=== PATIENT | female | born 1945 | race Caucasian/White ===

== ENCOUNTER 2016-07-17 15:50 | Inpatient (IN) ==
--- NOTE | 2016-07-17 16:22 | Emergency Department Note ---
Disposition Clinical Impression: Acute exacerbation of congestive heart failure Qualifiers: Congestive heart failure type: unspecified congestive heart failure type Qualified Code(s): I50.9 - Heart failure, unspecified Disposition: Admitted As Inpatient Condition: Good SOB HPI - General Chief Complaint: ED Shortness of Breath/Dyspnea Stated Complaint: chf Time Seen by Provider: 07/17/16 15:52 Source: patient, EMS Mode of arrival: EMS Limitations: physical limitation Nursing Notes Reviewed: Yes Vital Signs Reviewed: Yes - History of Present Illness 70-year-old female presents to the ER with a chief complaint of cough and shortness of breath since Saturday. Pt Subjective Complaint: shortness of breath Onset (ago): day(s) Context: recent illness, medication noncompliance Severity: severe Consistency/Duration: gradually worsening Improves with: rest Worsens with: lying flat, exertion Known history of: congestive heart failure, diabetes Associated symptoms: Reports: cough, sputum production, orthopnea. Denies: chest pain, fever, palpitations, diaphoresis, nausea/vomiting Treatment prior to arrival: oxygen Cough present: Yes Cough Description: Involuntary Cough Frequency: Intermittent Sputum production: No Sputum Amount: None - Related Data Home oxygen amount: none Home Medications Medication Instructions Recorded Confirmed Diclofenac Sodium [Voltaren] 75 mg PO BID 07/17/16 07/17/16 Furosemide [Lasix] 40 mg PO QAM 07/17/16 07/17/16 Insulin LISPRO [HumaLOG] 0 unit SQ ACHS PRN 07/17/16 07/17/16 Insulin Lispro Protamin/Lispro 40 unit SQ BID 07/17/16 07/17/16 [Humalog Mix 75-25 Vial] LORazepam [Ativan] 1 mg PO TID PRN 07/17/16 07/17/16 Ramipril [Ramipril] 10 mg PO BID 07/17/16 07/17/16 Allergies Allergy/AdvReac Type Severity Reaction Status Date / Time No Known Allergies Allergy Verified 07/17/16 14:49 All systems ED: reviewed and negative except as stated. Constitutional: Denies: fever Cardiovascular: Reports: dyspnea on exertion, orthopnea. Denies: chest pain Respiratory: Reports: cough, dyspnea Gastrointestinal: Denies: abdominal pain, nausea, vomiting Past Medical History - Past Medical History Attestation: Yes The following information was validated with the patient. 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 - Social History Smoking Status: Never smoker Smokeless Tobacco Status: No Alcohol use: Reports: none Drug use: Reports: none Physical Exam - General Limitations: no limitations General appearance: alert, anxious - Head Head exam: atraumatic, normocephalic, normal inspection - Eye Eye exam: Present: normal appearance - ENT ENT exam: normal exam - Neck Neck exam: Present: normal inspection - Chest Chest inspection: Present: normal inspection, symmetric chest wall rise - Respiratory Respiratory exam: Present: other (Diminished breath sounds bilaterally with bibasilar crackles.) - Cardiovascular Cardiovascular exam: Present: regular rate, normal rhythm, normal heart sounds - Abdominal Exam Abdominal exam: Present: soft, Non-Tender. Absent: rigidity - Extremities Exam Extremities exam: Present: normal inspection - Expanded Lower Extremity Exam Hip/Pelvis exam: Present: normal inspection Upper leg exam: Present: normal inspection Knee exam: Present: normal inspection Lower leg exam: Present: normal inspection, swelling (2+ pitting edema bilaterally in the lower extremities.) Ankle exam: Present: normal inspection, swelling (2+ pitting edema bilaterally in the lower extremities.) Foot/toe exam: Present: normal inspection, swelling (2+ pitting edema bilaterally in the lower extremities.) - Neurological Exam Neurological exam: Present: alert - Psychiatric Psychiatric exam: Present: normal affect, normal mood - Skin Skin exam: Present: warm, dry, intact Course Course Narrative: 70-year-old female history of CHF, diabetes, hypertension who presents to the ER via EMS with a chief complaint of shortness of breath. Patient reports that on Saturday she started developing a cough. Reports on Saturday she started getting short of breath. She reports she takes Lasix at home but does not know the dose. She has also missed the last 2 days of her Lasix because she states she was unable to walk across her house to retrieve the medication. She denies chest pain but does have shortness of breath worse with exertion or laying flat. She denies fevers, chills, nausea, vomiting, abdominal pain. Denies any other complaints. Plan for this patient is EKG, chest x-ray as well as basic labs including troponin and BNP. Likely congestive heart failure exacerbation. We will treat with Lasix 40 mg IV. Vital Signs Temperature 98.7 F 07/17/16 15:52 Pulse Rate 98 07/17/16 15:52 Respiratory Rate 20 07/17/16 15:52 Blood Pressure 141/94 07/17/16 15:52 O2 Sat by Pulse Oximetry 97 07/17/16 15:52 Temperature 98.7 F 07/17/16 15:52 Pulse Rate 93 07/17/16 17:20 Respiratory Rate 20 07/17/16 20:24 Blood Pressure 130/89 07/17/16 20:24 O2 Sat by Pulse Oximetry 98 07/17/16 17:20 Oxygen Delivery Oxygen Delivery Nasal Cannula Shortness of Breath/Dyspnea - MDM Narrative Medical decision making narrative: 70-year-old female with a history of CHF and presented to the hospital via EMS due to shortness of breath. Reports a roughly 15 pound weight gain in the last month. Also reports noncompliance with her Lasix at home for the last 2 days. She is currently on supplemental oxygen by nasal cannula satting well. BNP is slightly elevated however her chest x-ray shows cardiomegaly and pulmonary vascular congestion and she has crackles on exam. She was given 40 mg of Lasix in the emergency department and admitted to the hospital for acute exacerbation of CHF. - Lab Data Lab results reviewed: Yes I reviewed the patient's lab results. Result diagrams: 07/17/16 16:23 07/17/16 16:23 Lab Results 07/17/16 07/17/16 07/17/16 Range/Units 16:23 16:23 16:23 WBC 7.4 (4.3-11.1) K/mcL RBC 4.69 (3.82-4.97) M/mcL Hgb 12.6 (11.5-15.4) g/dL Hct 41.1 (35.3-44.9) % MCV 87.6 (83.0-100.0) fL MCH 26.9 L (28.0-33.3) pg MCHC 30.7 L (31.6-35.5) g/dL RDW 16.9 H (11.5-14.5) % Plt Count 247 (140-400) K/mcL MPV 9.6 (9.4-12.4) fL Immature Gran % 0.3 (0-4) % Seg Neutrophils % 33.6 % Lymphocytes % 51.6 % Monocytes % 11.4 % Eosinophils % 2.2 % Basophils % 0.9 % Neutrophils # 2.5 (1.6-8.9) K/mcL Lymphocytes # 3.8 (0.6-4.6) K/mcL Monocytes # 0.9 (0.0-1.3) K/mcL Eosinophils # 0.2 (0.0-0.6) K/mcL Basophils # 0.1 (0.0-0.2) K/mcL Sodium 142 (136-145) mEq/L Potassium 3.7 (3.5-4.5) mEq/L Chloride 108 (98-109) mEq/L Carbon Dioxide 25 (19-29) mEq/L BUN 24 H (7-20) mg/dL Creatinine 0.63 (0.57-1.11) mg/dL Est GFR ( Amer) > 60 (> 60) Est GFR (Non-Af Amer) > 60 (> 60) BUN/Creatinine Ratio 38 H (6-26) Glucose 84 (70-99) mg/dL Calculated Osmolality 297 (280-300) Calcium 8.9 (8.6-10.8) mg/dL Troponin I 0.01 (0-0.03) ng/mL B-Natriuretic Peptide (0-100) pg/mL 07/17/16 Range/Units 16:23 WBC (4.3-11.1) K/mcL RBC (3.82-4.97) M/mcL Hgb (11.5-15.4) g/dL Hct (35.3-44.9) % MCV (83.0-100.0) fL MCH (28.0-33.3) pg MCHC (31.6-35.5) g/dL RDW (11.5-14.5) % Plt Count (140-400) K/mcL MPV (9.4-12.4) fL Immature Gran % (0-4) % Seg Neutrophils % % Lymphocytes % % Monocytes % % Eosinophils % % Basophils % % Neutrophils # (1.6-8.9) K/mcL Lymphocytes # (0.6-4.6) K/mcL Monocytes # (0.0-1.3) K/mcL Eosinophils # (0.0-0.6) K/mcL Basophils # (0.0-0.2) K/mcL Sodium (136-145) mEq/L Potassium (3.5-4.5) mEq/L Chloride (98-109) mEq/L Carbon Dioxide (19-29) mEq/L BUN (7-20) mg/dL Creatinine (0.57-1.11) mg/dL Est GFR ( Amer) (> 60) Est GFR (Non-Af Amer) (> 60) BUN/Creatinine Ratio (6-26) Glucose (70-99) mg/dL Calculated Osmolality (280-300) Calcium (8.6-10.8) mg/dL Troponin I (0-0.03) ng/mL B-Natriuretic Peptide 115 H (0-100) pg/mL - Radiology Data Radiology results reviewed: Yes I reviewed the patient's radiology results. Chest X-Ray 07/17/16 16:00 IMPRESSION: 1. Cardiomegaly with vascular congestion. D/ / Bryce Reyna MD / Bryce Reyna MD Interpreting Provider: Bryce Reyna MD - EKG Data EKG attestation: Yes I reviewed and interpreted this EKG. EKG results narrative: EKG shows normal sinus rhythm with rate of 93 bpm. Normal axis. KS interval 192 QRS duration 94 QTc 431. There is T-wave flattening in leads V1 and V6. No ST elevations or depressions. No acute ischemic findings. EKG shows normal: Reports: sinus rhythm, axis, intervals, QRS complexes Rate: Reports: normal Rhythm: Reports: NSR Dwight/QRS: Reports: normal Interpretation: Reports: normal EKG, nonspecific ST-T wave changes S.B.A.R. - S.B.A.R. Situation: Demographics, MOA Background: Presenting Complaint, Relevant PMH, Meds, & Allergies Assessment: Vital Signs, Course and respsone to treatment, Exam Concerns, Patient/Family Expectation, Pertinant Lab Results, Outstanding Labs Recommendation: Barrier(s) to disposition, Recommendation based on pending studies, treatments, or consults S.B.A.R. Report Given to: Dr. Clayton
[2016-07-17] MEDS ORDERED: Furosemide 40 MG/4 ML VIAL IVP ONE (16:24)
[2016-07-17 16:34] LABS: Basophils # 0.1 K/mcL (0.0-0.2); Basophils % 0.9 %; Eosinophils # 0.2 K/mcL (0.0-0.6); Eosinophils % 2.2 %; Hematocrit 41.1 % (35.3-44.9); Hemoglobin 12.6 g/dL (11.5-15.4); Immature Granulocytes % 0.3 % (0-4); Lymphocytes # 3.8 K/mcL (0.6-4.6); Lymphocytes % 51.6 %; Mean Corpuscular HGB Conc 30.7 g/dL (31.6-35.5); Mean Corpuscular Hemoglobin 26.9 pg (28.0-33.3); Mean Corpuscular Volume 87.6 fL (83.0-100.0); Mean Platelet Volume 9.6 fL (9.4-12.4); Monocytes # 0.9 K/mcL (0.0-1.3); Monocytes % 11.4 %; Neutrophils # 2.5 K/mcL (1.6-8.9); Platelet Count 247 K/mcL (140-400); Red Blood Count 4.69 M/mcL (3.82-4.97); Red Cell Distribution Width 16.9 % (11.5-14.5); Segmented Neutrophils % 33.6 %
[2016-07-17 16:45] LABS: BUN/Creatinine Ratio 38 (6-26); Blood Urea Nitrogen 24 mg/dL (7-20); Calcium 8.9 mg/dL (8.6-10.8); Carbon Dioxide 25 mEq/L (19-29); Chloride 108 mEq/L (98-109); Glucose 84 mg/dL (70-99); Osmolality,Calculated 297 (280-300); Potassium 3.7 mEq/L (3.5-4.5); Sodium 142 mEq/L (136-145); eGFR For African Americans > 60 (> 60); eGFR For Non-African Americans > 60 (> 60)
--- NOTE | 2016-07-17 17:55 | Emergency Department Note ---
Disposition Clinical Impression: Acute exacerbation of congestive heart failure Qualifiers: Congestive heart failure type: unspecified congestive heart failure type Qualified Code(s): I50.9 - Heart failure, unspecified Disposition: Admitted As Inpatient Condition: Good Referrals: Will Reece MD [Primary Care Provider] - Forms: ED Satisfaction Letter General Adult HPI - General Chief complaint: ED Shortness of Breath/Dyspnea Stated complaint: chf Time Seen by Provider: 07/17/16 15:52 Source: patient, EMS Mode of arrival: EMS Limitations: no limitations - History of Present Illness Pain Scale: 2 - Related Data Home Medications Medication Instructions Recorded Confirmed Diclofenac Sodium [Voltaren] 75 mg PO BID 07/17/16 07/17/16 Furosemide [Lasix] 40 mg PO QAM 07/17/16 07/17/16 Insulin LISPRO [HumaLOG] 0 unit SQ ACHS PRN 07/17/16 07/17/16 Insulin Lispro Protamin/Lispro 40 unit SQ BID 07/17/16 07/17/16 [Humalog Mix 75-25 Vial] LORazepam [Ativan] 1 mg PO TID PRN 07/17/16 07/17/16 Ramipril [Ramipril] 10 mg PO BID 07/17/16 07/17/16 Allergies Allergy/AdvReac Type Severity Reaction Status Date / Time No Known Allergies Allergy Verified 07/17/16 14:49 Constitutional: Denies: fever Cardiovascular: Reports: dyspnea on exertion, orthopnea. 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 Mc. Patient presents with shortness of breath, orthopnea, weight gain, pedal edema. On physical exam she has rales in the lungs and definitely has the pedal edema. Chest x-ray shows pulmonary vascular congestion. I think this is all congestive heart failure. It is significant enough that is limiting her activities of daily living. She does not need to be admitted to the hospital. We gave her Lasix here she started to diurese very well. We will talk to hospice on getting her admitted to the hospital. Time: 17:55 Vital Signs Temperature 98.7 F 07/17/16 15:52 Pulse Rate 98 07/17/16 15:52 Respiratory Rate 20 07/17/16 15:52 Blood Pressure 141/94 07/17/16 15:52 O2 Sat by Pulse Oximetry 97 07/17/16 15:52 Temperature 98.7 F 07/17/16 15:52 Pulse Rate 93 07/17/16 17:20 Respiratory Rate 20 07/17/16 17:20 Blood Pressure 135/90 07/17/16 17:20 O2 Sat by Pulse Oximetry 98 07/17/16 17:20 Oxygen Delivery Oxygen Delivery Nasal Cannula Medical Decision Making - Lab Data Result diagrams: 07/17/16 16:23 07/17/16 16:23 Lab Results 07/17/16 07/17/16 07/17/16 Range/Units 16:23 16:23 16:23 WBC 7.4 (4.3-11.1) K/mcL RBC 4.69 (3.82-4.97) M/mcL Hgb 12.6 (11.5-15.4) g/dL Hct 41.1 (35.3-44.9) % MCV 87.6 (83.0-100.0) fL MCH 26.9 L (28.0-33.3) pg MCHC 30.7 L (31.6-35.5) g/dL RDW 16.9 H (11.5-14.5) % Plt Count 247 (140-400) K/mcL MPV 9.6 (9.4-12.4) fL Immature Gran % 0.3 (0-4) % Seg Neutrophils % 33.6 % Lymphocytes % 51.6 % Monocytes % 11.4 % Eosinophils % 2.2 % Basophils % 0.9 % Neutrophils # 2.5 (1.6-8.9) K/mcL Lymphocytes # 3.8 (0.6-4.6) K/mcL Monocytes # 0.9 (0.0-1.3) K/mcL Eosinophils # 0.2 (0.0-0.6) K/mcL Basophils # 0.1 (0.0-0.2) K/mcL Sodium 142 (136-145) mEq/L Potassium 3.7 (3.5-4.5) mEq/L Chloride 108 (98-109) mEq/L Carbon Dioxide 25 (19-29) mEq/L BUN 24 H (7-20) mg/dL Creatinine 0.63 (0.57-1.11) mg/dL Est GFR ( Amer) > 60 (> 60) Est GFR (Non-Af Amer) > 60 (> 60) BUN/Creatinine Ratio 38 H (6-26) Glucose 84 (70-99) mg/dL Calculated Osmolality 297 (280-300) Calcium 8.9 (8.6-10.8) mg/dL Troponin I 0.01 (0-0.03) ng/mL B-Natriuretic Peptide (0-100) pg/mL 07/17/16 Range/Units 16:23 WBC (4.3-11.1) K/mcL RBC (3.82-4.97) M/mcL Hgb (11.5-15.4) g/dL Hct (35.3-44.9) % MCV (83.0-100.0) fL MCH (28.0-33.3) pg MCHC (31.6-35.5) g/dL RDW (11.5-14.5) % Plt Count (140-400) K/mcL MPV (9.4-12.4) fL Immature Gran % (0-4) % Seg Neutrophils % % Lymphocytes % % Monocytes % % Eosinophils % % Basophils % % Neutrophils # (1.6-8.9) K/mcL Lymphocytes # (0.6-4.6) K/mcL Monocytes # (0.0-1.3) K/mcL Eosinophils # (0.0-0.6) K/mcL Basophils # (0.0-0.2) K/mcL Sodium (136-145) mEq/L Potassium (3.5-4.5) mEq/L Chloride (98-109) mEq/L Carbon Dioxide (19-29) mEq/L BUN (7-20) mg/dL Creatinine (0.57-1.11) mg/dL Est GFR ( Amer) (> 60) Est GFR (Non-Af Amer) (> 60) BUN/Creatinine Ratio (6-26) Glucose (70-99) mg/dL Calculated Osmolality (280-300) Calcium (8.6-10.8) mg/dL Troponin I (0-0.03) ng/mL B-Natriuretic Peptide 115 H (0-100) pg/mL Attestation Statement - Attestation Attestation: I , not Uli, examined this patient [id number] and my medical decision- making was reviewed with Dr. Mc, Resident Physician. I agree with the documented findings, disposition and treatment plan as described except to the extent set forth below. Please see my progress notes for details.
--- NOTE | 2016-07-17 20:26 | Internal Med History&Physical ---
<ShawnGunnar - Last Filed: 07/17/16 20:50> Date of Encounter: 07/17/16 Time of Encounter: 20:19 Assessment and Plan (1) Acute exacerbation of congestive heart failure Current visit: Yes Status: Acute Unknown if systolic or diastolic at this point, will confirm with echocardiogram She has missed 2 doses of her oral Lasix, will start on 40 mg IV daily Measure intake and output, daily weights, and fluid restrict with 1.5 L Will consult PT/OT/SS as she may benefit from home health/rehab upon discharge Qualifiers: Congestive heart failure type: unspecified congestive heart failure type Qualified Code(s): I50.9 - Heart failure, unspecified (2) Insulin dependent diabetes mellitus Current visit: Yes Status: Chronic Glucose 84 initially, will start on low dose SSI ACHS accuchecks Obtain A1c for AM (3) Hypertension Current visit: Yes Status: Chronic Blood pressures have been stable since admission Will continue home dose of Ramipril Qualifiers: Qualified Code(s): I10 - Essential (primary) hypertension (4) DVT prophylaxis Current visit: Yes Status: Acute Heparin 5000 units BID Internal Medicine - H&P: HPI Chief complaint: Shortness of breath Admitted From: Home Plans for Post Hospital Care: Home History of present illness: Ms. Smith is a 70 year old female who presents to the emergency department with progressive shortness of breath since Saturday. She states that she first noticed a cough on Saturday and experienced shortness of breath the following day. She states the cough is productive but unable to describe the sputum description or amount, and states that she gets pain with coughing. She has been so out of breath that she has been unable to walk from her bedroom to the bathroom to get her medications, and admits to missing her last 2 doses of Lasix. She also reports a 15 pound weight gain in roughly 2 weeks and measured her temperature which was 99 degrees Fahrenheit. Patient denies any lightheadedness, nausea, vomiting, problems urinating. She is unsure of her last echocardiogram, and is not on any home oxygen. She lives with her and has the assistance of an aid at home, but admits to having difficulty getting around at baseline. Past Med Surg Social Fam HX - Past Medical History Medical history: cancer, CHF, diabetes, hypertension, other - Past Surgical History Surgical History: non-contributory - Social History Smoking Status: Never smoker Smokeless Tobacco Status: No Alcohol use: none Drug use: none Internal Medicine - H&P: Meds Diclofenac Sodium [Voltaren] 75 mg PO BID 07/17/16 [History] Furosemide [Lasix] 40 mg PO QAM 07/17/16 [History] Insulin LISPRO [HumaLOG] 0 unit SQ ACHS PRN 07/17/16 [History] Insulin Lispro Protamin/Lispro [Humalog Mix 75-25 Vial] 40 unit SQ BID 07/17/16 [History] LORazepam [Ativan] 1 mg PO TID PRN 07/17/16 [History] Ramipril [Ramipril] 10 mg PO BID 07/17/16 [History] Allergies No Known Allergies Allergy (Verified 07/17/16 14:49) All Systems PM: A 10-system review of systems was performed and is negative for pertinent findings except as documented above in the HPI. - Constitutional Constitutional: fever(s) (low grade), weakness, weight gain, no chills, no night sweats - EENT Eyes: no change in vision, no discharge, no pain, no photophobia Ears: no ear discharge, no ear pain, no tinnitus Nose, mouth and throat: no dysphagia, no nasal discharge, no neck pain, no sore throat - Cardiovascular Cardiovascular ROS IM: no chest pain, no diaphoresis, no dyspnea, no lightheadedness, no palpitations, no syncope - Respiratory Respiratory: cough, dyspnea, dyspnea on exertion, excessive phlegm production, pain with cough, no wheezing - Gastrointestinal Gastrointestinal: constipation, no abdominal pain, no diarrhea, no hematemesis, no hematochezia, no melena, no nausea, no vomiting - Genitourinary Genitourinary: no change in urinary stream, no dysuria, no flank pain, no hematuria - Musculoskeletal Musculoskeletal ROS IM: no numbness, no tingling - Integumentary Integumentary IM: no rash, no unusual bruising - Neurological Neurological ROS: no confusion, no convulsions, no focal weakness, no numbness, no tingling, no tremor(s) - Hematologic/Lymphatic Hematologic/Lymphatic: no easy bruising - Constitutional Vitals: Temp Pulse Resp BP Pulse Ox 98.7 F 93 20 135/90 98 07/17/16 15:52 07/17/16 17:20 07/17/16 17:20 07/17/16 17:20 07/17/16 17:20 General appearance: Present: cooperative, pleasant, no acute distress, answers questions appropriately - Head Head exam: Present: atraumatic, normocephalic - Eye Eye exam: Present: PERRL, conjuntiva pink, sclera anicteric - Neck Neck exam general surgery: Present: supple, trachea midline. Absent: lymphadenopathy - Respiratory Respiratory exam: Present: rales. Absent: accessory muscle use, rhonchi, wheezes - Cardiovascular Cardiovascular exam: Present: RRR, +S1, +S2. Absent: diastolic murmur, gallop, rubs, systolic murmur - GI/Abdominal GI/Abdominal exam: Present: normal bowel sounds, soft, no peritoneal signs. Absent: distended, tenderness - Extremities Exam Extremities exam: Present: pedal edema (2+ pitting, legs and left arm have compression wraps), warm, radial pulses palpable and symetrical. Absent: calf tenderness, cyanotic - Neurological Exam Neurological exam: Present: alert, no focal deficits. Absent: facial droop, speech deficit - Skin Skin exam: Present: dry, intact Internal Med - H&P Results - Labs CBC & Chem 7: 07/17/16 16:23 07/17/16 16:23 <Jeramy Clayton - Last Filed: 07/18/16 04:01> Date of Encounter: 07/17/16 Assessment and Plan (1) COPD exacerbation Current visit: Yes Status: Acute Possible acute exhibition of COPD: Treat with Duonebs, Solu-Medrol, mucinex (2) Acute respiratory failure Current visit: Yes Status: Acute Likely secondary to COPD versus CHF exacerbation. Supplemental oxygen. Qualifiers: Respiratory failure complication: hypoxia Qualified Code(s): J96.01 - Acute respiratory failure with hypoxia Internal Medicine - H&P: HPI History of present illness: Ms. Smith is a 70 year old female All Systems PM: A 10-system review of systems was performed and is negative for pertinent findings except as documented above in the HPI. - Constitutional Vitals: Temp Pulse Resp BP Pulse Ox 99.6 F 115 24 195/100 96 07/17/16 23:00 07/17/16 23:00 07/17/16 23:00 07/17/16 23:00 07/17/16 23:00 Internal Med - H&P Results - Labs CBC & Chem 7: 07/17/16 16:23 07/17/16 16:23 - Attending Attestation I examined this patient and my medical decision-making was reviewed with the GROUP INSURANCE SPECIAL AGENT/PA/Advanced Practice Nurse/Resident Physician. I agree with the documented findings, disposition and treatment plan as described except to the extent set forth below. 70-year-old female, ex-smoker and also exposure to passive smoking, presents with progressively worsening shortness of breath. Long h/o sleeping in the couch. Cough +. O/E: Tachypneic. Bilateral extensive wheezing present. Chronic leg swelling with dressings in place. CXR: Reported cardiomegaly with vascular congestion. BNP is 115 A/P: - Possible acute exhibition of COPD: Treat with Duonebs, Solu-Medrol, mucinex. - Possible pulmonary edema / CHF exacerbation: Echocardiogram, IV Lasix, low sodium diet; intake / output; daily weights. - - Acute respiratory failure: Likely secondary to COPD versus CHF exacerbation. Supplemental oxygen.
[2016-07-17] MEDS ORDERED: Ondansetron ODT 4 MG TAB.RAPDIS SL PRN (20:43)
[2016-07-17] MEDS ORDERED: *HR* Dextrose 50 % in Water (Syg) 50 ML SYRINGE IVP PRN (20:43)
[2016-07-17] MEDS ORDERED: D5% in Water 1,000 ML IV PRN (20:43)
[2016-07-17] MEDS ORDERED: Naloxone 0.4 MG/ML INJ IVP PRN (20:43)
[2016-07-17] MEDS ORDERED: Acetaminophen 325 MG TABLET PO PRN (20:43)
[2016-07-17] MEDS ORDERED: Dextrose Gel 15 GM PO PRN ×2 (20:43)
[2016-07-17] MEDS ORDERED: *HR* LORazepam 1 MG TABLET PO PRN (20:49)
[2016-07-17] MEDS ORDERED: Ipratropium/Albuterol Neb 3 ML IH STA (22:05)
[2016-07-17] MEDS ORDERED: Ipratropium/Albuterol Neb 3 ML IH PRN (22:13)
[2016-07-17] MEDS: Nitroglycerin 25 MG/250 ML INFUS..BTL IVC SCH (23:02)
[2016-07-17] MEDS: Diclofenac Sodium 75 MG TABLET PO SCH (23:03)
[2016-07-17] MEDS: Insulin LISPRO 300 UNITS/3 ML VIAL SQ SCH (23:08)
[2016-07-18] MEDS ORDERED: methylPREDNISolone 125 MG/2 ML VIAL IVP ONE (03:49)
[2016-07-18] MEDS: *HR* Heparin 5,000 UNIT/ML VIAL SQ SCH ×2 (06:23→17:31)
[2016-07-18 06:26] LABS: Eosinophils # 0.1 K/mcL (0.0-0.6); Hematocrit 41.9 % (35.3-44.9); Hemoglobin 13.1 g/dL (11.5-15.4); Immature Platelets 3.4 % (1.1-6.1); Mean Corpuscular HGB Conc 31.3 g/dL (31.6-35.5); Mean Corpuscular Hemoglobin 27.2 pg (28.0-33.3); Mean Corpuscular Volume 86.9 fL (83.0-100.0); Mean Platelet Volume 10.6 fL (9.4-12.4); Monocytes # 0.7 K/mcL (0.0-1.3); Platelet Count 254 K/mcL (140-400); Red Blood Count 4.82 M/mcL (3.82-4.97); Red Cell Distribution Width 16.6 % (11.5-14.5)
[2016-07-18 06:38] LABS: Hemoglobin A1C 5.7 %
[2016-07-18 06:46] LABS: Alanine Aminotransferase 13 Units/L (0-55); Albumin/Globulin Ratio 0.7 (1.1-2.2); Alkaline Phosphatase 90 Units/L (38-126); Aspartate Amino Transferase 21 Units/L (5-34); BUN/Creatinine Ratio 34 (6-26); Bilirubin,Total 0.7 mg/dL (0.2-1.2); Blood Urea Nitrogen 21 mg/dL (7-20); Calcium 8.6 mg/dL (8.6-10.8); Carbon Dioxide 27 mEq/L (19-29); Chloride 104 mEq/L (98-109); Globulin 4.4 g/dL (2.4-3.5); Glucose 114 mg/dL (70-99); Osmolality,Calculated 294 (280-300); Potassium 3.7 mEq/L (3.5-4.5); Sodium 140 mEq/L (136-145); Total Protein 7.4 g/dL (6.0-8.3); eGFR For African Americans > 60 (> 60); eGFR For Non-African Americans > 60 (> 60)
[2016-07-18 07:26] LABS: Lymphocytes # 2.8 K/mcL (0.6-4.6)
[2016-07-18 07:28] LABS: Platelet Estimate Normal (Normal); Reactive Lymphocytes Present (Not Present); Smudge Cells Present (Not Present)
[2016-07-18] MEDS: Furosemide 40 MG/4 ML VIAL IVP SCH (09:53)
[2016-07-18] MEDS: Lisinopril 20 MG TABLET PO SCH (09:53)
[2016-07-18] MEDS: Diclofenac Sodium 75 MG TABLET PO SCH ×2 (09:53→20:55)
[2016-07-18] MEDS: MethylPREDNISolone 40 MG/ML VIAL IVP SCH ×2 (09:56→17:31)
[2016-07-18] MEDS: Insulin LISPRO 300 UNITS/3 ML VIAL SQ SCH ×4 (10:21→21:18)
--- NOTE | 2016-07-18 11:36 | Internal Med Progress Note ---
<Shaheed Gonzalez - Last Filed: 07/18/16 11:34> Date of Encounter: 07/18/16 Time of Encounter: 10:00 - Assessment and plan (1) Acute exacerbation of congestive heart failure Current Visit: Yes Status: Acute Assessment and plan: CXR showed cardiomegaly with vascular congestion. EV echo pending. patient has missed doses of her oral home lasix because she did not want to keep getting up to use the bathroom. patient was educated on importance of compliance with lasix. strict I/O daily weights 1.5 L fluid restriction. PT/OT Lasix 40mg BID methylprednisolone 40mg BID Qualifiers: Congestive heart failure type: unspecified congestive heart failure type Qualified Code(s): I50.9 - Heart failure, unspecified (2) Hypertension Current Visit: Yes Status: Chronic Assessment and plan: continue home lisinopril. Qualifiers: Qualified Code(s): I10 - Essential (primary) hypertension (3) Insulin dependent diabetes mellitus Current Visit: Yes Status: Chronic Assessment and plan: low dose sliding scale insulin with ACHS accuchecks. ADA diet with fluid restriction. A1C is 5.7 (4) DVT prophylaxis Current Visit: Yes Status: Acute Assessment and plan: Heparin SQ - Subjective Interval history: 70 year old female evaluated at bedside. patient denies nausea, vomiting, diarrhea, dizziness. she does report having a cough and shortness of breath. - Constitutional Vitals: Temp Pulse Resp BP Pulse Ox 98.4 F 86 20 183/98 94 L 07/18/16 08:23 07/18/16 08:23 07/18/16 08:23 07/18/16 08:23 07/18/16 08:23 General appearance: Present: cooperative, pleasant, no acute distress, answers questions appropriately - Head Head exam: Present: atraumatic, normocephalic - Eye Additional comments: strabismus - Respiratory Respiratory exam: Present: decreased breath sounds, rales - Cardiovascular Cardiovascular exam: Present: RRR, +S1, +S2 - GI/Abdominal GI/Abdominal exam: Present: normal bowel sounds. Absent: guarding, tenderness Additional comments: scar present on abdomen from previous pancreatic surgery. - Extremities Exam Extremities exam: Present: pedal edema. Absent: cyanotic Additional comments: she has compression devices on left upper exremities and bilateral lower extremities. Extremeties are very swollen. +2 bilateral lower extremity edema. - Neurological Exam Neurological exam: Present: alert, oriented X3 - Psychiatric Psychiatric exam: Present: depressed Internal Medicine: Result - Labs CBC & Chem 7: 07/18/16 05:24 07/18/16 05:24 Labs: Short CBC 07/18/16 Range/Units 05:24 WBC 5.5 (4.3-11.1) K/mcL Hgb 13.1 (11.5-15.4) g/dL Hct 41.9 (35.3-44.9) % Plt Count 254 (140-400) K/mcL Neutrophils # 2.0 (1.6-8.9) K/mcL BMP 07/18/16 05:24 Sodium 140 Potassium 3.7 Chloride 104 Carbon Dioxide 27 BUN 21 H Creatinine 0.62 Glucose 114 H Calcium 8.6 Liver Function 07/18/16 Range/Units 05:24 Total Bilirubin 0.7 (0.2-1.2) mg/dL AST 21 (5-34) Units/L ALT 13 (0-55) Units/L Alkaline Phosphatase 90 (38-126) Units/L Albumin 3.0 L (3.5-5.0) g/dL - VTE Documentation of Mechanical Device: Graduated compression elastic hosiery Consult Discharge Plan - Plan Referrals: Will Reece MD [Primary Care Provider] - <Otf Samaniego - Last Filed: 07/18/16 18:17> Date of Encounter: 07/18/16 - Assessment and plan (1) Acute respiratory failure Current Visit: Yes Status: Acute Qualifiers: Respiratory failure complication: hypoxia Qualified Code(s): J96.01 - Acute respiratory failure with hypoxia (2) Acute exacerbation of congestive heart failure Current Visit: Yes Status: Suspected Qualifiers: Congestive heart failure type: diastolic Qualified Code(s): I50.33 - Acute on chronic diastolic (congestive) heart failure (3) Hypertension Current Visit: Yes Status: Chronic Qualifiers: Hypertension type: essential hypertension Qualified Code(s): I10 - Essential (primary) hypertension (4) Insulin dependent diabetes mellitus Current Visit: Yes Status: Chronic (5) Morbid obesity with BMI of 60.0-69.9, adult Current Visit: Yes Status: Chronic - Constitutional Vitals: Temp Pulse Resp BP Pulse Ox 98.2 F 82 20 174/74 94 L 07/18/16 15:28 07/18/16 15:28 07/18/16 15:28 07/18/16 15:28 07/18/16 15:28 Internal Medicine: Result - Labs CBC & Chem 7: 07/18/16 05:24 07/18/16 05:24 Labs: Short CBC 07/18/16 Range/Units 05:24 WBC 5.5 (4.3-11.1) K/mcL Hgb 13.1 (11.5-15.4) g/dL Hct 41.9 (35.3-44.9) % Plt Count 254 (140-400) K/mcL Neutrophils # 2.0 (1.6-8.9) K/mcL BMP 07/18/16 05:24 Sodium 140 Potassium 3.7 Chloride 104 Carbon Dioxide 27 BUN 21 H Creatinine 0.62 Glucose 114 H Calcium 8.6 Liver Function 07/18/16 Range/Units 05:24 Total Bilirubin 0.7 (0.2-1.2) mg/dL AST 21 (5-34) Units/L ALT 13 (0-55) Units/L Alkaline Phosphatase 90 (38-126) Units/L Albumin 3.0 L (3.5-5.0) g/dL - Attending Attestation I examined this patient and my medical decision-making was reviewed with the Resident Physician on 07/18/16. I agree with the documented findings, disposition and treatment plan as described except to the extent set forth below. Ms. Smith is currently admitted for acute exac diastolic heart failure. She remains moderate to high risk due to potential for worsening respiratory and cardiac status. Ms. Smtih is beginning to feel better with diuresis. She is having less difficulty breathing. No CP. Still dyspneic with movement. No GI symptoms. Exam Alert. Comfortable at rest. Heart reg Lungs with crackles bilaterally Edema present I/P 1. Acute exac CHF 2. HTN 3. Obesity Further diagnoses and plan as above.
--- NOTE | 2016-07-18 11:56 | Electrocardiograph Report ---
[address] [place], [place] [address] Test Date: 2016-07-17 Pat Name: Ghazala Smith Department: 103 Room: [facility] Gender: F [employer] Supervisor: : 1945 Requested By: Tyler Mc Order Number: [id number] Reading MD: Keith Stinson MD Measurements Intervals [place] Rate: 93 P: 53 [place]: 192 QRS: 3 QRSD: 94 T: 80 QT: 380 QTc: 431 Interpretive Statements SINUS RHYTHM BASELINE ARTIFACT Electronically Signed On 07-18-2016 11:54:31 EST by Keith Stinson MD
[2016-07-18] MEDS: Nitroglycerin 25 MG/250 ML INFUS..BTL IVC SCH (23:15)
[2016-07-19 05:31] LABS: Basophils % 0.4 %; Hemoglobin 13.3 g/dL (11.5-15.4); Immature Granulocytes % 0.4 % (0-4); Immature Platelets 2.7 % (1.1-6.1); Lymphocytes # 2.3 K/mcL (0.6-4.6); Lymphocytes % 49.6 %; Mean Corpuscular HGB Conc 31.7 g/dL (31.6-35.5); Mean Corpuscular Hemoglobin 27.3 pg (28.0-33.3); Mean Corpuscular Volume 86.1 fL (83.0-100.0); Mean Platelet Volume 10.4 fL (9.4-12.4); Monocytes # 0.5 K/mcL (0.0-1.3); Monocytes % 11.2 %; Neutrophils # 1.8 K/mcL (1.6-8.9); Platelet Count 269 K/mcL (140-400); Red Blood Count 4.88 M/mcL (3.82-4.97); Red Cell Distribution Width 16.5 % (11.5-14.5); Segmented Neutrophils % 38.4 %
[2016-07-19 06:17] LABS: BUN/Creatinine Ratio 49 (6-26); Calcium 9.1 mg/dL (8.6-10.8); Carbon Dioxide 24 mEq/L (19-29); Chloride 104 mEq/L (98-109); Glucose 219 mg/dL (70-99); Osmolality,Calculated 304 (280-300); Potassium 4.2 mEq/L (3.5-4.5); Sodium 140 mEq/L (136-145); eGFR For African Americans > 60 (> 60); eGFR For Non-African Americans > 60 (> 60)
[2016-07-19] MEDS: *HR* Heparin 5,000 UNIT/ML VIAL SQ SCH ×2 (06:25→18:14)
[2016-07-19] MEDS: MethylPREDNISolone 40 MG/ML VIAL IVP SCH (06:25)
[2016-07-19 06:38] LABS: Blood Urea Nitrogen 34 mg/dL (7-20)
[2016-07-19 06:53] LABS: Ionized Calcium 1.17 mmol/L (1.15-1.35)
[2016-07-19 06:56] LABS: Phosphorous 3.7 mg/dL (2.3-4.7)
[2016-07-19 07:21] LABS: Platelet Estimate Normal (Normal); Reactive Lymphocytes Present (Not Present)
--- NOTE | 2016-07-19 08:32 | ECHO - Doppler Report ---
Echocardiogram Name: Ghazala Smith Date of Study: 07/18/2016 Date: 1945 Ht: 58.0 in Medical Record#: [id number] Age: 70 Wt: 309.0 lb Gender: Female BSA: 2.19 Order #: [id number] Location: [facility] Room #: [id number] Reading Physician: Wicho Ellsworth MD, [facility] Culture Manager: Caitlin Estevez RDCS Ordering Physician: Gunnar Escobar DO Primary Physician: Will Reece MD Indications: Congestive heart failure Impressions: Mildly dilated left ventricle. Normal left ventricular systolic function, LVEF 55-60%. Mild concentric left ventricular hypertrophy. Moderate left ventricular diastolic dysfunction. Normal right ventricular size and function. Moderately dilated left atrium. Moderate-severe mitral annular calcification Mild mitral stenosis. Mild-moderate pulmonary hypertension. Estimated RVSP = 45-50 mmHg. Left Ventricular Wall Motion: Rest Echo Findings All wall segments showed normal motion. Findings: Study Quality * Technically suboptimal due to clinical status (patient sitting up for exam, unable to lay in bed). ECG Findings * Normal sinus rhythm. Left Ventricle * Mildly dilated left ventricle. * Normal left ventricular systolic function, LVEF 55-60%. * Mild concentric left ventricular hypertrophy. * Moderate left ventricular diastolic dysfunction. Right Ventricle * Normal right ventricular size and function. Left Atrium * Moderately dilated left atrium. Right Atrium * Normal right atrial size. Aorta * Normally sized aortic root. Pericardium * There is no pericardial effusion present. IVC * The IVC is dilated. Aortic Valve * Trileaflet aortic valve. * Mildly sclerotic aortic valve leaflets. * No aortic stenosis. * Trace aortic regurgitation. Mitral Valve * Moderate-severe mitral annular calcification * Mild mitral stenosis. * Trace mitral regurgitation. Tricuspid Valve * Tricuspid valve not well visualized. * No tricuspid stenosis. * Trace tricuspid regurgitation. * Mild-moderate pulmonary hypertension. Estimated RVSP = 45-50 mmHg. Pulmonic Valve * Pulmonic valve not well visualized. * No pulmonic stenosis. * No pulmonic regurgitation. History Hypertension Diabetes Congestive Heart Failure Measurements: BP: 174/ 74 2D Normal Values RVIDd: 2.62 cm IVSd: 1.18 cm 0.6 - 1.0 cm LVIDd: 5.73 cm 3.7 - 5.6 cm LVPWd: 1.23 cm 0.6 - 1.1 cm LVIDs: 3.60 cm 1.5 - 3.6 cm AO: 3.30 cm < 4.0 cm LA volume: 90 Mitral Valve Peak Velocity 1.90 m/sec Peak Grad:14.00 mmHg Mean Grad:5.00 mmHg Peak E:1.23 m/sec Peak A:1.26 m/sec E/A Ratio:1 Peak E' Lat Stephen:4.23 cm/s Peak E' Med Stephen:4.35 cm/s E/E' Lat Ratio:29.1 E/E' Med Ratio:28.3 Tricuspid Valve TV Regurg Peak Grad: 35.00mmHg TV Regurg Peak Stephen: 2.94m/sec Updated by Wicho Ellsworth MD, [facility] on 07/19/2016 8:26:19 AM electronically signed on 07/19/2016 8:26:50 AM with status of Final Wall Motion Rodriguez: 1=Normal, 2=Hypokinesis, 3=Akinesis, 4=Dyskinesis, 5=Aneurysmal, 6=Hyperkinetic, X=Not Visualized (Blank)=Missing
[2016-07-19] MEDS: Diclofenac Sodium 75 MG TABLET PO SCH ×2 (09:06→22:30)
[2016-07-19] MEDS: Furosemide 40 MG/4 ML VIAL IVP SCH (09:06)
[2016-07-19] MEDS: Lisinopril 20 MG TABLET PO SCH (09:06)
[2016-07-19] MEDS: Insulin LISPRO 300 UNITS/3 ML VIAL SQ SCH ×3 (09:06→16:18)
[2016-07-19] MEDS: ceFAZolin 1,000 MG in D5% in Water (Mini-Bag+) 100 ML IVPB SCH ×2 (14:31→22:32)
[2016-07-19] MEDS ORDERED: Insulin LISPRO 300 UNITS/3 ML VIAL SQ SCH (15:33)
--- NOTE | 2016-07-19 15:33 | Internal Med Progress Note ---
<Shaheed Gonzalez - Last Filed: 07/19/16 15:30> Date of Encounter: 07/19/16 Time of Encounter: 09:00 - Assessment and plan (1) Acute exacerbation of congestive heart failure Current Visit: Yes Status: Suspected Assessment and plan: CXR showed cardiomegaly with vascular congestion. EV echo pending. patient has missed doses of her oral home lasix because she did not want to keep getting up to use the bathroom. patient was educated on importance of compliance with lasix. strict I/O daily weights 1.5 L fluid restriction. PT/OT Lasix 40mg BID methylprednisolone 40mg BID 07/19/16 discontinued methylprednisolone. continue with lasix and monitoring output. Qualifiers: Congestive heart failure type: diastolic Qualified Code(s): I50.33 - Acute on chronic diastolic (congestive) heart failure (2) Cellulitis of left lower extremity Current Visit: Yes Status: Acute Assessment and plan: patient has normal white count, but signs of infection-possibly infection of left lower extremity. started Cefazolin continue to monitor. (3) Hypertension Current Visit: Yes Status: Chronic Assessment and plan: continue home lisinopril. Qualifiers: Hypertension type: essential hypertension Qualified Code(s): I10 - Essential (primary) hypertension (4) Insulin dependent diabetes mellitus Current Visit: Yes Status: Chronic Assessment and plan: patient switched from low to medium dose sliding scale insulin due to high sugars- 07/19 ADA diet with fluid restriction. A1C is 5.7 (5) DVT prophylaxis Current Visit: Yes Status: Acute Assessment and plan: Heparin SQ - Subjective Interval history: 70 year old female evaluated at bedside. She denies nausea, vomiting, diarrhea, fever, chills. SHe is requesting something to help her move her bowels and is asking for a sleep aid. - Constitutional Vitals: Temp Pulse Resp BP Pulse Ox 98.1 F 80 16 112/80 95 07/19/16 11:00 07/19/16 11:00 07/19/16 11:00 07/19/16 11:00 07/19/16 11:00 General appearance: Present: cooperative, pleasant, no acute distress, answers questions appropriately - Head Head exam: Present: atraumatic, normocephalic - Respiratory Respiratory exam: Present: rhonchi, wheezes Additional comments: decreased breath sounds in right upper lobe. crackles and rhonchi diffusely - Cardiovascular Cardiovascular exam: Present: RRR, +S1, +S2 - GI/Abdominal GI/Abdominal exam: Present: normal bowel sounds, soft. Absent: tenderness Additional comments: surgical scar present from previous surgery. - Extremities Exam Additional comments: significant lymphedema in all extremities. left lower extremity sign of cellulitis and infection. - Neurological Exam Neurological exam: Present: alert, oriented X3 Internal Medicine: Result - Labs CBC & Chem 7: 07/19/16 03:58 07/19/16 03:58 Labs: Short CBC 07/19/16 Range/Units 03:58 WBC 4.6 (4.3-11.1) K/mcL Hgb 13.3 (11.5-15.4) g/dL Hct 42.0 (35.3-44.9) % Plt Count 269 (140-400) K/mcL Neutrophils # 1.8 (1.6-8.9) K/mcL BMP 07/19/16 03:58 Sodium 140 Potassium 4.2 Chloride 104 Carbon Dioxide 24 BUN 34 H D Creatinine 0.70 Glucose 219 H Calcium 9.1 - VTE Documentation of Mechanical Device: Graduated compression elastic hosiery Consult Discharge Plan - Plan Referrals: Will Reece MD [Primary Care Provider] - <Otf Samaniego - Last Filed: 07/19/16 19:02> Date of Encounter: 07/19/16 - Assessment and plan (1) Acute respiratory failure Current Visit: Yes Status: Acute Qualifiers: Respiratory failure complication: hypoxia Qualified Code(s): J96.01 - Acute respiratory failure with hypoxia (2) Acute exacerbation of congestive heart failure Current Visit: Yes Status: Suspected Qualifiers: Congestive heart failure type: diastolic Qualified Code(s): I50.33 - Acute on chronic diastolic (congestive) heart failure (3) Cellulitis of left lower extremity Current Visit: Yes Status: Acute (4) Hypertension Current Visit: Yes Status: Chronic Qualifiers: Hypertension type: essential hypertension Qualified Code(s): I10 - Essential (primary) hypertension (5) Insulin dependent diabetes mellitus Current Visit: Yes Status: Chronic (6) Lymphedema Current Visit: Yes Status: Acute (7) Morbid obesity with BMI of 60.0-69.9, adult Current Visit: Yes Status: Chronic - Constitutional Vitals: Temp Pulse Resp BP Pulse Ox 98.1 F 79 20 151/92 94 L 07/19/16 11:00 07/19/16 15:40 07/19/16 15:40 07/19/16 15:40 07/19/16 15:40 Internal Medicine: Result - Labs CBC & Chem 7: 07/19/16 03:58 07/19/16 03:58 Labs: Short CBC 07/19/16 Range/Units 03:58 WBC 4.6 (4.3-11.1) K/mcL Hgb 13.3 (11.5-15.4) g/dL Hct 42.0 (35.3-44.9) % Plt Count 269 (140-400) K/mcL Neutrophils # 1.8 (1.6-8.9) K/mcL BMP 07/19/16 03:58 Sodium 140 Potassium 4.2 Chloride 104 Carbon Dioxide 24 BUN 34 H D Creatinine 0.70 Glucose 219 H Calcium 9.1 - Attending Attestation I examined this patient and my medical decision-making was reviewed with the Resident Physician on 07/19/16. I agree with the documented findings, disposition and treatment plan as described except to the extent set forth below. Ms. Smith is currently admitted for acute hypoxic resp failure and CHF exacerbation. She remains moderate to high risk due to potential for worsening respiratory and cardiac issues. Ms. Smith is starting to feel a little better. Her leg is becoming red though. No CP or GI symptoms. No fever or chills. Exam Alert. Comfortable at rest Heart reg Diminished breath sounds Erythema noted to L leg I/P 1. Hypoxia 2. Cellulitis 3. CHF Further diagnoses and plan as above.
[2016-07-19] MEDS: Sennosides/Docusate Sodium TABLET PO SCH (16:11)
[2016-07-20 06:06] LABS: BUN/Creatinine Ratio 65 (6-26); Calcium 8.8 mg/dL (8.6-10.8); Carbon Dioxide 30 mEq/L (19-29); Chloride 105 mEq/L (98-109); Glucose 154 mg/dL (70-99); Osmolality,Calculated 307 (280-300); Potassium 4.1 mEq/L (3.5-4.5); Sodium 141 mEq/L (136-145); eGFR For African Americans > 60 (> 60); eGFR For Non-African Americans > 60 (> 60)
[2016-07-20 06:07] LABS: Blood Urea Nitrogen 46 mg/dL (7-20)
[2016-07-20] MEDS: *HR* Heparin 5,000 UNIT/ML VIAL SQ SCH (06:16)
[2016-07-20] MEDS: ceFAZolin 1,000 MG in D5% in Water (Mini-Bag+) 100 ML IVPB SCH ×2 (06:17→15:15)
[2016-07-20] MEDS: Insulin LISPRO 300 UNITS/3 ML VIAL SQ SCH ×2 (09:19→15:17)
[2016-07-20] MEDS: Furosemide 40 MG/4 ML VIAL IVP SCH (09:19)
[2016-07-20] MEDS: Lisinopril 20 MG TABLET PO SCH (09:20)
[2016-07-20] MEDS: Sennosides/Docusate Sodium TABLET PO SCH (09:20)
[2016-07-20] MEDS: Diclofenac Sodium 75 MG TABLET PO SCH (09:20)
--- NOTE | 2016-07-20 10:31 | Discharge Summary ---
<Shaheed Gonzalez - Last Filed: 07/20/16 14:04> Date of Encounter: 07/20/16 Time of Encounter: 06:30 - Discharge Diagnosis (1) Acute exacerbation of congestive heart failure Priority: Primary Status: Suspected Qualifiers: Congestive heart failure type: diastolic Qualified Code(s): I50.33 - Acute on chronic diastolic (congestive) heart failure (2) Cellulitis of left lower extremity Priority: Secondary Status: Acute (3) Hypertension Priority: Secondary Status: Chronic Qualifiers: Hypertension type: essential hypertension Qualified Code(s): I10 - Essential (primary) hypertension (4) Insulin dependent diabetes mellitus Priority: Secondary Status: Chronic (5) DVT prophylaxis Priority: Secondary Status: Acute - Discharge Medications Prescriptions: Cephalexin [Keflex] 500 mg PO BID #14 capsule GuaiFENesin ER [Mucinex] 600 mg PO BID #3 tbbp.12hr Sennosides/Docusate Sodium [Senna Plus] 1 each PO DAILY #6 tablet Zolpidem [Ambien] 5 mg PO HS PRN #5 tablet PRN Reason: Insomnia Home Medications: Diclofenac Sodium [Voltaren] 75 mg PO BID 07/17/16 [History] Furosemide [Lasix] 40 mg PO QAM 07/17/16 [History] Insulin LISPRO [HumaLOG] 0 unit SQ ACHS PRN 07/17/16 [History] Insulin Lispro Protamin/Lispro [Humalog Mix 75-25 Vial] 40 unit SQ BID 07/17/16 [History] LORazepam [Ativan] 1 mg PO TID PRN 07/17/16 [History] Ramipril 10 mg PO BID 07/17/16 [History] Acetaminophen [Tylenol] 650 mg PO Q6HR PRN #0 tablet 07/20/16 [Rx] Cephalexin [Keflex] 500 mg PO BID #14 capsule 07/20/16 [Rx] GuaiFENesin ER [Mucinex] 600 mg PO BID #3 tbbp.12hr 07/20/16 [Rx] Sennosides/Docusate Sodium [Senna Plus] 1 each PO DAILY #6 tablet 07/20/16 [Rx] Zolpidem [Ambien] 5 mg PO HS PRN #5 tablet 07/20/16 [Rx] Allergies/Adverse Reactions: Allergies No Known Allergies Allergy (Verified 07/17/16 14:49) Date of admission: 07/17/16 21:37 Primary care physician: Will Reece, - Patient Status Disposition: Transfer SNF Condition: Fair Functional capacity at discharge: uses cane/walker Overall status at discharge: patient is not back to baseline - Discharge Instructions Instructions: Cephalexin (By mouth), Guaifenesin (By mouth), Zolpidem (By mouth ), Laxative, Stimulant Combination (By mouth), Heart Failure (DC), Acute Respiratory Distress Syndrome (DC), Cellulitis (DC), Diabetes Mellitus Type 2 in Adults (DC), Chronic Obstructive Pulmonary Disease (DC), Chronic Hypertension (DC) Follow Up With: Will Reece MD [Primary Care Provider] - 07/30/16 10:15 am - Diet and Activity Activity: as per physical therapy Diet: diabetic diet, low fat, low cholesterol Hospital course: Ms. Smith is a 70 year old female with PMHx of cancer, CHF, diabetes, HTN. Patient initially presented to the hospital with acute CHF. Upon interview, patient stated that she has missed several doses of her home medication because she was using the bathroom a lot and didn't want to continue to walk to the bathroom. Patient was counseled on the importance of taking all of her home medications as scheduled. Her chest xray showed cardiomegaly with vascular congestion. EV echo showed mildly dilated LV, normal LV systolic function, LVEF 55-60%, mild concnetric LVH, normal RV size and function. She received a poe catheter with IV lasix and 1.5L fluid restriction. Patient was monitored throughout the course of her hospital stay. It was noticed she had a cellulitis of her left lower extremity, so she was started on Cefazolin. Patient continued to diurese significantly during her hospital stay and her breathing improved. It was recommended that she go to an inpatient rehab facility after discharge. important note: patient's CBC showed presence of smudge cells. Smear path review was ordered, but results were not back by time of discharge. Please have PCP follow up on this after discharge. Plan: Transfer to inpatient rehab. Take all meds as directed finish antibiotic course. if you notice symptoms of shortness of breath or chest pain, please return to ED immediately. - Time Spent with Patient Total time spent providing and/or coordinating discharge services: - Constitutional Vitals: Temp Pulse Resp BP Pulse Ox 97.6 F 68 16 136/73 96 07/20/16 07:55 07/20/16 07:55 07/20/16 07:55 07/20/16 07:55 07/20/16 07:55 General appearance: Present: cooperative, pleasant, no acute distress, answers questions appropriately - Head Head exam: Present: atraumatic, normocephalic - Neck Neck exam general surgery: Present: supple, trachea midline - Respiratory Respiratory exam: Present: rhonchi, wheezes - Cardiovascular Cardiovascular exam: Present: RRR - GI/Abdominal GI/Abdominal exam: Present: distended, normal bowel sounds, soft Additional comments: abdominal scars present from previous abdominal surgery. - Extremities Exam Additional comments: extensive decrease of lymphatic flow. All extremities show significant swelling. Left lower extremity cellulitis present. - VTE Documentation of Mechanical Device: Graduated compression elastic hosiery <Otf Samaniego - Last Filed: 07/20/16 15:51> Date of Encounter: 07/20/16 - Discharge Diagnosis (1) Acute respiratory failure Priority: Primary Status: Acute Qualifiers: Respiratory failure complication: hypoxia Qualified Code(s): J96.01 - Acute respiratory failure with hypoxia (2) Acute exacerbation of congestive heart failure Status: Suspected Qualifiers: Congestive heart failure type: diastolic Qualified Code(s): I50.33 - Acute on chronic diastolic (congestive) heart failure (3) Cellulitis of left lower extremity Status: Acute (4) Hypertension Status: Chronic Qualifiers: Hypertension type: essential hypertension Qualified Code(s): I10 - Essential (primary) hypertension (5) Insulin dependent diabetes mellitus Status: Chronic (6) Lymphedema Priority: Secondary Status: Acute (7) Morbid obesity with BMI of 60.0-69.9, adult Priority: Secondary Status: Chronic Date of admission: 07/17/16 21:37 Primary care physician: Will Reece, Hospital course: Ms. Smith is a 70 year old female - Time Spent with Patient Total time spent providing and/or coordinating discharge services: 38min - Constitutional Vitals: Temp Pulse Resp BP Pulse Ox 97.5 F L 70 16 146/83 100 07/20/16 11:54 07/20/16 11:54 07/20/16 11:54 07/20/16 11:54 07/20/16 11:54 - Attending Attestation I examined this patient and my medical decision-making was reviewed with the Resident Physician on 07/20/16. I agree with the documented findings, disposition and treatment plan as described except to the extent set forth below. Ms. Smith feels OK today. She has diuresed well but is still on some oxygen. No other issues overnight. She feels ready to go to rehab. Exam Alert. Comfortable Up in chair Some erythema persist on LLE Heart reg No wheeze Plan Pt afebrile and hemodynamically ready for d/c to SNF today. Can wean off oxygen at SNF
--- NOTE | 2016-07-20 10:36 | Physician Discharge Referral ---
[facility] Referral Info Provider in Charge after Transfer: PCP Institutional Level of Care: Skilled - Diagnosis (1) Acute exacerbation of congestive heart failure Priority: Primary Status: Suspected (2) Cellulitis of left lower extremity Priority: Primary Status: Acute (3) Hypertension Priority: Secondary Status: Chronic (4) Insulin dependent diabetes mellitus Priority: Secondary Status: Chronic (5) DVT prophylaxis Priority: Secondary Status: Acute - Transfer Medications Prescriptions: Cephalexin [Keflex] 500 mg PO BID #14 capsule GuaiFENesin ER [Mucinex] 600 mg PO BID #3 tbbp.12hr Sennosides/Docusate Sodium [Senna Plus] 1 each PO DAILY #6 tablet Zolpidem [Ambien] 5 mg PO HS PRN #5 tablet PRN Reason: Insomnia Home Medications: Diclofenac Sodium [Voltaren] 75 mg PO BID 07/17/16 [History] Furosemide [Lasix] 40 mg PO QAM 07/17/16 [History] Insulin LISPRO [HumaLOG] 0 unit SQ ACHS PRN 07/17/16 [History] Insulin Lispro Protamin/Lispro [Humalog Mix 75-25 Vial] 40 unit SQ BID 07/17/16 [History] LORazepam [Ativan] 1 mg PO TID PRN 07/17/16 [History] Ramipril 10 mg PO BID 07/17/16 [History] Acetaminophen [Tylenol] 650 mg PO Q6HR PRN #0 tablet 07/20/16 [Rx] Cephalexin [Keflex] 500 mg PO BID #14 capsule 07/20/16 [Rx] GuaiFENesin ER [Mucinex] 600 mg PO BID #3 tbbp.12hr 07/20/16 [Rx] Sennosides/Docusate Sodium [Senna Plus] 1 each PO DAILY #6 tablet 07/20/16 [Rx] Zolpidem [Ambien] 5 mg PO HS PRN #5 tablet 07/20/16 [Rx] Allergies/Adverse Reactions: Allergies No Known Allergies Allergy (Verified 07/17/16 14:49) - Respiratory Orders Oxygen / L per min (patient doesn't use oxygen at baseline but requires 3L) Smoking Cessation: Smoking cessation has been advised. For more information, call the [facility] [employer] Quit Line at 5-739-PWNE-NOW. - Ancillary Orders May use pressure relief devices daily prn - Mobility Orders Ambulate - Diet Orders Cardiac (cardiac diabetic diet) CERTIFICATION: I certify that the transfer of the above named patient to an Extended Care Facility is necessary for the continuing treatment of the diagnosis listed. The above information is true and accurate reflection of patient's current condition. Confidential - Redisclosure prohibited without a patient's written consent.
[2016-07-20 12:00] VITALS: BP 146/83
[2016-07-20] MEDS ORDERED: FLU VACC QS2016-17 36MOS UP/PF 0.5 ML SYRINGE IM ONE (15:45)
== END 2016-07-20 16:17 | DRG 291 ==
LOC: EMEROO 15:50 → 2NENU 15:50
PROVIDERS: ADMIT Internal Medicine; ATTEND Internal Medicine

== ENCOUNTER 2017-09-06 12:35 | Inpatient (IN) ==
[2017-09-06] MEDS ORDERED: *HR* HYDROcodone/Acet 5/325 mg TABLET PO ONE (12:48)
[2017-09-06] MEDS ORDERED: ceFAZolin 2,000 MG in Water for inj. (sterile) 20 ML IVP ONE (12:52)
[2017-09-06] MEDS ORDERED: 0.9 % Sodium Chloride 1,000 ML IVC ONE (12:52)
--- NOTE | 2017-09-06 13:04 | Emergency Department Note ---
Disposition Clinical Impression: Pain and swelling of right forearm Fracture of forearm, shaft, right, open Qualifiers: Encounter type: initial encounter Open fracture type: open type I or II Qualified Code(s): S52.91XB - Unspecified fracture of right forearm, initial encounter for open fracture type I or II Disposition: Admitted As Inpatient Condition: Fair Time of Disposition: 17:34 General Adult HPI - General Chief complaint: ED Extremity Injury, Upper Stated complaint: R wrist injury Time Seen by Provider: 09/06/17 12:40 Nursing Notes Reviewed: Yes Vital Signs Reviewed: Yes - History of Present Illness HPI Narrative: Patient is a 71-year-old female complains of a ground-level fall, that was mechanical in nature, without loss of consciousness 1 hour ago. Patient was ambulating with her walker when she lost balance and fell onto her right side. Patient's was brought in by EMS. They placed the patient in a soft splint and transported. - Related Data Home Medications Medication Instructions Recorded Confirmed Diclofenac Sodium [Voltaren] 75 mg PO BID 07/17/16 09/06/17 Furosemide [Lasix] 80 mg PO QAM 07/17/16 09/06/17 Insulin LISPRO [HumaLOG] 0 unit SQ ACHS PRN 07/17/16 09/06/17 Insulin Lispro Protamin/Lispro 33 - 37 unit SQ BID 07/17/16 09/06/17 [Humalog Mix 75-25 Vial] LORazepam [Ativan] 1 mg PO TID PRN 07/17/16 09/06/17 Ramipril 10 mg PO BID 07/17/16 09/06/17 Allopurinol [Zyloprim 100 MG] 100 mg PO DAILY 09/06/17 09/06/17 Gabapentin [Neurontin] 600 mg PO TID 09/06/17 09/06/17 Indomethacin [Indomethacin] 50 mg PO TID PRN 09/06/17 09/06/17 Spironolactone [Aldactone] 25 mg PO DAILY 09/06/17 09/06/17 Previous Rx's Medication Instructions Recorded Acetaminophen [Tylenol] 650 mg PO Q6HR PRN #0 tablet 07/20/16 Zolpidem [Ambien] 5 mg PO HS PRN #5 tablet 07/20/16 Allergies Allergy/AdvReac Type Severity Reaction Status Date / Time No Known Allergies Allergy Verified 07/17/16 14:49 All systems ED: reviewed and negative except as stated. Review of Systems: As Per HPI Constitutional: Denies: fever, weakness Cardiovascular: Denies: chest pain Gastrointestinal: Denies: abdominal pain, nausea, vomiting, diarrhea Neurological: Denies: headache Past Medical History - Past Medical History Attestation: Yes The following information was validated with the patient. 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 - Social History Smoking Status: Never smoker Smokeless Tobacco Status: No Alcohol use: Reports: none Drug use: Reports: none Physical Exam Vital Signs Temperature 97.6 F 09/06/17 12:39 Pulse Rate 55 09/06/17 12:39 Respiratory Rate 17 09/06/17 12:39 Blood Pressure 157/91 09/06/17 12:39 O2 Sat by Pulse Oximetry 96 09/06/17 12:39 Temperature 97.6 F 09/06/17 12:39 Pulse Rate 55 09/06/17 12:39 Respiratory Rate 17 09/06/17 12:39 Blood Pressure 157/91 09/06/17 12:39 O2 Sat by Pulse Oximetry 96 09/06/17 12:39 Oxygen Delivery Oxygen Delivery Room Air CONSTITUTIONAL: Well-appearing; well-nourished; A&O X 3, in no apparent distress HEAD: Normocephalic; atraumatic EYES: PERRL, no scleral icterus NOSE: The nose is normal in appearance without rhinorrhea NECK: No JVD or distended neck veins RESP: Normal chest excursion with respiration; breath sounds clear and equal bilaterally; no wheezes, rhonchi, or rales CARD: Regular rhythm, without murmurs, rub or gallop ABD: Non-distended; non-tender, soft, without rigidity, rebound or guarding,no pulsatile mass CHEST: No pain with palpation SKIN: Normal for age and race; warm and dry without diaphoresis ; no apparent lesions EXTREMITIES: Pulses are 2 plus and equal in bilateral upper extremities. Sensation in both hands and all digits intact and equal bilaterally. Patient has restriction of our runs of motion of her right hand with flexion, extension , flexion of digits secondary to pain. Right forearm distal ulnar aspect has 2 small puncture wounds and a large hematoma. Right wrist appears deformed. - General Limitations: no limitations General appearance: alert Course - Reevaluation(s) Reevaluation #1: Patient is back from imaging. An IV has been placed in the right forearm. Patient given 100 g of fentanyl for pain. Time: 14:22 Reevaluation #2: Patient's pain level currently 3/10. Ordered a reduced dose of fentanyl 50 g. By the time gets her medication she will be due for another dose Time: 14:50 - Consultations Consultation #1: Dr. Ni of orthopedics surgery states that patient will be taken to the OR from the emergency department. Time: 14:21 Consultation #2: Dr. Shultz of spinal surgery has agreed to place a central line the patient. You are unable to place a line in the ED because we do not have them available appropriately protect the patient. Also, patient only has the right upper extremity available for IV access because she is status post left mastectomy with severe edema on the left side Time: 15:10 Consultation #3: Dr. Sanders the hospitalist has accepted the Pt for admission Time: 17:34 Vital Signs Temperature 97.6 F 09/06/17 12:39 Pulse Rate 55 09/06/17 12:39 Respiratory Rate 17 09/06/17 12:39 Blood Pressure 157/91 09/06/17 12:39 O2 Sat by Pulse Oximetry 96 09/06/17 12:39 Temperature 97.6 F 09/06/17 12:39 Pulse Rate 60 09/06/17 15:40 Respiratory Rate 16 09/06/17 15:40 Blood Pressure 112/82 09/06/17 15:40 O2 Sat by Pulse Oximetry 95 09/06/17 15:40 Oxygen Delivery Oxygen Delivery Room Air Medical Decision Making - [facility] Narrative Medical decision making narrative: Ground-level mechanical fall without loss of consciousness on the right upper extremity. Large hematoma distal forearm wrist of the right upper extremity suspect open comminuted fracture from fall on outstretched hand. X-rays of the upper right extremity from hand to elbow ordered. Patient has no tenderness to the right shoulder. 1 L IV normal saline ordered and 2 g of Ancef. Patient will be given. Preop labs ordered, type and screen ordered. After looking at the patient's forearm x-ray: My impression is that patient has a open comminuted fracture of the distal radius and ulna that is displaced and shortened. Read per radiology: Forearm X-Ray 09/06/17 12:45 IMPRESSION: Acute comminuted displaced fractures of the distal radius and ulna. No acute abnormality of the right elbow. No acute abnormality of the right hand. Remote fracture of the 3rd metacarpal with partial healing at this time. Patient's IV is in place and we will be starting antibiotic therapy: 2 g Ancef. We will continue to monitor patient's pain. Patient's right arm will be placed in a splint. Patient understands and agrees to treatment plan for transfer. Patient states she has a relationship at [facility] and will be transferred there. Patient has been admitted to the surgery. Patient will be taken by orthopedics to the OR from the emergency Department. Patient's right forearm is splinted. PICC line will be coming to place a power glide. Preop labs ordered to include CBC, BMP, type and screen, coags, as well as EKG. Dr. Ni of orthopedics surgery wants the patient to go to the OR from the emergency department. [address] Sanders the hospitalist has accepted the Pt for admission. Patient is currently in surgery. - Lab Data Result diagrams: 09/06/17 14:14 09/06/17 14:14 Lab Results 09/06/17 09/06/17 09/06/17 Range/Units 14:14 14:14 14:14 WBC 10.8 (4.3-11.1) K/mcL RBC 4.41 (3.82-4.97) M/mcL Hgb 13.1 (11.5-15.4) g/dL Hct 40.0 (35.3-44.9) % MCV 90.7 (83.0-100.0) fL MCH 29.7 (28.0-33.3) pg MCHC 32.8 (31.6-35.5) g/dL RDW 16.8 H (11.5-14.5) % Plt Count 291 (140-400) K/mcL MPV 10.2 (9.4-12.4) fL Immature Gran % 0.3 (0-4) % Seg Neutrophils % 59.4 % Lymphocytes % 30.2 % Monocytes % 7.5 % Eosinophils % 1.9 % Basophils % 0.7 % Neutrophils # 6.4 (1.6-8.9) K/mcL Lymphocytes # 3.3 (0.6-4.6) K/mcL Monocytes # 0.8 (0.0-1.3) K/mcL Eosinophils # 0.2 (0.0-0.6) K/mcL Basophils # 0.1 (0.0-0.2) K/mcL PT 10.6 (9.4-12.1) Seconds INR 1.0 APTT 26.6 (26.0-36.0) Seconds Sodium 142 (136-145) mEq/L Potassium 4.3 (3.5-5.1) mEq/L Chloride 107 (98-107) mEq/L Carbon Dioxide 28 (23-29) mEq/L BUN 32 H (8-23) mg/dL Creatinine 0.88 (0.60-1.20) mg/dL Est GFR ( Amer) > 60 (> 60) Est GFR (Non-Af Amer) > 60 (> 60) BUN/Creatinine Ratio 36 H (6-26) Glucose 135 H (70-105) mg/dL Calculated Osmolality 303 H (280-300) Calcium 9.3 (8.6-10.3) mg/dL Blood Type Antibody Screen 09/06/17 Range/Units 14:14 WBC (4.3-11.1) K/mcL RBC (3.82-4.97) M/mcL Hgb (11.5-15.4) g/dL Hct (35.3-44.9) % MCV (83.0-100.0) fL MCH (28.0-33.3) pg MCHC (31.6-35.5) g/dL RDW (11.5-14.5) % Plt Count (140-400) K/mcL MPV (9.4-12.4) fL Immature Gran % (0-4) % Seg Neutrophils % % Lymphocytes % % Monocytes % % Eosinophils % % Basophils % % Neutrophils # (1.6-8.9) K/mcL Lymphocytes # (0.6-4.6) K/mcL Monocytes # (0.0-1.3) K/mcL Eosinophils # (0.0-0.6) K/mcL Basophils # (0.0-0.2) K/mcL PT (9.4-12.1) Seconds INR APTT (26.0-36.0) Seconds Sodium (136-145) mEq/L Potassium (3.5-5.1) mEq/L Chloride (98-107) mEq/L Carbon Dioxide (23-29) mEq/L BUN (8-23) mg/dL Creatinine (0.60-1.20) mg/dL Est GFR ( Amer) (> 60) Est GFR (Non-Af Amer) (> 60) BUN/Creatinine Ratio (6-26) Glucose (70-105) mg/dL Calculated Osmolality (280-300) Calcium (8.6-10.3) mg/dL Blood Type O POSITIVE Antibody Screen NEGATIVE - Radiology Data Radiology results reviewed: Yes I reviewed the patient's radiology results. Elbow X-Ray 09/06/17 12:45 IMPRESSION: Acute comminuted displaced fractures of the distal radius and ulna. No acute abnormality of the right elbow. No acute abnormality of the right hand. Remote fracture of the 3rd metacarpal with partial healing at this time. D/ / Fer Zhang MD / Fer Zhang MD Interpreting Provider: Fer Zhang MD Forearm X-Ray 09/06/17 12:45 IMPRESSION: Acute comminuted displaced fractures of the distal radius and ulna. No acute abnormality of the right elbow. No acute abnormality of the right hand. Remote fracture of the 3rd metacarpal with partial healing at this time. D/ / Fer Zhang MD / Fer Zhang MD Interpreting Provider: Fer Zhang MD Hand X-Ray 09/06/17 12:45 IMPRESSION: Acute comminuted displaced fractures of the distal radius and ulna. No acute abnormality of the right elbow. No acute abnormality of the right hand. Remote fracture of the 3rd metacarpal with partial healing at this time. D/ / Fer Zhang MD / Fer Zhang MD Interpreting Provider: Fer Zhang MD Hip/Pelvis X-Ray 09/06/17 12:45 IMPRESSION: No acute abnormalities. If there is persistent clinical concern or difficulty weight-bearing consider MRI evaluation. Left hip prosthesis without evidence for hardware complication. Degenerative changes to the right hip, both SI joints and to the visualized lower lumbar spine. Bowel projects over the lower pelvis and hips, right more than left. This could reflect diastasis of abdominal wall with projection of bowel into the diastasis/pannus, but hernia cannot entirely be excluded. D/ / 09/06/2017 14:14:21 Delta Quintana MD / [facility] Interpreting Provider: Delta Quintana MD Chest X-Ray 09/06/17 13:14 IMPRESSION: 1. Cardiomegaly. 2. No obvious fracture; however, evaluation is limited by motion and portable technique. 3. Deformity of the left shoulder identified. D/ / Ja Birmingham / Ja Birmingham Interpreting Provider: Ja Birmingham
[2017-09-06] MEDS ORDERED: *HR* FentaNYL (PF) 100 MCG/2 ML VIAL IM ONE (13:43)
[2017-09-06 14:22] LABS: Basophils # 0.1 K/mcL (0.0-0.2); Basophils % 0.7 %; Eosinophils # 0.2 K/mcL (0.0-0.6); Eosinophils % 1.9 %; Hemoglobin 13.1 g/dL (11.5-15.4); Immature Granulocytes % 0.3 % (0-4); Lymphocytes # 3.3 K/mcL (0.6-4.6); Lymphocytes % 30.2 %; Mean Corpuscular HGB Conc 32.8 g/dL (31.6-35.5); Mean Corpuscular Hemoglobin 29.7 pg (28.0-33.3); Mean Corpuscular Volume 90.7 fL (83.0-100.0); Mean Platelet Volume 10.2 fL (9.4-12.4); Monocytes # 0.8 K/mcL (0.0-1.3); Monocytes % 7.5 %; Neutrophils # 6.4 K/mcL (1.6-8.9); Platelet Count 291 K/mcL (140-400); Red Blood Count 4.41 M/mcL (3.82-4.97); Red Cell Distribution Width 16.8 % (11.5-14.5); Segmented Neutrophils % 59.4 %
[2017-09-06 14:27] LABS: Prothrombin Time 10.6 Seconds (9.4-12.1)
[2017-09-06 14:30] LABS: Activated Partial Thrombo Time 26.6 Seconds (26.0-36.0)
[2017-09-06] MEDS ORDERED: Tdap (Boostrix) Vaccine 0.5 ML SYRINGE IM ONE (14:30)
[2017-09-06 14:40] LABS: BUN/Creatinine Ratio 36 (6-26); Blood Urea Nitrogen 32 mg/dL (8-23); Calcium 9.3 mg/dL (8.6-10.3); Carbon Dioxide 28 mEq/L (23-29); Chloride 107 mEq/L (98-107); Glucose 135 mg/dL (70-105); Osmolality,Calculated 303 (280-300); Potassium 4.3 mEq/L (3.5-5.1); Sodium 142 mEq/L (136-145); eGFR For African Americans > 60 (> 60); eGFR For Non-African Americans > 60 (> 60)
--- NOTE | 2017-09-06 14:44 | Emergency Department Note ---
Disposition Clinical Impression: Pain and swelling of right forearm Fracture of forearm, shaft, right, open Qualifiers: Encounter type: initial encounter Open fracture type: open type I or II Qualified Code(s): S52.91XB - Unspecified fracture of right forearm, initial encounter for open fracture type I or II Disposition: Admitted As Inpatient Condition: Fair Referrals: Will Reece MD [Primary Care Provider] - Forms: ED Satisfaction Letter General Adult HPI - General Chief complaint: ED Extremity Injury, Upper Stated complaint: R wrist injury Time Seen by Provider: 09/06/17 12:40 Source: patient, EMS Limitations: no limitations - History of Present Illness Pain Scale: 7 - Related Data Home Medications Medication Instructions Recorded Confirmed Diclofenac Sodium [Voltaren] 75 mg PO BID 07/17/16 07/17/16 Furosemide [Lasix] 40 mg PO QAM 07/17/16 07/17/16 Insulin LISPRO [HumaLOG] 0 unit SQ ACHS PRN 07/17/16 07/17/16 Insulin Lispro Protamin/Lispro 40 unit SQ BID 07/17/16 07/17/16 [Humalog Mix 75-25 Vial] LORazepam [Ativan] 1 mg PO TID PRN 07/17/16 07/17/16 Ramipril 10 mg PO BID 07/17/16 07/17/16 Previous Rx's Medication Instructions Recorded Acetaminophen [Tylenol] 650 mg PO Q6HR PRN #0 tablet 07/20/16 GuaiFENesin ER [Mucinex] 600 mg PO BID #3 tbbp.12hr 07/20/16 Sennosides/Docusate Sodium [Senna 1 each PO DAILY #6 tablet 07/20/16 Plus] Zolpidem [Ambien] 5 mg PO HS PRN #5 tablet 07/20/16 cephALEXin [Keflex] 500 mg PO BID #14 capsule 07/20/16 Albuterol Sulfate [Albuterol 2 puff IH Q6HR #1 inh 01/09/17 Inhaler] predniSONE [PredniSONE] 60 mg PO DAILY #15 tablet 01/09/17 Allergies Allergy/AdvReac Type Severity Reaction Status Date / Time No Known Allergies Allergy Verified 07/17/16 14:49 Constitutional: Denies: fever, weakness Cardiovascular: Denies: chest pain Gastrointestinal: Denies: abdominal pain, nausea, vomiting, diarrhea Neurological: Denies: headache Past Medical History - Past Medical History Medical history: Reports: other Surgical history: Reports: non-contributory, breast surgery Psychiatric history: Reports: anxiety 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 - Social History Smoking Status: Never smoker Smokeless Tobacco Status: No Alcohol use: Reports: none Drug use: Reports: none Physical Exam - General Limitations: no limitations General appearance: alert Course Vital Signs Temperature 97.6 F 09/06/17 12:39 Pulse Rate 55 09/06/17 12:39 Respiratory Rate 17 09/06/17 12:39 Blood Pressure 157/91 09/06/17 12:39 O2 Sat by Pulse Oximetry 96 09/06/17 12:39 Temperature 97.6 F 09/06/17 12:39 Pulse Rate 55 09/06/17 12:39 Respiratory Rate 17 09/06/17 12:39 Blood Pressure 157/91 09/06/17 12:39 O2 Sat by Pulse Oximetry 96 09/06/17 12:39 Oxygen Delivery Oxygen Delivery Room Air Medical Decision Making - Lab Data Result diagrams: 09/06/17 14:14 09/06/17 14:14 Lab Results 09/06/17 09/06/17 09/06/17 Range/Units 14:14 14:14 14:14 WBC 10.8 (4.3-11.1) K/mcL RBC 4.41 (3.82-4.97) M/mcL Hgb 13.1 (11.5-15.4) g/dL Hct 40.0 (35.3-44.9) % MCV 90.7 (83.0-100.0) fL MCH 29.7 (28.0-33.3) pg MCHC 32.8 (31.6-35.5) g/dL RDW 16.8 H (11.5-14.5) % Plt Count 291 (140-400) K/mcL MPV 10.2 (9.4-12.4) fL Immature Gran % 0.3 (0-4) % Seg Neutrophils % 59.4 % Lymphocytes % 30.2 % Monocytes % 7.5 % Eosinophils % 1.9 % Basophils % 0.7 % Neutrophils # 6.4 (1.6-8.9) K/mcL Lymphocytes # 3.3 (0.6-4.6) K/mcL Monocytes # 0.8 (0.0-1.3) K/mcL Eosinophils # 0.2 (0.0-0.6) K/mcL Basophils # 0.1 (0.0-0.2) K/mcL PT 10.6 (9.4-12.1) Seconds INR 1.0 APTT 26.6 (26.0-36.0) Seconds Sodium 142 (136-145) mEq/L Potassium 4.3 (3.5-5.1) mEq/L Chloride 107 (98-107) mEq/L Carbon Dioxide 28 (23-29) mEq/L BUN 32 H (8-23) mg/dL Creatinine 0.88 (0.60-1.20) mg/dL Est GFR ( Amer) > 60 (> 60) Est GFR (Non-Af Amer) > 60 (> 60) BUN/Creatinine Ratio 36 H (6-26) Glucose 135 H (70-105) mg/dL Calculated Osmolality 303 H (280-300) Calcium 9.3 (8.6-10.3) mg/dL Blood Type Antibody Screen 09/06/17 Range/Units 14:14 WBC (4.3-11.1) K/mcL RBC (3.82-4.97) M/mcL Hgb (11.5-15.4) g/dL Hct (35.3-44.9) % MCV (83.0-100.0) fL MCH (28.0-33.3) pg MCHC (31.6-35.5) g/dL RDW (11.5-14.5) % Plt Count (140-400) K/mcL MPV (9.4-12.4) fL Immature Gran % (0-4) % Seg Neutrophils % % Lymphocytes % % Monocytes % % Eosinophils % % Basophils % % Neutrophils # (1.6-8.9) K/mcL Lymphocytes # (0.6-4.6) K/mcL Monocytes # (0.0-1.3) K/mcL Eosinophils # (0.0-0.6) K/mcL Basophils # (0.0-0.2) K/mcL PT (9.4-12.1) Seconds INR APTT (26.0-36.0) Seconds Sodium (136-145) mEq/L Potassium (3.5-5.1) mEq/L Chloride (98-107) mEq/L Carbon Dioxide (23-29) mEq/L BUN (8-23) mg/dL Creatinine (0.60-1.20) mg/dL Est GFR ( Amer) (> 60) Est GFR (Non-Af Amer) (> 60) BUN/Creatinine Ratio (6-26) Glucose (70-105) mg/dL Calculated Osmolality (280-300) Calcium (8.6-10.3) mg/dL Blood Type O POSITIVE Antibody Screen NEGATIVE Critical Care Time Critical Care Time: No Attestation Statement - Attestation Attestation: I examined this patient and my medical decision-making was reviewed with the Resident Physician. I agree with the documented findings, disposition and treatment plan as described except to the extent set forth below. Patient presents to the emergency department after a fall. Patient states she is very unsteady and amylase with a walker. States she lost her balance and fell trying to stop herself with her left hand. EMS states that it is deformed and bleeding. Patient also some mild pain in her left hip is states is "not that bad." On examination she is awake and alert. She does have 2 open areas on the volar aspect of the wrist. Swelling. Extreme tenderness. Neurovascularly intact with good cap refill. No pain elicited over the hip and she does allow logrolling. Right arm is in a sleeve for her lymphedema. Plan. Patient has a intra-articular displaced shortened fracture of the distal radius and ulna. Discussed with orthopedics who plans to take her to the OR. Custom Ortho-Glass volar splint placed by myself. Neurovascularly intact following splint placement. Patient currently with access in her right before meals. Discussed with Dr Lowry in anesthesia who will place central line in the OR.
[2017-09-06] MEDS ORDERED: *HR* FentaNYL (PF) 100 MCG/2 ML VIAL IVP ONE (14:49)
[2017-09-06] MEDS ORDERED: ceFAZolin 2,000 MG in 0.9 % Sodium Chloride 100 ML IVP ONE (15:00)
--- NOTE | 2017-09-06 16:37 | Anesthesia Evaluation PreOp ---
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) Other Medical History: Diabetes Type I, Other (CA breast, left UE lymphedema, left submandibular salivary gland mass, post XRT) Anesthesia History: No Prior Anesthetic Complications, Past Anesthesia (Several : Left radical mastectomy, distal pancreatectomy with splenectomy, right total shoulder arthroplasty,) Alcohol Use: none Drug use: none Medications and Allergies Diclofenac Sodium [Voltaren] 75 mg PO BID 07/17/16 [History] Furosemide [Lasix] 80 mg PO QAM 07/17/16 [History] Insulin LISPRO [HumaLOG] 0 unit SQ ACHS PRN 07/17/16 [History] Insulin Lispro Protamin/Lispro [Humalog Mix 75-25 Vial] 33 - 37 unit SQ BID [History] LORazepam [Ativan] 1 mg PO TID PRN 07/17/16 [History] Ramipril 10 mg PO BID 07/17/16 [History] Acetaminophen [Tylenol] 650 mg PO Q6HR PRN #0 tablet 07/20/16 [Rx] Zolpidem [Ambien] 5 mg PO HS PRN #5 tablet 07/20/16 [Rx] Allopurinol [Zyloprim 100 MG] 100 mg PO DAILY 09/06/17 [History] Gabapentin [Neurontin] 600 mg PO TID 09/06/17 [History] Indomethacin [Indomethacin] 50 mg PO TID PRN 09/06/17 [History] Spironolactone [Aldactone] 25 mg PO DAILY 09/06/17 [History] 3 Allergy/AdvReac Type Severity Reaction Status Date / Time No Known Allergies Allergy Verified 07/17/16 14:49 - Meds/Allergy Pre-op Review Medications Reviewed: Yes Allergies Reviewed: Yes Beta Blockers on Current Med List: No Anesthesia Results - Labs 09/06/17 14:14 09/06/17 14:14 Anesthesia Exam O2 Sat Height 1.57 m Weight 145.15 kg O2 Sat by Pulse Oximetry 95 O2 Sat by Pulse Oximetry 96 Vital Signs Temp Pulse Resp BP Pulse Ox 97.6 F 55 17 157/91 96 09/06/17 12:39 09/06/17 12:39 09/06/17 12:39 09/06/17 12:39 09/06/17 12:39 NPO (# of Hours): 10am solids and 11am liquids - HEENT Mallampati: II Teeth: Normal - Cardiac Rhythm: Regular - Pulmonary Breath Sounds: bilateral Clear - Additional Findings 20 ga IV in right forearm. Anesthesia Assess/Plan ASA Score: 3, E Modified [place] Scale for Level of Consciousness: Cooperative, oriented, and tranquil Anesthetic Plan: General Monitoring Plan: Standard Monitors, CVC (For venous access) Recovery Plan: PACU Anes Supervising Prov Stmt: Patient informed and consented. Risks, benefits, and alternatives discussed. Patient wishes to proceed.
[2017-09-06] MEDS ORDERED: *HR* FentaNYL (PF) 100 MCG/2 ML VIAL ONE (16:38)
[2017-09-06] MEDS ORDERED: *HR* Succinylcholine 200 MG/10 ML VIAL IVP ONE (16:38)
[2017-09-06] MEDS ORDERED: Ondansetron 4 MG/2 ML VIAL ONE (16:38)
[2017-09-06] MEDS ORDERED: Lidocaine -MPF 2% 2 ML VIAL ONE ×2 (16:38→21:27)
--- NOTE | 2017-09-06 16:38 | Orthopedic Consult Note ---
Date of Encounter: 09/06/17 Time of Encounter: 16:35 Assessment and Plan (1) Fracture of distal end of radius and ulna Current Visit: Yes Status: Acute I did discuss the diagnosis in detail with the patient. She has an open distal both bone forearm fracture. She did receive a dose of Ancef in the emergency department. My recommendation was to proceed to the operating room for debridement and irrigation of the right open wound with open reduction and internal fixation versus dorsal wrist spanning plating versus external fixation of the right distal radius and ulna. I did indicate to the patient that she may require multiple procedures on this right upper extremity for definitive management. The risks discussed included but were not limited to stiffness, bleeding, infection, blood clots, damage to neurovascular structures, tendons, ligaments, and bone. Also discussed was the risk of continued symptoms and possible need for further procedures. I did discuss the anesthesia risks including stroke, heart attack, and . I did discuss the reasonable, foreseeable postoperative course with the patient. She did wish to proceed and consent was obtained. Qualifiers: Qualified Code(s): S52.501B - Unspecified fracture of the lower end of right radius, initial encounter for open fracture type I or II; S52.601B - Unspecified fracture of lower end of right ulna, initial encounter for open fracture type I or II; S52.601B - Unspecified fracture of lower end of right ulna, initial encounter for open fracture type I or II History of Present Illness HPI: Ms. Smith is a 71 year old female who is a walker-assisted community ambulator. She has morbid obesity and history of breast cancer with lymphedema on the left upper extremity. She sustained a simple fall from standing height earlier today and landed on her right upper extremity. She was seen in the emergency department where an open both bone forearm fracture was identified. We were consulted to assist in the evaluation and management of this patient. She complains of achy and sharp pain to the right wrist. She denies numbness, tingling, or other associated signs or symptoms. The pain is worse with movement and better with rest. She does have mild left hip pain about her prior left hip replacement however this is not particularly bothersome. There are no other modifying factors. She denies any headaches, neck pain, chest pain , abdominal pain, left upper extremity pain, and bilateral lower extremity pain otherwise. Past Med Surg Social Fam HX - Past Medical History Medical history: other Psychiatric history: anxiety - Past Surgical History Surgical History: non-contributory, breast surgery - Social History Smoking Status: Never smoker Smokeless Tobacco Status: No Alcohol use: none Drug use: none - Family History Father Family Member Ethnicity: Living Status: Hx Family Cardiac Disorders: No Hx Family Respiratory Disorders: No Hx Family Cancer: No Hx Family GI Disorders: No Hx Family Endocrine Disorder: Yes Hx Family Neuromuscular Disorders: No Hx Family Neurologic Disorders: No Hx Family HEENT Disorders: No Hx Family Autoimmune Disorders: No Medications and Allergies Diclofenac Sodium [Voltaren] 75 mg PO BID 07/17/16 [History] Furosemide [Lasix] 80 mg PO QAM 07/17/16 [History] Insulin LISPRO [HumaLOG] 0 unit SQ ACHS PRN 07/17/16 [History] Insulin Lispro Protamin/Lispro [Humalog Mix 75-25 Vial] 33 - 37 unit SQ BID [History] LORazepam [Ativan] 1 mg PO TID PRN 07/17/16 [History] Ramipril 10 mg PO BID 07/17/16 [History] Acetaminophen [Tylenol] 650 mg PO Q6HR PRN #0 tablet 07/20/16 [Rx] Zolpidem [Ambien] 5 mg PO HS PRN #5 tablet 07/20/16 [Rx] Allopurinol [Zyloprim 100 MG] 100 mg PO DAILY 09/06/17 [History] Gabapentin [Neurontin] 600 mg PO TID 09/06/17 [History] Indomethacin [Indomethacin] 50 mg PO TID PRN 09/06/17 [History] Spironolactone [Aldactone] 25 mg PO DAILY 09/06/17 [History] 3 Allergy/AdvReac Type Severity Reaction Status Date / Time No Known Allergies Allergy Verified 07/17/16 14:49 All Systems Reviewed: The remainder of the systems were reviewed and are negative Physical Exam - Constitutional Vitals: Temp Pulse Resp BP Pulse Ox 97.6 F 60 16 112/82 95 09/06/17 12:39 09/06/17 15:40 09/06/17 15:40 09/06/17 15:40 09/06/17 15:40 Constitutional -Vitals reviewed -The patient is well developed and well nourished. -Mood is pleasant. -The patient is well groomed. Psychiatric -The patient is fully alert and oriented x 3. Respiratory: -Respiratory effort normal Abdomen: -Soft abdomen -Non tender -Non distended: Left upper extremity: -No deformities. The overlying skin is intact. No obvious signs of acute trauma. -No tenderness to palpation throughout. -No significant pain with passive motion of the shoulder, elbow, wrist, and fingers within the limits of the bed. -Able to make an "OK" sign, cross the index and long fingers, and extend the thumb. -Sensation grossly intact to light touch throughout the median, radial, and ulnar distributions. -Radial pulse is present; Fingers have good capillary refill. Right upper extremity: -Deformity to the right forearm consistent with her known injury -2 small open poke holes on the volar ulnar aspect of the right wrist with mild ooze of blood. -Tenderness to palpation diffusely about the wrist -No pain with passive motion of the shoulder, elbow, who and fingers within the limits of the bed. -Able to make an "OK" sign, cross the index and long fingers, and extend the thumb. -Sensation grossly intact to light touch throughout the median, radial, and ulnar distributions. -Radial pulse is present; Fingers have good capillary refill. Left lower extremity: -No deformities. The overlying skin is intact. No obvious signs of acute trauma. -No tenderness to palpation throughout. -No pain with passive motion of the hip, knee, ankle, and toes within the limits of the bed. -No pain with axial loading of the thigh. -Able to dorsiflex and plantarflex the ankle and toes. -Sensation is grossly intact to light touch throughout the sural, saphenous, superficial peroneal, and deep peroneal distributions. -Toes have good capillary refill. Right lower extremity: -No deformities. The overlying skin is intact. No obvious signs of acute trauma. -No tenderness to palpation throughout. -No pain with passive motion of the hip, knee, ankle, and toes within the limits of the bed. -No pain with axial loading of the thigh. -Able to dorsiflex and plantarflex the ankle and toes. -Sensation is grossly intact to light touch throughout the sural, saphenous, superficial peroneal, and deep peroneal distributions. -Toes have good capillary refill. I did review the x-rays of the right hand and forearm which show a significantly comminuted fracture of the distal radius and ulna. Healing fracture of the third metacarpal Results - Labs Result Diagrams: 09/06/17 14:14 09/06/17 14:14 Labs: Abnormal lab results RDW 16.8 % (11.5-14.5) H 09/06/17 14:14 BUN 32 mg/dL (8-23) H 09/06/17 14:14 BUN/Creatinine Ratio 36 (6-26) H 09/06/17 14:14 Glucose 135 mg/dL (70-105) H 09/06/17 14:14 Calculated Osmolality 303 (280-300) H 09/06/17 14:14 All other labs normal. Consult Discharge Plan - Plan Referrals: Will Reece MD [Primary Care Provider] -
[2017-09-06] MEDS ORDERED: *HR* Propofol 200 MG/20 ML VIAL IVP ONE (16:39)
[2017-09-06] MEDS ORDERED: Lidocaine -MPF 4% 5 ML AMPUL ONE (16:47)
[2017-09-06] MEDS ORDERED: *HR* Midazolam HCl 2 MG/2 ML VIAL ONE (17:05)
[2017-09-06] MEDS ORDERED: EPHEDrine 50 MG/ML VIAL ONE (17:51)
[2017-09-06] MEDS ORDERED: *HR* PHENYLEPHRINE 1,000 MCG/10 ML SYRINGE IVP ONE ×3 (17:52→19:45)
--- NOTE | 2017-09-06 17:52 | Anesthesia Procedures ---
Date of Encounter: 09/06/17 Time of Encounter: 17:49 ([id number]) Procedures: Anesthesia - Central Line Placement Right IJ Consent obtained: written consent Time out performed: Yes Patient placed on monitor/pulse ox: Yes Sedation: Versed (mg): 2 Supplemental Oxygen via Nasal Cannula (L/min): 2 MD prep: mask, gown, gloves, other (Hat) Central line prep: Chlorhexidine scrub (x2), sterile drapes applied (Full body drape) Local Anesthetic Used: Lidocaine 1% Amount of Anesthetics Used (mls): 2.5 Ultrasound used for placement: Yes Technique: Seldinger Lumen Inserted: triple Size / Length: 7 Fr / 16 cm Post procedure: sutured in place, good blood return, all ports aspirated, flushed, capped, sterile dressing applied Post procedure x-ray: other (CXR will be obtained post operatively) Patient tolerated procedure: well, no complications Complications: none Vitals: Stable throughout Comments: Indication: Lack of suitable iv access. Anes Supervising Prov Stmt: I personally performed the procedure.
[2017-09-06] MEDS ORDERED: Bupivacaine/EPI 1:200k 0.5%PF 10 ML VIAL ONE (18:05)
[2017-09-06] MEDS ORDERED: *HR* Rocuronium Bromide 50 MG/5 ML VIAL ONE (18:06)
[2017-09-06] MEDS ORDERED: Dexamethasone 4 MG/ML VIAL ONE (18:15)
[2017-09-06] MEDS ORDERED: *HR* Promethazine 25 MG/ML VIAL IVP PRN ×2 (18:38→21:59)
[2017-09-06] MEDS ORDERED: *HR* Meperidine 25 MG/ML SYRINGE IVP PRN ×2 (18:38→21:59)
[2017-09-06] MEDS ORDERED: *HR* FentaNYL (PF) 100 MCG/2 ML VIAL IVP PRN ×2 (18:38→21:59)
[2017-09-06] MEDS ORDERED: *HR* Labetalol 100 MG/20 ML MDV IVP PRN ×2 (18:38→21:59)
[2017-09-06] MEDS ORDERED: Acetaminophen IV 1,000 MG/100 ML INFUS..BTL ONE (18:53)
[2017-09-06] MEDS ORDERED: Ketorolac 30 MG/ML VIAL ONE (20:16)
--- NOTE | 2017-09-06 20:36 | Orthopedic Operative Note ---
Date of procedure: 09/06/17 Procedure: OPERATIVE REPORT DATE OF PROCEDURE: 09/06/2017 SURGEON: Alhaji Beverly MD FINANCIAL MANAGER(S): There are no assistants PREOPERATIVE DIAGNOSIS: Open right distal radius and ulna fractures with 2 articular fragments on the distal radius POSTOPERATIVE DIAGNOSIS: Grade 1 open right distal radius and ulnar fractures with 2 articular fragments on the distal radius PROCEDURE: Debridement and irrigation of the right forearm with open reduction and internal fixation of the right distal radius and ulna ANESTHESIA: Gen. anesthesia PREOPERATIVE ANTIBIOTICS: Received 2 g of Ancef in the emergency department which was redosed at the end of the procedure ESTIMATED BLOOD LOSS: 50 milliliters IMPLANTS: [employer] Geminus volar locking distal radius plate and ulnar plate LOCAL INJECTION: 0.5% bupivacaine with 1:200,000 epinephrine; 10 mL in total PREOPERATIVE NOTE AND INDICATIONS: This patient is a 71-year-old female sustained a right open distal radius fracture. Treatment options were discussed and the recommendation was for the above procedure to reduce and stabilize the wrist. She will require 24 hours of antibiotics. The surgical plan was discussed with the patient. The risks, benefits, alternatives, and potential complications of this procedure were discussed with the patient including injury to veins, arteries, nerves, tendons, ligaments, and bone. Also discussed were the risks of infection, bleeding, pain, blood clots, the possible need for a blood transfusion, the possible need for further procedures, heart attack, stroke, and . Additional risks include malunion , nonunion, hardware failure, and the need for further procedures. All of this was explained in simple terms, and the patient verbalized understanding and wished to proceed. Consent was given to proceed with surgery. PROCEDURE: The patient was seen in the preoperative holding area where the identify and the consent were confirmed. The right wrist was marked. Final questions were answered. The patient was brought back to the operating room and placed supine on the operating room table. A huddle was performed with the patient and all vital surgical team members confirming patient identity, the correct procedure, and the correct operative site. Gen. anesthesia was administered. The right upper extremity was prepped and draped in the usual sterile fashion. A surgical time out was performed immediately preceding the incision with all personnel in the operating room to confirm patient identity, the correct operative site and extremity, correct radiographic studies, availability of appropriate surgical equipment, and agreement on the planned procedure. The limb was exsanguinated and the tourniquet was inflated. The 2 volar wounds on the ulnar side of the wrist were about a centimeter apart and were opened and connected. 3 L of saline were flushed of the wound. There is no gross contamination. The volar [place] incision was made and dissection proceeded through the FCR fascia. The FCR was reflected ulnarly and the radial artery was reflected radially. The FPL was reflected ulnarly. The pronator quadratus was taken down. There was a comminuted intra-articular distal radius fracture with 2 articular fragments. There were 2 free-floating devitalized cortical fragments, likely the dorsal cortex which were excised. The wound was provisionally reduced and stabilized with the plate and K wires. The reduction was adequate and therefore screws were placed in the plate proximally with a combination of cortical and locking screws. Locking pegs were placed distally. Attention was directed ulnarly where the ulnar incision was made and dissection proceeded through the subcutaneous tissue down to the ulnar bone. The definitive ulnar plate was placed and fixed distally with pegs and proximally with accommodation of cortical and locking screws. The wounds were copiously irrigated a final time and the skin was closed with interrupted nylon stitches without tension. The tourniquet was deflated. A sterile dressing and sugar tong splint were applied. The instrument, sponge, and needle counts were correct after wound closure. POST OPERATIVE PLAN: Weight Bearing: Nonweightbearing to the right upper extremity. DVT Prophylaxis: Ambulation Activity: Avoid aggressive activities with the right upper extremity. Wound Care: Keep the dressing clean, dry, and intact. Pain Control: Percocet Follow Up: Follow up in the office in one week for wound evaluation and placement in a removable [place] brace to be worn at all times with the exception of hygiene. Stitches out on postoperative week 3. We will begin motion exercises 4 weeks postoperatively if x-rays show good position of the fracture fragments. Was there an wet process miller head assistant present: No Estimated blood loss (cc): 1
[2017-09-06] MEDS ORDERED: *HR* LORazepam 1 MG TABLET PO PRN (21:59)
[2017-09-06] MEDS ORDERED: Indomethacin 25 MG CAPSULE PO PRN (21:59)
[2017-09-06] MEDS ORDERED: Acetaminophen 325 MG TABLET PO PRN (21:59)
--- NOTE | 2017-09-06 22:10 | Anesthesia Evaluation Post Op ---
Date of Encounter: 09/06/17 Time of Encounter: 22:06 - Vital Signs Vital Signs: Vital Signs/O2 Sat/Glucose, Most Recent Temp Pulse Resp BP Pulse Ox 98.2 F 65 16 138/67 99 09/06/17 21:34 09/06/17 21:52 09/06/17 21:52 09/06/17 21:52 09/06/17 21:52 Blood Glucose* 152 - Lungs Lungs: Clear Ascult./Percussion - Airway Airway: Non-obstructed - Cardiovascular Regular Rate - Mental Status Mental Status: Alert & Oriented, Answers Appropriately - Pain Pain Scale: 5 Pain Scale used: Numeric (1 - 10) - Nausea Vomiting Nausea Vomiting: Not Present - Hydration Hydration: Ice chips Notes: 09/06/17 22:07 Abnomal position of TLC on portable chest film. Decision was made to remove TLC once peripheral access obtained. Discussed plan with hospitalist. 20g right upper arm IV placed using sterile technique with ultrasound. Right IJ TLC removed with tip intact. Pressure held for 6 minutes. Dressing applied. Patient tolerated well. 09/06/17 22:10 - Discharge PostOp Status: Transfer Patient to floor
[2017-09-06] MEDS: Gabapentin 300 MG CAPSULE PO SCH (23:47)
[2017-09-06] MEDS ORDERED: Dextrose Gel 15 GM/37.5 ML TUBE PO PRN ×2 (23:47)
[2017-09-06] MEDS ORDERED: *HR* Dextrose 50 % in Water (Syg) 50 ML SYRINGE IVP PRN (23:47)
[2017-09-06] MEDS ORDERED: D5% in Water 1,000 ML IVC PRN (23:47)
[2017-09-06] MEDS: Diclofenac Sodium 75 MG TABLET PO SCH (23:48)
[2017-09-06] MEDS: Lisinopril 20 MG TABLET PO SCH (23:48)
--- NOTE | 2017-09-07 02:16 | Internal Med History&Physical ---
<AjmisaAlize elizabeth H - Last Filed: 09/07/17 02:14> Date of Encounter: 09/07/17 Time of Encounter: 02:14 Internal Medicine - H&P: HPI Chief complaint: Fall/Right upper extremity injury Admitted From: Emergency Dept Plans for Post Hospital Care: Home History of present illness: Ms. Smith is a 71 year old female with past medical history of breast cancer, breast surgery, lymphedema, HTN, DM 2, and CHF who presented to [facility] on 09/06/2017 after sustaining a fall. Ms. Smith uses a walker assisted community ambulator. She sustained a fall from standing height earlier in the day landing on her right upper extremity. In the emergency department, an open forearm fracture was identified. Orthopedic surgery was consulted. At that time, patient was complaining of an aching sharp pain in the right wrist. She was denying numbness, tingling, or other associated signs or symptoms. Patient also had some mild left hip pain. She denied any chest pain, palpitations, shortness of breath, nausea, vomiting, headaches, neck pain , abdominal pain, dysuria, or hematuria. Patient was taken to the operating room with the pre and postoperative diagnosis of an open right distal radius and ulna fracture with 2 articular fragments on the distal radius. She underwent a debridement and irrigation of the right forearm with open reduction and internal fixation of the right distal radius and ulna. Patient's PCP is Dr. Reece in [place]. Past Med Surg Social Fam HX - Past Medical History Attestation: Yes The following information was validated with the patient. Source: patient Medical history: cancer, CHF, COPD, diabetes, hypertension, other Psychiatric history: anxiety - Past Surgical History Surgical History: non-contributory, breast surgery - Social History Smoking Status: Never smoker Smokeless Tobacco Status: No Alcohol use: none Drug use: none - Family History Father Family Member Ethnicity: Living Status: Hx Family Cardiac Disorders: No Hx Family Respiratory Disorders: No Hx Family Cancer: No Hx Family GI Disorders: No Hx Family Endocrine Disorder: Yes Hx Family Neuromuscular Disorders: No Hx Family Neurologic Disorders: No Hx Family HEENT Disorders: No Hx Family Autoimmune Disorders: No Internal Medicine - H&P: Meds Diclofenac Sodium [Voltaren] 75 mg PO BID 07/17/16 [History] Furosemide [Lasix] 80 mg PO QAM 07/17/16 [History] Insulin LISPRO [HumaLOG] 0 unit SQ ACHS PRN 07/17/16 [History] Insulin Lispro Protamin/Lispro [Humalog Mix 75-25 Vial] 33 - 37 unit SQ BID [History] LORazepam [Ativan] 1 mg PO TID PRN 07/17/16 [History] Ramipril 10 mg PO BID 07/17/16 [History] Acetaminophen [Tylenol] 650 mg PO Q6HR PRN #0 tablet 07/20/16 [Rx] Zolpidem [Ambien] 5 mg PO HS PRN #5 tablet 07/20/16 [Rx] Allopurinol [Zyloprim 100 MG] 100 mg PO DAILY 09/06/17 [History] Gabapentin [Neurontin] 600 mg PO TID 09/06/17 [History] Indomethacin [Indomethacin] 50 mg PO TID PRN 09/06/17 [History] Spironolactone [Aldactone] 25 mg PO DAILY 09/06/17 [History] 3 Allergy/AdvReac Type Severity Reaction Status Date / Time No Known Allergies Allergy Verified 07/17/16 14:49 All Systems PM: A 10-system review of systems was performed and is negative for pertinent findings except as documented above in the HPI. - Constitutional Constitutional: falls, no anorexia, no chills, no fever(s), no lethargy - Cardiovascular Cardiovascular ROS IM: no chest pain, no claudication, no diaphoresis, no dyspnea, no dyspnea on exertion, no edema, no lightheadedness, no orthopnea, no syncope - Respiratory Respiratory: no cough, no dyspnea, no chest congestion - Gastrointestinal Gastrointestinal: no abdominal pain, no coffee ground emesis, no diarrhea, no hematemesis, no hematochezia, no melena, no nausea - Musculoskeletal Musculoskeletal ROS IM: deformity, no muscle weakness - Integumentary Integumentary IM: no erythema, no non-healing lesions, no rash, no jaundice - Neurological Neurological ROS: no radicular pain, no restless legs, no weakness - Endocrine Endocrine IM: no cold intolerance, no heat intolerance - Constitutional Vitals: Temp Pulse Resp BP Pulse Ox 97.8 F 78 16 138/81 97 09/06/17 22:06 09/06/17 22:06 09/06/17 22:06 09/06/17 22:06 09/06/17 22:06 General appearance: Present: A&O X 3, pleasant, no acute distress, answers questions appropriately - Eye Eye exam: Present: conjuntiva pink, sclera anicteric - Neck Neck exam general surgery: Present: supple, trachea midline. Absent: lymphadenopathy - Respiratory Respiratory exam: Present: CTAB. Absent: accessory muscle use, rales, rhonchi, wheezes - Cardiovascular Cardiovascular exam: Present: RRR, +S1, +S2. Absent: diastolic murmur, gallop, rubs, systolic murmur - GI/Abdominal GI/Abdominal exam: Present: normal bowel sounds, soft, no peritoneal signs. Absent: distended, firm, guarding, tenderness - Extremities Exam Extremities exam: Present: warm, radial pulses palpable and symmetrical. Absent : calf tenderness, cyanotic, pedal edema Additional comments: Left upper extremity with obvious lymphedema. No obvious signs of acute trauma. Right upper extremity with a deformity to the right forearm consistent with known injury. Patient in splint and postoperative device. Dressing appears clean dry and intact. Patient feels sensation in her distal fingertips. Fingers have good capillary refill. - Neurological Exam Neurological exam: Present: CN II-XII intact, oriented X3, no focal deficits. Absent: pronater drift, facial droop, speech deficit - Skin Skin exam: Present: dry, intact Internal Med - H&P Results - Labs CBC & Chem 7: 09/06/17 14:14 09/06/17 14:14 - Impressions ITS Impressions Chest X-Ray 09/06/17 20:36 IMPRESSION: Malpositioned right IJ approach central venous catheter, terminating in the right axillary region. Repositioning is recommended. No pneumothorax is visible. The findings were sent to the Radiology Results Communication Center at 9:34 pm on 09/06/2017to be communicated to a licensed caregiver. D/ / Aman Ribeiro MD / Aman Ribeiro MD Interpreting Provider: Aman Ribeiro MD - VTE Documentation of Mechanical Device: Intermittent pneumatic compression device - Assessment and plan (1) Fracture of distal end of radius and ulna Current Visit: Yes Status: Acute Assessment and plan: 71-year-old female multiple medical comorbidities underwent ORIF of right distal radius and ulna on 09/06/2017. -Orthopedic surgery managing. -Follow their recommendations for pain control and rehabilitation. Qualifiers: Encounter type: initial encounter Fracture type: open Open fracture type : open type I or II Laterality: right Qualified Code(s): S52.501B - Unspecified fracture of the lower end of right radius, initial encounter for open fracture type I or II; S52.601B - Unspecified fracture of lower end of right ulna, initial encounter for open fracture type I or II; S52.601B - Unspecified fracture of lower end of right ulna, initial encounter for open fracture type I or II (2) Hypertension Current Visit: No Status: Chronic Assessment and plan: Resume home medications. Qualifiers: Hypertension type: essential hypertension Qualified Code(s): I10 - Essential (primary) hypertension (3) Insulin dependent diabetes mellitus Current Visit: No Status: Chronic Assessment and plan: Low-dose insulin sliding scale coverage. (4) Morbid obesity with BMI of 60.0-69.9, adult Current Visit: No Status: Chronic (5) Lymphedema Current Visit: No Status: Acute Assessment and plan: Left upper extremity lymphedema. -Patient's peripheral IV accesses on the right upper extremity. (6) DVT prophylaxis Current Visit: No Status: Acute Assessment and plan: Heparin 5000 units subcutaneous twice a day. -EPCDs (7) Congestive heart failure Current Visit: Yes Status: Acute Assessment and plan: Resume home medication of 80 mg PO Lasix. Need outpatient medical records. Patient's PCP is Dr. Reece in [place]. Qualifiers: Heart failure type: unspecified Heart failure chronicity: unspecified Qualified Code(s): I50.9 - Heart failure, unspecified - Time Spent With Patient Total time spent is greater than 50% in coordination of care (as documented) at patient's floor/unit and/or counseling patient: <London Sanders P - Last Filed: 09/07/17 23:59> Date of Encounter: 09/07/17 Internal Medicine - H&P: HPI History of present illness: Ms. Smith is a 71 year old female All Systems PM: A 10-system review of systems was performed and is negative for pertinent findings except as documented above in the HPI. - Constitutional Vitals: Temp Pulse Resp BP Pulse Ox 98.8 F 72 15 84/49 96 09/07/17 23:46 09/07/17 23:46 09/07/17 23:46 09/07/17 23:46 09/07/17 23:46 Internal Med - H&P Results - Labs CBC & Chem 7: 09/07/17 13:13 09/07/17 13:13 Labs: Short CBC 09/07/17 Range/Units 13:13 WBC 11.3 H (4.3-11.1) K/mcL Hgb 10.8 L D (11.5-15.4) g/dL Hct 33.2 L (35.3-44.9) % Plt Count 228 (140-400) K/mcL Neutrophils # 7.1 (1.6-8.9) K/mcL BMP 09/07/17 13:13 Sodium 140 Potassium 4.7 Chloride 109 H Carbon Dioxide 25 BUN 37 H Creatinine 1.42 H Glucose 152 H Calcium 8.7 - Impressions ITS Impressions Chest X-Ray 09/06/17 20:36 IMPRESSION: Malpositioned right IJ approach central venous catheter, terminating in the right axillary region. Repositioning is recommended. No pneumothorax is visible. The findings were sent to the Radiology Results Communication Center at 9:34 pm on 09/06/2017to be communicated to a licensed caregiver. D/ / Aman Ribeiro MD / Aman Ribeiro MD Interpreting Provider: Aman Ribeiro MD - Attending Attestation I examined this patient and my medical decision-making was reviewed with the Resident Physician. I agree with the documented findings, disposition and treatment plan as described except to the extent set forth below. - Assessment and plan (1) Hypertension Current Visit: No Status: Chronic Qualifiers: Hypertension type: essential hypertension Qualified Code(s): I10 - Essential (primary) hypertension (2) Insulin dependent diabetes mellitus Current Visit: No Status: Chronic (3) DVT prophylaxis Current Visit: No Status: Acute (4) Morbid obesity with BMI of 60.0-69.9, adult Current Visit: No Status: Chronic (5) Lymphedema Current Visit: No Status: Acute (6) Fracture of distal end of radius and ulna Current Visit: Yes Status: Acute Qualifiers: Encounter type: initial encounter Fracture type: open Open fracture type : open type I or II Laterality: right Qualified Code(s): S52.501B - Unspecified fracture of the lower end of right radius, initial encounter for open fracture type I or II; S52.601B - Unspecified fracture of lower end of right ulna, initial encounter for open fracture type I or II; S52.601B - Unspecified fracture of lower end of right ulna, initial encounter for open fracture type I or II (7) Congestive heart failure Current Visit: Yes Status: Acute Qualifiers: Heart failure type: unspecified Heart failure chronicity: unspecified Qualified Code(s): I50.9 - Heart failure, unspecified - Time Spent With Patient Total time spent is greater than 50% in coordination of care (as documented) at patient's floor/unit and/or counseling patient:
--- NOTE | 2017-09-07 06:19 | Orthopedics Progress Note ---
Date of Encounter: 09/07/17 Time of Encounter: 06:19 Subjective Interval history: Patient was seen this morning doing well without complaints. Afebrile vital signs stable. Operative extremity: Neurovascularly intact Dressing clean dry and intact Calves nontender Assessment and plan: Continue with postoperative care Orthopedically stable for discharge Objective Vital signs: Vital Signs Temp Pulse Resp BP Pulse Ox 09/07/17 04:02 98.3 F 83 14 120/63 96 09/06/17 22:06 97.8 F 78 16 138/81 97 09/06/17 21:52 65 16 138/67 99 09/06/17 21:34 98.2 F 73 16 151/86 99 09/06/17 21:24 82 16 149/82 96 09/06/17 21:14 82 16 137/84 97 09/06/17 21:04 98.0 F 84 16 140/83 99 09/06/17 20:54 87 16 124/69 97 09/06/17 20:44 86 18 137/69 98 09/06/17 20:34 98.9 F 86 18 128/55 95 Intake and Output 09/06/17 09/06/17 09/07/17 15:59 23:59 07:59 Output Total 50 / 50 800 / 800 Balance -50 / -50 -800 / -800 Output: Urine 800 / 800 Estimated Blood Loss 50 / 50 Other: # Urine Diapers 1 Blood Glucose* 152 - Labs CBC & BMP: 09/06/17 14:14 09/06/17 14:14 Labs: Abnormal lab results RDW 16.8 % (11.5-14.5) H 09/06/17 14:14 BUN 32 mg/dL (8-23) H 09/06/17 14:14 BUN/Creatinine Ratio 36 (6-26) H 09/06/17 14:14 Glucose 135 mg/dL (70-105) H 09/06/17 14:14 Calculated Osmolality 303 (280-300) H 09/06/17 14:14 - VTE Documentation of Mechanical Device: Intermittent pneumatic compression device Consult Discharge Plan - Plan Referrals: Will Reece MD [Primary Care Provider] -
[2017-09-07] MEDS: *HR* Heparin 5,000 UNIT/ML VIAL SQ SCH ×2 (06:20→17:18)
[2017-09-07] MEDS: Lisinopril 20 MG TABLET PO SCH ×2 (08:38→22:17)
[2017-09-07] MEDS: Gabapentin 300 MG CAPSULE PO SCH ×3 (08:38→22:17)
[2017-09-07] MEDS: Diclofenac Sodium 75 MG TABLET PO SCH ×2 (08:39→22:17)
[2017-09-07] MEDS: Spironolactone 25 MG TABLET PO SCH (08:40)
[2017-09-07] MEDS: Insulin LISPRO 300 UNITS/3 ML VIAL SQ SCH ×4 (08:40→17:18)
[2017-09-07] MEDS ORDERED: Furosemide 40 MG TABLET PO SCH (09:00)
[2017-09-07] MEDS ORDERED: Insulin LISPRO 300 UNITS/3 ML VIAL SQ SCH (12:33)
[2017-09-07 13:30] LABS: Basophils % 0.4 %; Eosinophils # 0.1 K/mcL (0.0-0.6); Eosinophils % 0.9 %; Hematocrit 33.2 % (35.3-44.9); Immature Granulocytes % 0.7 % (0-4); Lymphocytes % 26.5 %; Mean Corpuscular HGB Conc 32.5 g/dL (31.6-35.5); Mean Corpuscular Hemoglobin 29.6 pg (28.0-33.3); Mean Platelet Volume 11.1 fL (9.4-12.4); Monocytes % 8.5 %; Neutrophils # 7.1 K/mcL (1.6-8.9); Nucleated Red Blood Cells 0.9 /100 WBC (0); Platelet Count 228 K/mcL (140-400); Red Blood Count 3.65 M/mcL (3.82-4.97); Red Cell Distribution Width 16.8 % (11.5-14.5)
[2017-09-07 13:31] LABS: Basophils # 0.1 K/mcL (0.0-0.2); Hemoglobin 10.8 g/dL (11.5-15.4)
[2017-09-07 13:39] LABS: Calcium 8.7 mg/dL (8.6-10.3); Potassium 4.7 mEq/L (3.5-5.1)
[2017-09-07 14:09] LABS: Platelet Estimate Normal (Normal)
[2017-09-07] MEDS ORDERED: 0.9 % Sodium Chloride 1,000 ML IVC ONE (18:28)
[2017-09-07] MEDS ORDERED: 0.9 % Sodium Chloride 1,000 ML ONE (18:41)
[2017-09-08 05:02] LABS: Basophils # 0.1 K/mcL (0.0-0.2); Basophils % 0.5 %; Eosinophils # 0.4 K/mcL (0.0-0.6); Eosinophils % 3.6 %; Hematocrit 31.1 % (35.3-44.9); Immature Granulocytes % 0.6 % (0-4); Lymphocytes # 4.7 K/mcL (0.6-4.6); Lymphocytes % 45.3 %; Mean Corpuscular HGB Conc 32.2 g/dL (31.6-35.5); Mean Corpuscular Hemoglobin 29.9 pg (28.0-33.3); Mean Corpuscular Volume 92.8 fL (83.0-100.0); Mean Platelet Volume 11.3 fL (9.4-12.4); Monocytes % 9.5 %; Neutrophils # 4.2 K/mcL (1.6-8.9); Platelet Count 213 K/mcL (140-400); Red Blood Count 3.35 M/mcL (3.82-4.97); Red Cell Distribution Width 16.9 % (11.5-14.5); Segmented Neutrophils % 40.5 %
[2017-09-08 05:18] LABS: Calcium 8.4 mg/dL (8.6-10.3); Potassium 4.7 mEq/L (3.5-5.1)
[2017-09-08] MEDS: *HR* Heparin 5,000 UNIT/ML VIAL SQ SCH ×2 (06:02→17:21)
[2017-09-08] MEDS: Spironolactone 25 MG TABLET PO SCH (07:40)
[2017-09-08] MEDS: Lisinopril 20 MG TABLET PO SCH (07:41)
[2017-09-08] MEDS: Gabapentin 300 MG CAPSULE PO SCH ×3 (07:46→19:28)
[2017-09-08] MEDS: Diclofenac Sodium 75 MG TABLET PO SCH (07:46)
[2017-09-08] MEDS: Insulin LISPRO 300 UNITS/3 ML VIAL SQ SCH ×3 (07:47→17:22)
[2017-09-08] MEDS ORDERED: Ringers Solution, Lactated 500 ML IVC ONE (08:11)
--- NOTE | 2017-09-08 08:16 | Internal Med Progress Note ---
Date of Encounter: 09/08/17 Time of Encounter: 08:00 - Assessment and plan (1) Fracture of distal end of radius and ulna Current Visit: Yes Status: Acute Assessment and plan: Adequate pain control. Heparin for DVT prophylaxis. Incentive spirometry. (2) Acute kidney injury Current Visit: Yes Status: Acute Assessment and plan: Likely etiology is prerenal with blood loss and hypotension. Plan Bladder scan now and start IV fluids Hold off renal ultrasound as urine output was decent in the last 24 hours, i.e. 1100 mL (3) Hypotension Current Visit: Yes Status: Acute Assessment and plan: fluid bolus now followed by maintenance IV fluids. Qualifiers: Hypotension type: unspecified hypotension type (4) Anemia due to blood loss, acute Current Visit: Yes Status: Acute Assessment and plan: Transfusion threshold 7 (5) Hypertension Current Visit: No Status: Chronic Assessment and plan: Stop antihypertensive therapy in view of hypotension noted post surgery Qualifiers: Hypertension type: essential hypertension Qualified Code(s): I10 - Essential (primary) hypertension (6) Insulin dependent diabetes mellitus Current Visit: No Status: Chronic Assessment and plan: Adequately controlled with sliding scale Humalog (7) DVT prophylaxis Current Visit: No Status: Acute Assessment and plan: Heparin 5000 units subcutaneous twice a day. -EPCDs (8) Morbid obesity with BMI of 60.0-69.9, adult Current Visit: No Status: Chronic (9) Lymphedema Current Visit: No Status: Acute Assessment and plan: Fold heart failure therapy such as beta blockers and diabetes due to hypotension and renal failure (10) Congestive heart failure Current Visit: Yes Status: Acute Qualifiers: Heart failure type: unspecified Heart failure chronicity: unspecified Qualified Code(s): I50.9 - Heart failure, unspecified - Time Spent With Patient Total time spent is greater than 50% in coordination of care (as documented) at patient's floor/unit and/or counseling patient: 25 - 35 minutes - Subjective Interval history: No events noted overnight. Per orthopedic surgery patient stable from their perspective for discharge. Patient reports adequate Pain control. She reports lower than her usual urine output. - Constitutional Vitals: Temp Pulse Resp BP Pulse Ox 98.2 F 75 16 85/50 99 09/08/17 07:01 09/08/17 07:01 09/08/17 07:01 09/08/17 07:01 09/08/17 07:01 General appearance: Present: A&O X 3, pleasant, no acute distress, answers questions appropriately Exam: Physical exam Gen: Comfortable, laying in bed, in no visible distress HEENT: Normocephalic, atraumatic. No conjunctival icterus. Dry oral mucosa. Neck: Supple Lungs: Clear to auscultation, no foreign sounds Heart: Normal S1-S2, no murmurs rubs or gallops Abdomen: Normoactive bowel sounds, no guarding rigidity or tenderness Extremities: 1+ edema of lower extremities, no clubbing or cyanosis. Bandages were not opened Neuro: Alert oriented 3, no focal deficits Skin: Venous pigmentation of legs scars of prior surgeries noted Internal Medicine: Result - Labs CBC & Chem 7: 09/08/17 04:24 09/08/17 04:24 Labs: Short CBC 09/07/17 09/08/17 Range/Units 13:13 04:24 WBC 11.3 H 10.3 (4.3-11.1) K/mcL Hgb 10.8 L D 10.0 L (11.5-15.4) g/dL Hct 33.2 L 31.1 L (35.3-44.9) % Plt Count 228 213 (140-400) K/mcL Neutrophils # 7.1 4.2 (1.6-8.9) K/mcL BMP 09/07/17 09/08/17 13:13 04:24 Sodium 140 139 Potassium 4.7 4.7 Chloride 109 H 107 Carbon Dioxide 25 27 BUN 37 H 46 H Creatinine 1.42 H 2.00 H Glucose 152 H 159 H Calcium 8.7 8.4 L - ABG Interpretation ABG results: PT/INR, D-dimer PT 10.6 Seconds (9.4-12.1) 09/06/17 14:14 - VTE Documentation of Mechanical Device: Intermittent pneumatic compression device Consult Discharge Plan - Plan Referrals: Will Reece MD [Primary Care Provider] -
[2017-09-08] MEDS: Ringers Solution, Lactated 1,000 ML IVC SCH ×2 (17:22→17:23)
[2017-09-09 01:41] LABS: BUN/Creatinine Ratio 48 (6-26); Blood Urea Nitrogen 48 mg/dL (8-23); Calcium 8.7 mg/dL (8.6-10.3); Carbon Dioxide 28 mEq/L (23-29); Chloride 108 mEq/L (98-107); Glucose 168 mg/dL (70-105); Osmolality,Calculated 306 (280-300); Potassium 4.6 mEq/L (3.5-5.1); Sodium 140 mEq/L (136-145); eGFR For African Americans > 60 (> 60); eGFR For Non-African Americans 55 (> 60)
[2017-09-09] MEDS: *HR* Heparin 5,000 UNIT/ML VIAL SQ SCH (05:55)
[2017-09-09 06:21] LABS: Basophils # 0.1 K/mcL (0.0-0.2); Basophils % 0.7 %; Eosinophils # 0.7 K/mcL (0.0-0.6); Eosinophils % 6.3 %; Hematocrit 34.4 % (35.3-44.9); Hemoglobin 11.1 g/dL (11.5-15.4); Immature Granulocytes % 0.5 % (0-4); Lymphocytes # 3.5 K/mcL (0.6-4.6); Lymphocytes % 31.6 %; Mean Corpuscular HGB Conc 32.3 g/dL (31.6-35.5); Mean Corpuscular Hemoglobin 29.6 pg (28.0-33.3); Mean Corpuscular Volume 91.7 fL (83.0-100.0); Monocytes % 8.7 %; Neutrophils # 5.8 K/mcL (1.6-8.9); Platelet Count 229 K/mcL (140-400); Red Blood Count 3.75 M/mcL (3.82-4.97); Red Cell Distribution Width 16.8 % (11.5-14.5); Segmented Neutrophils % 52.2 %
[2017-09-09] MEDS: Insulin LISPRO 300 UNITS/3 ML VIAL SQ SCH ×3 (08:02→11:57)
--- NOTE | 2017-09-09 08:12 | Orthopedics Progress Note ---
Date of Encounter: 09/09/17 Time of Encounter: 08:10 - Assessment and Plan (1) Fracture of distal end of radius and ulna Current Visit: Yes Status: Acute Qualifiers: Encounter type: initial encounter Fracture type: open Open fracture type : open type I or II Laterality: right Qualified Code(s): S52.501B - Unspecified fracture of the lower end of right radius, initial encounter for open fracture type I or II; S52.601B - Unspecified fracture of lower end of right ulna, initial encounter for open fracture type I or II; S52.601B - Unspecified fracture of lower end of right ulna, initial encounter for open fracture type I or II Subjective Interval history: S: Doing very well clinically Says she has no pain to right wrist O: Afebrile VSS Dressing and splint taken down. Wounds are clean, dry, intact I can gently range the wrist with minimal pain. She can grossly flex and extend her digits They are all sensate and well perfused A: Post ORIF of the right distal radius and ulna P: NWB BELLE Okay to use platform walker Awaiting placement Follow up in 1 week for a wound evaluation. Objective Vital signs: Vital Signs Temp Pulse Resp BP Pulse Ox 09/09/17 06:47 98.3 F 86 16 148/76 95 09/08/17 23:27 98.4 F 82 18 152/70 93 09/08/17 19:14 98.6 F 79 18 127/73 93 09/08/17 16:57 98.4 F 90 18 106/65 97 09/08/17 11:17 98.7 F 67 16 106/69 96 Intake and Output 09/08/17 09/09/17 09/09/17 23:59 07:59 15:59 Intake Total 200 / 200 Output Total 500 / 500 Balance -300 / -300 Intake: Oral 200 / 200 Output: Urine 500 / 500 Other: # Voids 1 1 Blood Glucose* 138 138 - Labs CBC & BMP: 09/09/17 06:02 09/09/17 00:56 Labs: Abnormal lab results WBC 11.2 K/mcL (4.3-11.1) H 09/09/17 06:02 RBC 3.75 M/mcL (3.82-4.97) L 09/09/17 06:02 Hgb 11.1 g/dL (11.5-15.4) L 09/09/17 06:02 Hct 34.4 % (35.3-44.9) L 09/09/17 06:02 RDW 16.8 % (11.5-14.5) H 09/09/17 06:02 Eosinophils # 0.7 K/mcL (0.0-0.6) H 09/09/17 06:02 Nucleated RBCs/100 WBC 0.9 /100 WBC (0) H 09/07/17 13:13 Chloride 108 mEq/L (98-107) H 09/09/17 00:56 BUN 48 mg/dL (8-23) H 09/09/17 00:56 Est GFR (Non-Af Amer) 55 (> 60) L 09/09/17 00:56 BUN/Creatinine Ratio 48 (6-26) H 09/09/17 00:56 Glucose 168 mg/dL (70-105) H 09/09/17 00:56 POC Glucose 138 mg/dL (70-99) H 09/08/17 20:19 Calculated Osmolality 306 (280-300) H 09/09/17 00:56 - VTE Documentation of Mechanical Device: Intermittent pneumatic compression device Consult Discharge Plan - Plan Referrals: Will Reece MD [Primary Care Provider] -
[2017-09-09] MEDS: Gabapentin 300 MG CAPSULE PO SCH (08:52)
--- NOTE | 2017-09-09 09:43 | Discharge Summary ---
<Juanito Louis - Last Filed: 09/09/17 11:26> - NOTES TO OUTPATIENT PROVIDER Notes to Outpatient Provider: Per ortho, should follow up in 1 week for evaluation. Orders not resulted at time of discharge: Pending orders 09/06/17 XR wrist complete 3V RT [XR] Routine Date of Encounter: 09/09/17 Time of Encounter: 09:42 - Discharge Diagnosis (1) Hypertension Priority: Secondary Status: Chronic Qualifiers: Hypertension type: essential hypertension Qualified Code(s): I10 - Essential (primary) hypertension (2) Insulin dependent diabetes mellitus Priority: Secondary Status: Chronic (3) DVT prophylaxis Priority: Secondary Status: Acute (4) Morbid obesity with BMI of 60.0-69.9, adult Priority: Secondary Status: Chronic (5) Lymphedema Priority: Secondary Status: Acute (6) Fracture of distal end of radius and ulna Priority: Primary Status: Acute Qualifiers: Encounter type: initial encounter Fracture type: open Open fracture type : open type I or II Laterality: right Qualified Code(s): S52.501B - Unspecified fracture of the lower end of right radius, initial encounter for open fracture type I or II; S52.601B - Unspecified fracture of lower end of right ulna, initial encounter for open fracture type I or II; S52.601B - Unspecified fracture of lower end of right ulna, initial encounter for open fracture type I or II (7) Congestive heart failure Priority: Secondary Status: Chronic Qualifiers: Heart failure type: unspecified Heart failure chronicity: unspecified Qualified Code(s): I50.9 - Heart failure, unspecified (8) Acute kidney injury Priority: Secondary Status: Resolved (9) Hypotension Priority: Secondary Status: Resolved (10) Anemia due to blood loss, acute Priority: Secondary Status: Resolved Hospital course: Ms. Smith is a 71 year old female who presented to ED after a mechanical fall. She is reportedly unsteady at baseline and ambulates with a walker. Patient complained of pain but was neurovascularly intact at the time. She did have open wounds on the wrist at that time. Vitals in the ED were notable for BP 157/ 91 and HR of 55. Labs were unremarkable at the time however she did develop an PIERRE with a Creatinine of 2.00 at its peak. Forearm Xray did confirm the acute comminuted displaced fractures of both the distal radius and ulna. Xrays also performed on the Hand, elbow, hip/pelvis, and chest. She was admitted with orthopedic consult for wrist fracture. During course of hospital stay, patient gradually improved. She underwent debridement and irrigation of right forearm with ORIF of right radius and ulna with Dr. Beverly on 09/06/17. She tolerated the procedure well. She did have a right internal jugular venous catheter placed following surgery for limited vascular access which did have to be pulled due to poor positioning on CXR. Her PIERRE did improve back to baseline levels with IV fluids. Suspected etiology of dehydration with hypotension following surgery. Most recent vitals wnl and Creatinine of 1.00 today. She reports adequate pain control and is stable for discharge to [facility]. All questions were answered and she will be discharged when placement is ready. Instructions by Ortho: Follow Up: Follow up in the office in one week for wound evaluation and placement in a removable [place] brace to be worn at all times with the exception of hygiene. Stitches out on postoperative week 3. We will begin motion exercises 4 weeks postoperatively if x-rays show good position of the fracture fragments. Discharge discussed with: patient - Time Spent with Patient Total time spent providing and/or coordinating discharge services: - Discharge Medications Home Medications: Diclofenac Sodium [Voltaren] 75 mg PO BID 07/17/16 [History] Furosemide [Lasix] 80 mg PO QAM 07/17/16 [History] Insulin LISPRO [HumaLOG] 0 unit SQ ACHS PRN 07/17/16 [History] Insulin Lispro Protamin/Lispro [Humalog Mix 75-25 Vial] 33 - 37 unit SQ BID [History] LORazepam [Ativan] 1 mg PO TID PRN 07/17/16 [History] Ramipril 10 mg PO BID 07/17/16 [History] Acetaminophen [Tylenol] 650 mg PO Q6HR PRN #0 tablet 07/20/16 [Rx] Zolpidem [Ambien] 5 mg PO HS PRN #5 tablet 07/20/16 [Rx] Allopurinol [Zyloprim 100 MG] 100 mg PO DAILY 09/06/17 [History] Gabapentin [Neurontin] 600 mg PO TID 09/06/17 [History] Indomethacin 50 mg PO TID PRN 09/06/17 [History] Spironolactone [Aldactone] 25 mg PO DAILY 09/06/17 [History] Allergies/Adverse Reactions: 3 Allergy/AdvReac Type Severity Reaction Status Date / Time No Known Allergies Allergy Verified 07/17/16 14:49 Date of admission: 09/06/17 15:54 Primary care physician: Will Reece, Consults: 09/07/17 12:34 Consult to Potato [employer] Sorter [CONS] Routine Reason for SW Consult: discharge planning 09/08/17 08:14 Consult to Invasive Line Access Team [CONS] Routine Reason for Consult: Need for IV access in a hypotensive patient with renal failure Line Type: PICC PICC line indications: Limited vascular access 09/09/17 08:27 Consult to Physical Therapy [CONS] Stat Comment: Evaluate, develop and implement POC Reason for Consult: Mobilization. NWB RUE; Okay to use platform walker Does patient have active BEDREST order?: No Is patient medically & hemodynamically stable?: Yes 09/09/17 08:28 Consult to Occupational Therapy [CONS] Stat Comment: Evaluate, develop and implement POC Reason for Consult: Mobilization; NWB RUE; okay to use platform walker Does patient have active BEDREST order?: No Is patient medically & hemodynamically stable?: Yes Discharging clinician: Juanito Louis Anticipated date of discharge: 09/09/17 - Constitutional Vitals: Temp Pulse Resp BP Pulse Ox 98.3 F 86 16 148/76 95 09/09/17 06:47 09/09/17 06:47 09/09/17 06:47 09/09/17 06:47 09/09/17 06:47 General appearance: Present: A&O X 3, pleasant, no acute distress, answers questions appropriately Exam: Gen.: Vitals noted. No acute distress. AAOx3 HEENT: PERRL/EOMI, oropharynx clear, Normocephalic, atraumatic, MMM Cardiac: RRR, no murmur, +S1/S2 Pulmonary: CTA bilaterally, no wheezes, rales or rhonchi, equal chest expansion Abdomen: soft, nontender, BS noted, no guarding, no rebound. Extremities: no BLE edema, nontender calf, no cyanosis or clubbing. Right arm wrapped without obvious evidence of infection. Neuro: A&Ox3, moves all extremities, no focal deficits Psych: Appropriate mood and behavior - Patient Status Disposition: Transfer SNF Condition: Fair Functional capacity at discharge: uses cane/walker Overall status at discharge: patient is progressing back to baseline - Discharge Instructions Follow Up With: Will Reece MD [Primary Care Provider] - Additional Instructions: Please follow up with your PCP within one week and with Dr. Ni or one of his partners in 1 week. Take all medications as prescribed and return to the ED with any worsening of symptoms including unbearable pain, fevers, chills, nausea , vomiting. - Diet and Activity Activity: ambulate only with your walker, as per physical therapy, increase activity as tolerated, resume usual activities as tolerated Diet: advance to your usual diet - VTE Documentation of Mechanical Device: Intermittent pneumatic compression device <Art Ortega - Last Filed: 09/09/17 13:00> Orders not resulted at time of discharge: Pending orders 09/06/17 XR wrist complete 3V RT [XR] Routine Date of Encounter: 09/09/17 - Discharge Diagnosis (1) Hypertension Status: Chronic Qualifiers: Hypertension type: essential hypertension Qualified Code(s): I10 - Essential (primary) hypertension (2) Insulin dependent diabetes mellitus Status: Chronic (3) DVT prophylaxis Status: Acute (4) Morbid obesity with BMI of 60.0-69.9, adult Status: Chronic (5) Lymphedema Status: Acute (6) Fracture of distal end of radius and ulna Status: Acute (7) Congestive heart failure Status: Chronic Qualifiers: Heart failure type: unspecified Heart failure chronicity: unspecified Qualified Code(s): I50.9 - Heart failure, unspecified (8) Acute kidney injury Status: Resolved (9) Hypotension Status: Resolved Qualifiers: Hypotension type: unspecified hypotension type (10) Anemia due to blood loss, acute Status: Resolved Hospital course: Ms. Smith is a 71 year old female - Time Spent with Patient Total time spent providing and/or coordinating discharge services: Date of admission: 09/06/17 15:54 Primary care physician: Will Reece, Consults: 09/07/17 12:34 Consult to Potato [employer] Sorter [CONS] Routine Reason for SW Consult: discharge planning 09/08/17 08:14 Consult to Invasive Line Access Team [CONS] Routine Reason for Consult: Need for IV access in a hypotensive patient with renal failure Line Type: PICC PICC line indications: Limited vascular access - Constitutional Vitals: Temp Pulse Resp BP Pulse Ox 98.7 F 81 16 143/76 95 09/09/17 10:00 09/09/17 10:00 09/09/17 10:00 09/09/17 10:00 09/09/17 10:00 - Attending Attestation Right distal fracture of the radius and ulna status post ORIF Acute renal failure secondary to hypotension, resolved Acute blood loss anemia secondary to surgical procedure Time spent 40 minutes I examined this patient and my medical decision-making was reviewed with the Resident Physician. I agree with the documented findings, disposition and treatment plan as described except to the extent set forth below.
--- NOTE | 2017-09-09 10:01 | Physician Discharge Referral ---
<NahidJuanito palafox - Last Filed: 09/09/17 09:59> [facility] Referral Info Provider in Charge after Transfer: PCP - Diagnosis (1) Hypertension Priority: Secondary Status: Chronic (2) Insulin dependent diabetes mellitus Priority: Secondary Status: Chronic (3) DVT prophylaxis Priority: Secondary Status: Acute (4) Morbid obesity with BMI of 60.0-69.9, adult Priority: Secondary Status: Chronic (5) Lymphedema Priority: Secondary Status: Acute (6) Fracture of distal end of radius and ulna Priority: Primary Status: Acute (7) Congestive heart failure Priority: Secondary Status: Acute (8) Acute kidney injury Priority: Secondary Status: Acute (9) Hypotension Priority: Secondary Status: Acute (10) Anemia due to blood loss, acute Priority: Secondary Status: Acute Prognosis: Good Aware of Diagnosis: Patient Aware of Prognosis: Patient - Transfer Medications Home Medications: Diclofenac Sodium [Voltaren] 75 mg PO BID 07/17/16 [History] Furosemide [Lasix] 80 mg PO QAM 07/17/16 [History] Insulin LISPRO [HumaLOG] 0 unit SQ ACHS PRN 07/17/16 [History] Insulin Lispro Protamin/Lispro [Humalog Mix 75-25 Vial] 33 - 37 unit SQ BID [History] LORazepam [Ativan] 1 mg PO TID PRN 07/17/16 [History] Ramipril 10 mg PO BID 07/17/16 [History] Acetaminophen [Tylenol] 650 mg PO Q6HR PRN #0 tablet 07/20/16 [Rx] Zolpidem [Ambien] 5 mg PO HS PRN #5 tablet 07/20/16 [Rx] Allopurinol [Zyloprim 100 MG] 100 mg PO DAILY 09/06/17 [History] Gabapentin [Neurontin] 600 mg PO TID 09/06/17 [History] Indomethacin 50 mg PO TID PRN 09/06/17 [History] Spironolactone [Aldactone] 25 mg PO DAILY 09/06/17 [History] Allergies/Adverse Reactions: 3 Allergy/AdvReac Type Severity Reaction Status Date / Time No Known Allergies Allergy Verified 07/17/16 14:49 - Respiratory Orders Smoking Cessation: Smoking cessation has been advised. For more information, call the [place] Tobacco Quit Line at 8-895-NBCO-NOW. - Mobility Orders Ambulate - Rehabiliation Orders Rehab Potential: Good - Diet Orders No Added Salt (ANNA), No Concentrated Sweets CERTIFICATION: I certify that the transfer of the above named patient to an Extended Care Facility is necessary for the continuing treatment of the diagnosis listed. The above information is true and accurate reflection of patient's current condition. Confidential - Redisclosure prohibited without a patient's written consent. <Art Ortega - Last Filed: 09/09/17 13:00> - Diagnosis (1) Hypertension Status: Chronic (2) Insulin dependent diabetes mellitus Status: Chronic (3) DVT prophylaxis Status: Acute (4) Morbid obesity with BMI of 60.0-69.9, adult Status: Chronic (5) Lymphedema Status: Acute (6) Fracture of distal end of radius and ulna Status: Acute (7) Congestive heart failure Status: Chronic (8) Acute kidney injury Status: Resolved (9) Hypotension Status: Resolved (10) Anemia due to blood loss, acute Status: Resolved - Respiratory Orders Smoking Cessation: Smoking cessation has been advised. For more information, call the [place] Tobacco Quit Line at 6-061-OESH-NOW. CERTIFICATION: I certify that the transfer of the above named patient to an Extended Care Facility is necessary for the continuing treatment of the diagnosis listed. The above information is true and accurate reflection of patient's current condition. Confidential - Redisclosure prohibited without a patient's written consent.
[2017-09-09] MEDS: Ringers Solution, Lactated 1,000 ML IVC SCH (11:55)
[2017-09-09 12:01] VITALS: BP 143/76
--- NOTE | 2017-09-13 08:47 | Electrocardiograph Report ---
[address] [address] Test Date: 2017-09-06 Pat Name: Ghazala Smith Department: 102 Room: [facility] Gender: F Belt Brander: Anjum : 1945 Requested By: jR Conte Order Number: [id number] Reading MD: Ronald Logan Measurements Intervals [place] Rate: 52 P: 59 HI: 196 QRS: -11 QRSD: 109 T: 77 QT: 477 QTc: 456 Interpretive Statements SINUS BRADYCARDIA WITH SINUS ARRHYTHMIA NONSPECIFIC T-WAVE ABNORMALITY Electronically Signed On 09-13-2017 8:45:41 EDT by Ronald Logan
== END 2017-09-09 14:17 | DRG 511 ==
LOC: EMEROO 12:35 → 3NENU 15:54
PROVIDERS: ADMIT Orthopaedic Surgery; ATTEND Orthopaedic Surgery

== ENCOUNTER 2018-04-09 14:18 | Inpatient (IN) ==
--- NOTE | 2018-04-09 14:43 | Emergency Department Note ---
Disposition Clinical Impression: Hyperkalemia, Cellulitis of left lower extremity, Lymphedema, Morbid obesity with BMI of 60.0-69.9, adult, Acute kidney injury Hypertension Qualifiers: Hypertension type: unspecified Qualified Code(s): I10 - Essential (primary) hypertension Disposition: Admitted As Inpatient Condition: Good General Adult HPI - General Chief complaint: ED Recheck/Abnormal Lab/Rx Stated complaint: High Potassium Time Seen by Provider: 04/09/18 14:21 Source: EMS Mode of arrival: EMS Limitations: no limitations Nursing Notes Reviewed: Yes Vital Signs Reviewed: Yes - History of Present Illness HPI Narrative: Patient is a 72-year-old female with history of CHF, diabetes, COPD who presents the emergency department via EMS for concern of hyperkalemia. Per EMS they were called due to shortness of breath but upon arrival there were told her potassium was 6.7. In the emergency department patient is complaining of only weakness for the past 2 days and slight decrease in by mouth intake. Also notes slight decrease in urination. She is nonambulatory at baseline. She denies any fever, chills, chest pain, shortness of breath, dysuria, hematuria, diarrhea, nausea, vomiting, abdominal pain. Pain Scale: 0 - Related Data Home Medications Medication Instructions Recorded Confirmed Furosemide [Lasix] 80 mg PO QAM 07/17/16 04/09/18 Insulin Lispro Protamin/Lispro 33 - 37 unit SQ BID 07/17/16 04/09/18 [Humalog Mix 75-25 Vial] Ramipril 10 mg PO BID 07/17/16 04/09/18 Allopurinol [Zyloprim 100 MG] 100 mg PO DAILY 09/06/17 04/09/18 Gabapentin [Neurontin] 600 mg PO TID 09/06/17 04/09/18 Indomethacin 50 mg PO TID PRN 09/06/17 04/09/18 Spironolactone [Aldactone] 25 mg PO DAILY 09/06/17 04/09/18 Cinnamon Bark [Cinnamon] 1,000 mg PO BID 04/09/18 04/09/18 Docusate Sodium [Dok] 200 mg PO BID 04/09/18 04/09/18 Gentamicin Oint [Garamycin] 1 appl TP DAILY 04/09/18 04/09/18 Oxycodone HCl/Acetaminophen 1 tab PO Q6H PRN 04/09/18 04/09/18 [Percocet 5-325 mg Tablet] Previous Rx's Medication Instructions Recorded Acetaminophen [Tylenol] 650 mg PO Q6HR PRN #0 tablet 07/20/16 LORazepam [Ativan] 1 mg PO TID PRN 5 Days #15 tablet 09/09/17 Allergies Allergy/AdvReac Type Severity Reaction Status Date / Time No Known Allergies Allergy Verified 07/17/16 14:49 All systems ED: reviewed and negative except as stated. Review of Systems: As Per HPI Constitutional: Reports: weakness. Denies: fever, chills, weight change Eyes: Denies: eye pain, eye discharge, vision change ENT ED: Denies: ear pain, throat pain, dental pain, hearing loss, epistaxis, congestion, dysphagia Cardiovascular: Denies: chest pain, palpitations, dyspnea on exertion, edema, syncope Respiratory: Denies: cough, dyspnea, wheezes, hemoptysis, stridor Gastrointestinal: Denies: abdominal pain, nausea, vomiting, diarrhea, constipation, hematemesis, melena, hematochezia Genitourinary: Reports: other (decreased urine output). Denies: urgency, dysuria, frequency, hematuria Musculoskeletal: Denies: back pain, neck pain, arthralgia, myalgia Integumentary: Reports: lesions (left lower leg cellulitis) Neurological: Reports: weakness. Denies: headache, numbness, paresthesias, confusion, abnormal gait, vertigo Psychiatric: Denies: anxiety, depression, suicidal thoughts, homicidal thoughts, auditory hallucinations, visual hallucinations Endocrine: Denies: fatigue Past Medical History - Past Medical History Medical history: Reports: cancer, CHF, COPD, diabetes, hypertension, other Surgical history: Reports: non-contributory, breast surgery Psychiatric history: Reports: anxiety FOAM MOLDER history: Reports: no FOAM MOLDER history - Social History Smoking Status: Never smoker Smokeless Tobacco Status: No Alcohol use: Reports: none Drug use: Reports: none Physical Exam Generally ill appearing morbidly obese female. Significant amount of lymphedema in bilateral legs, left greater than right. Left leg cellulitis weeping. No area of crepitus. - General Limitations: no limitations General appearance: alert - Head Head exam: atraumatic, normocephalic - Eye Eye exam: Present: normal appearance - ENT ENT exam: normal exam, mucous membranes dry - Neck Neck exam: Present: normal inspection, full ROM, trachea midline - Chest Chest inspection: Present: normal inspection, symmetric chest wall rise - Respiratory Respiratory exam: Present: normal lung sounds bilaterally. Absent: respiratory distress, wheezes, stridor - Cardiovascular Cardiovascular exam: Present: regular rate, normal rhythm, normal heart sounds - Abdominal Exam Abdominal exam: Present: soft, Non-Tender, normal bowel sounds. Absent: distention, guarding, rebound, rigidity - Expanded Lower Extremity Exam Lower leg exam: Present: swelling, erythema. Absent: tenderness, crepitus, dislocation, Homans' sign Ankle exam: Present: other (stasis dermatitis bilaterally) Neurovascular/Tendon exam: Present: normal capillary refill. Absent: pulse deficit, motor deficit, sensory deficit - Neurological Exam Neurological exam: Present: alert, oriented X3 - Psychiatric Psychiatric exam: Present: normal affect, normal mood - Skin Skin exam: Present: warm, dry, intact Course Course Narrative: Patient is generally ill-appearing and reportedly has hyperkalemia. Otherwise she says weakness. Appears at baseline in poor health therefore will obtain broad workup including CBC, BMP, urinalysis, troponin, BNP, chest x-ray, blood cultures and lactate as well as CT scan of her left lower extremity as this shows extensive cellulitis. Vital Signs Temperature 98.3 F 04/09/18 14:27 Pulse Rate 95 04/09/18 14:27 Respiratory Rate 20 04/09/18 14:27 Blood Pressure 138/108 04/09/18 14:27 O2 Sat by Pulse Oximetry 97 04/09/18 14:27 Temperature 98.3 F 04/09/18 14:27 Pulse Rate 96 04/09/18 20:37 Respiratory Rate 18 04/09/18 20:37 Blood Pressure 105/60 04/09/18 20:37 O2 Sat by Pulse Oximetry 94 04/09/18 20:37 Oxygen Delivery Oxygen Delivery Nasal Cannula Medical Decision Making - [facility] Narrative Medical decision making narrative: 72-year-old female presenting with weakness and and appears to be chronically in poor health. Given her general appearance and many medical problems obtained workup including CBC, BMP, BNP, urinalysis, troponin, EKG, Chest XR, lactate and blood cultures. Given the appearance of her left lower extremity chronic cellulitis obtained CT of her lower extremity as well as ultrasound to evaluate for DVT. Lab work resulted in significant leukocytosis, hyperkalemia to 5.4, and acute kidney injury with elevated creatinine above the patient's baseline. BNP also above the patient's baseline. Chest x-ray shows findings consistent with pulmonary hypertension without areas of focal consolidation. CT shows findings consistent with cellulitis of her left leg. DVT ultrasound was inconclusive given the patient's body habitus and significant lymphedema. Urinalysis shows no evidence of UTI. Given the patient's PIERRE, cellulitis, and hyperkalemia obtained blood cultures and started patient on vancomycin and 1 L fluid bolus given. The patient does have CHF and is on a fluid restriction therefore will not provide further IV fluids. Discussed the case with Dr. Em, hospitalist who will admit the patient. Patient agrees with and understands course of treatment plan including plan for admission. All questions answered. - Medical Records Medical records reviewed: Yes I reviewed the patient's medical records. - Lab Data Lab results reviewed: Yes I reviewed the patient's lab results. Result diagrams: 04/09/18 14:41 04/09/18 14:41 Lab Results 04/09/18 04/09/18 04/09/18 Range/Units 14:41 14:41 14:41 WBC 23.6 H (4.3-11.1) K/mcL RBC 4.22 (3.82-4.97) M/mcL Hgb 11.7 (11.5-15.4) g/dL Hct 37.7 (35.3-44.9) % MCV 89.3 (83.0-100.0) fL MCH 27.7 L (28.0-33.3) pg MCHC 31.0 L (31.6-35.5) g/dL RDW 17.0 H (11.5-14.5) % Plt Count 265 (140-400) K/mcL MPV 10.5 (9.4-12.4) fL Seg Neutrophils % 70.0 % Band Neutrophils % 20.0 H (0-4) % Lymphocytes % 10.0 % Neutrophils # 21.2 H (1.6-8.9) K/mcL Lymphocytes # 2.4 (0.6-4.6) K/mcL Platelet Estimate Normal (Normal) Sodium 137 (136-145) mEq/L Potassium 5.4 H (3.5-5.1) mEq/L Chloride 105 (98-107) mEq/L Carbon Dioxide 25 (23-29) mEq/L BUN 66 H (8-23) mg/dL Creatinine 2.02 H (0.60-1.20) mg/dL Est GFR ( Amer) 29 L (> 60) Est GFR (Non-Af Amer) 24 L (> 60) BUN/Creatinine Ratio 33 H (6-26) Glucose 130 H (70-105) mg/dL Calculated Osmolality 305 H (280-300) Lactic Acid (0.5-2.2) mmol/L Calcium 8.8 (8.6-10.3) mg/dL Magnesium 2.5 (1.6-2.6) mg/dL Creatine Kinase 21 L (30-223) Units/L Troponin I < 0.03 (< 0.04) ng/mL B-Natriuretic Peptide 233 H (Less than 100) pg/mL Urine Color (Yellow) Urine Clarity (Clear) Urine pH (5.0-8.0) pH Units Ur Specific [place] (1.010-1.025) Urine Protein (Neg-Trace) mg/dL Urine Glucose (UA) (Normal) mg/dL Urine Ketones (Negative) mg/dL Urine Blood (Negative) Urine Nitrite (Negative) Urine Bilirubin (Negative) Urine Urobilinogen (Normal) mg/dL Ur Leukocyte Esterase (Negative) Urine Microscopic RBC (0-3) per hpf Urine Microscopic WBC (0-3) per hpf Ur Squamous Epith Cells (None-Few) per lpf Amorphous Sediment (Few) Urine Bacteria (None-Few) per hpf Hyaline Casts (None-Few) per lpf Ur Culture Indicated? (NO) 04/09/18 04/09/18 Range/Units 14:41 17:17 WBC (4.3-11.1) K/mcL RBC (3.82-4.97) M/mcL Hgb (11.5-15.4) g/dL Hct (35.3-44.9) % MCV (83.0-100.0) fL MCH (28.0-33.3) pg MCHC (31.6-35.5) g/dL RDW (11.5-14.5) % Plt Count (140-400) K/mcL MPV (9.4-12.4) fL Seg Neutrophils % % Band Neutrophils % (0-4) % Lymphocytes % % Neutrophils # (1.6-8.9) K/mcL Lymphocytes # (0.6-4.6) K/mcL Platelet Estimate (Normal) Sodium (136-145) mEq/L Potassium (3.5-5.1) mEq/L Chloride (98-107) mEq/L Carbon Dioxide (23-29) mEq/L BUN (8-23) mg/dL Creatinine (0.60-1.20) mg/dL Est GFR ( Amer) (> 60) Est GFR (Non-Af Amer) (> 60) BUN/Creatinine Ratio (6-26) Glucose (70-105) mg/dL Calculated Osmolality (280-300) Lactic Acid 1.9 (0.5-2.2) mmol/L Calcium (8.6-10.3) mg/dL Magnesium (1.6-2.6) mg/dL Creatine Kinase (30-223) Units/L Troponin I (< 0.04) ng/mL B-Natriuretic Peptide (Less than 100) pg/mL Urine Color Dark Yellow (Yellow) Urine Clarity Cloudy A (Clear) Urine pH 5.0 (5.0-8.0) pH Units Ur Specific [place] 1.019 (1.010-1.025) Urine Protein Negative (Neg-Trace) mg/dL Urine Glucose (UA) Normal (Normal) mg/dL Urine Ketones Trace H (Negative) mg/dL Urine Blood Negative (Negative) Urine Nitrite Negative (Negative) Urine Bilirubin Small H (Negative) Urine Urobilinogen Normal (Normal) mg/dL Ur Leukocyte Esterase Trace H (Negative) Urine Microscopic RBC 0-3 (0-3) per hpf Urine Microscopic WBC 0-3 (0-3) per hpf Ur Squamous Epith Cells Many H (None-Few) per lpf Amorphous Sediment Many H (Few) Urine Bacteria None Seen (None-Few) per hpf Hyaline Casts Many H (None-Few) per lpf Ur Culture Indicated? NO. A (NO) - Radiology Data Radiology results reviewed: Yes I reviewed the patient's radiology results. Chest X-Ray 04/09/18 14:38 IMPRESSION: 1. No acute cardiopulmonary disease. 2. Chronic enlargement of the main pulmonary arteries, compatible with pulmonary artery hypertension. 3. 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 D/ / Juanito Garay MD / Juanito Garay MD Interpreting Provider: Juanito Garay MD Lower Extremity CT 04/09/18 15:45 IMPRESSION: 1. Extensive subcutaneous edema of the left lower extremity which is most pronounced distally. Associated skin thickening. Correlate clinically for cellulitis. Differential considerations would also include longstanding venous stasis/lymph edema. No organized fluid collection identified. 2. Moderate to severe tricompartmental osteoarthritis of the left knee most pronounced within the patellofemoral and lateral compartments. D/ / Neftali Mckinley MD / Neftali Mckinley MD Interpreting Provider: Neftali Mckinley MD - EKG Data EKG #1 EKG attestation: Yes I reviewed and interpreted this EKG. EKG results narrative: Sinus rhythm rate of 90. Normal axis. QRS 92, MA 193, QT 369, QTC 452. Nonspecific T-wave inversions in aVR, aVL. When compared with previous from 09/06/17 there is no significant change. Attestation Statement - Attestation Attestation: I examined this patient and my medical decision-making was reviewed with the Resident Physician, Dr. Turpin. I agree with the documented findings, disposition and treatment plan as described except to the extent set forth belo w. Patient is a 72-year-old white female with a history of COPD, CHF, diabetes hypertension who presents the emergency department today with complaints of generalized malaise and fatigue over the last 2 days and decreased by mouth intake. Patient denies any vomiting, no chest pain pressure or heaviness, no shortness of breath, no bowel changes or belly pain or flank discomfort. La ent does have extensive lymphedema of the lower extremity and is nonambulatory. Patient is recently finished antibiotics for a little lower [place] cellulitis of that extremity. I agree with patient's physical exam findings as documented. Patient's hemodynamically stable on arrival and afebrile. Patient's EKG shows normal sinus rhythm without acute ischemia. Patient had full lab evaluation performed and is venous Doppler ordered of the lower extremity as well as a CT out of concern for worsening infection. Patient does have a significant leukocytosis with left shift patient was empirically st arted on IV antibiotics but has remained hemodynamically stable in the ED. Pt with mild hyperkalemia, treated with Ca Gluc and kayexalate. Pt with PIERRE, likely pre-renal. CT shows findings consistent with her lymphedema as well as cellulitis but no intramuscular abscess. Patient will be admitted for IV antibiotics and further evaluation. Case was discussed with hospitalist service who accepted patient for admission.
[2018-04-09 15:25] LABS: BUN/Creatinine Ratio 33 (6-26); Blood Urea Nitrogen 66 mg/dL (8-23); Calcium 8.8 mg/dL (8.6-10.3); Carbon Dioxide 25 mEq/L (23-29); Chloride 105 mEq/L (98-107); Glucose 130 mg/dL (70-105); Hematocrit 37.7 % (35.3-44.9); Hemoglobin 11.7 g/dL (11.5-15.4); Magnesium 2.5 mg/dL (1.6-2.6); Mean Corpuscular Hemoglobin 27.7 pg (28.0-33.3); Mean Corpuscular Volume 89.3 fL (83.0-100.0); Mean Platelet Volume 10.5 fL (9.4-12.4); Osmolality,Calculated 305 (280-300); Platelet Count 265 K/mcL (140-400); Potassium 5.4 mEq/L (3.5-5.1); Red Blood Count 4.22 M/mcL (3.82-4.97); Sodium 137 mEq/L (136-145); eGFR For Non-African Americans 24 (> 60)
[2018-04-09] MEDS ORDERED: 0.9 % Sodium Chloride 1,000 ML IVC ONE (15:28)
[2018-04-09 15:32] LABS: Troponin I < 0.03 ng/mL (< 0.04)
[2018-04-09 16:04] LABS: Creatine Kinase 21 Units/L (30-223)
[2018-04-09 16:07] LABS: Lymphocytes # 2.4 K/mcL (0.6-4.6); Neutrophils # 21.2 K/mcL (1.6-8.9)
[2018-04-09 16:08] LABS: Platelet Estimate Normal (Normal)
[2018-04-09 17:31] LABS: Bilirubin,Urine Small (Negative); Blood,Urine Negative (Negative); Clarity,Urine Cloudy (Clear); Color,Urine Dark Yellow (Yellow); Glucose,Urine (UA) Normal (Normal); Ketones,Urine Trace mg/dL (Negative); Leukocyte Esterase,Urine Trace (Negative); Nitrite,Urine Negative (Negative); Protein,Urine Negative (Neg-Trace); Specific Gravity,Urine 1.019 (1.010-1.025); Urobilinogen,Urine Normal (Normal)
[2018-04-09 17:32] LABS: Bacteria,Urine None Seen per hpf (None-Few); RBC,Urine 0-3 per hpf (0-3); Squamous Epithelial Cell,Urine Many per lpf (None-Few); WBC,Urine 0-3 per hpf (0-3)
[2018-04-09 17:49] LABS: Hyaline Casts,Urine Many per lpf (None-Few)
[2018-04-09 17:50] LABS: Amorphous Sediment,Urine Many (Few)
[2018-04-09] MEDS ORDERED: 0.9 % Sodium Chloride 1,000 ML IVC STA (18:11)
[2018-04-09] MEDS ORDERED: Acetaminophen 325 MG TABLET PO PRN (20:47)
[2018-04-09] MEDS ORDERED: Dextrose Gel 15 GM/37.5 ML TUBE PO PRN ×2 (20:47)
[2018-04-09] MEDS ORDERED: Naloxone 0.4 MG/ML INJ IVP PRN (20:47)
[2018-04-09] MEDS ORDERED: *HR* Dextrose 50 % in Water (Syg) 50 ML SYRINGE IVP PRN (20:47)
[2018-04-09] MEDS ORDERED: D5% in Water 1,000 ML IVC PRN (20:47)
[2018-04-09] MEDS ORDERED: *HR* LORazepam 1 MG TABLET PO PRN (20:55)
[2018-04-09] MEDS ORDERED: Vancomycin (wt based) 1,000 MG VIAL IVPB SCH (21:00)
--- NOTE | 2018-04-09 22:02 | Internal Med History&Physical ---
Date of Encounter: 04/09/18 Time of Encounter: 20:30 Internal Medicine - H&P: HPI Chief complaint: weakness and decreased urine output Admitted From: Emergency Dept Plans for Post Hospital Care: Transfer Senior Care Facility History of present illness: Ms. Smith is a 72 year old female who presents the ER today with complaints of weakness, dehydration, decreased urine output, and redness in her left leg. Patient lives in assisted living center and has limited mobility, mobilizing with walker and assistance. She has chronic venous stasis changes in her legs and has noted increasing redness and warmth to her left lower extremity. Workup in the ER revealed patient to have physical findings concerning for sepsis as well as cellulitis of her left leg. She was therefore admitted to hospitalist service. Symptoms started over the last 2-3 days per patient. Upon my assessment patient in the ER, she appears be dehydrated, tachycardic, ill appearing, and has evidence of left lower extremity skin/soft tissue infection. Clinically, she appears to be septic. Blood pressure is preserved, however. She does have evidence of acute kidney injury, most likely due to volume depletion and sepsis. Her lactate level is normal, however. Patient denies any cough, shortness of breath, chest pain, vomiting, or diarrhea. She does admit to having decreased oral intake and marketed decrease in urine output. She is on chronic diuretics for history of congestive heart failure. This is most likely diastolic in nature. I reviewed her most recent echocardiogram from 2017 which revealed normal left ventricular systolic function, but moderate diastolic dysfunction. Patient is also diabetic and has had prior diabetic wound/skin infections. Past Med Surg Social Fam HX - Past Medical History Attestation: Yes The following information was validated with the patient. Source: patient, old records reviewed Medical history: cancer, CHF, COPD, diabetes, hypertension Additional medical history: lymphedema. Psychiatric history: anxiety - Past Surgical History Surgical History: non-contributory, breast surgery Additional surgical history: Mastectomy with lymph node removal, partial pancreas removal - Social History Smoking Status: Never smoker Smokeless Tobacco Status: No Alcohol use: none Drug use: none Current living situation: Assisted Living Activity Level: Uses cane/walker, Mostly sedentary Recent Out of Country Travel Within the Last 8 Weeks: No - Family History Father Family Member Ethnicity: Living Status: Hx Family Cardiac Disorders: No Hx Family Respiratory Disorders: No Hx Family Cancer: No Hx Family GI Disorders: No Hx Family Endocrine Disorder: Yes Hx Family Neuromuscular Disorders: No Hx Family Neurologic Disorders: No Hx Family HEENT Disorders: No Hx Family Autoimmune Disorders: No Internal Medicine - H&P: Meds Furosemide [Lasix] 80 mg PO QAM 07/17/16 [History] Insulin Lispro Protamin/Lispro [Humalog Mix 75-25 Vial] 33 - 37 unit SQ BID 07/17/16 [History] Ramipril 10 mg PO BID 07/17/16 [History] Acetaminophen [Tylenol] 650 mg PO Q6HR PRN #0 tablet 07/20/16 [Rx] Allopurinol [Zyloprim 100 MG] 100 mg PO DAILY 09/06/17 [History] Gabapentin [Neurontin] 600 mg PO TID 09/06/17 [History] Indomethacin 50 mg PO TID PRN 09/06/17 [History] Spironolactone [Aldactone] 25 mg PO DAILY 09/06/17 [History] LORazepam [Ativan] 1 mg PO TID PRN 5 Days #15 tablet 09/09/17 [Rx] Cinnamon Bark [Cinnamon] 1,000 mg PO BID 04/09/18 [History] Docusate Sodium [Dok] 200 mg PO BID 04/09/18 [History] Gentamicin Oint [Garamycin] 1 appl TP DAILY 04/09/18 [History] Oxycodone HCl/Acetaminophen [Percocet 5-325 mg Tablet] 1 tab PO Q6H PRN 04/09/18 [History] Allergy/AdvReac Type Severity Reaction Status Date / Time No Known Allergies Allergy Verified 07/17/16 14:49 - Constitutional Constitutional: chills, fatigue, fever(s), weakness, no night sweats - EENT Eyes: no blurry vision, no change in vision Ears: no ear pain, no tinnitus Nose, mouth and throat: no nasal congestion, no sore throat - Cardiovascular Cardiovascular ROS IM: edema (chronic BLE ), no chest pain, no dyspnea, no dyspnea on exertion - Respiratory Respiratory: no cough, no hemoptysis, no chest congestion, no excessive phlegm production, no change in phlegm color - Gastrointestinal Gastrointestinal: no abdominal pain, no diarrhea, no hematemesis, no hematochezia, no melena, no vomiting Additional comments: decreased oral intake and fluid intake - Genitourinary Genitourinary: no dysuria, no flank pain, no hematuria Additional comments: decreased urine output - Musculoskeletal Musculoskeletal ROS IM: no arthralgias, no back pain - Integumentary Integumentary IM: rash (BLE (L>R)), no jaundice - Neurological Neurological ROS: frequent falls, no dizziness, no focal weakness, no headache(s) - Psychiatric Psychiatric: no anxiety, no depression - Endocrine Endocrine IM: no polydipsia, no polyphagia, no polyuria - Allergic/Immunologic Allergic/Immunologic: no GI upset with certain foods - Constitutional Vitals: Temp Pulse Resp BP Pulse Ox 98.3 F 96 18 105/60 94 04/09/18 14:27 04/09/18 20:37 04/09/18 20:37 04/09/18 20:37 04/09/18 20:37 General appearance: Present: cooperative, mild distress, A&O X 3, pleasant, answers questions appropriately Exam: ill appearing, non-toxic, appears dry - Head Head exam: Present: atraumatic, normal inspection - Eye Eye exam: Present: EOMI, PERRL. Absent: scleral icterus Pupils: Present: normal accommodation - ENT ENT exam: Present: mucous membranes dry, normal exam, normal oropharynx - Neck Neck exam general surgery: Present: full ROM, supple. Absent: tenderness, nuchal rigidity, thyromegaly - Respiratory Respiratory exam: Present: CTAB. Absent: chest wall tenderness, rales, respiratory distress, rhonchi, wheezes - Cardiovascular Cardiovascular exam: Present: distant heart sounds, RRR, +S1, +S2. Absent: diastolic murmur, systolic murmur - GI/Abdominal GI/Abdominal exam: Present: normal bowel sounds, soft. Absent: hepatomegaly, mass, splenomegaly, tenderness - Extremities Exam Extremities exam: Present: normal capillary refill, pedal edema (chronic bilateral with venous stasis changes), warm, radial pulses palpable and symmetrical. Absent: calf tenderness Additional comments: LLE with intense redness, warmth, tenderness, and excoriation with flaking skin below the knee; mild seepage of clear drainage - Back Exam Back exam: Absent: CVA tenderness (L), CVA tenderness (R) - Neurological Exam Neurological exam: Present: alert, CN II-XII intact, oriented X3, no focal deficits - Psychiatric Psychiatric exam: Present: normal affect, normal mood - Skin Skin exam: Present: dry, warm Additional comments: LLE cellulitis as noted above; chronic BLE venous stasis changes Internal Med - H&P Results - Labs CBC & Chem 7: 04/09/18 14:41 04/09/18 14:41 Labs: Short CBC 04/09/18 Range/Units 14:41 WBC 23.6 H (4.3-11.1) K/mcL Hgb 11.7 (11.5-15.4) g/dL Hct 37.7 (35.3-44.9) % Plt Count 265 (140-400) K/mcL Neutrophils # 21.2 H (1.6-8.9) K/mcL BMP 04/09/18 14:41 Sodium 137 Potassium 5.4 H Chloride 105 Carbon Dioxide 25 BUN 66 H Creatinine 2.02 H Glucose 130 H Calcium 8.8 Cardiac Enzymes 04/09/18 Range/Units 14:41 Troponin I < 0.03 (< 0.04) ng/mL Urine 04/09/18 Range/Units 17:17 Urine Color Dark Yellow (Yellow) Urine Clarity Cloudy A (Clear) Urine pH 5.0 (5.0-8.0) pH Units Ur Specific [place] 1.019 (1.010-1.025) Urine Protein Negative (Neg-Trace) mg/dL Urine Glucose (UA) Normal (Normal) mg/dL - EKG Data -: EKG Interpreted by Myself - EKG Data Prior EKG available for review: no EKG comments: 04/09/18 22:11 NSR; no acute ST-T changes - Impressions ITS Impressions Chest X-Ray 04/09/18 14:38 IMPRESSION: 1. No acute cardiopulmonary disease. 2. Chronic enlargement of the main pulmonary arteries, compatible with pulmonary artery hypertension. 3. 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 D/ / Juanito Garay MD / Juanito Garay MD Interpreting Provider: Juanito Garay MD Lower Extremity CT 04/09/18 15:45 IMPRESSION: 1. Extensive subcutaneous edema of the left lower extremity which is most pronounced distally. Associated skin thickening. Correlate clinically for cellulitis. Differential considerations would also include longstanding venous stasis/lymph edema. No organized fluid collection identified. 2. Moderate to severe tricompartmental osteoarthritis of the left knee most pronounced within the patellofemoral and lateral compartments. D/ / Neftali Mckinley MD / Neftali Mckinley MD Interpreting Provider: Neftali Mckinley MD - Diagnostic Studies Chest x-ray Status: image reviewed by me (negative) - Assessment and plan (1) Severe sepsis Current Visit: Yes Status: Acute Assessment and plan: 1. Blood cultures obtained in ER. 2. Will trend lactate levels and monitor hemodynamics. 3. Will treat with IVF hydration, IV Vancomcyn, and IV Zosyn. 4. I will also add IV Diflucan for suspected fungal component to her rash/cellulitis. 5. Trend lactate levels and monitor on telemetry. (2) Acute kidney injury Current Visit: Yes Status: Acute Assessment and plan: 1. Will hold diuretics and hydrate with IVF. 2. Will place [place] for critical I/O monitoring. 3. Likely due to sepsis, decreased PO intake, in the setting of continued diuretic use. 4. Consult nephrology if fails to improve with above. (3) Cellulitis of left lower extremity Current Visit: Yes Status: Acute Assessment and plan: 1. Antibiotics and antifungals as above. 2. Consult wound care for assistance in management. 3. Glucose control for better wound healing. 4. CT of LLE report reviewed; no surgical indications at this time. 5. May need surgical intervention if she develops abscess and/or deep infection. (4) Insulin dependent diabetes mellitus Current Visit: Yes Status: Chronic Assessment and plan: 1. Continue home basal insulin and add SSI. 2. Monitor glucose and adjust SSI as needed. (5) DVT prophylaxis Current Visit: Yes Status: Acute Assessment and plan: 1. Heparin SQ.
[2018-04-09 22:11] LABS: Estimated Average Glucose 140 mg/dl; Hemoglobin A1C 6.5 %
[2018-04-09] MEDS: Insulin NPH/REG 70/30 100 UNIT/ML (x5UNIT) SQ SCH (23:10)
[2018-04-09] MEDS: Gabapentin 300 MG CAPSULE PO SCH (23:20)
[2018-04-09] MEDS: Piperacillin/Tazobactam 3.375 GM in 0.9 % Sodium Chloride Mini Bag 100 ML IVPB SCH (23:37)
[2018-04-09] MEDS: 0.9 % Sodium Chloride 1,000 ML IVC SCH (23:38)
[2018-04-09] MEDS: *HR* Heparin 5,000 UNIT/ML VIAL SQ SCH (23:38)
[2018-04-10 06:28] LABS: Basophils # 0.1 K/mcL (0.0-0.2); Basophils % 0.5 %; Eosinophils % 0.8 %; Hematocrit 35.9 % (35.3-44.9); Hemoglobin 11.1 g/dL (11.5-15.4); Immature Granulocytes % 0.9 % (0-4); Lymphocytes # 2.7 K/mcL (0.6-4.6); Lymphocytes % 14.7 %; Mean Corpuscular HGB Conc 30.9 g/dL (31.6-35.5); Mean Corpuscular Hemoglobin 27.6 pg (28.0-33.3); Mean Corpuscular Volume 89.3 fL (83.0-100.0); Mean Platelet Volume 10.5 fL (9.4-12.4); Monocytes # 0.6 K/mcL (0.0-1.3); Monocytes % 3.4 %; Neutrophils # 14.4 K/mcL (1.6-8.9); Platelet Count 274 K/mcL (140-400); Red Blood Count 4.02 M/mcL (3.82-4.97); Red Cell Distribution Width 17.1 % (11.5-14.5); Segmented Neutrophils % 79.7 %
[2018-04-10 06:33] LABS: Eosinophils # 0.1 K/mcL (0.0-0.6); INR 1.1; Prothrombin Time 12.4 Seconds (9.4-12.1)
[2018-04-10 06:36] LABS: Activated Partial Thrombo Time 27.1 Seconds (26.0-36.0)
[2018-04-10 06:43] LABS: Albumin/Globulin Ratio 0.9 (1.1-2.2); Anisocytosis 1+ (Not Present); Bilirubin,Total 0.4 mg/dL (0.3-1.0); Calcium 8.4 mg/dL (8.6-10.3); Globulin 3.3 g/dL (2.4-3.5); Magnesium 2.4 mg/dL (1.6-2.6); Platelet Estimate Normal (Normal); Potassium 5.4 mEq/L (3.5-5.1); Total Protein 6.3 g/dL (6.4-8.9)
[2018-04-10] MEDS: 0.9 % Sodium Chloride 1,000 ML IVC SCH ×2 (06:59→18:00)
[2018-04-10] MEDS ORDERED: Vancomycin 1 EACH in 0.9 % Sodium Chloride 250 ML IVPB PRN (09:00)
[2018-04-10] MEDS ORDERED: [UNRECOGNIZED DRUG - OTHER] TP SCH (09:00)
[2018-04-10] MEDS ORDERED: Fluconazole 100 MG/50 ML 100 MG/50 ML BAG IVPB SCH (09:00)
[2018-04-10] MEDS: Insulin LISPRO 300 UNITS/3 ML VIAL SQ SCH ×3 (09:25→17:00)
[2018-04-10] MEDS: *HR* Heparin 5,000 UNIT/ML VIAL SQ SCH ×2 (09:36→15:30)
[2018-04-10] MEDS: Gabapentin 300 MG CAPSULE PO SCH ×3 (09:37→22:01)
[2018-04-10] MEDS: Piperacillin/Tazobactam 3.375 GM in 0.9 % Sodium Chloride Mini Bag 100 ML IVPB SCH ×2 (09:38→15:31)
[2018-04-10] MEDS: Insulin NPH/REG 70/30 100 UNIT/ML (x5UNIT) SQ SCH ×2 (09:58→17:00)
--- NOTE | 2018-04-10 15:04 | Internal Med Progress Note ---
Hospitalist Progress Note - Encounter Date of Encounter: 04/10/18 Time of Encounter: 15:00 - Subjective Interval History: I've seen and evaluated the patient at bedside. she reports pain in her lower extremities b/l L>R. Also reports that she has had some blisters forming in her buttocks. denies chest pain, shortness of breath, fever/chills. - Exam Vitals: Temp Pulse Resp BP Pulse Ox 98.3 F 92 15 129/111 96 04/10/18 11:48 04/10/18 11:48 04/10/18 04:49 04/10/18 13:46 04/10/18 11:48 Exam: Vitals: Reviewed General: Morbidly obese. Alert and orientedx4. in mild distress due to pain in the lower extremities Skin: chronic venous ectasis in the lower extremity L>R. Erythema in the lower extr L>R HEENT: EOM, pupils equal, round and reactive. Cardiovascular: RRR, Normal S1 & S2, no rubs, murmurs or gallops. Lungs: Decreased chest expansion. Decreased breath sounds bilaterally, no wheezes or crackles. Abdomen: Obese, Soft, non-tender, no rigidity. Extremities: angry looking erythema in the lower extr L>R. warmth and terderness to touch b/l. Neurological: Normal cognition and motor skills. Rest of the physical exam is non contributory - Assessment and Plan (1) Cellulitis of left lower extremity Current Visit: Yes Status: Acute Assessment and Plan: Patient on broad-spectrum antibiotics. on vancomycin per pharmacy dosing and Piperacillin/tazobactam 3.375mg/IV Q8HRs Blood culture sent: No growth, pending final report Wound care consult Percocet 5/325 one tab by mouth every 8 hours for pain control when necessary. draw a map around the erythema in the lower extr. (2) Sepsis Current Visit: Yes Status: Acute Assessment and Plan: Most likely due to cellulitis of the lower extremity. Plan of care as above. (3) Acute kidney injury Current Visit: Yes Status: Acute Assessment and Plan: Most likely due to low preload secondary to sepsis. Gentle IV hydration with 0.9%NS@75mls/hr Avoid nephrotoxic medication. (4) Insulin dependent diabetes mellitus Current Visit: Yes Status: Chronic Assessment and Plan: Blood sugar is well controlled. Continue Humulin units subcutaneous twice a day with meal. Lispro medium dose sliding scale before meals. Carb controlled diet. (5) Morbid obesity with BMI of 60.0-69.9, adult Current Visit: Yes Status: Chronic (6) COPD (chronic obstructive pulmonary disease) Current Visit: Yes Status: Chronic Assessment and Plan: Not on acute exacerbation. Albuterol nebs every 4 hours when necessary. (7) Congestive heart failure Current Visit: No Status: Chronic Assessment and Plan: Diastolic congestive heart failure. Not on acute exacerbation. Daily weight A strict intake and output Patient is started on gentle hydration due to sepsis. We will monitor for volume overload. Furosemide on hold due to a care a due to low preload. DVT Prophylaxis: On heparin 5000 units subcutaneous every 8 hours. - Summary of Assessment and Plan Summary of Assessment and Plan: Patient to remain in the hospital due to sepsis secondary to cellulitis of the lower extremities on IV antibiotics. - Time Spent with Patient Total time spent is greater than 50% in coordination of care (as documented) at patient's floor/unit and/or counseling patient: Greater than 35 minutes (45) Plan of Care Discussed with: patient (and the nurse.) Internal Medicine: Result - Labs CBC & Chem 7: 04/10/18 06:07 04/10/18 06:07 Labs: Short CBC 04/09/18 04/10/18 Range/Units 14:41 06:07 WBC 23.6 H 18.0 H (4.3-11.1) K/mcL Hgb 11.7 11.1 L (11.5-15.4) g/dL Hct 37.7 35.9 (35.3-44.9) % Plt Count 265 274 (140-400) K/mcL Neutrophils # 21.2 H 14.4 H (1.6-8.9) K/mcL BMP 04/09/18 04/09/18 04/10/18 14:41 21:57 06:07 Sodium 137 137 Potassium 5.4 H 5.3 H 5.4 H Chloride 105 107 Carbon Dioxide 25 23 BUN 66 H 61 H Creatinine 2.02 H 1.57 H Glucose 130 H 129 H Calcium 8.8 8.4 L Cardiac Enzymes 04/09/18 Range/Units 14:41 Troponin I < 0.03 (< 0.04) ng/mL Liver Function 04/10/18 Range/Units 06:07 Total Bilirubin 0.4 (0.3-1.0) mg/dL AST 26 (13-39) Units/L ALT 13 (7-52) Units/L Alkaline Phosphatase 105 H (34-104) Units/L Albumin 3.0 L (3.5-5.7) g/dL Urine 04/09/18 Range/Units 17:17 Urine Color Dark Yellow (Yellow) Urine Clarity Cloudy A (Clear) Urine pH 5.0 (5.0-8.0) pH Units Ur Specific Sutton 1.019 (1.010-1.025) Urine Protein Negative (Neg-Trace) mg/dL Urine Glucose (UA) Normal (Normal) mg/dL - ABG Interpretation ABG results: PT/INR, D-dimer PT 12.4 Seconds (9.4-12.1) H 04/10/18 06:07 - Impressions Impressions Chest X-Ray 04/09/18 14:38 IMPRESSION: 1. No acute cardiopulmonary disease. 2. Chronic enlargement of the main pulmonary arteries, compatible with pulmonary artery hypertension. 3. 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 D/ / Juanito Garay MD / Juanito Garay MD Interpreting Provider: Juanito Garay MD Lower Extremity CT 04/09/18 15:45 IMPRESSION: 1. Extensive subcutaneous edema of the left lower extremity which is most pronounced distally. Associated skin thickening. Correlate clinically for cellulitis. Differential considerations would also include longstanding venous stasis/lymph edema. No organized fluid collection identified. 2. Moderate to severe tricompartmental osteoarthritis of the left knee most pronounced within the patellofemoral and lateral compartments. D/ / Neftali Mckinley MD / Neftali Mckinley MD Interpreting Provider: Neftali Mckinley MD Consult Discharge Plan - Plan Referrals: NONE,PCP [Primary Care Provider] - (2) Sepsis Qualifiers: Sepsis type: sepsis due to unspecified organism Qualified Code(s): A41.9 - Sepsis, unspecified organism (6) COPD (chronic obstructive pulmonary disease) Qualifiers: COPD type: unspecified COPD Qualified Code(s): J44.9 - Chronic obstructive pulmonary disease, unspecified (7) Congestive heart failure Qualifiers: Heart failure type: diastolic Heart failure chronicity: chronic Qualified Code(s): I50.32 - Chronic diastolic (congestive) heart failure
[2018-04-10] MEDS ORDERED: Albuterol 2.5 MG/3 ML NEBULIZER IH PRN (15:10)
[2018-04-10] MEDS: *HR* OxyCODONE/APAP 5/325 TABLET PO PRN (16:45)
[2018-04-10] MEDS: Gentamicin Oint 15 GM TUBE TP SCH (18:30)
[2018-04-10] MEDS ORDERED: Nystatin Cream 15 GM TUBE TP SCH (21:40)
[2018-04-10 23:45] LABS: Acinetobacter baumannii by PCR Not Detected (Not Detect); Candida albicans by PCR Not Detected (Not Detect); Candida glabrata by PCR Not Detected (Not Detect); Candida krusei by PCR Not Detected (Not Detect); Candida parapsilosis by PCR Not Detected (Not Detect); Candida tropicalis by PCR Not Detected (Not Detect); Enterobacter cloacae Cmplx PCR Not Detected (Not Detect); Enterobacteriaceae by PCR Not Detected (Not Detect); Enterococcus by PCR Not Detected (Not Detect); Escherichia coli by PCR Not Detected (Not Detect); Klebsiella oxytoca by PCR Not Detected (Not Detect); Klebsiella pneumoniae by PCR Not Detected (Not Detect); Proteus by PCR Not Detected (Not Detect); Pseudomonas aeruginosa by PCR Not Detected (Not Detect); Serratia marcescens by PCR Not Detected (Not Detect); Staphylococcus aureus by PCR Not Detected (Not Detect); Staphylococcus by PCR Not Detected (Not Detect); Streptococcus agalactiae(B)PCR Not Detected (Not Detect); Streptococcus by PCR Not Detected (Not Detect); Streptococcus pneumoniae PCR Not Detected (Not Detect); Streptococcus pyogenes (A) PCR Not Detected (Not Detect)
[2018-04-11] MEDS: *HR* Heparin 5,000 UNIT/ML VIAL SQ SCH ×3 (00:50→16:14)
[2018-04-11] MEDS: Piperacillin/Tazobactam 3.375 GM in 0.9 % Sodium Chloride Mini Bag 100 ML IVPB SCH ×3 (00:50→16:16)
[2018-04-11 05:30] LABS: Basophils # 0.1 K/mcL (0.0-0.2); Basophils % 0.4 %; Eosinophils # 0.6 K/mcL (0.0-0.6); Hematocrit 34.1 % (35.3-44.9); Hemoglobin 10.3 g/dL (11.5-15.4); Immature Granulocytes % 0.6 % (0-4); Lymphocytes % 21.9 %; Mean Corpuscular HGB Conc 30.2 g/dL (31.6-35.5); Mean Corpuscular Hemoglobin 27.4 pg (28.0-33.3); Mean Corpuscular Volume 90.7 fL (83.0-100.0); Mean Platelet Volume 10.6 fL (9.4-12.4); Monocytes # 0.8 K/mcL (0.0-1.3); Monocytes % 5.8 %; Neutrophils # 9.3 K/mcL (1.6-8.9); Platelet Count 235 K/mcL (140-400); Red Blood Count 3.76 M/mcL (3.82-4.97); Red Cell Distribution Width 17.2 % (11.5-14.5); Segmented Neutrophils % 67.3 %
[2018-04-11 06:27] LABS: Calcium 8.2 mg/dL (8.6-10.3); Magnesium 2.5 mg/dL (1.6-2.6); Phosphorous 4.5 mg/dL (2.7-4.5); Potassium 4.8 mEq/L (3.5-5.1)
[2018-04-11] MEDS: Insulin NPH/REG 70/30 100 UNIT/ML (x5UNIT) SQ SCH ×2 (08:27→16:15)
[2018-04-11] MEDS: Gabapentin 300 MG CAPSULE PO SCH ×3 (08:27→21:37)
[2018-04-11] MEDS: Insulin LISPRO 300 UNITS/3 ML VIAL SQ SCH ×3 (08:30→18:22)
[2018-04-11] MEDS: Gentamicin Oint 15 GM TUBE TP SCH (08:35)
[2018-04-11] MEDS ORDERED: Fluconazole 100 MG TABLET PO SCH (09:00)
[2018-04-11] MEDS: 0.9 % Sodium Chloride 1,000 ML IVC SCH (10:24)
--- NOTE | 2018-04-11 11:05 | Infectious Disease Consult ---
Date of Encounter: 04/11/18 Time of Encounter: 11:05 Assessment and Plan (1) Sepsis Status: Acute Assessment and plan: - Meets 3/4 sirs criteria with heart rate in 90s, respiratory rate 20, leukocytosis on presentation. - Likely source: Cellulitis, bacteremia - Positive organism: Unclear - Lactic acid of 1.9/1.2/0.8 - End organ damage including altered mental status, PIERRE - Leukocytosis is improving with antibiotics down trending from 23.6 to 18.0 and now 13.9 most recently - Urinalysis was unimpressive for infection - Chest x-ray shows no acute infectious process - CT of the lower extremity does show significant subcutaneous edema with skin thickening indicative of cellulitis. No organized fluid collection identified. - Blood cultures obtained 04/09 positive in 1/2 for gram-negative cocci. PCR did not identify an organism - We will discuss this with microbiology and they state it is growing aerobically. Possible Nisseria versus Moraxella? Started on vancomycin, Zosyn, Diflucan. This is day #3 Plan - We will continue vancomycin, Zosyn day #3 - Vancomycin trough goal of 10 - We will await final culture sensitivities and results - Duration of antibiotics depends on clinical picture - We will de-escalate antibiotics as able Qualifiers: Sepsis type: sepsis due to unspecified organism Qualified Code(s): A41.9 - Sepsis, unspecified organism (2) Cellulitis Status: Acute Assessment and plan: As above for sepsis Qualifiers: Site of cellulitis: extremity Site of cellulitis of extremity: lower extremity Laterality: left Qualified Code(s): L03.116 - Cellulitis of left lower limb (3) Acute kidney injury Status: Acute Assessment and plan: - BUNs/creatinine of 56/1.36 - Mildly improved from creatinine of 2.02 on admission - Baseline creatinine appears to be around 0.7-0.8. - Possibly secondary to sepsis - Continue monitor and renally adjust antibiotics. Avoid nephrotoxins as able - Further management per primary team Infectious Disease HPI - Data of Consult Patient: new to practice Consult date: 04/11/18 Requesting Physician: Arben Palmer MD Primary Care Provider: PCP NONE - Consult Narrative Reason for consult: Gram negative bacteremia History of present illness: Ms. Smith is a 72 year old female who presented to the hospital from nursing facility with the complaint of weakness, dehydration, decreased urine output, increased redness in the left leg on 04/09. Infectious disease was consulted on 04/11 for gram-negative bacteremia. Patient has a past medical history of CHF, COPD, type 2 diabetes, hypertension, lymphadema, breast cancer s/p mastectomy with lymph node resection and partial pancreatic resection. Upon presentation to the hospital, she did meet sepsis criteria with heart rate of 95, respiratory rate in the 20s, and leukocytosis at 23.6. Lactic acid was less than 2 at 1.9 which is trended to 1.2, 0.8. Leukocytosis has been decreasing and is currently at 13.9. She was also noticed to have an acute kidney injury with a BUNs/creatinine of 56/1.36 today which is improved from a creatinine of 2.02. Blood cultures were obtained on 04/09 and were positive in 1 of 2 growing gram negative cocci. PCR has not identified a species. Urinalysis was obtained and showed trace leukocyte esterase with many epithelial cells not impressive for infection. Chest x-ray on admission showed evidence of pulmonary artery hypertension with chronic left shoulder dislocation. CT was obtained of the left lower extremity which showed subcutaneous edema, skin thickening indicative of cellulitis with no organized fluid collection. Doppler ultrasound of the left lower extremity was obtained and was negative for DVT. She was started on vancomycin, Zosyn and Diflucan. Today during exam, patient states overall she is feeling better but is still admitting to some weakness and she states she feels confused. Her biggest concern right now is her insulin administration. She is denying any symptoms of fevers, chills, chest pain, shortness of breath, cough, rhinorrhea, ear fullness or pain. She does admit to some nasal congestion over the last couple of days. She denies any abdominal pain, nausea, vomiting, changes in bowel movements other than chronic constipation, she denies urinary symptoms. She does admit to increased swelling in her lower extremities but is unable to see her legs due to body habitus. She states they may have been having discharge but she is unsure. She has never been admitted to this hospital the past for infectious causes. CC: Arben Palmer MD Past Med Surg Social Fam HX - Past Medical History Medical history: cancer, CHF, COPD, diabetes, hypertension Additional medical history: lymphedema. Psychiatric history: anxiety - Past Surgical History Surgical History: non-contributory, breast surgery, cholecystectomy, splenectomy Additional surgical history: Mastectomy with lymph node removal, partial pancreas removal, right shoulder reverse replacement - Social History Smoking Status: Former smoker Smokeless Tobacco Status: No Alcohol use: rarely Drug use: none - Family History Father Name: Wyatt Family Member Ethnicity: Living Status: Hx Family Cardiac Disorders: No Hx Family Respiratory Disorders: No Hx Family Cancer: No Hx Family GI Disorders: No Hx Family Endocrine Disorder: Yes (diabetic) Hx Family Neuromuscular Disorders: No Hx Family Neurologic Disorders: No Hx Family HEENT Disorders: No Hx Family Autoimmune Disorders: No Mother Name: Angelina Family Member Ethnicity: Living Status: Age at : 83 Cause of : heart failure Hx Family Cardiac Disorders: Yes (CHF) Infectious Disease-CN:Meds RX: Furosemide [Lasix] 80 mg PO QAM 07/17/16 [History] RX: Insulin Lispro Protamin/Lispro [Humalog Mix 75-25 Vial] 33 - 37 unit SQ BID 07/17/16 [History] RX: Ramipril 10 mg PO BID 07/17/16 [History] RX: Acetaminophen [Tylenol] 650 mg PO Q6HR PRN #0 tablet 07/20/16 [Rx] RX: Allopurinol [Zyloprim 100 MG] 100 mg PO DAILY 09/06/17 [History] RX: Gabapentin [Neurontin] 600 mg PO TID 09/06/17 [History] RX: Indomethacin 50 mg PO TID PRN 09/06/17 [History] RX: Spironolactone [Aldactone] 25 mg PO DAILY 09/06/17 [History] RX: LORazepam [Ativan] 1 mg PO TID PRN 5 Days #15 tablet 09/09/17 [Rx] Cinnamon Bark [Cinnamon] 1,000 mg PO BID 04/09/18 [History] Docusate Sodium [Dok] 200 mg PO BID 04/09/18 [History] Gentamicin Oint [Garamycin] 1 appl TP DAILY 04/09/18 [History] Oxycodone HCl/Acetaminophen [Percocet 5-325 mg Tablet] 1 tab PO Q6H PRN 04/09/18 [History] Allergy/AdvReac Type Severity Reaction Status Date / Time No Known Allergies Allergy Verified 07/17/16 14:49 Review of systems: - Constitutional: Admits to weakness, fatigue. Denies fevers, chills, weight loss - Head/Neck: Denies LOUIS, neck stiffness - EENT: Metastases to nasal congestion. Denies rhinorrhea, sore throat, odyna phagia - CVS: Denies chest pain, palpitations, SCANLON, orthopnea, edema, PND, - Pulm: Denies SOB, cough, sputum, hematemesis, wheezing - GI: Denies abdominal pain, anorexia, nausea, vomiting, diarrhea, constipation, melena - : Denies dysuria, increased frequency, urgency, hematuria, - MSK: Admits to lower extremity swelling left greater than right. Denies joint pain, limited ROM - Skin: Denies rashes, ulcers, color changes, - Neuro: Denies LOUIS, paresthesias, focal deficits, ataxia, Exam - Constitutional Vitals: Temp Pulse Resp BP Pulse Ox 97.8 F 99 18 124/68 100 04/11/18 10:14 04/11/18 10:14 04/11/18 10:14 04/11/18 10:14 04/11/18 10:14 Exam: Gen.: Vitals noted. No acute distress. AAOx3, morbidly obese. Resting comfortably in bed Neck: No meningeal signs, full range of motion HEENT: PERRL/EOMI, oropharynx clear, Normocephalic, atraumatic, MMM Cardiac: RRR, no murmur, +S1/S2 Pulmonary: CTA bilaterally, no wheezes, rales or rhonchi, equal chest expansion Abdomen: soft, nontender, BS noted, no guarding, no rebound. MSK: ROM not assessed, no joint swelling noted Extremities: Severe lymphedema present in bilateral lower extremity. Significant erythema noted more prominently on the left lower extremity extending to just below the knee. Open sores with weeping appreciated. Right lower extremity with some popliteal fossa erythema. no BLE edema, nontender calf, no cyanosis or clubbing Neuro: A&Ox3, moves all extremities, no focal deficits Psych: Appropriate mood and behavior Infectious Disease CN: Results - Labs CBC & Chem 7: 04/11/18 04:00 04/11/18 04:00 Cultures: Cultures 04/09/18 14:41 Blood Culture - Preliminary Peripheral Venipuncture Gram Negative Cocci 04/09/18 14:35 Blood Culture - Preliminary Peripheral Venipuncture Culture is incubating and being continuously monitored for growth. Final report to follow. Serology: Serology 04/09/18 04/09/18 Range/Units 17:17 14:41 Urine Color Dark Yellow (Yellow) Urine Clarity Cloudy A (Clear) Urine pH 5.0 (5.0-8.0) pH Units Ur Specific Only 1.019 (1.010-1.025) Urine Protein Negative (Neg-Trace) mg/dL Urine Glucose (UA) Normal (Normal) mg/dL Urine Ketones Trace H (Negative) mg/dL Urine Blood Negative (Negative) Urine Nitrite Negative (Negative) Urine Bilirubin Small H (Negative) Urine Urobilinogen Normal (Normal) mg/dL Ur Leukocyte Esterase Trace H (Negative) Urine Microscopic RBC 0-3 (0-3) per hpf Urine Microscopic WBC 0-3 (0-3) per hpf Ur Squamous Epith Cells Many H (None-Few) per lpf Amorphous Sediment Many H (Few) Urine Bacteria None Seen (None-Few) per hpf Hyaline Casts Many H (None-Few) per lpf Ur Culture Indicated? NO. A (NO) A. baumannii (PCR) Not Detected (Not Detect) Jessica albicans (PCR) Not Detected (Not Detect) C. glabrata (PCR) Not Detected (Not Detect) C. krusei (PCR) Not Detected (Not Detect) C. parapsilosis (PCR) Not Detected (Not Detect) C. tropicalis (PCR) Not Detected (Not Detect) Enterobacteriac sp PCR Not Detected (Not Detect) E. cloacae complex PCR Not Detected (Not Detect) Enterococcus sp PCR Not Detected (Not Detect) E. coli (PCR) Not Detected (Not Detect) H. influenzae (PCR) Not Detected (Not Detect) Klebsiella oxytoca PCR Not Detected (Not Detect) Klebsiella pneumoniae Not Detected (Not Detect) List. monocytogenes PCR Not Detected (Not Detect) N. meningitidis (PCR) Not Detected (Not Detect) Proteus species (PCR) Not Detected (Not Detect) Serratia marcescens PCR Not Detected (Not Detect) Staphylococcus sp PCR Not Detected (Not Detect) Staph aureus (PCR) Not Detected (Not Detect) mecA-Methicil Res Gene N/A (Not Detect) Streptococcus sp PCR Not Detected (Not Detect) Group A Strep DNA Not Detected (Not Detect) Group B Strep (PCR) Not Detected (Not Detect) Strep pneumoniae (PCR) Not Detected (Not Detect) P. aeruginosa (PCR) Not Detected (Not Detect) Kandi/B-Vanco Res Genes N/A (Not Detect) KPC (blaKPC) Detect PCR N/A (Not Detect) Consult Discharge Plan - Plan Referrals: NONE,PCP [Primary Care Provider] - - Attending Attestation I examined this patient and my medical decision-making was reviewed with the Resident Physician. I agree with the documented findings, disposition and treatment plan as described except to the extent set forth below. This is an addendum to original report dictated by resident physician. please refer to his note for full details. Patient with PMH mentioned below including history of breast cancer in 2018 s/p treatment in remission and history of pancreatic cyst s/p surgery remotely and chronic venous stasis comes in with severe sepsis like picture likely secondary to cellulitis. blood cultures positive for gram negative cocci ? I spoke with microbiology and they are trying to identified. WE know it's not nisseria meningiococcimia because it wasn't picked up on pcr. a/p sepsis gram negative cocci bacteremia (grew in aerobic culture) venous stasis lower extremity cellulitis DM PIERRE recommend continue broad spectrum antibiotics for now until final ID of cultures monitor labs closely including kidney function goal vanc trough around 10 dose adjust antibiotics based on CrCl
--- NOTE | 2018-04-11 13:16 | Internal Med Progress Note ---
Hospitalist Progress Note - Encounter Date of Encounter: 04/11/18 Time of Encounter: 13:14 - Subjective Interval History: I've seen and evaluated the patient at bedside. Reports having more energy today and feeling stronger. reports that pain in the lower extremity has improved. denies nausea, vomiting or abdominal pain. - Exam Vitals: Temp Pulse Resp BP Pulse Ox 98.0 F 91 16 129/71 99 04/11/18 12:23 04/11/18 12:23 04/11/18 12:23 04/11/18 12:23 04/11/18 12:23 Exam: Vitals: Reviewed General: Morbidly obese. AOx4. in mild distress due to pain in the lower extremities but improved when compared with yesterday. Skin: chronic venous ectasis in the lower extremity L>R. Erythema in the lower extr L>R Cardiovascular: RRR, Normal S1 & S2, no rubs, murmurs or gallops. Lungs: Decreased chest expansion. Decreased breath sounds bilaterally, no wheezes or crackles. Abdomen: Obese, Soft, non-tender, no rigidity. Extremities: erythema in the lower extr L>R, has significantly improved when compared with yesterday. Neurological: Normal cognition and motor skills. Rest of the physical exam is non contributory - Assessment and Plan (1) Gram-negative bacteremia Current Visit: Yes Status: Acute Assessment and Plan: first set of blood culture one bottle is growing gram negative cocci Patient on broad spectrum antibiotics on piperacillin/tazobactam 3.375mg/IV Q8HR On vancomcyn per pharmacy dosing ID consulted Will repeat blood cultures as positive culture drawn >48 hours ago. (2) Cellulitis of left lower extremity Current Visit: Yes Status: Acute Assessment and Plan: mad looking erythema of the left lower extremity, slightly improving. to continue Vancomycin per pharmacy dosing and Piperacillin/tazobactam 3.375mg/IV Q8HR leg elevation to at least 45 degree On Percoset 5/325mg 1tab Q6HR for pain control On topical miconazole for onicomicosis (3) Sepsis Current Visit: Yes Status: Acute Assessment and Plan: plan of care as above. (4) Acute kidney injury Current Visit: Yes Status: Acute Assessment and Plan: most likely due to low preload due to sepsis. Improving with IV fluids will continue gentle hydration with cautious for volume overload a patient has a Hx of CHF. On 0.9%NS@75mls/hr avoid nephrotoxic medications. (5) Insulin dependent diabetes mellitus Current Visit: Yes Status: Chronic Assessment and Plan: Blood sugar well controlled. Patient is on lispro sliding scale before meals. An Humulin units twice a day subcutaneous. Carbs controlled diet. (6) COPD (chronic obstructive pulmonary disease) Current Visit: Yes Status: Chronic Assessment and Plan: Not an acute exacerbation. Continue oxygen by nasal cannula, titrate for O2 sat duration more than 92%. Albuterol nebs Q4RT PNR Incentive spirometry. (7) Congestive heart failure Current Visit: No Status: Chronic Assessment and Plan: Not an acute exacerbation. Fluid balance +1.5 L Furosemide has been held due to a care. We will continue gentle IV hydration, we will monitor for volume overload. Daily weight Strict intake and output. (8) Morbid obesity with BMI of 60.0-69.9, adult Current Visit: Yes Status: Chronic DVT Prophylaxis: On heparin subcutaneous - Summary of Assessment and Plan Summary of Assessment and Plan: Patient to remain in the hospital due to gram-negative bacteremia, cellulitis on IV antibiotics, PIERRE. - Time Spent with Patient Total time spent is greater than 50% in coordination of care (as documented) at patient's floor/unit and/or counseling patient: Greater than 35 minutes (40) Plan of Care Discussed with: patient (And the nurse.) Internal Medicine: Result - Labs CBC & Chem 7: 04/11/18 04:00 04/11/18 04:00 Labs: Short CBC 04/11/18 Range/Units 04:00 WBC 13.9 H (4.3-11.1) K/mcL Hgb 10.3 L (11.5-15.4) g/dL Hct 34.1 L (35.3-44.9) % Plt Count 235 (140-400) K/mcL Neutrophils # 9.3 H (1.6-8.9) K/mcL BMP 04/11/18 04:00 Sodium 140 Potassium 4.8 Chloride 110 H Carbon Dioxide 24 BUN 56 H Creatinine 1.36 H Glucose 150 H Calcium 8.2 L - ABG Interpretation ABG results: PT/INR, D-dimer PT 12.4 Seconds (9.4-12.1) H 04/10/18 06:07 Consult Discharge Plan - Plan Referrals: NONE,PCP [Primary Care Provider] - (3) Sepsis Qualifiers: Sepsis type: sepsis due to unspecified organism Qualified Code(s): A41.9 - Sepsis, unspecified organism (6) COPD (chronic obstructive pulmonary disease) Qualifiers: COPD type: unspecified COPD Qualified Code(s): J44.9 - Chronic obstructive pulmonary disease, unspecified (7) Congestive heart failure Qualifiers: Heart failure type: diastolic Heart failure chronicity: chronic Qualified Code(s): I50.32 - Chronic diastolic (congestive) heart failure
[2018-04-11] MEDS: *HR* OxyCODONE/APAP 5/325 TABLET PO PRN (16:13)
[2018-04-11] MEDS: Miconazole 2% ointment 114 GM TUBE TP SCH ×2 (16:48→21:52)
[2018-04-12] MEDS: *HR* Heparin 5,000 UNIT/ML VIAL SQ SCH ×3 (00:01→15:29)
[2018-04-12] MEDS: Piperacillin/Tazobactam 3.375 GM in 0.9 % Sodium Chloride Mini Bag 100 ML IVPB SCH ×3 (00:01→17:56)
[2018-04-12] MEDS ORDERED: Perflutren Lipid Microsphere 1.3 ML in 0.9 % Sodium Chloride 8.7 ML IVP ONE (07:06)
[2018-04-12 07:35] LABS: Basophils # 0.1 K/mcL (0.0-0.2); Basophils % 0.6 %; Eosinophils # 0.3 K/mcL (0.0-0.6); Eosinophils % 2.8 %; Hematocrit 35.2 % (35.3-44.9); Hemoglobin 10.7 g/dL (11.5-15.4); Immature Granulocytes % 0.4 % (0-4); Lymphocytes # 3.1 K/mcL (0.6-4.6); Lymphocytes % 27.3 %; Mean Corpuscular HGB Conc 30.4 g/dL (31.6-35.5); Mean Corpuscular Hemoglobin 27.3 pg (28.0-33.3); Mean Corpuscular Volume 89.8 fL (83.0-100.0); Mean Platelet Volume 10.2 fL (9.4-12.4); Monocytes # 0.9 K/mcL (0.0-1.3); Monocytes % 7.6 %; Neutrophils # 6.9 K/mcL (1.6-8.9); Nucleated Red Blood Cells 0.2 /100 WBC (0); Platelet Count 249 K/mcL (140-400); Red Blood Count 3.92 M/mcL (3.82-4.97); Red Cell Distribution Width 17.2 % (11.5-14.5); Segmented Neutrophils % 61.3 %
[2018-04-12 07:58] LABS: BUN/Creatinine Ratio 35 (6-26); Blood Urea Nitrogen 26 mg/dL (8-23); Calcium 8.8 mg/dL (8.6-10.3); Carbon Dioxide 23 mEq/L (23-29); Chloride 112 mEq/L (98-107); Glucose 92 mg/dL (70-105); Osmolality,Calculated 296 (280-300); Potassium 4.8 mEq/L (3.5-5.1); Sodium 141 mEq/L (136-145); eGFR For Non-African Americans > 60 (> 60)
[2018-04-12 08:04] LABS: Magnesium 2.4 mg/dL (1.6-2.6); Phosphorous 2.9 mg/dL (2.7-4.5)
[2018-04-12] MEDS: Gabapentin 300 MG CAPSULE PO SCH ×3 (09:25→20:13)
[2018-04-12] MEDS: Insulin LISPRO 300 UNITS/3 ML VIAL SQ SCH ×3 (09:27→17:25)
[2018-04-12] MEDS: Insulin NPH/REG 70/30 100 UNIT/ML (x5UNIT) SQ SCH ×2 (09:31→17:25)
--- NOTE | 2018-04-12 12:39 | Internal Med Progress Note ---
Hospitalist Progress Note - Encounter Date of Encounter: 04/12/18 Time of Encounter: 12:36 - Subjective Interval History: I've seen and evaluated the patient at bedside. reports intermittent left leg pain, lasting about 15 minutes. denies chest pain, shortness of breath, nausea or vomiting. denies abdominal pain or diarrhea. - Exam Vitals: Temp Pulse Resp BP Pulse Ox 98.0 F 98 16 141/98 96 04/12/18 11:16 04/12/18 11:16 04/12/18 11:16 04/12/18 11:16 04/12/18 11:16 Exam: Vitals: Reviewed General: Morbidly obese. AOx4. In no acute distress. Skin: chronic venous ectasis in the lower extremity L>R. Erythema in the lower extr L>R Cardiovascular: RRR, Normal S1 & S2, no rubs, murmurs or gallops. Lungs: Decreased chest expansion. Decreased breath sounds bilaterally, no wheezes or crackles. Abdomen: Obese, Soft, non-tender, no rigidity. Extremities: Erythema in the lower extr L>R. not warmth or tender to touch. improved when compared with admission day. Neurological: Normal cognition and motor skills. Psych: Affect appropriate. Rest of the physical exam is non contributory - Assessment and Plan (1) Gram-negative bacteremia Current Visit: Yes Status: Acute Assessment and Plan: Plan First set of blood culture: Gram negative cocci. Pending sensitivity and specificity. Second set of blood cultures: No growth, pending final report ID consulted recommended to continue vancomycin per pharmacy dosing and piperacillin/tazobactam 3.375mg/IV Q8HR patient will likely need 14 days of antibiotics coverage. TTE done, pending report. (2) Cellulitis of left lower extremity Current Visit: Yes Status: Acute Assessment and Plan: Erythema and edema in the lower extremity improved. Plan Wound care as per wound care nurse recommendation. On broad-spectrum antibiotic. On miconazole topical for possible onychomycosis. (3) Acute kidney injury Current Visit: Yes Status: Resolved Assessment and Plan: Kidney function back to base line Avoid nephrotoxic medication. (4) Insulin dependent diabetes mellitus Current Visit: Yes Status: Chronic Assessment and Plan: Blood sugar is well controlled. Continue humulin 70/30 30 units twice a day. Carb controlled diet. (5) COPD (chronic obstructive pulmonary disease) Current Visit: Yes Status: Chronic Assessment and Plan: Not an acute exacerbation. No wheezing on auscultation. Plan Continue oxygen by nasal cannula, titrate for O2 sat duration more than 92%. On albuterol nebs every 4 hours when necessary Incentive spirometry. (6) Congestive heart failure Current Visit: No Status: Chronic Assessment and Plan: Minimal crackles at the bases bilaterally. Plan Fluid restriction strategies to 1.5 L a day. will resume furosemide 40 mg IV twice a day. Started on his spironolactone 12.5 mg by mouth daily. Daily weight Strict intake and output. Lisinopril 10 mg by mouth daily. (7) Morbid obesity with BMI of 60.0-69.9, adult Current Visit: Yes Status: Chronic (8) Sepsis Current Visit: Yes Status: Resolved DVT Prophylaxis: On heparin 5000 units subcutaneous twice a day. - Summary of Assessment and Plan Summary of Assessment and Plan: Patient to remain in the hospital due to bacteremia pending blood culture sensitivity and specificity. - Time Spent with Patient Total time spent is greater than 50% in coordination of care (as documented) at patient's floor/unit and/or counseling patient: Greater than 35 minutes (41) Plan of Care Discussed with: patient (And the nurse) Internal Medicine: Result - Labs CBC & Chem 7: 04/12/18 07:16 04/12/18 07:16 Labs: Short CBC 04/12/18 Range/Units 07:16 WBC 11.2 H (4.3-11.1) K/mcL Hgb 10.7 L (11.5-15.4) g/dL Hct 35.2 L (35.3-44.9) % Plt Count 249 (140-400) K/mcL Neutrophils # 6.9 (1.6-8.9) K/mcL BMP 04/12/18 07:16 Sodium 141 Potassium 4.8 Chloride 112 H Carbon Dioxide 23 BUN 26 H Creatinine 0.75 Glucose 92 Calcium 8.8 - ABG Interpretation ABG results: PT/INR, D-dimer PT 12.4 Seconds (9.4-12.1) H 04/10/18 06:07 Consult Discharge Plan - Plan Referrals: NONE,PCP [Primary Care Provider] - (5) COPD (chronic obstructive pulmonary disease) Qualifiers: COPD type: unspecified COPD Qualified Code(s): J44.9 - Chronic obstructive pulmonary disease, unspecified (6) Congestive heart failure Qualifiers: Heart failure type: diastolic Heart failure chronicity: chronic Qualified Code(s): I50.32 - Chronic diastolic (congestive) heart failure (8) Sepsis Qualifiers: Sepsis type: sepsis due to unspecified organism Qualified Code(s): A41.9 - Sepsis, unspecified organism
[2018-04-12] MEDS: Spironolactone 25 MG TABLET PO SCH (12:48)
[2018-04-12] MEDS: *HR* OxyCODONE/APAP 5/325 TABLET PO PRN (15:22)
[2018-04-12] MEDS: Miconazole 2% ointment 114 GM TUBE TP SCH ×2 (17:57→20:13)
[2018-04-12] MEDS: Furosemide 40 MG/4 ML VIAL IVP SCH (17:57)
[2018-04-12] MEDS: Gentamicin Oint 15 GM TUBE TP SCH (17:58)
[2018-04-13] MEDS: Piperacillin/Tazobactam 3.375 GM in 0.9 % Sodium Chloride Mini Bag 100 ML IVPB SCH ×3 (00:24→16:33)
[2018-04-13] MEDS: *HR* Heparin 5,000 UNIT/ML VIAL SQ SCH ×3 (00:24→16:34)
[2018-04-13 06:27] LABS: Basophils # 0.1 K/mcL (0.0-0.2); Basophils % 0.6 %; Eosinophils # 0.6 K/mcL (0.0-0.6); Hematocrit 34.3 % (35.3-44.9); Hemoglobin 10.4 g/dL (11.5-15.4); Immature Granulocytes % 0.5 % (0-4); Lymphocytes # 3.4 K/mcL (0.6-4.6); Lymphocytes % 35.9 %; Mean Corpuscular HGB Conc 30.3 g/dL (31.6-35.5); Mean Corpuscular Hemoglobin 27.2 pg (28.0-33.3); Mean Corpuscular Volume 89.6 fL (83.0-100.0); Mean Platelet Volume 10.1 fL (9.4-12.4); Monocytes # 1.1 K/mcL (0.0-1.3); Monocytes % 11.3 %; Neutrophils # 4.3 K/mcL (1.6-8.9); Nucleated Red Blood Cells 0.3 /100 WBC (0); Platelet Count 241 K/mcL (140-400); Red Blood Count 3.83 M/mcL (3.82-4.97); Red Cell Distribution Width 17.2 % (11.5-14.5); Segmented Neutrophils % 45.7 %
[2018-04-13 06:45] LABS: BUN/Creatinine Ratio 28 (6-26); Blood Urea Nitrogen 24 mg/dL (8-23); Calcium 8.8 mg/dL (8.6-10.3); Carbon Dioxide 25 mEq/L (23-29); Chloride 110 mEq/L (98-107); Glucose 83 mg/dL (70-105); Osmolality,Calculated 297 (280-300); Potassium 4.6 mEq/L (3.5-5.1); Sodium 142 mEq/L (136-145); eGFR For Non-African Americans > 60 (> 60)
[2018-04-13] MEDS: Insulin LISPRO 300 UNITS/3 ML VIAL SQ SCH ×3 (07:42→16:35)
[2018-04-13] MEDS: Spironolactone 25 MG TABLET PO SCH (08:45)
[2018-04-13] MEDS: Gabapentin 300 MG CAPSULE PO SCH ×3 (08:45→20:29)
[2018-04-13] MEDS: Furosemide 40 MG/4 ML VIAL IVP SCH ×2 (08:46→16:33)
[2018-04-13] MEDS: Insulin NPH/REG 70/30 100 UNIT/ML (x5UNIT) SQ SCH ×2 (08:48→16:35)
[2018-04-13] MEDS ORDERED: Aminoglycoside Consult 1 EACH MC ONE (08:49)
--- NOTE | 2018-04-13 09:02 | Electrocardiograph Report ---
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
--- NOTE | 2018-04-13 09:03 | Electrocardiograph Report ---
[address] [place], [place] [address] Test Date: 2018-04-10 Pat Name: Ghazala Smith Department: 111 Room: [facility] Gender: F [employer] Driver: : 1945 Requested By: Spencer Hawkins Order Number: [id number] Reading MD: Risa Cobb Measurements Intervals [place] Rate: 101 P: [place]: 0 QRS: -16 QRSD: 98 T: 70 QT: 339 QTc: 397 Interpretive Statements SINUS TACHYCARDIA ARTIFACT Electronically Signed On 04-13-2018 9:01:46 EST by Risa Cobb
--- NOTE | 2018-04-13 09:28 | Electrocardiograph Report ---
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
[2018-04-13] MEDS: *HR* OxyCODONE/APAP 5/325 TABLET PO PRN ×2 (10:13→20:45)
[2018-04-13] MEDS: Miconazole 2% ointment 114 GM TUBE TP SCH ×2 (13:22→20:48)
[2018-04-13] MEDS: Gentamicin Oint 15 GM TUBE TP SCH (13:22)
--- NOTE | 2018-04-13 13:39 | Internal Med Progress Note ---
Hospitalist Progress Note - Encounter Date of Encounter: 04/13/18 Time of Encounter: 13:36 - Subjective Interval History: I've seen and evaluated the patient at bedside. Patient reports doing well. denies shortness of breath, nausea, vomiting or chest pain. continues to have intermittent pain in the lower extr b/ L>R. - Exam Vitals: Temp Pulse Resp BP Pulse Ox 98.5 F 90 18 123/63 96 04/13/18 10:08 04/13/18 10:08 04/13/18 10:08 04/13/18 10:08 04/13/18 10:08 Exam: Vitals: Reviewed General: Morbidly obese. AOx4. In no acute distress. Skin: chronic venous ectasis in the lower extremity L>R. Erythema in the lower extr L>R Cardiovascular: RRR, Normal S1 & S2, no rubs, murmurs or gallops. Lungs: Decreased breath sounds bilaterally, no wheezes or crackles. Abdomen: Obese, Soft, non-tender, no rigidity. NABS in all 4 quadrants. Extremities: Erythema in the lower extr L>R. improved when compared with admission day. Neurological: Normal cognition and motor skills. Psych: Affect appropriate. Rest of the physical exam is non contributory - Assessment and Plan (1) Gram-negative bacteremia Current Visit: Yes Status: Resolved Assessment and Plan: one bottle of first blood culture: gram negative Cocci, pending sensitivity and specificity repeat blood cultures: no growth >48hrs, pending final report d/c vancomycin continue Piperacillin/tazobactam 3.375mg/IV Q8HR (2) Cellulitis of left lower extremity Current Visit: Yes Status: Acute Assessment and Plan: Plan wound care pain control with Percocet 5/325mg 1 tab PO Q6HR PRN keep extremities elevated if tolerated. on broad spectrum antibiotics as above. (3) Insulin dependent diabetes mellitus Current Visit: Yes Status: Chronic Assessment and Plan: Blood sugar has been running in the low 80s. Decrease Humulin 70/30-20 units twice a day. To avoid hypoglycemia. Continue lispro sliding scale. And carb controlled diet. (4) COPD (chronic obstructive pulmonary disease) Current Visit: Yes Status: Chronic Assessment and Plan: Not an acute exacerbation. Continue albuterol nebs every 4 hours when necessary. On O2, 2 L by nasal cannula, titrate for O2 sat duration more than 92%. incentive spirometry. (5) Congestive heart failure Current Visit: No Status: Chronic Assessment and Plan: Not on acute exacerbation. chest is cleared to auscultation. total balance negative 3.3 litters continue fluid restriction strategies, to 1.5 litters a day on furosemide 40mg/IV BID and spironolactone 12.5 mg by mouth daily. Continue lisinopril 10 mg by mouth daily. Daily weight. (6) Morbid obesity with BMI of 60.0-69.9, adult Current Visit: Yes Status: Chronic (7) Sepsis Current Visit: Yes Status: Resolved (8) Acute kidney injury Current Visit: Yes Status: Resolved DVT Prophylaxis: On heparin 5000 units subcutaneous every 8 hours - Summary of Assessment and Plan Summary of Assessment and Plan: Patient to remain in the hospital. Pending placement - Time Spent with Patient Total time spent is greater than 50% in coordination of care (as documented) at patient's floor/unit and/or counseling patient: Greater than 35 minutes (45) Plan of Care Discussed with: patient (And the nurse) Internal Medicine: Result - Labs CBC & Chem 7: 04/13/18 06:13 04/13/18 06:13 Labs: Short CBC 04/13/18 Range/Units 06:13 WBC 9.3 (4.3-11.1) K/mcL Hgb 10.4 L (11.5-15.4) g/dL Hct 34.3 L (35.3-44.9) % Plt Count 241 (140-400) K/mcL Neutrophils # 4.3 (1.6-8.9) K/mcL BMP 04/13/18 06:13 Sodium 142 Potassium 4.6 Chloride 110 H Carbon Dioxide 25 BUN 24 H Creatinine 0.85 Glucose 83 Calcium 8.8 - ABG Interpretation ABG results: PT/INR, D-dimer PT 12.4 Seconds (9.4-12.1) H 04/10/18 06:07 - Impressions Impressions Echocardiogram 04/11/18 16:31 Impressions: LVEF 65%. Normal LV chamber size and systolic function. Mild concentric left ventricular hypertrophy. Indeterminate diastolic function. Normal right ventricular structure and function. Moderately dilated left atrium. Mildly dilated right atrium. Severely calcified mitral valve. Mild to moderate mitral stenosis. Mean transmitral gradient is 7 mmHg with HR 99 bpm. Mild tricuspid regurgitation. Moderate pulmonary hypertension. Left Ventricular Wall Motion: Rest Echo Findings All wall segments showed normal motion. Findings: Study Quality * Technically adequate exam. ECG Findings * Sinus tachycardia. Left Ventricle * LVEF 65%. * Normal LV chamber size and systolic function. * Mild concentric left ventricular hypertrophy. * Indeterminate diastolic function. * Definity echo contrast was used. Right Ventricle * Normal right ventricular structure and function. Left Atrium * Moderately dilated left atrium. Right Atrium * Mildly dilated right atrium. Interatrial Septum * Interatrial septum not well evaluated. * No evidence of PFO by color Doppler. Aortic Valve * Mildly calcified aortic valve leaflets. * No aortic stenosis. * No aortic regurgitation. Mitral Valve * Mild mitral annular calcification * Severely calcified mitral valve leaflets. * Mild-moderate mitral stenosis. * Mean transmitral gradient is 7 mmHg with HR 99 bpm. * Trace mitral regurgitation. Tricuspid Valve * Normal tricuspid valve function. * No tricuspid stenosis. * Mild tricuspid regurgitation. * Estimated RVSP is 56 mmHg. * Estimated RA pressure is 15 mmHg. * Moderate pulmonary hypertension. Pulmonic Valve * Pulmonic valve is not well visualized. * No pulmonic stenosis. * No pulmonic regurgitation. Aorta * Normally sized aortic root. Pericardium * The pericardium appears normal. IVC * The IVC is dilated. * < 50% respiratory change. Consult Discharge Plan - Plan Referrals: NONE,PCP [Primary Care Provider] - ___ (4) COPD (chronic obstructive pulmonary disease) Qualifiers: COPD type: unspecified COPD Qualified Code(s): J44.9 - Chronic obstructive pulmonary disease, unspecified (5) Congestive heart failure Qualifiers: Heart failure type: diastolic Heart failure chronicity: chronic Qualified Code(s): I50.32 - Chronic diastolic (congestive) heart failure (7) Sepsis Qualifiers: Sepsis type: sepsis due to unspecified organism Qualified Code(s): A41.9 - Sepsis, unspecified organism
[2018-04-14] MEDS: Piperacillin/Tazobactam 3.375 GM in 0.9 % Sodium Chloride Mini Bag 100 ML IVPB SCH ×2 (00:01→08:22)
[2018-04-14] MEDS: *HR* Heparin 5,000 UNIT/ML VIAL SQ SCH ×2 (00:01→08:23)
[2018-04-14 06:15] LABS: Basophils # 0.1 K/mcL (0.0-0.2); Basophils % 0.8 %; Eosinophils # 0.5 K/mcL (0.0-0.6); Eosinophils % 5.6 %; Hematocrit 34.7 % (35.3-44.9); Hemoglobin 10.6 g/dL (11.5-15.4); Immature Granulocytes % 0.6 % (0-4); Lymphocytes # 4.2 K/mcL (0.6-4.6); Lymphocytes % 43.6 %; Mean Corpuscular HGB Conc 30.5 g/dL (31.6-35.5); Mean Corpuscular Hemoglobin 27.4 pg (28.0-33.3); Mean Corpuscular Volume 89.7 fL (83.0-100.0); Mean Platelet Volume 10.8 fL (9.4-12.4); Monocytes # 0.9 K/mcL (0.0-1.3); Monocytes % 9.6 %; Neutrophils # 3.8 K/mcL (1.6-8.9); Platelet Count 258 K/mcL (140-400); Red Blood Count 3.87 M/mcL (3.82-4.97); Red Cell Distribution Width 16.7 % (11.5-14.5); Segmented Neutrophils % 39.8 %
[2018-04-14 06:30] LABS: BUN/Creatinine Ratio 32 (6-26); Blood Urea Nitrogen 27 mg/dL (8-23); Calcium 8.8 mg/dL (8.6-10.3); Carbon Dioxide 31 mEq/L (23-29); Chloride 104 mEq/L (98-107); Glucose 172 mg/dL (70-105); Magnesium 1.8 mg/dL (1.6-2.6); Osmolality,Calculated 297 (280-300); Phosphorous 3.2 mg/dL (2.7-4.5); Potassium 4.6 mEq/L (3.5-5.1); Sodium 139 mEq/L (136-145); eGFR For Non-African Americans > 60 (> 60)
[2018-04-14 07:02] VITALS: BP 135/72
[2018-04-14] MEDS: Insulin LISPRO 300 UNITS/3 ML VIAL SQ SCH ×2 (08:22→12:04)
[2018-04-14] MEDS: Gabapentin 300 MG CAPSULE PO SCH (08:23)
[2018-04-14] MEDS: Furosemide 40 MG/4 ML VIAL IVP SCH (08:23)
[2018-04-14] MEDS: Spironolactone 25 MG TABLET PO SCH (08:23)
[2018-04-14] MEDS: Gentamicin Oint 15 GM TUBE TP SCH (08:38)
[2018-04-14] MEDS: Miconazole 2% ointment 114 GM TUBE TP SCH (08:38)
[2018-04-14] MEDS: Insulin NPH/REG 70/30 100 UNIT/ML (x5UNIT) SQ SCH (09:37)
--- NOTE | 2018-04-14 09:42 | Discharge Summary ---
- NOTES TO OUTPATIENT PROVIDER Notes to Outpatient Provider: Follow-up with wound care as outpatient. Follow- up with infectious disease within 1-2 weeks for hospital discharge. Orders not resulted at time of discharge: Pending orders 04/09/18 14:41 Culture,Blood [BC] Stat 04/11/18 11:58 Culture,Blood [BC] Stat Date of Encounter: 04/14/18 Time of Encounter: 09:38 - Discharge Diagnosis (1) Gram-negative bacteremia Priority: Primary Status: Resolved (2) Cellulitis of left lower extremity Priority: Primary Status: Acute (3) Insulin dependent diabetes mellitus Priority: Secondary Status: Chronic (4) COPD (chronic obstructive pulmonary disease) Priority: Secondary Status: Chronic Qualifiers: COPD type: unspecified COPD Qualified Code(s): J44.9 - Chronic obstructive pulmonary disease, unspecified (5) Congestive heart failure Priority: Secondary Status: Chronic Qualifiers: Heart failure type: diastolic Heart failure chronicity: chronic Qualified Code(s): I50.32 - Chronic diastolic (congestive) heart failure (6) Morbid obesity with BMI of 60.0-69.9, adult Priority: Secondary Status: Chronic (7) Sepsis Priority: Secondary Status: Resolved Qualifiers: Sepsis type: sepsis due to unspecified organism Qualified Code(s): A41.9 - Sepsis, unspecified organism (8) Acute kidney injury Priority: Secondary Status: Resolved Hospital course: Ms. Smith is a 72 year old female PMH of cancer, CHF, COPD, diabetes, hypertension, chronic lymphedema. Patient was brought to the hospital due to weakness, decreased urinary output, dehydration, increase erythema and tenderness of the lower extremities b/l L>R. Patient admitted to the hospital due to sepsis, secondary to cellulitis, PIERRE. started on empiric antibiotics, fischer cultured. first set of blood culture one bottle grew gram negative cocci. repeated blood cultures negative for >72 hours. Patient acute symptoms resolved. Discussed with ID: recommended to dc patient on oral Levofloxacin 750mg/PO daily and doxycycline 100mg/PO BID to complete 14 days. Patient is hemodynamically stable to be discharger back to ECF/SNF. - Time Spent with Patient Total time spent providing and/or coordinating discharge services: Greater than 30 minutes (40) - Discharge Medications Prescriptions: Doxycycline 100 mg PO BID 10 Days #20 capsule levoFLOXacin [Levaquin] 750 mg PO DAILY 10 Days #10 tablet Home Medications: Furosemide [Lasix] 80 mg PO QAM 07/17/16 [History] Insulin Lispro Protamin/Lispro [Humalog Mix 75-25 Vial] 33 - 37 unit SQ BID 07/17/16 [History] Ramipril 10 mg PO BID 07/17/16 [History] Acetaminophen [Tylenol] 650 mg PO Q6HR PRN #0 tablet 07/20/16 [Rx] Allopurinol [Zyloprim 100 MG] 100 mg PO DAILY 09/06/17 [History] Gabapentin [Neurontin] 600 mg PO TID 09/06/17 [History] Indomethacin 50 mg PO TID PRN 09/06/17 [History] Spironolactone [Aldactone] 25 mg PO DAILY 09/06/17 [History] LORazepam [Ativan] 1 mg PO TID PRN 5 Days #15 tablet 09/09/17 [Rx] Cinnamon Bark [Cinnamon] 1,000 mg PO BID 04/09/18 [History] Docusate Sodium [Dok] 200 mg PO BID 04/09/18 [History] Gentamicin Oint [Garamycin] 1 appl TP DAILY 04/09/18 [History] Oxycodone HCl/Acetaminophen [Percocet 5-325 mg Tablet] 1 tab PO Q6H PRN 04/09/18 [History] Doxycycline 100 mg PO BID 10 Days #20 capsule 04/14/18 [Rx] levoFLOXacin [Levaquin] 750 mg PO DAILY 10 Days #10 tablet 04/14/18 [Rx] Allergies/Adverse Reactions: Allergy/AdvReac Type Severity Reaction Status Date / Time No Known Allergies Allergy Verified 07/17/16 14:49 Date of admission: 04/10/18 06:29 Primary care physician: PCP NONE Consults: 04/09/18 20:47 Consult to Wound Care [CONS] Routine Reason for Consult: LLE cellulitis with skin breakdown and chronic venous stasis changes Call Completed: No 04/10/18 10:36 Consult to Invasive Line Access Team [CONS] Routine Reason for Consult: poor vascular access Line Type: EPIV 04/10/18 10:40 Consult to Physical Therapy [CONS] Stat Comment: Evaluate, develop and implement POC Reason for Consult: weakness, lymphodema bilateral lower extremeties Does patient have active BEDREST order?: No Is patient medically & hemodynamically stable?: Yes 04/10/18 10:42 Consult to Occupational Therapy [CONS] Stat Comment: Evaluate, develop and implement POC Reason for Consult: weakness, lymphodema bilateral lower extremeties Does patient have active BEDREST order?: No Is patient medically & hemodynamically stable?: Yes 04/11/18 10:49 Consult to Infectious Diseases [CONS] Routine Consulting Provider: Infectious Disease [place] Reason for Consult: Gram-negative bacteremia Call Completed: No 04/12/18 12:50 Consult to Waist Fitter [CONS] Routine Reason for SW Consult: Discharge plan. Patient medically cleared to be transferred back. - Constitutional Vitals: Temp Pulse Resp BP Pulse Ox 98.4 F 90 15 135/72 96 04/14/18 06:55 04/14/18 06:55 04/14/18 06:55 04/14/18 06:55 04/14/18 08:39 General appearance: Present: cooperative, mild distress, A&O X 3, pleasant, answers questions appropriately Exam: Vitals: Reviewed General: Morbidly obese. AOx4. In no acute distress. Skin: chronic venous ectasis in the lower extremity L>R. Erythema in the lower extr L>R Cardiovascular: RRR, Normal S1 & S2, no rubs, murmurs or gallops. Lungs: Decreased chest expansion. Clear to auscultation bl, no wheezes or crackles. Abdomen: Obese, Soft, non-tender, no rigidity. Extremities: Erythema in the lower extr L>R. not warmth or tender to touch. improved when compared with admission day. Neurological: Normal cognition and motor skills. Psych: Affect appropriate. Rest of the physical exam is non contributory - Patient Status Disposition: Transfer LTC Condition: Good Functional capacity at discharge: uses cane/walker Overall status at discharge: patient is back to baseline - Discharge Instructions Follow Up With: NONE,PCP [Primary Care Provider] - - Diet and Activity Activity: as per physical therapy
--- NOTE | 2018-04-14 10:50 | Infectious Disease Progress No ---
Date of Encounter: 04/14/18 Time of Encounter: 10:00 - Assessment and Plan (1) Sepsis Status: Resolved The patient had three SIRS criteria on admission with AMS and PIERRE. Likely secondary to bacteremia and cellulitis. Improved. Tachycardia, tachypnea, and leukocytosis have resolved. Blood cultures drawn 04/09/18 are positive 1/2 for GNC. Repeat blood cultures drawn 04/11/18 are NGTD. Recommendations: - Await blood cultures for final ID and susceptibility. - Dressing changes per the wound care team. - Continue Zosyn 3.375 grams IV Q8H. - Duration of treatment depends on the clinical picture, but likely a total of 14 days. Can switch to Augmentin 875mg PO BID and doxycycline 100mg PO BID when ready for discharge. Treat through 04/23/18. - Monitor renal function and dose-adjust antibiotics. Qualifiers: Sepsis type: sepsis due to unspecified organism Qualified Code(s): A41.9 - Sepsis, unspecified organism (2) Bacteremia Status: Acute Causative organism: Unclear. Blood cultures are positive for GNC, but nothing was positive on the PCR. Source: Likely LLE cellulitis. Blood cultures drawn 04/09/18 are positive 1/2 sets for GNC with final ID and sensitivities pending. Repeat blood cultures drawn 04/11/18 are NGTD x 2 sets. Currently on Zosyn. (3) Cellulitis Status: Acute Location: LLE. Causative organism: Unclear. Non-purulent. CT of the lower extremity does show significant subcutaneous edema with skin thickening indicative of cellulitis. No organized fluid collection identified. Received 4 days of IV Vancomycin which was discontinued by the primary team. Currently on Zosyn (day 5). Antibiotic recommendations as above. Qualifiers: Site of cellulitis: extremity Site of cellulitis of extremity: lower extremity Laterality: left Qualified Code(s): L03.116 - Cellulitis of left lower limb (4) Acute kidney injury Status: Acute Likely secondary to sepsis. Resolved. (5) Morbid obesity with BMI of 70 and over, adult Status: Acute - Subjective Interval history: Patient seen and examined. No acute events noted overnight. Patient states overall she feels okay. Denies fevers, chills, or rigors. Denies chest pain, shortness of breath, or cough. Denies nausea, vomiting, or diarrhea. Denies abdominal pain. Payne catheter remains patent. Denies oral thrush or new skin lesions. States her leg pain persists, but is improved. Infect Dis PN-Objective Data - Labs CBC & Chem 7: 04/14/18 05:56 04/14/18 05:56 Labs: Laboratory Results - last 24 hr 04/12/18 04/12/18 04/12/18 11:23 16:23 19:52 WBC RBC Hgb Hct MCV MCH MCHC RDW Plt Count MPV Immature Gran % Seg Neutrophils % Lymphocytes % Monocytes % Eosinophils % Basophils % Neutrophils # Lymphocytes # Monocytes # Eosinophils # Basophils # Sodium Potassium Chloride Carbon Dioxide BUN Creatinine Est GFR ( Amer) Est GFR (Non-Af Amer) BUN/Creatinine Ratio Glucose POC Glucose 139 H 185 H 211 H Calculated Osmolality Calcium Phosphorus Magnesium 04/13/18 04/13/18 04/14/18 07:22 17:47 05:56 WBC 9.6 RBC 3.87 Hgb 10.6 L Hct 34.7 L MCV 89.7 MCH 27.4 L MCHC 30.5 L RDW 16.7 H Plt Count 258 MPV 10.8 Immature Gran % 0.6 Seg Neutrophils % 39.8 Lymphocytes % 43.6 Monocytes % 9.6 Eosinophils % 5.6 Basophils % 0.8 Neutrophils # 3.8 Lymphocytes # 4.2 Monocytes # 0.9 Eosinophils # 0.5 Basophils # 0.1 Sodium Potassium Chloride Carbon Dioxide BUN Creatinine Est GFR ( Amer) Est GFR (Non-Af Amer) BUN/Creatinine Ratio Glucose POC Glucose 83 164 H Calculated Osmolality Calcium Phosphorus Magnesium 04/14/18 04/14/18 05:56 07:00 WBC RBC Hgb Hct MCV MCH MCHC RDW Plt Count MPV Immature Gran % Seg Neutrophils % Lymphocytes % Monocytes % Eosinophils % Basophils % Neutrophils # Lymphocytes # Monocytes # Eosinophils # Basophils # Sodium 139 Potassium 4.6 Chloride 104 Carbon Dioxide 31 H BUN 27 H Creatinine 0.85 Est GFR ( Amer) > 60 Est GFR (Non-Af Amer) > 60 BUN/Creatinine Ratio 32 H Glucose 172 H POC Glucose 142 H Calculated Osmolality 297 Calcium 8.8 Phosphorus 3.2 Magnesium 1.8 Cultures: Cultures 04/09/18 14:41 Blood Culture - Preliminary Peripheral Venipuncture Gram Negative Cocci 04/11/18 11:58 Blood Culture - Preliminary Peripheral Venipuncture Culture is incubating and being continuously monitored for growth. Final report to follow. 04/11/18 11:28 Blood Culture - Preliminary Peripheral Venipuncture Culture is incubating and being continuously monitored for growth. Final report to follow. 04/09/18 14:35 Blood Culture - Preliminary Peripheral Venipuncture Culture is incubating and being continuously monitored for growth. Final report to follow. Serology 04/09/18 04/09/18 Range/Units 17:17 14:41 Urine Color Dark Yellow (Yellow) Urine Clarity Cloudy A (Clear) Urine pH 5.0 (5.0-8.0) pH Units Ur Specific [place] 1.019 (1.010-1.025) Urine Protein Negative (Neg-Trace) mg/dL Urine Glucose (UA) Normal (Normal) mg/dL Urine Ketones Trace H (Negative) mg/dL Urine Blood Negative (Negative) Urine Nitrite Negative (Negative) Urine Bilirubin Small H (Negative) Urine Urobilinogen Normal (Normal) mg/dL Ur Leukocyte Esterase Trace H (Negative) Urine Microscopic RBC 0-3 (0-3) per hpf Urine Microscopic WBC 0-3 (0-3) per hpf Ur Squamous Epith Cells Many H (None-Few) per lpf Amorphous Sediment Many H (Few) Urine Bacteria None Seen (None-Few) per hpf Hyaline Casts Many H (None-Few) per lpf Ur Culture Indicated? NO. A (NO) A. baumannii (PCR) Not Detected (Not Detect) Jessica albicans (PCR) Not Detected (Not Detect) C. glabrata (PCR) Not Detected (Not Detect) C. krusei (PCR) Not Detected (Not Detect) C. parapsilosis (PCR) Not Detected (Not Detect) C. tropicalis (PCR) Not Detected (Not Detect) Enterobacteriac sp PCR Not Detected (Not Detect) E. cloacae complex PCR Not Detected (Not Detect) Enterococcus sp PCR Not Detected (Not Detect) E. coli (PCR) Not Detected (Not Detect) H. influenzae (PCR) Not Detected (Not Detect) Klebsiella oxytoca PCR Not Detected (Not Detect) Klebsiella pneumoniae Not Detected (Not Detect) List. monocytogenes PCR Not Detected (Not Detect) N. meningitidis (PCR) Not Detected (Not Detect) Proteus species (PCR) Not Detected (Not Detect) Serratia marcescens PCR Not Detected (Not Detect) Staphylococcus sp PCR Not Detected (Not Detect) Staph aureus (PCR) Not Detected (Not Detect) mecA-Methicil Res Gene N/A (Not Detect) Streptococcus sp PCR Not Detected (Not Detect) Group A Strep DNA Not Detected (Not Detect) Group B Strep (PCR) Not Detected (Not Detect) Strep pneumoniae (PCR) Not Detected (Not Detect) P. aeruginosa (PCR) Not Detected (Not Detect) Kandi/B-Vanco Res Genes N/A (Not Detect) KPC (blaKPC) Detect PCR N/A (Not Detect) Exam - Constitutional Vitals: Temp Pulse Resp BP Pulse Ox 98.4 F 90 15 135/72 96 04/14/18 06:55 04/14/18 06:55 04/14/18 06:55 04/14/18 06:55 04/14/18 08:39 General appearance: cooperative, morbidly obese, no acute distress - Head Head exam: Present: atraumatic, normal inspection, normocephalic - Eye Eye exam: Absent: normal appearance Additional comments: Left eye drift noted. - ENT ENT exam: Present: mucous membranes moist - Neck Neck exam: Present: normal inspection - Respiratory Respiratory exam: Present: CTAB. Absent: rales, respiratory distress, rhonchi, wheezes - Cardiovascular Cardiovascular exam: Present: RRR, +S1, +S2 - GI/Abdominal GI/Abdominal exam: Present: distended (obese), normal bowel sounds, soft. Absent: tenderness - Extremities Exam Extremities exam: Absent: normal inspection (Erythema noted to the BLE, L>R. ) - Neurological Exam Neurological exam: Present: alert, oriented X3, no focal deficits - Psychiatric Psychiatric exam: Present: normal affect, normal mood - Skin Skin exam: Present: dry, intact, normal color, warm Consult Discharge Plan - Plan Instructions: Cellulitis (DC) Referrals: NONE,PCP [Primary Care Provider] - Prescriptions: RX: Doxycycline 100 mg PO BID 10 Days #20 capsule RX: levoFLOXacin [Levaquin] 750 mg PO DAILY 10 Days #10 tablet - Attending Attestation Patient was discharged before I can evaluate.
--- NOTE | 2018-04-14 13:28 | Physician Discharge Referral ---
ExtendedCare Referral Info Transfer To: [facility] - Diagnosis (1) Gram-negative bacteremia Priority: Primary Status: Resolved (2) Cellulitis of left lower extremity Priority: Secondary Status: Acute (3) Insulin dependent diabetes mellitus Priority: Secondary Status: Chronic (4) COPD (chronic obstructive pulmonary disease) Priority: Secondary Status: Chronic (5) Congestive heart failure Priority: Secondary Status: Chronic (6) Morbid obesity with BMI of 60.0-69.9, adult Priority: Secondary Status: Chronic (7) Sepsis Priority: Secondary Status: Resolved (8) Acute kidney injury Priority: Secondary Status: Resolved Prognosis: Fair Aware of Diagnosis: Patient Aware of Prognosis: Patient - Transfer Medications Prescriptions: Doxycycline 100 mg PO BID 10 Days #20 capsule levoFLOXacin [Levaquin] 750 mg PO DAILY 10 Days #10 tablet Home Medications: Furosemide [Lasix] 80 mg PO QAM 07/17/16 [History] Insulin Lispro Protamin/Lispro [Humalog Mix 75-25 Vial] 33 - 37 unit SQ BID 07/17/16 [History] Ramipril 10 mg PO BID 07/17/16 [History] Acetaminophen [Tylenol] 650 mg PO Q6HR PRN #0 tablet 07/20/16 [Rx] Allopurinol [Zyloprim 100 MG] 100 mg PO DAILY 09/06/17 [History] Gabapentin [Neurontin] 600 mg PO TID 09/06/17 [History] Indomethacin 50 mg PO TID PRN 09/06/17 [History] Spironolactone [Aldactone] 25 mg PO DAILY 09/06/17 [History] LORazepam [Ativan] 1 mg PO TID PRN 5 Days #15 tablet 09/09/17 [Rx] Cinnamon Bark [Cinnamon] 1,000 mg PO BID 04/09/18 [History] Docusate Sodium [Dok] 200 mg PO BID 04/09/18 [History] Gentamicin Oint [Garamycin] 1 appl TP DAILY 04/09/18 [History] Oxycodone HCl/Acetaminophen [Percocet 5-325 mg Tablet] 1 tab PO Q6H PRN 04/09/18 [History] Doxycycline 100 mg PO BID 10 Days #20 capsule 04/14/18 [Rx] levoFLOXacin [Levaquin] 750 mg PO DAILY 10 Days #10 tablet 04/14/18 [Rx] Allergies/Adverse Reactions: Allergy/AdvReac Type Severity Reaction Status Date / Time No Known Allergies Allergy Verified 07/17/16 14:49 - Respiratory Orders Oxygen / L per min (2) Smoking Cessation: Smoking cessation has been advised. For more information, call the [place] Tobacco Quit Line at 2-862-BMIH-NOW. - Advance Directives Code Status: Full Code - Mobility Orders Chair - Rehabiliation Orders Rehab Potential: Fair Rehab Orders: Evaluation for Physical Therapy, Evaluation for Occupational Therapy - Diet Orders Regular CERTIFICATION: I certify that the transfer of the above named patient to an Extended Care Facility is necessary for the continuing treatment of the diagnosis listed. The above information is true and accurate reflection of patient's current condition. Confidential - Redisclosure prohibited without a patient's written consent.
== END 2018-04-14 15:32 | DRG 872 ==
LOC: 2NENU 14:18 → EMEROOARM 14:18 → 2NENU 20:58 → SUATTDRO 04-10 06:29
PROVIDERS: ADMIT Internal Medicine; ATTEND Internal Medicine

== ENCOUNTER 2018-12-01 11:40 | Inpatient (IN) ==
[2018-12-01] MEDS ORDERED: 0.9 % Sodium Chloride 1,000 ML IVC ONE ×2 (11:54→14:29)
--- NOTE | 2018-12-01 12:04 | Emergency Department Note ---
Disposition Clinical Impression: Weakness, Hyperkalemia, PIERRE (acute kidney injury) UTI (urinary tract infection) Qualifiers: Urinary tract infection type: acute cystitis Hematuria presence: with hematuria Qualified Code(s): N30.01 - Acute cystitis with hematuria Disposition: Admitted As Inpatient Time of Disposition: 21:30 General Adult HPI - General Chief complaint: ED Shortness of Breath/Dyspnea Stated complaint: general weakness Time Seen by Provider: 12/01/18 11:44 Source: patient, EMS Nursing Notes Reviewed: Yes Vital Signs Reviewed: Yes - History of Present Illness Pain Scale: 0 - Related Data Home Medications Medication Instructions Recorded Confirmed Furosemide [Lasix] 80 mg PO QAM 07/17/16 12/01/18 Insulin Lispro Protamin/Lispro 33 - 37 unit SQ BID 07/17/16 04/09/18 [Humalog Mix 75-25 Vial] Ramipril 10 mg PO BID 07/17/16 12/01/18 Allopurinol [Zyloprim 100 MG] 100 mg PO DAILY 09/06/17 12/01/18 Gabapentin [Neurontin] 600 mg PO TID 09/06/17 12/01/18 Indomethacin 50 mg PO TID PRN 09/06/17 12/01/18 Spironolactone [Aldactone] 25 mg PO DAILY 09/06/17 12/01/18 Cinnamon Bark [Cinnamon] 1,000 mg PO BID 04/09/18 04/09/18 Docusate Sodium [Dok] 200 mg PO BID 04/09/18 12/01/18 Gentamicin Oint [Garamycin] 1 appl TP DAILY 04/09/18 04/09/18 Oxycodone HCl/Acetaminophen 1 tab PO Q6H PRN 04/09/18 12/01/18 [Percocet 5-325 mg Tablet] Previous Rx's Medication Instructions Recorded Acetaminophen [Tylenol] 650 mg PO Q6HR PRN #0 tablet 07/20/16 LORazepam [Ativan] 1 mg PO TID PRN 5 Days #15 tablet 09/09/17 Allergies Allergy/AdvReac Type Severity Reaction Status Date / Time No Known Allergies Allergy Verified 07/17/16 14:49 Past Medical History - Past Medical History Medical history: Reports: cancer, CHF, COPD, diabetes, hypertension Surgical history: Reports: non-contributory, breast surgery, cholecystectomy, splenectomy Psychiatric history: Reports: anxiety 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 - Social History Smoking Status: Former smoker Smokeless Tobacco Status: No Alcohol use: Reports: rarely Drug use: Reports: none Physical Exam - General General appearance: lethargic Course Vital Signs Temperature 98.4 F 12/01/18 11:48 Pulse Rate 87 12/01/18 11:48 Respiratory Rate 26 12/01/18 11:48 Blood Pressure 127/63 12/01/18 11:48 O2 Sat by Pulse Oximetry 93 12/01/18 11:48 Temperature 97.7 F 12/01/18 18:38 Pulse Rate 80 12/01/18 18:38 Respiratory Rate 16 12/01/18 18:38 Blood Pressure 123/69 12/01/18 18:38 O2 Sat by Pulse Oximetry 95 12/01/18 19:58 Oxygen Delivery Oxygen Delivery Nasal Cannula Medical Decision Making - MDM Narrative Medical decision making narrative: 1422 hrs. we are going to discuss with the patient her labs and her elevated troponin. She is not having chest pain she is also got hyperkalemia's were going to treat that. She is a DNR CC sore and ask her what her wishes are it whether she would want a heart catheterization or not and then bring her into the hospital. Chest X-Ray 12/01/18 11:45 IMPRESSION: 1. No acute abnormality. D/ / Aden Mike MD / Aden Mike MD Interpreting Provider: Aden Mike MD 1500 hrs. we will discuss with orthopedics also since she will need admission to consult with her fracture of her lower extremity and then discussed with hospitalist. For admission - Lab Data Result diagrams: 12/01/18 12:08 12/01/18 17:31 Lab Results 12/01/18 12/01/18 12/01/18 Range/Units 12:08 12:08 12:08 WBC 11.2 H (4.3-11.1) K/mcL RBC 4.33 (3.82-4.97) M/mcL Hgb 11.2 L (11.5-15.4) g/dL Hct 37.1 (35.3-44.9) % MCV 85.7 (83.0-100.0) fL MCH 25.9 L (28.0-33.3) pg MCHC 30.2 L (31.6-35.5) g/dL RDW 17.3 H (11.5-14.5) % Plt Count 343 (140-400) K/mcL MPV 9.8 (9.4-12.4) fL Immature Gran % 0.5 (0-4) % Seg Neutrophils % 70.7 % Lymphocytes % 18.7 % Monocytes % 7.5 % Eosinophils % 2.0 % Basophils % 0.6 % Neutrophils # 7.9 (1.6-8.9) K/mcL Lymphocytes # 2.1 (0.6-4.6) K/mcL Monocytes # 0.8 (0.0-1.3) K/mcL Eosinophils # 0.2 (0.0-0.6) K/mcL Basophils # 0.1 (0.0-0.2) K/mcL Nucleated RBCs/100 WBC 0.6 H (0) /100 WBC Sodium 128 L (136-145) mEq/L Potassium 6.9 H* (3.5-5.1) mEq/L Chloride 100 (98-107) mEq/L Carbon Dioxide 22 L (23-29) mEq/L BUN 77 H (8-23) mg/dL Creatinine 1.58 H (0.60-1.20) mg/dL Est GFR ( Amer) 39 L (> 60) Est GFR (Non-Af Amer) 32 L (> 60) BUN/Creatinine Ratio 49 H (6-26) Glucose 105 (70-105) mg/dL Calculated Osmolality 289 (280-300) Lactic Acid 0.9 (0.5-2.2) mmol/L Calcium 8.3 L (8.6-10.3) mg/dL Phosphorus 5.0 H (2.7-4.5) mg/dL Magnesium 2.8 H (1.6-2.6) mg/dL Total Bilirubin 0.5 (0.3-1.0) mg/dL Direct Bilirubin 0.2 (0.0-0.2) mg/dL Indirect Bilirubin 0.3 (0.0-1.2) mg/dL AST 22 (13-39) Units/L ALT 13 (7-52) Units/L Alkaline Phosphatase 112 H (34-104) Units/L Creatine Kinase (30-223) Units/L Troponin I 0.12 H* (< 0.04) ng/mL Serum Total Protein 6.5 (6.4-8.9) g/dL Albumin 3.0 L (3.5-5.7) g/dL Globulin 3.5 (2.4-3.5) g/dL Albumin/Globulin Ratio 0.9 L (1.1-2.2) Urine Color (Yellow) Urine Clarity (Clear) Urine pH (5.0-8.0) pH Units Ur Specific Sims (1.010-1.025) Urine Protein (Neg-Trace) mg/dL Urine Glucose (UA) (Normal) mg/dL Urine Ketones (Negative) mg/dL Urine Blood (Negative) Urine Nitrite (Negative) Urine Bilirubin (Negative) Urine Urobilinogen (Normal) mg/dL Ur Leukocyte Esterase (Negative) Urine Microscopic RBC (0-3) per hpf Urine Microscopic WBC (0-3) per hpf Ur Squamous Epith Cells (None-Few) per lpf Urine Bacteria (None-Few) per hpf Hyaline Casts (None-Few) per lpf Ur Culture Indicated? (NO) 12/01/18 12/01/18 Range/Units 12:13 14:22 WBC (4.3-11.1) K/mcL RBC (3.82-4.97) M/mcL Hgb (11.5-15.4) g/dL Hct (35.3-44.9) % MCV (83.0-100.0) fL MCH (28.0-33.3) pg MCHC (31.6-35.5) g/dL RDW (11.5-14.5) % Plt Count (140-400) K/mcL MPV (9.4-12.4) fL Immature Gran % (0-4) % Seg Neutrophils % % Lymphocytes % % Monocytes % % Eosinophils % % Basophils % % Neutrophils # (1.6-8.9) K/mcL Lymphocytes # (0.6-4.6) K/mcL Monocytes # (0.0-1.3) K/mcL Eosinophils # (0.0-0.6) K/mcL Basophils # (0.0-0.2) K/mcL Nucleated RBCs/100 WBC (0) /100 WBC Sodium 129 L (136-145) mEq/L Potassium 7.2 H* (3.5-5.1) mEq/L Chloride 100 (98-107) mEq/L Carbon Dioxide 25 (23-29) mEq/L BUN 78 H (8-23) mg/dL Creatinine 1.59 H (0.60-1.20) mg/dL Est GFR ( Amer) 39 L (> 60) Est GFR (Non-Af Amer) 32 L (> 60) BUN/Creatinine Ratio 49 H (6-26) Glucose 125 H (70-105) mg/dL Calculated Osmolality 293 (280-300) Lactic Acid (0.5-2.2) mmol/L Calcium 8.3 L (8.6-10.3) mg/dL Phosphorus (2.7-4.5) mg/dL Magnesium (1.6-2.6) mg/dL Total Bilirubin (0.3-1.0) mg/dL Direct Bilirubin (0.0-0.2) mg/dL Indirect Bilirubin (0.0-1.2) mg/dL AST (13-39) Units/L ALT (7-52) Units/L Alkaline Phosphatase (34-104) Units/L Creatine Kinase 28 L (30-223) Units/L Troponin I (< 0.04) ng/mL Serum Total Protein (6.4-8.9) g/dL Albumin (3.5-5.7) g/dL Globulin (2.4-3.5) g/dL Albumin/Globulin Ratio (1.1-2.2) Urine Color Yellow (Yellow) Urine Clarity Cloudy A (Clear) Urine pH 8.0 (5.0-8.0) pH Units Ur Specific Sims 1.018 (1.010-1.025) Urine Protein 30 H (Neg-Trace) mg/dL Urine Glucose (UA) Normal (Normal) mg/dL Urine Ketones Negative (Negative) mg/dL Urine Blood Trace H (Negative) Urine Nitrite Negative (Negative) Urine Bilirubin Small H (Negative) Urine Urobilinogen Normal (Normal) mg/dL Ur Leukocyte Esterase Large H (Negative) Urine Microscopic RBC 15-30 H (0-3) per hpf Urine Microscopic WBC 50-100 H (0-3) per hpf Ur Squamous Epith Cells Moderate H (None-Few) per lpf Urine Bacteria Many H (None-Few) per hpf Hyaline Casts None Seen (None-Few) per lpf Ur Culture Indicated? YES A (NO) Critical Care Time Critical Care Time: Yes Total Critical Care Time: 45 Attestation: Excluding any separately billable procedures. Attestation Statement - Attestation Attestation: This documentation is done with the assistance of Dragon dictation. Despite efforts made to ensure accuracy, there may be inaccuracies in travel consultant or spelling and typographical errors. I examined this patient and my medical decision-making was reviewed with the Resident Physician. I agree with the documented findings, disposition and treatment plan as described except to the extent set forth below. Patient was seen and evaluated by Dr. Dyson and myself, I agree with his evaluation and management plan, I supervised the care the patient throughout her stay. Patient presents by EMS from [facility] due to low oxygen saturations. They have given her pain medication and had her off her oxygen. They had decreased her oxygen saturations so they went ahead and put it on her regular oxygen and her sats were normal however they did notice that she was diaphoretic and seemed warm that her temp was normal she also has a Payne catheter in which shows a cloudy urine so they sent her in here to make sure she was not getting a UTI. Patient says she is not feeling well but denies any pain except her ankle which is where her fractures. She is immobilized. We will do a workup on her to rule out UTI and sepsis. I reviewed the residents documentation and agree with the residents assessment and plan of care. I have personally had face to face time with the patient. (Brief History, Brief Exam, and MDM) I personally supervised and was present for the johnston/critical portions of the following procedures completed by the resident: EKG was read and interpreted by the ER resident, under my supervision, I agree with her interpretation.
[2018-12-01 12:40] LABS: Bilirubin,Urine Small (Negative); Blood,Urine Trace (Negative); Clarity,Urine Cloudy (Clear); Color,Urine Yellow (Yellow); Glucose,Urine (UA) Normal (Normal); Ketones,Urine Negative (Negative); Leukocyte Esterase,Urine Large (Negative); Nitrite,Urine Negative (Negative); Protein,Urine 30 mg/dL (Neg-Trace); Specific Gravity,Urine 1.018 (1.010-1.025); Urobilinogen,Urine Normal (Normal)
[2018-12-01 12:42] LABS: Basophils % 0.6 %; Hematocrit 37.1 % (35.3-44.9); Hemoglobin 11.2 g/dL (11.5-15.4); Immature Granulocytes % 0.5 % (0-4); Lymphocytes % 18.7 %; Mean Corpuscular HGB Conc 30.2 g/dL (31.6-35.5); Mean Corpuscular Hemoglobin 25.9 pg (28.0-33.3); Mean Corpuscular Volume 85.7 fL (83.0-100.0); Mean Platelet Volume 9.8 fL (9.4-12.4); Monocytes % 7.5 %; Platelet Count 343 K/mcL (140-400); Red Blood Count 4.33 M/mcL (3.82-4.97); Red Cell Distribution Width 17.3 % (11.5-14.5); Segmented Neutrophils % 70.7 %; White Blood Count 11.2 K/mcL (4.3-11.1)
[2018-12-01 12:42] LABS: Bacteria,Urine Many per hpf (None-Few); Hyaline Casts,Urine None Seen per lpf (None-Few); RBC,Urine 15-30 per hpf (0-3); Squamous Epithelial Cell,Urine Moderate per lpf (None-Few); WBC,Urine 50-100 per hpf (0-3)
[2018-12-01 12:43] LABS: Basophils # 0.1 K/mcL (0.0-0.2); Eosinophils # 0.2 K/mcL (0.0-0.6); Lymphocytes # 2.1 K/mcL (0.6-4.6); Monocytes # 0.8 K/mcL (0.0-1.3); Neutrophils # 7.9 K/mcL (1.6-8.9); Nucleated Red Blood Cells 0.6 /100 WBC (0)
[2018-12-01 13:09] LABS: Albumin/Globulin Ratio 0.9 (1.1-2.2); Bilirubin,Direct 0.2 mg/dL (0.0-0.2); Bilirubin,Indirect 0.3 mg/dL (0.0-1.2); Bilirubin,Total 0.5 mg/dL (0.3-1.0); Calcium 8.3 mg/dL (8.6-10.3); Globulin 3.5 g/dL (2.4-3.5); Magnesium 2.8 mg/dL (1.6-2.6); Potassium 6.9 mEq/L (3.5-5.1); Total Protein 6.5 g/dL (6.4-8.9); Troponin I 0.12 ng/mL (< 0.04)
[2018-12-01] MEDS ORDERED: cefTRIAXone 1,000 MG in Water for inj. (sterile) 10 ML IVP ONE (13:12)
[2018-12-01] MEDS ORDERED: Aspirin 325 MG TABLET PO ONE (13:32)
[2018-12-01] MEDS ORDERED: *HR* Dextrose 50 % in Water (Vial) 50 ML VIAL IVP ONE (14:07)
[2018-12-01] MEDS ORDERED: Insulin Human Regular 10 UNIT in 0.9 % Sodium Chloride 10 ML IV ONE (14:07)
--- NOTE | 2018-12-01 14:45 | Emergency Department Note ---
Disposition Clinical Impression: Weakness, Hyperkalemia, PIERRE (acute kidney injury) UTI (urinary tract infection) Qualifiers: Urinary tract infection type: acute cystitis Hematuria presence: with hematuria Qualified Code(s): N30.01 - Acute cystitis with hematuria Disposition: Admitted As Inpatient Time of Disposition: 15:38 General Adult HPI - General Chief complaint: ED Shortness of Breath/Dyspnea Stated complaint: general weakness Time Seen by Provider: 12/01/18 11:44 Source: patient, EMS Mode of arrival: EMS Limitations: no limitations Nursing Notes Reviewed: Yes Vital Signs Reviewed: Yes - History of Present Illness HPI Narrative: Patient is a 72-year-old female with a past medical history of CHF, COPD, diabetes, and HTN presents to the ED for evaluation of hypoxia after being given her morphine. She dropped to 88% on room air and was placed on 2 L nasal cannula which improved her oxygen saturation. She is also been intermittently having chest pain over the past 2 days. Patient also recently fell from her chair and caused injury to her right tibia in which she was supposed to follow up with orthopedics for fracture but she has not. Denies any chest pain at this time states that she primarily just feels weak. Paperwork states DNRCC. Pain Scale: 0 - Related Data Home Medications Medication Instructions Recorded Confirmed Furosemide [Lasix] 80 mg PO QAM 07/17/16 12/01/18 Insulin Lispro Protamin/Lispro 33 - 37 unit SQ BID 07/17/16 04/09/18 [Humalog Mix 75-25 Vial] Ramipril 10 mg PO BID 07/17/16 12/01/18 Allopurinol [Zyloprim 100 MG] 100 mg PO DAILY 09/06/17 12/01/18 Gabapentin [Neurontin] 600 mg PO TID 09/06/17 12/01/18 Indomethacin 50 mg PO TID PRN 09/06/17 12/01/18 Spironolactone [Aldactone] 25 mg PO DAILY 09/06/17 12/01/18 Cinnamon Bark [Cinnamon] 1,000 mg PO BID 04/09/18 04/09/18 Docusate Sodium [Dok] 200 mg PO BID 04/09/18 12/01/18 Gentamicin Oint [Garamycin] 1 appl TP DAILY 04/09/18 04/09/18 Oxycodone HCl/Acetaminophen 1 tab PO Q6H PRN 04/09/18 12/01/18 [Percocet 5-325 mg Tablet] Previous Rx's Medication Instructions Recorded Acetaminophen [Tylenol] 650 mg PO Q6HR PRN #0 tablet 07/20/16 LORazepam [Ativan] 1 mg PO TID PRN 5 Days #15 tablet 09/09/17 Allergies Allergy/AdvReac Type Severity Reaction Status Date / Time No Known Allergies Allergy Verified 07/17/16 14:49 All systems ED: reviewed and negative except as stated. Review of Systems: As Per HPI Constitutional: Reports: chills, weakness. Denies: fever Cardiovascular: Reports: chest pain. Denies: palpitations, dyspnea on exertion Respiratory: Denies: cough, dyspnea, wheezes Gastrointestinal: Denies: abdominal pain, nausea, vomiting, diarrhea Genitourinary: Denies: urgency, dysuria, frequency Past Medical History - Past Medical History Attestation: Yes The following information was validated with the patient. 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 Absent: respiratory distress, wheezes - Cardiovascular Cardiovascular exam: Present: regular rate, normal rhythm, normal heart sounds, +S1, +S2 - Abdominal Exam Abdominal exam: Present: soft, Non-Tender. Absent: tenderness, distention, guarding, rebound, rigidity - Female Bimanual Exam: Present: other (Chronic indwelling poe cather that is dark and with sediment. ) - Expanded Lower Extremity Exam Hip/Pelvis exam: Present: normal inspection Knee exam: Present: other (Right knee is immobilized with wendi bandage. Perfusion and sensation intact. ) Neurovascular/Tendon exam: Present: normal capillary refill. Absent: pulse deficit, motor deficit - Neurological Exam Neurological exam: Present: alert, oriented X3 - Psychiatric Psychiatric exam: Present: normal affect, normal mood - Skin Skin exam: Present: warm, dry, intact, normal color Course Course Narrative: The patient's lab work showed a hemoglobin of 8.7 which appears to be chronic. Urinalysis was negative for infection. Patient resolution of stroke like exacerbation while in the ED and return to her baseline. Given the normal imaging at this time we searched for an alternative source of the patient's exacerbation of chronic stroke symptoms such as infection which did not appear to be coming from the urine or the chest x-ray. Discussed with the hospitalist plan to the patient at this time. Discussed consideration of obtaining a sample of peritoneal fluid from the patient's peritoneal dialysis catheter, however Dr. Ray recommends one of their specialists obtain the sample today when she undergoes peritoneal dialysis. Discussed admission with the hospitalist and they agree to accept the patient. Vital Signs Temperature 98.4 F 12/01/18 11:48 Pulse Rate 87 12/01/18 11:48 Respiratory Rate 26 12/01/18 11:48 Blood Pressure 127/63 12/01/18 11:48 O2 Sat by Pulse Oximetry 93 12/01/18 11:48 Temperature 97.7 F 12/01/18 18:38 Pulse Rate 80 12/01/18 18:38 Respiratory Rate 16 12/01/18 18:38 Blood Pressure 123/69 12/01/18 18:38 O2 Sat by Pulse Oximetry 95 12/01/18 18:38 Oxygen Delivery Oxygen Delivery Nasal Cannula Medical Decision Making - Medical Records Medical records reviewed: Yes I reviewed the patient's medical records. - Lab Data Lab results reviewed: Yes I reviewed the patient's lab results. Result diagrams: 12/01/18 12:08 12/01/18 17:31 Lab Results 12/01/18 12/01/18 12/01/18 Range/Units 12:08 12:08 12:08 WBC 11.2 H (4.3-11.1) K/mcL RBC 4.33 (3.82-4.97) M/mcL Hgb 11.2 L (11.5-15.4) g/dL Hct 37.1 (35.3-44.9) % MCV 85.7 (83.0-100.0) fL MCH 25.9 L (28.0-33.3) pg MCHC 30.2 L (31.6-35.5) g/dL RDW 17.3 H (11.5-14.5) % Plt Count 343 (140-400) K/mcL MPV 9.8 (9.4-12.4) fL Immature Gran % 0.5 (0-4) % Seg Neutrophils % 70.7 % Lymphocytes % 18.7 % Monocytes % 7.5 % Eosinophils % 2.0 % Basophils % 0.6 % Neutrophils # 7.9 (1.6-8.9) K/mcL Lymphocytes # 2.1 (0.6-4.6) K/mcL Monocytes # 0.8 (0.0-1.3) K/mcL Eosinophils # 0.2 (0.0-0.6) K/mcL Basophils # 0.1 (0.0-0.2) K/mcL Nucleated RBCs/100 WBC 0.6 H (0) /100 WBC Sodium 128 L (136-145) mEq/L Potassium 6.9 H* (3.5-5.1) mEq/L Chloride 100 (98-107) mEq/L Carbon Dioxide 22 L (23-29) mEq/L BUN 77 H (8-23) mg/dL Creatinine 1.58 H (0.60-1.20) mg/dL Est GFR ( Amer) 39 L (> 60) Est GFR (Non-Af Amer) 32 L (> 60) BUN/Creatinine Ratio 49 H (6-26) Glucose 105 (70-105) mg/dL Calculated Osmolality 289 (280-300) Lactic Acid 0.9 (0.5-2.2) mmol/L Calcium 8.3 L (8.6-10.3) mg/dL Phosphorus 5.0 H (2.7-4.5) mg/dL Magnesium 2.8 H (1.6-2.6) mg/dL Total Bilirubin 0.5 (0.3-1.0) mg/dL Direct Bilirubin 0.2 (0.0-0.2) mg/dL Indirect Bilirubin 0.3 (0.0-1.2) mg/dL AST 22 (13-39) Units/L ALT 13 (7-52) Units/L Alkaline Phosphatase 112 H (34-104) Units/L Creatine Kinase (30-223) Units/L Troponin I 0.12 H* (< 0.04) ng/mL Serum Total Protein 6.5 (6.4-8.9) g/dL Albumin 3.0 L (3.5-5.7) g/dL Globulin 3.5 (2.4-3.5) g/dL Albumin/Globulin Ratio 0.9 L (1.1-2.2) Urine Color (Yellow) Urine Clarity (Clear) Urine pH (5.0-8.0) pH Units Ur Specific [place] (1.010-1.025) Urine Protein (Neg-Trace) mg/dL Urine Glucose (UA) (Normal) mg/dL Urine Ketones (Negative) mg/dL Urine Blood (Negative) Urine Nitrite (Negative) Urine Bilirubin (Negative) Urine Urobilinogen (Normal) mg/dL Ur Leukocyte Esterase (Negative) Urine Microscopic RBC (0-3) per hpf Urine Microscopic WBC (0-3) per hpf Ur Squamous Epith Cells (None-Few) per lpf Urine Bacteria (None-Few) per hpf Hyaline Casts (None-Few) per lpf Ur Culture Indicated? (NO) 12/01/18 12/01/18 Range/Units 12:13 14:22 WBC (4.3-11.1) K/mcL RBC (3.82-4.97) M/mcL Hgb (11.5-15.4) g/dL Hct (35.3-44.9) % MCV (83.0-100.0) fL MCH (28.0-33.3) pg MCHC (31.6-35.5) g/dL RDW (11.5-14.5) % Plt Count (140-400) K/mcL MPV (9.4-12.4) fL Immature Gran % (0-4) % Seg Neutrophils % % Lymphocytes % % Monocytes % % Eosinophils % % Basophils % % Neutrophils # (1.6-8.9) K/mcL Lymphocytes # (0.6-4.6) K/mcL Monocytes # (0.0-1.3) K/mcL Eosinophils # (0.0-0.6) K/mcL Basophils # (0.0-0.2) K/mcL Nucleated RBCs/100 WBC (0) /100 WBC Sodium 129 L (136-145) mEq/L Potassium 7.2 H* (3.5-5.1) mEq/L Chloride 100 (98-107) mEq/L Carbon Dioxide 25 (23-29) mEq/L BUN 78 H (8-23) mg/dL Creatinine 1.59 H (0.60-1.20) mg/dL Est GFR ( Amer) 39 L (> 60) Est GFR (Non-Af Amer) 32 L (> 60) BUN/Creatinine Ratio 49 H (6-26) Glucose 125 H (70-105) mg/dL Calculated Osmolality 293 (280-300) Lactic Acid (0.5-2.2) mmol/L Calcium 8.3 L (8.6-10.3) mg/dL Phosphorus (2.7-4.5) mg/dL Magnesium (1.6-2.6) mg/dL Total Bilirubin (0.3-1.0) mg/dL Direct Bilirubin (0.0-0.2) mg/dL Indirect Bilirubin (0.0-1.2) mg/dL AST (13-39) Units/L ALT (7-52) Units/L Alkaline Phosphatase (34-104) Units/L Creatine Kinase 28 L (30-223) Units/L Troponin I (< 0.04) ng/mL Serum Total Protein (6.4-8.9) g/dL Albumin (3.5-5.7) g/dL Globulin (2.4-3.5) g/dL Albumin/Globulin Ratio (1.1-2.2) Urine Color Yellow (Yellow) Urine Clarity Cloudy A (Clear) Urine pH 8.0 (5.0-8.0) pH Units Ur Specific [place] 1.018 (1.010-1.025) Urine Protein 30 H (Neg-Trace) mg/dL Urine Glucose (UA) Normal (Normal) mg/dL Urine Ketones Negative (Negative) mg/dL Urine Blood Trace H (Negative) Urine Nitrite Negative (Negative) Urine Bilirubin Small H (Negative) Urine Urobilinogen Normal (Normal) mg/dL Ur Leukocyte Esterase Large H (Negative) Urine Microscopic RBC 15-30 H (0-3) per hpf Urine Microscopic WBC 50-100 H (0-3) per hpf Ur Squamous Epith Cells Moderate H (None-Few) per lpf Urine Bacteria Many H (None-Few) per hpf Hyaline Casts None Seen (None-Few) per lpf Ur Culture Indicated? YES A (NO) - Radiology Data Radiology results reviewed: Yes I reviewed the patient's radiology results. Chest X-Ray 12/01/18 11:45 IMPRESSION: 1. No acute abnormality. D/ / Aden Mike MD / Aden Mike MD Interpreting Provider: Aden Mike MD - EKG Data EKG #1 EKG attestation: Yes I reviewed and interpreted this EKG. EKG results narrative: EKG done 11:52 shows sinus rhythm at a rate of 88 bpm. Normal axis. Intervals within normal limits. Minimal elevated of ST 1mm in isolated V2 lead.
[2018-12-01 14:58] LABS: Calcium 8.3 mg/dL (8.6-10.3); Potassium 7.2 mEq/L (3.5-5.1)
[2018-12-01] MEDS ORDERED: Calcium Gluconate 1gm/50mL 1 GM/50 ML BAG IVPB SCH (15:49)
[2018-12-01] MEDS ORDERED: Calcium Gluconate 1gm/50mL 1 GM/50 ML BAG IVPB STA (15:59)
[2018-12-01] MEDS ORDERED: Naloxone 0.4 MG/ML INJ IVP PRN (16:37)
[2018-12-01] MEDS ORDERED: *HR* Dextrose 50 % in Water (Syg) 50 ML SYRINGE IVP PRN (16:43)
[2018-12-01] MEDS ORDERED: D5% in Water 1,000 ML IVC PRN (16:43)
[2018-12-01] MEDS ORDERED: Dextrose Gel 15 GM/37.5 ML TUBE PO PRN ×2 (16:43)
[2018-12-01] MEDS ORDERED: *HR* Heparin 5,000 UNIT/ML VIAL SQ SCH (17:00)
--- NOTE | 2018-12-01 17:08 | Internal Med History&Physical ---
<Kingston Roberson L - Last Filed: 12/01/18 18:39> Date of Encounter: 12/01/18 Time of Encounter: 16:58 Internal Medicine - H&P: HPI Admitted From: Long-term Nursing Facility Plans for Post Hospital Care: Transfer Custodial Care History of present illness: Ms. Smith is a 72 year old female with a history of CHF, COPD, type II insulin-d ependent diabetes mellitus, hypertension, and breast cancer presenting from extended care facility with shortness of breath and poor oxygenation. Patient was transferred from assisted living facility after developing shortness of breath and requiring supplemental oxygen to maintain oxygen saturation. Staff noted that patient was reporting intermittent, reproducible chest pain for the past 2 days and also appeared diaphoretic. Patient has been taking Percocet for the past 5 days because of a fracture to her right tibia. She is being followed by orthopedic surgery. Patient's daughter states that the patient has been confused since beginning Percocet. She is having date decreased appetite, decreased oral intake, and decreased ambulation. Patient had a Payne catheter placed on November 27 because of immobilization. Today it was noted that patient's urine has become dark and cloudy. There were no urinary symptoms before Payne catheter was place, no odor, no dysuria, no polyuria. In the ED patient was given 2 L of fluid, placed on 2 L of oxygen via nasal cannula. Her shortness of breath improved in the ED, she was saturating 96% on 2 L of O2 via nasal cannula. She was noted to have an elevated white blood cell count 11.2, hyponatremia 129, hyperkalemia 7.2, elevated BUN/creatinine, elevated troponin I 0.12. UA was positive for trace blood beside esterase, RBCs and WBCs. Blood and urine cultures were sent. No acute abnormality noted on chest x-ray. EKG shows sinus rhythm at a rate of 88 BPM. Normal axis. Intervals within normal limits. Minimal elevated ST 1 mm and isolated B2 weeks. Pt was alert and oriented x3 at interview, her daughter was present to assist. Past Med Surg Social Fam HX - Past Medical History Medical history: cancer, CHF, COPD, diabetes, hypertension Additional medical history: lymphedema. Psychiatric history: anxiety - Past Surgical History Surgical History: non-contributory, breast surgery, cholecystectomy, splenectomy Additional surgical history: Mastectomy with lymph node removal, partial pancreas removal, right shoulder reverse replacement - Social History Smoking Status: Former smoker Smokeless Tobacco Status: No Alcohol use: rarely Drug use: none - Family History Father Family Member Ethnicity: Living Status: Hx Family Cardiac Disorders: No Hx Family Respiratory Disorders: No Hx Family Cancer: Yes Hx Family GI Disorders: No Hx Family Endocrine Disorder: Yes (diabetic) Hx Family Neuromuscular Disorders: No Hx Family Neurologic Disorders: No Hx Family HEENT Disorders: No Hx Family Autoimmune Disorders: No Mother Family Member Ethnicity: Living Status: Hx Family Cardiac Disorders: Yes (CHF) Hx Family Respiratory Disorders: Yes (COPD) Internal Medicine - H&P: Meds Furosemide [Lasix] 80 mg PO QAM 07/17/16 [History] Insulin Lispro Protamin/Lispro [Humalog Mix 75-25 Vial] 33 - 37 unit SQ BID 07/17/16 [History] Ramipril 10 mg PO BID 07/17/16 [History] Acetaminophen [Tylenol] 650 mg PO Q6HR PRN #0 tablet 07/20/16 [Rx] Allopurinol [Zyloprim 100 MG] 100 mg PO DAILY 09/06/17 [History] Gabapentin [Neurontin] 600 mg PO TID 09/06/17 [History] Indomethacin 50 mg PO TID PRN 09/06/17 [History] Spironolactone [Aldactone] 25 mg PO DAILY 09/06/17 [History] LORazepam [Ativan] 1 mg PO TID PRN 5 Days #15 tablet 09/09/17 [Rx] Cinnamon Bark [Cinnamon] 1,000 mg PO BID 04/09/18 [History] Docusate Sodium [Dok] 200 mg PO BID 04/09/18 [History] Gentamicin Oint [Garamycin] 1 appl TP DAILY 04/09/18 [History] Oxycodone HCl/Acetaminophen [Percocet 5-325 mg Tablet] 1 tab PO Q6H PRN 04/09/18 [History] Allergy/AdvReac Type Severity Reaction Status Date / Time No Known Allergies Allergy Verified 07/17/16 14:49 All Systems PM: Constitutional: Reports recent Fevers, Generalized fatigue and weakness. Denies chills, weight loss Head/Neck: Reports LOUIS yesterday, resolved now. Denies neck stiffness EENT: Reports cough with phlegm for "the past few months". Reports diplopia. Denies vision changes/blurriness, rhinorrhea, congestion, sore throat CVS: Reports reproducible Chest pain, edema. Denies palpitations, SCANLON, orthopnea, edema, PND Pulm: Reports SOB, cough. Denies hemoptysis, wheezing GI: Reports decreased appetite. Denies abdominal pain, nausea, vomiting, diarrhea, constipation, melena, hematemasis : Payne cath in place. No reported symptoms before placement Heme: Denies ease of bleeding or bruising MSK: Denies joint pain, limited ROM Skin: Denies rashes, ulcers, color changes Neuro: Denies paresthesias, focal deficits, ataxia - Constitutional Vitals: Temp Pulse Resp BP Pulse Ox 98.4 F 80 17 111/47 95 12/01/18 11:48 12/01/18 16:40 12/01/18 16:40 12/01/18 16:40 12/01/18 16:40 Exam: Gen: Vitals noted. Mild resp distress Eyes: anicteric sclerae, moist conjunctivae; Left eye EOM not intact. Left Pupil ~1cm, not reactive to light or accommodation. R pupil Round and reactive to light HENT: Atraumatic; oropharynx clear with moist mucous membranes and no mucosal ulcerations Neck: Trachea midline; supple, no thyromegaly or lymphadenopathy Cardiac: Reproducible pain noted at L mastectomy scar. Limited due to obesity. RRR, no murmur, +S1/S2 Pulmonary: Limited due to Obesity CTA bilaterally, no wheezes, rales or rhonchi, equal chest expansion Abdomen: Bowel sounds present. Soft, nontender, no guarding. No masses or hepatosplenomegaly. Large Pancreectomy scar noted at epigastrum Extremities: BLE edema 3+, nontender calf, no cyanosis or clubbing. Skin: Warm and moist. Normal turgor and texture, Venous stasis bilateral lower extremities Neuro: No speech deficit, responds appropriately to questions Psych: Appropriate mood and behavior. A&Ox3 Internal Med - H&P Results - Labs CBC & Chem 7: 12/01/18 12:08 12/01/18 17:31 Labs: Short CBC 12/01/18 Range/Units 12:08 WBC 11.2 H (4.3-11.1) K/mcL Hgb 11.2 L (11.5-15.4) g/dL Hct 37.1 (35.3-44.9) % Plt Count 343 (140-400) K/mcL Neutrophils # 7.9 (1.6-8.9) K/mcL BMP 12/01/18 12/01/18 12:08 14:22 Sodium 128 L 129 L Potassium 6.9 H* 7.2 H* Chloride 100 100 Carbon Dioxide 22 L 25 BUN 77 H 78 H Creatinine 1.58 H 1.59 H Glucose 105 125 H Calcium 8.3 L 8.3 L Cardiac Enzymes 12/01/18 Range/Units 12:08 Troponin I 0.12 H* (< 0.04) ng/mL Liver Function 12/01/18 Range/Units 12:08 Total Bilirubin 0.5 (0.3-1.0) mg/dL Direct Bilirubin 0.2 (0.0-0.2) mg/dL AST 22 (13-39) Units/L ALT 13 (7-52) Units/L Alkaline Phosphatase 112 H (34-104) Units/L Albumin 3.0 L (3.5-5.7) g/dL Urine 12/01/18 Range/Units 12:13 Urine Color Yellow (Yellow) Urine Clarity Cloudy A (Clear) Urine pH 8.0 (5.0-8.0) pH Units Ur Specific [place] 1.018 (1.010-1.025) Urine Protein 30 H (Neg-Trace) mg/dL Urine Glucose (UA) Normal (Normal) mg/dL - Impressions ITS Impressions Chest X-Ray 12/01/18 11:45 IMPRESSION: 1. No acute abnormality. D/ / Aden Mike MD / Aden Mike MD Interpreting Provider: Aden Mike MD - Assessment and Plan (1) Hyperkalemia Current Visit: Yes Status: Acute Assessment and plan: K 6.9 on admission K 6.9>7.2>6.8 Secondary to PIERRE, UTI, dehydration, and medication use. EKG: Normal sinus rhythm at a rate of 88 BPM. Abnormal R-wave progression, late transition. Left ventricular hypertrophy. Normal IN and QTC intervals. Plan: Kayexalate given, second dose ordered insulin given in ED Calcium gluconate given in ED patient had one BM in ED Repeat potassium, continue monitor We will consult nephrology if hyperkalemia does not resolve CK pending Repeat BMP pending (2) UTI (urinary tract infection) Current Visit: Yes Status: Acute Assessment and plan: UTI secondary to Payne catheter use Blood and urine cultures sent Elevated WBC on admission UA: Cloudy, trace blood, positive for leukocyte esterase, RBCs and WBCs. Plan: Remove and replace Payne catheter -New Payne ordered, communicated with nurse that Payne catheter needed replaced will treat with Rocephin 2 g q24 Qualifiers: Urinary tract infection type: acute cystitis Hematuria presence: with hematuria Qualified Code(s): N30.01 - Acute cystitis with hematuria (3) Acute kidney injury Current Visit: Yes Status: Acute Assessment and plan: PIERRE secondary to UTI, dehydration, medication use Elevated BUN/creatinine on admission: 78/1.59. Baseline creatinine 0.85 Decreased GFR 32, baseline greater than 60 Received 2 L NS and EGD Plan: We will continue to monitor Normal saline started at 50 mL per hour (4) Hypertension Current Visit: No Status: Chronic Assessment and plan: Patient has history of hypertension Holding home BP meds, Lasix, spironolactone given current electrolyte a bnormalities Hydralazine when necessary for systolic greater than 160 Qualifiers: Hypertension type: unspecified Qualified Code(s): I10 - Essential (primary) hypertension (5) Diabetes mellitus Current Visit: Yes Status: Acute Assessment and plan: Patient has history of insulin-dependent type 2 diabetes On Humalog at home, on ramipril home We will start with medium dose sliding scale insulin Continue to monitor Qualifiers: Diabetes mellitus type: type 2 Diabetes mellitus intermediate teacher insulin use: with intermediate teacher use Diabetes mellitus complication status: with other specified complication Qualified Code(s): E11.69 - Type 2 diabetes mellitus with other specified complication; Z79.4 - 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 (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 of insulin (6) Fracture of proximal end of tibia Current Visit: No Status: Acute Assessment and plan: Patient has reached recent fracture of right tibia Ortho following Percocet for pain Qualifiers: Encounter type: initial encounter Fracture type: closed Fracture morphology: unspecified fracture morphology Laterality: right Qualified Code(s): S82.101A - Unspecified fracture of upper end of right tibia, initial encounter for closed fracture (7) Morbid obesity with BMI of 70 and over, adult Current Visit: No Status: Acute Assessment and plan: Patient has history of morbid obesity Decreased mobility Patient bedbound Continue diabetic diet (8) Congestive heart failure Current Visit: No Status: Chronic Assessment and plan: Patient has history of congestive heart failure Echo March 2018 showed EF 65% on Lasix and spironolactone at home Plan: Holding Lasix and spironolactone Continue monitor volume status Qualifiers: Heart failure type: diastolic Heart failure chronicity: chronic Qualified Code(s): I50.32 - Chronic diastolic (congestive) heart failure (9) DVT prophylaxis Current Visit: No Status: Acute Assessment and plan: Subcutaneous heparin - Time Spent With Patient Total time spent is greater than 50% in coordination of care (as documented) at patient's floor/unit and/or counseling patient: <Nic Curry - Last Filed: 12/01/18 19:30> Date of Encounter: 12/01/18 Internal Medicine - H&P: HPI History of present illness: Ms. Smith is a 72 year old female All Systems PM: A 10-system review of systems was performed and is negative for pertinent findi ngs except as documented above in the HPI. - Constitutional Vitals: Temp Pulse Resp BP Pulse Ox 97.7 F 80 16 123/69 95 12/01/18 18:38 12/01/18 18:38 12/01/18 18:38 12/01/18 18:38 12/01/18 18:38 Internal Med - H&P Results - Labs CBC & Chem 7: 12/01/18 12:08 12/01/18 17:31 Labs: Short CBC 12/01/18 Range/Units 12:08 WBC 11.2 H (4.3-11.1) K/mcL Hgb 11.2 L (11.5-15.4) g/dL Hct 37.1 (35.3-44.9) % Plt Count 343 (140-400) K/mcL Neutrophils # 7.9 (1.6-8.9) K/mcL BMP 12/01/18 12/01/18 12/01/18 12:08 14:22 17:31 Sodium 128 L 129 L 129 L Potassium 6.9 H* 7.2 H* 6.8 H* Chloride 100 100 99 Carbon Dioxide 22 L 25 26 BUN 77 H 78 H 72 H Creatinine 1.58 H 1.59 H 1.51 H Glucose 105 125 H 130 H Calcium 8.3 L 8.3 L 8.0 L Cardiac Enzymes 12/01/18 12/01/18 Range/Units 12:08 17:31 Troponin I 0.12 H* 0.12 H* (< 0.04) ng/mL Liver Function 12/01/18 Range/Units 12:08 Total Bilirubin 0.5 (0.3-1.0) mg/dL Direct Bilirubin 0.2 (0.0-0.2) mg/dL AST 22 (13-39) Units/L ALT 13 (7-52) Units/L Alkaline Phosphatase 112 H (34-104) Units/L Albumin 3.0 L (3.5-5.7) g/dL Urine 12/01/18 Range/Units 12:13 Urine Color Yellow (Yellow) Urine Clarity Cloudy A (Clear) Urine pH 8.0 (5.0-8.0) pH Units Ur Specific [place] 1.018 (1.010-1.025) Urine Protein 30 H (Neg-Trace) mg/dL Urine Glucose (UA) Normal (Normal) mg/dL - Impressions ITS Impressions Chest X-Ray 12/01/18 11:45 IMPRESSION: 1. No acute abnormality. D/ / Aden Mike MD / Aden Mike MD Interpreting Provider: Aden Mike MD - Time Spent With Patient Total time spent is greater than 50% in coordination of care (as documented) at patient's floor/unit and/or counseling patient: - Attending Attestation I examined this patient and my medical decision-making was reviewed with the Re sident Physician. I agree with the documented findings, disposition and treatment plan as described except to the extent set forth below.
--- NOTE | 2018-12-01 17:27 | Electrocardiograph Report ---
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
[2018-12-01 18:27] LABS: Potassium 6.8 mEq/L (3.5-5.1); Troponin I 0.12 ng/mL (< 0.04)
[2018-12-01] MEDS: Insulin LISPRO 300 UNITS/3 ML VIAL SQ SCH ×2 (18:39→21:47)
[2018-12-01] MEDS ORDERED: 0.9 % Sodium Chloride 1,000 ML IVC SCH (18:45)
[2018-12-01] MEDS: 0.9 % Sodium Chloride 1,000 ML IVC SCH (20:18)
[2018-12-01 22:35] LABS: Calcium 8.3 mg/dL (8.6-10.3); Potassium 6.5 mEq/L (3.5-5.1)
[2018-12-01] MEDS: *HR* Heparin 5,000 UNIT/ML VIAL SQ SCH (23:39)
[2018-12-02 02:08] LABS: Basophils # 0.1 K/mcL (0.0-0.2); Basophils % 0.6 %; Eosinophils # 0.4 K/mcL (0.0-0.6); Eosinophils % 3.8 %; Hematocrit 35.9 % (35.3-44.9); Hemoglobin 10.8 g/dL (11.5-15.4); Immature Granulocytes % 0.4 % (0-4); Lymphocytes # 2.2 K/mcL (0.6-4.6); Lymphocytes % 21.2 %; Mean Corpuscular HGB Conc 30.1 g/dL (31.6-35.5); Mean Corpuscular Volume 86.3 fL (83.0-100.0); Mean Platelet Volume 9.7 fL (9.4-12.4); Monocytes # 0.7 K/mcL (0.0-1.3); Monocytes % 6.6 %; Nucleated Red Blood Cells 0.8 /100 WBC (0); Platelet Count 333 K/mcL (140-400); Red Blood Count 4.16 M/mcL (3.82-4.97); Red Cell Distribution Width 17.4 % (11.5-14.5); Segmented Neutrophils % 67.4 %; White Blood Count 10.4 K/mcL (4.3-11.1)
[2018-12-02] MEDS: *HR* Heparin 5,000 UNIT/ML VIAL SQ SCH ×4 (05:26→21:32)
[2018-12-02] MEDS: 0.9 % Sodium Chloride 1,000 ML IVC SCH (05:29)
[2018-12-02] MEDS ORDERED: Lactulose Oral Soln 20 GM/30 ML UDC PO ONE (07:02)
--- NOTE | 2018-12-02 07:04 | Internal Med Progress Note ---
<Nic Curry - Last Filed: 12/02/18 17:34> Hospitalist Progress Note - Encounter Date of Encounter: 12/02/18 - Exam Vitals: Temp Pulse Resp BP Pulse Ox 98.3 F 102 16 128/73 94 12/02/18 15:34 12/02/18 15:34 12/02/18 15:34 12/02/18 15:34 12/02/18 15:34 - Time Spent with Patient Total time spent is greater than 50% in coordination of care (as documented) at patient's floor/unit and/or counseling patient: Internal Medicine: Result - Labs CBC & Chem 7: 12/02/18 01:23 12/02/18 13:54 Labs: Short CBC 12/02/18 Range/Units 01:23 WBC 10.4 (4.3-11.1) K/mcL Hgb 10.8 L (11.5-15.4) g/dL Hct 35.9 (35.3-44.9) % Plt Count 333 (140-400) K/mcL Neutrophils # 7.0 (1.6-8.9) K/mcL BMP 12/01/18 12/01/18 12/02/18 17:31 21:57 01:23 Sodium 129 L 129 L Potassium 6.8 H* 6.5 H* 6.1 H Chloride 99 101 Carbon Dioxide 26 21 L BUN 72 H 72 H Creatinine 1.51 H 1.33 H Glucose 130 H 122 H Calcium 8.0 L 8.3 L 12/02/18 12/02/18 07:14 13:54 Sodium 130 L 131 L Potassium 5.5 H 4.8 Chloride 100 99 Carbon Dioxide 23 25 BUN 63 H 52 H Creatinine 1.08 0.95 Glucose 131 H 196 H Calcium 8.1 L 8.0 L Cardiac Enzymes 12/01/18 12/02/18 Range/Units 17:31 01:23 Troponin I 0.12 H* 0.12 H* (< 0.04) ng/mL Consult Discharge Plan - Plan Referrals: NONE,PCP [Primary Care Provider] - - Attending Attestation I examined this patient and my medical decision-making was reviewed with the Resident Physician. I agree with the documented findings, disposition and treatment plan as described except to the extent set forth below. <Kingston Roberson - Last Filed: 12/02/18 17:50> Hospitalist Progress Note - Encounter Date of Encounter: 12/02/18 Time of Encounter: 06:59 - Subjective Interval History: Patient seen and examined at bedside. No overnight events. Patient reports some confusion overnight. Has trouble recalling all of the events of her admission. Payne catheter was replaced. She reports having mild back pain, history of chronic mild lower back pain. Patient had several bowel movements overnight. Denies shortness of breath, chest pain, nausea. - Exam Vitals: Temp Pulse Resp BP Pulse Ox 97.8 F 92 17 120/69 93 12/02/18 03:55 12/02/18 03:55 12/02/18 03:55 12/02/18 03:55 12/02/18 03:55 Exam: Gen: Vitals noted. No acute distress Eyes: anicteric sclerae, moist conjunctivae; Left eye EOM not intact. Left Pupil ~1cm, not reactive to light or accommodation. R pupil Round and reactive to light HENT: Atraumatic; oropharynx clear with moist mucous membranes and no mucosal ulcerations Neck: Trachea midline; supple, no thyromegaly or lymphadenopathy Cardiac: Reproducible pain noted at L mastectomy scar. Limited due to obesity. RRR, no murmur, +S1/S2 Pulmonary: Limited due to Obesity CTA bilaterally, no wheezes, rales or rhonchi, equal chest expansion Abdomen: Bowel sounds present. Soft, nontender, no guarding. No masses or hepatosplenomegaly. Large Pancreectomy scar noted at epigastrum Extremities: BLE edema 2+, nontender calf, no cyanosis or clubbing. Skin: Warm and moist. Normal turgor and texture, Venous stasis bilateral lower extremities Neuro: No speech deficit, responds appropriately to questions Psych: Appropriate mood and behavior. Alert and oriented to person, place, and time - Assessment and Plan (1) Hyperkalemia Current Visit: Yes Status: Acute Assessment and Plan: Potassium 6.9 on admission potassium down to 4.8 Secondary to PIERRE, UTI, dehydration, and medication use EKG: Normal sinus rhythm at a rate of 88 BPM. Abnormal R-wave progression, late transition. Left ventricular hypertrophy. Normal WV and QTC intervals. Treated with Insulin and calcium gluconate in ED Treated with multiple doses on Kayexalate Mulitple BM overnight Plan: Repeat potassium, Continue to monitor We will consult nephrology if potassium does not improve CK 28 (2) UTI (urinary tract infection) Current Visit: Yes Status: Acute Assessment and Plan: UTI secondary to chronic Payne catheter use Blood cultures pending Elevated WBC on admission UA: Cloudy, trace blood, positive for leukocyte esterase, RBCs and WBCs. Urine Cx: Mixed organisms WBC improved Plan: Payne replaced will treat with Rocephin 2g q24, Day 2 of 7 (3) Acute kidney injury Current Visit: Yes Status: Acute Assessment and Plan: PIERRE secondary to UTI, dehydration, medication use Elevated BUN/creatinine on admission: 78/1.59. Baseline creatinine 0.85 Decreased GFR 32, baseline greater than 60 Received 2 L NS and EGD Plan: We will continue to monitor Was on Maintenance fkuids for a day, ~50ml/hr (4) Elevated troponin I level Current Visit: Yes Status: Acute Assessment and Plan: Pt presented with reproducible chest pain. Trop 0.12-->0.12 EKG: Normal sinus rhythm at a rate of 88 BPM. Abnormal R-wave progression, late transition. Left ventricular hypertrophy. Normal WV and QTC intervals (5) Hypertension Current Visit: No Status: Chronic Assessment and Plan: Patient has history of hypertension Holding home BP meds, Lasix, spironolactone given current electrolyte abnormalities Hydralazine when necessary for systolic greater than 160 BP has been stable since admission (6) Diabetes mellitus Current Visit: Yes Status: Acute Assessment and Plan: Patient has history of insulin-dependent type 2 diabetes On Humalog at home, on ramipril home We will start with medium dose sliding scale insulin Continue diabetic diet Continue to monitor (7) Fracture of proximal end of tibia Current Visit: Yes Status: Acute Assessment and Plan: Patient has reached recent fracture of right tibia Plan: Ortho following Percocet for pain PT/OT consulted (8) Morbid obesity with BMI of 70 and over, adult Current Visit: No Status: Acute Assessment and Plan: Patient has history of morbid obesity Decreased mobility Patient bedbound Continue diabetic diet (9) Congestive heart failure Current Visit: No Status: Chronic Assessment and Plan: Patient has history of congestive heart failure Echo March 2018 showed EF 65% on Lasix and spironolactone at home Plan: Holding Lasix and spironolactone Continue monitor volume status (10) DVT prophylaxis Current Visit: No Status: Acute Assessment and Plan: Subcutaneous heparin - Time Spent with Patient Total time spent is greater than 50% in coordination of care (as documented) at patient's floor/unit and/or counseling patient: Internal Medicine: Result - Labs CBC & Chem 7: 12/02/18 01:23 12/02/18 13:54 Labs: Short CBC 12/01/18 12/02/18 Range/Units 12:08 01:23 WBC 11.2 H 10.4 (4.3-11.1) K/mcL Hgb 11.2 L 10.8 L (11.5-15.4) g/dL Hct 37.1 35.9 (35.3-44.9) % Plt Count 343 333 (140-400) K/mcL Neutrophils # 7.9 7.0 (1.6-8.9) K/mcL BMP 12/01/18 12/01/18 12/01/18 12:08 14:22 17:31 Sodium 128 L 129 L 129 L Potassium 6.9 H* 7.2 H* 6.8 H* Chloride 100 100 99 Carbon Dioxide 22 L 25 26 BUN 77 H 78 H 72 H Creatinine 1.58 H 1.59 H 1.51 H Glucose 105 125 H 130 H Calcium 8.3 L 8.3 L 8.0 L 12/01/18 12/02/18 21:57 01:23 Sodium 129 L Potassium 6.5 H* 6.1 H Chloride 101 Carbon Dioxide 21 L BUN 72 H Creatinine 1.33 H Glucose 122 H Calcium 8.3 L Cardiac Enzymes 12/01/18 12/01/18 12/02/18 Range/Units 12:08 17:31 01:23 Troponin I 0.12 H* 0.12 H* 0.12 H* (< 0.04) ng/mL Liver Function 12/01/18 Range/Units 12:08 Total Bilirubin 0.5 (0.3-1.0) mg/dL Direct Bilirubin 0.2 (0.0-0.2) mg/dL AST 22 (13-39) Units/L ALT 13 (7-52) Units/L Alkaline Phosphatase 112 H (34-104) Units/L Albumin 3.0 L (3.5-5.7) g/dL Urine 12/01/18 Range/Units 12:13 Urine Color Yellow (Yellow) Urine Clarity Cloudy A (Clear) Urine pH 8.0 (5.0-8.0) pH Units Ur Specific [place] 1.018 (1.010-1.025) Urine Protein 30 H (Neg-Trace) mg/dL Urine Glucose (UA) Normal (Normal) mg/dL - Impressions Impressions Chest X-Ray 12/01/18 11:45 IMPRESSION: 1. No acute abnormality. D/ / Aden Mike MD / Aden Mike MD Interpreting Provider: Aden Mike MD <Kingston Roberson - Last Filed: 12/02/18 17:50> (2) UTI (urinary tract infection) Qualifiers: Urinary tract infection type: acute cystitis Hematuria presence: with hematuria Qualified Code(s): N30.01 - Acute cystitis with hematuria (5) Hypertension Qualifiers: Hypertension type: unspecified Qualified Code(s): I10 - Essential (primary) hypertension (6) Diabetes mellitus Qualifiers: Diabetes mellitus type: type 2 Diabetes mellitus half-way insulin use: with half-way use Diabetes mellitus complication status: with other specified complication Qualified Code(s): E11.69 - Type 2 diabetes mellitus with other specified complication; 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
[2018-12-02 08:09] LABS: BUN/Creatinine Ratio 58 (6-26); Blood Urea Nitrogen 63 mg/dL (8-23); Calcium 8.1 mg/dL (8.6-10.3); Carbon Dioxide 23 mEq/L (23-29); Chloride 100 mEq/L (98-107); Glucose 131 mg/dL (70-105); Osmolality,Calculated 290 (280-300); Potassium 5.5 mEq/L (3.5-5.1); Sodium 130 mEq/L (136-145); eGFR For African Americans > 60 (> 60); eGFR For Non-African Americans 50 (> 60)
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
[2018-12-02] MEDS: cefTRIAXone 2,000 MG in Water for inj. (sterile) 20 ML IVP SCH (08:51)
[2018-12-02] MEDS: Insulin LISPRO 300 UNITS/3 ML VIAL SQ SCH ×4 (08:55→21:32)
[2018-12-02] MEDS: *HR* OxyCODONE/APAP 5/325 TABLET PO PRN ×2 (10:31→21:30)
[2018-12-02 14:46] LABS: BUN/Creatinine Ratio 55 (6-26); Blood Urea Nitrogen 52 mg/dL (8-23); Carbon Dioxide 25 mEq/L (23-29); Chloride 99 mEq/L (98-107); Glucose 196 mg/dL (70-105); Osmolality,Calculated 291 (280-300); Potassium 4.8 mEq/L (3.5-5.1); Sodium 131 mEq/L (136-145); eGFR For African Americans > 60 (> 60); eGFR For Non-African Americans 58 (> 60)
[2018-12-02] MEDS ORDERED: cefTRIAXone 2,000 MG in Water for inj. (sterile) 20 ML IVP SCH (15:00)
[2018-12-02] MEDS ORDERED: cefTRIAXone 1,000 MG in 0.9 % Sodium Chloride Mini Bag 100 ML IVPB SCH (15:00)
[2018-12-02] MEDS ORDERED: Lactulose Oral Soln 20 GM/30 ML UDC PO PRN (17:30)
[2018-12-02] MEDS ORDERED: Ipratropium/Albuterol Neb 3 ML IH PRN (17:30)
[2018-12-02] MEDS ORDERED: *HR* Metoprolol 5 MG/5 ML VIAL IVP PRN (17:36)
[2018-12-02] MEDS: *HR* LORazepam 1 MG TABLET PO PRN (21:30)
[2018-12-02] MEDS: Melatonin 3 MG TABLET PO SCH (22:36)
[2018-12-03 02:32] LABS: Basophils # 0.1 K/mcL (0.0-0.2); Basophils % 0.6 %; Eosinophils # 0.2 K/mcL (0.0-0.6); Hematocrit 33.1 % (35.3-44.9); Hemoglobin 10.2 g/dL (11.5-15.4); Immature Granulocytes % 0.6 % (0-4); Lymphocytes % 31.7 %; Mean Corpuscular HGB Conc 30.8 g/dL (31.6-35.5); Mean Corpuscular Hemoglobin 25.8 pg (28.0-33.3); Mean Corpuscular Volume 83.6 fL (83.0-100.0); Mean Platelet Volume 10.6 fL (9.4-12.4); Monocytes # 0.8 K/mcL (0.0-1.3); Monocytes % 7.9 %; Neutrophils # 5.5 K/mcL (1.6-8.9); Nucleated Red Blood Cells 1.3 /100 WBC (0); Platelet Count 363 K/mcL (140-400); Red Blood Count 3.96 M/mcL (3.82-4.97); Red Cell Distribution Width 16.9 % (11.5-14.5); Segmented Neutrophils % 57.2 %; White Blood Count 9.6 K/mcL (4.3-11.1)
[2018-12-03 02:49] LABS: BUN/Creatinine Ratio 52 (6-26); Blood Urea Nitrogen 36 mg/dL (8-23); Calcium 8.2 mg/dL (8.6-10.3); Carbon Dioxide 26 mEq/L (23-29); Chloride 102 mEq/L (98-107); Glucose 144 mg/dL (70-105); Osmolality,Calculated 289 (280-300); Potassium 4.2 mEq/L (3.5-5.1); Sodium 134 mEq/L (136-145); eGFR For African Americans > 60 (> 60); eGFR For Non-African Americans > 60 (> 60)
[2018-12-03] MEDS: *HR* Heparin 5,000 UNIT/ML VIAL SQ SCH ×3 (05:20→21:22)
[2018-12-03] MEDS: Insulin LISPRO 300 UNITS/3 ML VIAL SQ SCH ×4 (07:36→21:30)
[2018-12-03] MEDS: *HR* OxyCODONE/APAP 5/325 TABLET PO PRN ×2 (09:12→17:28)
[2018-12-03] MEDS: cefTRIAXone 2,000 MG in Water for inj. (sterile) 20 ML IVP SCH (09:12)
--- NOTE | 2018-12-03 09:32 | Internal Med Progress Note ---
Hospitalist Progress Note - Encounter Date of Encounter: 12/03/18 Time of Encounter: 09:29 - Subjective Interval History: The patient was seen and examined at the bedside. Patient would like to discuss with the orthopedics about her option regarding fracture of the proximal right tibia. Patient denies chest pain or shortness of breath however she feels unwell because of the back pain - Exam Vitals: Temp Pulse Resp BP Pulse Ox 97.8 F 89 22 154/85 95 12/03/18 09:15 12/03/18 09:15 12/03/18 09:15 12/03/18 09:15 12/03/18 09:15 Exam: Physical examination: Gen.: Patient is alert and awake not in respiratory distress of pain HEENT: perrla , EOMI, , no neck mass, supple neck Heart: S1 and S2 paige, normal sinus rhythm, no cardiac murmur no gallop rhythm Chest: Air entry equal bilaterally, clear chest, no wheezing, crackles or crepitation Abdomen: Soft nontender nondistended positive bowel sounds, no organomegaly Extremities: No pitting edema, peripheral pulses palpable, no cyanosis tenderness, cast of right leg Neuro: Able to move upper limbs and left leg DVT Prophylaxis: heparin - Summary of Assessment and Plan Summary of Assessment and Plan: (1) Hyperkalemia Current Visit: Yes Status: Acute Assessment and Plan: Potassium 6.9 on admission potassium down to 4.2 today Secondary to PIERRE, UTI, dehydration, and medication use (2) UTI (urinary tract infection) Current Visit: Yes Status: Acute Assessment and Plan: UTI secondary to chronic Payne catheter use Blood cultures pending Elevated WBC on admission UA: Cloudy, trace blood, positive for leukocyte esterase, RBCs and WBCs. Urine Cx: Mixed organisms leukocytosis resolved Plan: Payne was replaced will treat with Rocephin 1 g q24, Day 3 of 7 (3) Acute kidney injury Current Visit: Yes Status: Acute Assessment and Plan: PIERRE secondary to UTI, dehydration, medication use Elevated BUN/creatinine on admission: 78/1.59. Baseline creatinine 0.85 today serum creatinine 0.6 and BUN 36 avoid nephrotoxic medication (4) Elevated troponin I level Current Visit: Yes Status: Acute Assessment and Plan: Pt presented with reproducible chest pain. Trop 0.12-->0.12> 0.08 has no chest pain today order ekg and electrocardiogram on telemetry (5) Hypertension Current Visit: No Status: Chronic Assessment and Plan: BP acceptable on current medication Hydralazine when necessary for systolic greater than 160 (6) Diabetes mellitus Current Visit: Yes Status: Acute Assessment and Plan: Patient has history of insulin-dependent type 2 diabetes On Humalog at home, and SSI Continue diabetic diet Continue to monitor (7) Fracture of proximal end of tibia Current Visit: Yes Status: Acute Assessment and Plan: Patient has reached recent fracture of right tibia patient would like discuss options with orthopedics discssed with nurse DVT PPX Ortho following Percocet for pain PT/OT consulted (8) Morbid obesity with BMI of 70 and over, adult Current Visit: No Status: Acute Assessment and Plan: Patient has history of morbid obesity Decreased mobility Patient bedbound Continue diabetic diet (9) Congestive heart failure Current Visit: No Status: Chronic Assessment and Plan: Patient has history of congestive heart failure Echo March 2018 showed EF 65% hold Lasix and spironolactone, patient look euvolemic (10) DVT prophylaxis Current Visit: No Status: Acute Assessment and Plan: Subcutaneous heparin - Time Spent with Patient Total time spent is greater than 50% in coordination of care (as documented) at patient's floor/unit and/or counseling patient: Internal Medicine: Result - Labs CBC & Chem 7: 12/03/18 01:53 12/03/18 01:53 Labs: Short CBC 12/03/18 Range/Units 01:53 WBC 9.6 (4.3-11.1) K/mcL Hgb 10.2 L (11.5-15.4) g/dL Hct 33.1 L (35.3-44.9) % Plt Count 363 (140-400) K/mcL Neutrophils # 5.5 (1.6-8.9) K/mcL BMP 12/02/18 12/03/18 13:54 01:53 Sodium 131 L 134 L Potassium 4.8 4.2 Chloride 99 102 Carbon Dioxide 25 26 BUN 52 H 36 H Creatinine 0.95 0.69 Glucose 196 H 144 H Calcium 8.0 L 8.2 L Cardiac Enzymes 12/03/18 Range/Units 08:26 Troponin I 0.08 H* (< 0.04) ng/mL Consult Discharge Plan - Plan Referrals: NONE,PCP [Primary Care Provider] -
[2018-12-03] MEDS: *HR* LORazepam 1 MG TABLET PO PRN ×2 (11:51→18:02)
--- NOTE | 2018-12-03 12:13 | Electrocardiograph Report ---
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
[2018-12-03] MEDS ORDERED: Perflutren Lipid Microsphere 1.3 ML in 0.9 % Sodium Chloride 8.7 ML IVP ONE (18:36)
[2018-12-03] MEDS: Melatonin 3 MG TABLET PO SCH (21:21)
[2018-12-04] MEDS: *HR* LORazepam 1 MG TABLET PO PRN ×3 (00:45→16:40)
[2018-12-04] MEDS: *HR* Heparin 5,000 UNIT/ML VIAL SQ SCH ×3 (03:02→21:01)
[2018-12-04] MEDS: *HR* OxyCODONE/APAP 5/325 TABLET PO PRN ×3 (03:02→21:00)
[2018-12-04 03:10] LABS: Hematocrit 34.1 % (35.3-44.9); Hemoglobin 10.4 g/dL (11.5-15.4); Mean Corpuscular HGB Conc 30.5 g/dL (31.6-35.5); Mean Corpuscular Hemoglobin 25.5 pg (28.0-33.3); Mean Corpuscular Volume 83.6 fL (83.0-100.0); Mean Platelet Volume 9.7 fL (9.4-12.4); Platelet Count 358 K/mcL (140-400); Red Blood Count 4.08 M/mcL (3.82-4.97); White Blood Count 10.5 K/mcL (4.3-11.1)
[2018-12-04 03:32] LABS: Alanine Aminotransferase 12 Units/L (7-52); Albumin 2.8 g/dL (3.5-5.7); Albumin/Globulin Ratio 0.8 (1.1-2.2); Alkaline Phosphatase 88 Units/L (34-104); Aspartate Amino Transferase 17 Units/L (13-39); BUN/Creatinine Ratio 33 (6-26); Bilirubin,Total 0.5 mg/dL (0.3-1.0); Blood Urea Nitrogen 19 mg/dL (8-23); Calcium 8.4 mg/dL (8.6-10.3); Carbon Dioxide 27 mEq/L (23-29); Chloride 100 mEq/L (98-107); Globulin 3.3 g/dL (2.4-3.5); Glucose 136 mg/dL (70-105); Magnesium 2.1 mg/dL (1.6-2.6); Osmolality,Calculated 278 (280-300); Phosphorous 2.2 mg/dL (2.7-4.5); Potassium 4.1 mEq/L (3.5-5.1); Sodium 132 mEq/L (136-145); Total Protein 6.1 g/dL (6.4-8.9); eGFR For African Americans > 60 (> 60); eGFR For Non-African Americans > 60 (> 60)
[2018-12-04] MEDS: cefTRIAXone 1,000 MG in Water for inj. (sterile) 10 ML IVP SCH (08:45)
[2018-12-04] MEDS: Insulin LISPRO 300 UNITS/3 ML VIAL SQ SCH ×4 (08:47→21:00)
--- NOTE | 2018-12-04 12:02 | Internal Med Progress Note ---
Hospitalist Progress Note - Encounter Date of Encounter: 12/04/18 Time of Encounter: 11:59 - Subjective Interval History: the patient was seen and examined at bedside. patient report worsening SOB since last week there mild wheezing on examination, order CT chest wc denied chest pain echo reveal ef 55% mentation back to baseline - Exam Vitals: Temp Pulse Resp BP Pulse Ox 98.9 F 97 22 155/88 95 12/04/18 11:31 12/04/18 11:31 12/04/18 11:31 12/04/18 11:31 12/04/18 11:31 Exam: Physical examination: Gen.: Patient is alert and awake not in respiratory distress of pain HEENT: perrla , EOMI, , no neck mass, supple neck Heart: S1 and S2 paige, normal sinus rhythm, no cardiac murmur no gallop rhythm Chest: Air entry equal bilaterally, diminished breathing bilaterally with mild wheezing, no crackles or crepitation Abdomen: Soft nontender nondistended positive bowel sounds, no organomegaly Extremities: No pitting edema, peripheral pulses palpable, no cyanosis tenderness, cast of right leg Neuro: Able to move upper limbs and left leg DVT Prophylaxis: heparin - Summary of Assessment and Plan Summary of Assessment and Plan: (1) Hyperkalemia Current Visit: Yes Status: Acute Assessment and Plan: Potassium 6.9 on admission potassium down to 4.2 today Secondary to PIERRE, UTI, dehydration, and medication use (2) UTI (urinary tract infection) Current Visit: Yes Status: Acute Assessment and Plan: UTI secondary to chronic Payne catheter use Blood cultures pending Elevated WBC on admission UA: Cloudy, trace blood, positive for leukocyte esterase, RBCs and WBCs. Urine Cx: Mixed organisms leukocytosis resolved Plan: Payne was replaced will treat with Rocephin 1 g q24, Day 4 of 7 (3) Acute kidney injury Current Visit: Yes Status: Acute Assessment and Plan: PIERRE secondary to UTI, dehydration, medication use Elevated BUN/creatinine on admission: 78/1.59. Baseline creatinine 0.85 today serum creatinine 0.6 and BUN 36 avoid nephrotoxic medication (4) Elevated troponin I level Current Visit: Yes Status: Acute Assessment and Plan: Pt presented with reproducible chest pain. Trop 0.12-->0.12> 0.08 has no chest pain today order ekg and electrocardiogram on telemetry consulted material man , echo show ef 55% (5) Hypertension Current Visit: No Status: Chronic Assessment and Plan: BP acceptable on current medication Hydralazine when necessary for systolic greater than 160 (6) Diabetes mellitus Current Visit: Yes Status: Acute Assessment and Plan: Patient has history of insulin-dependent type 2 diabetes On Humalog at home, and SSI Continue diabetic diet Continue to monitor chronic Respirtory failure : on 2-3 L oxygen patient report more SOB order CT chest she pass swallow evaluation mentation back to baseline on BT resumed on PO lasix 40 mg daily (7) Fracture of proximal end of tibia Current Visit: Yes Status: Acute Assessment and Plan: Patient has reached recent fracture of right tibia patient would like discuss options with orthopedics discssed with nurse DVT PPX Ortho following Percocet for pain PT/OT consulted (8) Morbid obesity with BMI of 70 and over, adult Current Visit: No Status: Acute Assessment and Plan: Patient has history of morbid obesity Decreased mobility Patient bedbound Continue diabetic diet (9) Congestive heart failure Current Visit: No Status: Chronic Assessment and Plan: Patient has history of congestive heart failure Echo March 2018 showed EF 65% repeated echo show ef 55% hold spironolactone resume on lasix due to SOB (10) DVT prophylaxis Current Visit: No Status: Acute Assessment and Plan: Subcutaneous heparin - Time Spent with Patient Total time spent is greater than 50% in coordination of care (as documented) at patient's floor/unit and/or counseling patient: Internal Medicine: Result - Labs CBC & Chem 7: 12/04/18 02:50 12/04/18 02:50 Labs: Short CBC 12/04/18 Range/Units 02:50 WBC 10.5 (4.3-11.1) K/mcL Hgb 10.4 L (11.5-15.4) g/dL Hct 34.1 L (35.3-44.9) % Plt Count 358 (140-400) K/mcL BMP 12/04/18 02:50 Sodium 132 L Potassium 4.1 Chloride 100 Carbon Dioxide 27 BUN 19 Creatinine 0.58 L Glucose 136 H Calcium 8.4 L Liver Function 12/04/18 Range/Units 02:50 Total Bilirubin 0.5 (0.3-1.0) mg/dL AST 17 (13-39) Units/L ALT 12 (7-52) Units/L Alkaline Phosphatase 88 (34-104) Units/L Albumin 2.8 L (3.5-5.7) g/dL - Impressions Impressions Echocardiogram 12/03/18 09:28 Impressions: LVEF 55%. Mild concentric left ventricular hypertrophy. Moderate left ventricular diastolic dysfunction. The right ventricle was not well visualized Moderately dilated left atrium. Moderate mitral annular calcification Mitral valve was not well evaluated with Doppler Mild tricuspid regurgitation. Moderate pulmonary hypertension.Estimated RVSP is 57 mmHg. Left Ventricular Wall Motion: Rest Echo Findings All wall segments showed normal motion. Findings: Study Quality * Technically sub-optimal due to poor echocardiographic windows. ECG Findings * Sinus rhythm with BBB. Left Ventricle * LVEF 55%. * Normal LV chamber size. * Mild concentric left ventricular hypertrophy. * Definity echo contrast was used. * Atypical septal motion consistent with bundle branch block. * Moderate left ventricular diastolic dysfunction. Right Ventricle * The right ventricle was not well visualized Left Atrium * Moderately dilated left atrium. Right Atrium * Normal right atrial size. Mitral Valve * Moderate mitral annular calcification * Mitral valve not well visualized. * No mitral regurgitation. * Mitral valve was not well evaluated with Doppler Tricuspid Valve * Mild tricuspid regurgitation. * Moderate pulmonary hypertension.Estimated RVSP is 57 mmHg. * * Estimated RA pressure is 10 mmHg. Aorta * Normally sized aortic root. Pericardium * The pericardium appears normal. IVC * The IVC is dilated. Pulmonary Artery * Pulmonary artery not well visualized. Pulmonic Valve * Pulmonic valve not well visualized. Aortic Valve * Aortic valve not well visualized. * No aortic regurgitation. * No aortic stenosis. * Moderately calcified aortic valve leaflets. Consult Discharge Plan - Plan Referrals: NONE,PCP [Primary Care Provider] -
--- NOTE | 2018-12-04 12:09 | Cardiology Consult Note ---
<Anel Sheth - Last Filed: 12/04/18 12:29> Date of Encounter: 12/04/18 Time of Encounter: 11:00 Assessment and Plan (1) Elevated troponin Current Visit: Yes Status: Acute Adynamic troponin elevation in the setting of hypoxia (OHS), UTI, PIERRE, and hyperkalemia (K 7.2). Likely secondary to demand ischemia, NSTEMI type II No chest pain or discomfort. No acute ischemic ECG changes. TTE shows preserved LVEF, 55-60%. Continue supportive measures for metabolic correction and UTI. Of note, patient requests only medical therapy. Close follow-up with PCP. Discussion w patient/family: The assessment and plan as outlined above was discussed with the patient and/or family members who expressed understanding and agreement. All questions were answered. Thank you for involving us in the care of your patient. Please call with any questions. The patient will be discussed and reviewed with Dr. Plaza; changes to be made accordingly. History of Present Illness Consult date: 12/04/18 Requesting physician: Monae Jade Consult reason: Elevated troponin Chief complaint: AMS History of present illness: Ms. Smith is a 72 year old female with a history of HFpEF, COPD, type II insulin-dependent diabetes mellitus, hypertension, and breast cancer who presented to the ED from SNF d/t worsening shortness of breath and hypoxia. Patient also reports intermittent confusion and recent mechanical fall resulting in lower leg fracture. Upon arrival to the ED she was found to have PIERRE, additionally K was as high as 7.2. She was also noted to have a UTI. Upon exam today, she is anxious and wants to be discharged. She has no complaints upon exam today. Cardiology consulted today for elevated troponin. Past Med Surg Social Fam HX - Past Medical History Attestation: Yes The following information was validated with the patient. Source: patient Medical history: cancer, CHF (HFrEF), COPD, diabetes, hypertension Additional medical history: lymphedema. Psychiatric history: anxiety - Past Surgical History Surgical History: non-contributory, breast surgery, cholecystectomy, splenectomy Additional surgical history: Mastectomy with lymph node removal, partial pancreas removal, right shoulder reverse replacement - Social History Smoking Status: Former smoker Smokeless Tobacco Status: No Alcohol use: rarely Drug use: none - Family History Father Family Member Ethnicity: Living Status: Hx Family Cardiac Disorders: No Hx Family Respiratory Disorders: No Hx Family Cancer: Yes Hx Family GI Disorders: No Hx Family Endocrine Disorder: Yes (diabetic) Hx Family Neuromuscular Disorders: No Hx Family Neurologic Disorders: No Hx Family HEENT Disorders: No Hx Family Autoimmune Disorders: No Mother Family Member Ethnicity: Living Status: Hx Family Cardiac Disorders: Yes (CHF) Hx Family Respiratory Disorders: Yes (COPD) Medications and Allergies Furosemide [Lasix] 80 mg PO QAM 07/17/16 [History] Insulin Lispro Protamin/Lispro [Humalog Mix 75-25 Vial] 28 - 37 unit SQ 0800,1700 07/17/16 [History] Ramipril 10 mg PO BID 07/17/16 [History] Acetaminophen [Tylenol] 650 mg PO Q6HR PRN #0 tablet 07/20/16 [Rx] Allopurinol [Zyloprim 100 MG] 100 mg PO QAM 09/06/17 [History] Gabapentin [Neurontin] 600 mg PO TID 09/06/17 [History] Indomethacin 50 mg PO TID 09/06/17 [History] Spironolactone [Aldactone] 25 mg PO QAM 09/06/17 [History] LORazepam [Ativan] 1 mg PO TID PRN 5 Days #15 tablet 09/09/17 [Rx] Cinnamon Bark [Cinnamon] 1,000 mg PO BID 04/09/18 [History] Docusate Sodium [Dok] 200 mg PO BID 04/09/18 [History] Oxycodone HCl/Acetaminophen [Percocet 5-325 mg Tablet] 1 tab PO Q4H PRN 04/09/18 [History] Acetaminophen [Tylenol Arthritis] 1,300 mg PO Q12H PRN 12/01/18 [History] Guaifenesin [Mucinex] 600 mg PO Q12H PRN 12/01/18 [History] Insulin LISPRO [Humalog Kwikpen U-100] 0 - 16 unit SQ 1100,2100 12/01/18 [History] Inulin/Chromium Picolinate [Fiber Gummies] 4 each PO DAILY PRN 12/01/18 [History] Ipratropium/Albuterol Neb [Duoneb] 3 ml IH Q4H PRN 12/01/18 [History] Lactulose [Enulose] 10 gm PO DAILY PRN 12/01/18 [History] Melatonin [Melatin] 6 mg PO HS 12/01/18 [History] Polyethylene Glycol 3350 [MiraLAX] 17 gm PO 0900,1700 12/01/18 [History] Allergy/AdvReac Type Severity Reaction Status Date / Time No Known Allergies Allergy Verified 07/17/16 14:49 All Systems Review: The remainder of the systems were reviewed and are negative - Cardiovascular Cardiovascular: as per HPI Physical Examination Vital Signs, Last 4 Hours Temp Pulse Resp BP Pulse Ox 12/04/18 11:31 98.9 F 97 22 155/88 95 General: Conversant, Other (morbidly obese) HEENT: Atraumatic, Normocephaly Cardiac: Reg Rate and Rhythm, Normal S1 and S2 Lungs: Other (Decreased throughout) Neuro: Alert and responsive Abdomen: Soft Skin: No rashes noted on visualized skin Musculoskeletal: No Chest Wall Tenderness Extremities: Other (non-pitting edema) Results 12/04/18 02:50 12/04/18 02:50 Lab Results 12/04/18 12/04/18 02:50 02:50 WBC 10.5 Hgb 10.4 L Hct 34.1 L Plt Count 358 Sodium 132 L Potassium 4.1 Chloride 100 Carbon Dioxide 27 BUN 19 Creatinine 0.58 L Glucose 136 H Calcium 8.4 L Magnesium 2.1 Total Bilirubin 0.5 AST 17 ALT 12 Alkaline Phosphatase 88 Active Medications Albuterol/Ipratropium (Duoneb) 3 ml IH Q4H PRN PRN Reason: Shortness Of Breath Stop: 06/03/19 17:31 Allopurinol (Zyloprim) 100 mg PO QAM [facility] Stop: 06/04/19 09:01 Last Admin: 12/04/18 08:44 Dose: 100 mg Documented by: Dextrose/Water (Dextrose 50% (Syg)) 25 ml IVP AD PRN PRN Reason: Hypoglycemia Stop: 06/02/19 16:44 Docusate Sodium (Colace) 200 mg PO BID [facility]; Protocol Stop: 06/03/19 21:01 Last Admin: 12/04/18 08:47 Dose: Not Given Documented by: Furosemide (Lasix) 40 mg PO DAILY [facility] Stop: 06/05/19 12:16 Glucagon (Glucagen) 1 mg IM ONCE PRN PRN Reason: Hypoglycemia Stop: 06/02/19 16:44 Glucose (Gluctose) 15 gm PO ONCE PRN PRN Reason: Hypoglycemia Stop: 06/02/19 16:44 Glucose (Gluctose) 30 gm PO ONCE PRN PRN Reason: Hypoglycemia Stop: 06/02/19 16:44 Guaifenesin (Mucinex) 600 mg PO Q12H PRN PRN Reason: Congestion Stop: 06/03/19 17:31 Heparin Sodium (Porcine) (Heparin) 5,000 unit SQ Q8HCO YO Stop: 06/03/19 06:01 Last Admin: 12/04/18 03:02 Dose: 5,000 unit Documented by: Dextrose (Dextrose 5%) 1,000 mls @ 100 mls/hr IVC .Q10H PRN PRN Reason: HYPOGLYCEMIA Stop: 06/02/19 16:44 Ceftriaxone Sodium 1,000 mg/ (Sterile Water) 10 mls @ 300 mls/hr IVP DAILY [facility] Stop: 06/05/19 09:01 Last Admin: 12/04/18 08:45 Dose: 300 mls/hr Documented by: Insulin Human Lispro (Humalog) 0 units SQ [facility]; Protocol Stop: 06/02/19 21:01 Last Admin: 12/03/18 21:30 Dose: Not Given Documented by: Insulin Human Lispro (Humalog) 0 units SQ TIDAC [facility]; Protocol Stop: 06/02/19 16:46 Last Admin: 12/04/18 12:17 Dose: Not Given Documented by: Lactulose (Lactulose) 10 gm PO DAILY PRN PRN Reason: Constipation Lorazepam (Ativan) 1 mg PO TID PRN PRN Reason: Anxiety Stop: 06/03/19 17:31 Last Admin: 12/04/18 08:45 Dose: 1 mg Documented by: Melatonin (Melatonin) 6 mg PO HS [facility] Stop: 06/03/19 21:01 Last Admin: 12/03/18 21:21 Dose: 6 mg Documented by: Metoprolol Tartrate (Lopressor) 5 mg IVP Q6HR PRN PRN Reason: SEE COMMENTS Stop: 06/03/19 17:37 Naloxone HCl (Narcan) 0.4 mg IVP Q2MPRN PRN PRN Reason: SEE COMMENTS Stop: 06/02/19 16:38 Oxycodone/Acetaminophen (Percocet 5/325) 1 each PO Q8HR PRN PRN Reason: Pain Stop: 06/02/19 18:18 Last Admin: 12/04/18 03:02 Dose: 1 each Documented by: Polyethylene Glycol (Miralax) 17 gm PO 0900,1700 YO Stop: 06/04/19 09:01 Last Admin: 12/04/18 08:47 Dose: Not Given Documented by: - Imaging and Cardiology Echo: report reviewed - EKG Interpretation EKG results cardiology: personally reviewed Consult Discharge Plan - Plan Referrals: NONE,PCP [Primary Care Provider] - <Princess Plaza - Last Filed: 12/04/18 18:30> Date of Encounter: 12/04/18 - Attending Attestation Patient was seen and evaluated independently by me. Findings, assessment and plan were discussed at length with patient, questions answered. Agree with nurse practitioner's/resident's documentation. Addition as follows, 72yoCF ho COPD, possible BAL/OHS, IDDM2, HTN. P/w dyspnea, hypoxemia after recent R-tibia fracture due to mechanical fall. Sig for pre-renal PIERRE, hyperkalemia 7 with UTI and long-term ACEI/aldactone use. Consulted for mild troponin peak <0.2, ECG no ischemic changes, TTE preserved EF, LVH, mod PH. No chest pain, palpitations. Mild BP fluctuation, CTA, RR, RLE in brace. A: Mild troponin elevation, type II likely PIERRE, hyperkalemia IDDM2 HTN COPD P: No further inpatient cardiac workup Cardiology clinic follow up Princess Plaza MD, PhD Assessment and Plan Discussion w patient/family: The assessment and plan as outlined above was discussed with the patient and/or family members who expressed understanding and agreement. All questions were answered. Thank you for involving us in the care of your patient. Please call with any questions. History of Present Illness History of present illness: Ms. Smith is a 72 year old female All Systems Review: The remainder of the systems were reviewed and are negative Physical Examination Vital Signs, Last 4 Hours Temp Pulse Resp BP Pulse Ox 12/04/18 15:58 98.8 F 93 18 157/95 94 Results 12/04/18 02:50 12/04/18 02:50 Lab Results 12/04/18 12/04/18 02:50 02:50 WBC 10.5 Hgb 10.4 L Hct 34.1 L Plt Count 358 Sodium 132 L Potassium 4.1 Chloride 100 Carbon Dioxide 27 BUN 19 Creatinine 0.58 L Glucose 136 H Calcium 8.4 L Magnesium 2.1 Total Bilirubin 0.5 AST 17 ALT 12 Alkaline Phosphatase 88
[2018-12-04] MEDS: Furosemide 40 MG TABLET PO SCH (13:01)
[2018-12-04] MEDS: Melatonin 3 MG TABLET PO SCH (21:00)
[2018-12-05] MEDS: *HR* Heparin 5,000 UNIT/ML VIAL SQ SCH ×2 (05:04→15:02)
[2018-12-05] MEDS: *HR* OxyCODONE/APAP 5/325 TABLET PO PRN ×2 (05:07→15:02)
[2018-12-05] MEDS: Furosemide 40 MG TABLET PO SCH (09:29)
[2018-12-05] MEDS: *HR* LORazepam 1 MG TABLET PO PRN ×2 (09:29→15:02)
[2018-12-05] MEDS: cefTRIAXone 1,000 MG in Water for inj. (sterile) 10 ML IVP SCH (09:30)
[2018-12-05] MEDS: Insulin LISPRO 300 UNITS/3 ML VIAL SQ SCH ×3 (09:31→17:31)
[2018-12-05 11:06] VITALS: BP 150/88
[2018-12-05 11:31] LABS: Alanine Aminotransferase 13 Units/L (7-52); Albumin 2.8 g/dL (3.5-5.7); Albumin/Globulin Ratio 0.7 (1.1-2.2); Alkaline Phosphatase 98 Units/L (34-104); Aspartate Amino Transferase 25 Units/L (13-39); BUN/Creatinine Ratio 25 (6-26); Bilirubin,Total 0.5 mg/dL (0.3-1.0); Blood Urea Nitrogen 14 mg/dL (8-23); Carbon Dioxide 29 mEq/L (23-29); Chloride 97 mEq/L (98-107); Globulin 3.8 g/dL (2.4-3.5); Glucose 139 mg/dL (70-105); Magnesium 1.9 mg/dL (1.6-2.6); Osmolality,Calculated 283 (280-300); Phosphorous 2.7 mg/dL (2.7-4.5); Potassium 4.7 mEq/L (3.5-5.1); Sodium 135 mEq/L (136-145); Total Protein 6.6 g/dL (6.4-8.9); eGFR For African Americans > 60 (> 60); eGFR For Non-African Americans > 60 (> 60)
[2018-12-05] MEDS ORDERED: Acetaminophen 325 MG TABLET PO PRN (15:14)
--- NOTE | 2018-12-05 15:31 | Discharge Summary ---
Orders not resulted at time of discharge: Pending orders 12/01/18 12:01 Culture,Blood [BC] Stat follow up with orthopedic as outpatient in 2 weeks Date of Encounter: 12/05/18 Time of Encounter: 15:25 - Discharge Diagnosis (1) Acute kidney injury Priority: Primary Status: Acute Assessment and Plan: 1) Hyperkalemia Current Visit: Yes Status: Acute Assessment and Plan: Potassium 6.9 on admission potassium down to 4.2 today Secondary to PIERRE, UTI, dehydration, and medication use (2) UTI (urinary tract infection) Current Visit: Yes Status: Acute Assessment and Plan: UTI secondary to chronic Payne catheter use Blood cultures pending Elevated WBC on admission UA: Cloudy, trace blood, positive for leukocyte esterase, RBCs and WBCs. Urine Cx: Mixed organisms leukocytosis resolved Plan: Payne was replaced will treat with Rocephin 1 g q24, Day 4 of 7 (3) Acute kidney injury Current Visit: Yes Status: Acute Assessment and Plan: PIERRE secondary to UTI, dehydration, medication use Elevated BUN/creatinine on admission: 78/1.59. Baseline creatinine 0.85 today serum creatinine 0.6 and BUN 36 avoid nephrotoxic medication (4) Elevated troponin I level Current Visit: Yes Status: Acute Assessment and Plan: Pt presented with reproducible chest pain. Trop 0.12-->0.12> 0.08 has no chest pain today order ekg and electrocardiogram on telemetry consulted associate professor of criminal justice , echo show ef 55% (5) Hypertension Current Visit: No Status: Chronic Assessment and Plan: BP acceptable on current medication Hydralazine when necessary for systolic greater than 160 (6) Diabetes mellitus Current Visit: Yes Status: Acute Assessment and Plan: Patient has history of insulin-dependent type 2 diabetes On Humalog at home, and SSI Continue diabetic diet Continue to monitor chronic Respirtory failure : on 2-3 L oxygen patient report more SOB order CT chest she pass swallow evaluation mentation back to baseline on BT resumed on PO lasix 40 mg daily (7) Fracture of proximal end of tibia Current Visit: Yes Status: Acute Assessment and Plan: Patient has reached recent fracture of right tibia patient would like discuss options with orthopedics discssed with nurse DVT PPX Ortho following Percocet for pain PT/OT consulted (8) Morbid obesity with BMI of 70 and over, adult Current Visit: No Status: Acute Assessment and Plan: Patient has history of morbid obesity Decreased mobility Patient bedbound Continue diabetic diet (9) Congestive heart failure Current Visit: No Status: Chronic Assessment and Plan: Patient has history of congestive heart failure Echo March 2018 showed EF 65% repeated echo show ef 55% hold spironolactone resume on lasix due to SOB (10) DVT prophylaxis Current Visit: No Status: Acute Assessment and Plan: Subcutaneous heparin Hospital course: Ms. Smith is a 72 year old female with history of CHF COPD , 2 diabetes hypertension history of breast cancer was admitted because of the shortness of breath requiring oxygen supplement patient also was found to have acute kidney injury with hyperkalemia and was found to have also UTI started on IV antibiotic. Patient also complained from persistent pain to the right knee with history of fracture of the proximal end of right Tibia secondary to fall, orthopedics was consulted Would recommend outpatient follow up with orthopedics, however, patient and daughter state desire to avoid transport from facility and decline to follow up on outpatient basis. In this case, would recommend monitoring of the fracture every 2 weeks with repeat xrays to verify no change in fracture alignment for appx 6 weeks from date of fracture. Splint recommended to be changed every 2 weeks or more frequently if soiling is occurring. Skin breakdown at this point would be of greatest concern. Patient's body habitus is not amenable to bracing therefore long posterior splint with EL bandaging is recommended. Nonweightbearing with no knee motion to the RLE for 6 - 8 weeks until radiographic evidence of fracture healing. Again, it is recommended patient have orthopedic oversight for evidence of fracture healing with recommendations re: restrictions, however, at this time patient and patient's daughter are adamantly stating they do not wish to transport from facility once she returns. For the acute kidney injury, improved on IV antibiotics and IV fluid with recovery of serum creatinine. Hyperkalemia resolved, the patient also was found to have elevated troponin associate professor of criminal justice consulted would recommend medical treatment Echocardiogram revealed ejection fraction 50% CT chest show No acute pulmonary process. Possible osseous metastatic disease involving the manubrium. Recommend follow-up with bone scan. I discussed with the patient about CT finding however the patient refused any further imaging she does not want to follow up with imaging and wants go to SNF. d/c to SNF on oral AB for another 2 days to [facility] total 7 days. - Time Spent with Patient Total time spent providing and/or coordinating discharge services: 34 min - Discharge Medications Prescriptions: New Heparin 5,000 unit SQ Q8HCO vial cephALEXin [Keflex] 500 mg PO BID #4 capsule Insulin LISPRO [HumaLOG] 0 units SQ HS vial Insulin LISPRO [HumaLOG] 0 units SQ TIDAC vial Continued Ramipril 10 mg PO BID Furosemide [Lasix] 80 mg PO QAM Gabapentin [Neurontin] 600 mg PO TID Allopurinol [Zyloprim 100 MG] 100 mg PO QAM Cinnamon Bark [Cinnamon] 1,000 mg PO BID Docusate Sodium [Dok] 200 mg PO BID Oxycodone HCl/Acetaminophen [Percocet 5-325 mg Tablet] 1 tab PO Q4H PRN PRN Reason: Pain Acetaminophen [Tylenol Arthritis] 1,300 mg PO Q12H PRN PRN Reason: ARTHRITIS PAIN Lactulose [Enulose] 10 gm PO DAILY PRN PRN Reason: Constipation Inulin/Chromium Picolinate [Fiber Gummies] 4 each PO DAILY PRN PRN Reason: Constipation Guaifenesin [Mucinex] 600 mg PO Q12H PRN PRN Reason: Congestion Polyethylene Glycol 3350 [MiraLAX] 17 gm PO 0900,1700 Melatonin [Melatin] 6 mg PO HS Ipratropium/Albuterol Neb [Duoneb] 3 ml IH Q4H PRN PRN Reason: Shortness Of Breath Discontinued Insulin Lispro Protamin/Lispro [Humalog Mix 75-25 Vial] 28 - 37 unit SQ 0800,1700 Acetaminophen [Tylenol] 650 mg PO Q6HR PRN #0 tablet PRN Reason: Mild Pain (1-3) Indomethacin 50 mg PO TID Spironolactone [Aldactone] 25 mg PO QAM LORazepam [Ativan] 1 mg PO TID PRN 5 Days #15 tablet PRN Reason: Anxiety Insulin LISPRO [Humalog Kwikpen U-100] 0 - 16 unit SQ 1100,2100 Home Medications: Furosemide [Lasix] 80 mg PO QAM 07/17/16 [History] Ramipril 10 mg PO BID 07/17/16 [History] Allopurinol [Zyloprim 100 MG] 100 mg PO QAM 09/06/17 [History] Gabapentin [Neurontin] 600 mg PO TID 09/06/17 [History] Cinnamon Bark [Cinnamon] 1,000 mg PO BID 04/09/18 [History] Docusate Sodium [Dok] 200 mg PO BID 04/09/18 [History] Oxycodone HCl/Acetaminophen [Percocet 5-325 mg Tablet] 1 tab PO Q4H PRN 04/09/18 [History] Acetaminophen [Tylenol Arthritis] 1,300 mg PO Q12H PRN 12/01/18 [History] Guaifenesin [Mucinex] 600 mg PO Q12H PRN 12/01/18 [History] Inulin/Chromium Picolinate [Fiber Gummies] 4 each PO DAILY PRN 12/01/18 [History] Ipratropium/Albuterol Neb [Duoneb] 3 ml IH Q4H PRN 12/01/18 [History] Lactulose [Enulose] 10 gm PO DAILY PRN 12/01/18 [History] Melatonin [Melatin] 6 mg PO HS 12/01/18 [History] Polyethylene Glycol 3350 [MiraLAX] 17 gm PO 0900,1700 12/01/18 [History] Heparin 5,000 unit SQ Q8HCO vial 12/05/18 [Rx] Insulin LISPRO [HumaLOG] 0 units SQ HS vial 12/05/18 [Rx] Insulin LISPRO [HumaLOG] 0 units SQ TIDAC vial 12/05/18 [Rx] cephALEXin [Keflex] 500 mg PO BID #4 capsule 12/05/18 [Rx] Allergies/Adverse Reactions: Allergy/AdvReac Type Severity Reaction Status Date / Time No Known Allergies Allergy Verified 07/17/16 14:49 Date of admission: 12/01/18 17:14 Primary care physician: PCP NONE Consults: 12/01/18 14:46 Consult to Orthopedic Surgery [CONS] Stat Consulting Provider: [facility] Reason for Consult: tibia fracture Time Notified: 14:47 Call Completed: Yes 12/01/18 18:28 Consult to Imaging Engineer [CONS] Routine Reason for SW Consult: [facility] 12/02/18 14:45 Consult to Physical Therapy [CONS] Routine Comment: Evaluate, develop and implement POC Reason for Consult: for physical therapy Does patient have active BEDREST order?: No Is patient medically & hemodynamically stable?: Yes 07/10/19 12:14 Consult to Cardiology [CONS] Routine Comment: Consulting Provider: Cardiology [facility] Reason for Consult: Elevated troponins Call Completed: No - Constitutional Vitals: Temp Pulse Resp BP Pulse Ox 98.2 F 86 16 150/88 94 12/05/18 11:05 12/05/18 11:05 12/05/18 11:05 12/05/18 11:05 12/05/18 11:05 Exam: Physical examination: Gen.: Patient is alert and awake not in respiratory distress of pain HEENT: perrla , EOMI, , no neck mass, supple neck Heart: S1 and S2 paige, normal sinus rhythm, no cardiac murmur no gallop rhythm Chest: Air entry equal bilaterally, diminished breathing bilaterally with mild wheezing, no crackles or crepitation Abdomen: Soft nontender nondistended positive bowel sounds, no organomegaly Extremities: No pitting edema, peripheral pulses palpable, no cyanosis tenderness, cast of right leg Neuro: Able to move upper limbs and left leg - Patient Status Disposition: Transfer SNF Condition: Fair - Discharge Instructions Follow Up With: NONE,PCP [Primary Care Provider] -
--- NOTE | 2018-12-05 17:45 | Physician Discharge Referral ---
ExtendedCare Referral Info Transfer To: SNF - Diagnosis (1) Acute kidney injury Status: Acute (2) UTI (urinary tract infection) Status: Acute - Transfer Medications Home Medications: Furosemide [Lasix] 80 mg PO QAM 07/17/16 [History] Ramipril 10 mg PO BID 07/17/16 [History] Allopurinol [Zyloprim 100 MG] 100 mg PO QAM 09/06/17 [History] Gabapentin [Neurontin] 600 mg PO TID 09/06/17 [History] Cinnamon Bark [Cinnamon] 1,000 mg PO BID 04/09/18 [History] Docusate Sodium [Dok] 200 mg PO BID 04/09/18 [History] Oxycodone HCl/Acetaminophen [Percocet 5-325 mg Tablet] 1 tab PO Q4H PRN 04/09/18 [History] Acetaminophen [Tylenol Arthritis] 1,300 mg PO Q12H PRN 12/01/18 [History] Guaifenesin [Mucinex] 600 mg PO Q12H PRN 12/01/18 [History] Inulin/Chromium Picolinate [Fiber Gummies] 4 each PO DAILY PRN 12/01/18 [H istory] Ipratropium/Albuterol Neb [Duoneb] 3 ml IH Q4H PRN 12/01/18 [History] Lactulose [Enulose] 10 gm PO DAILY PRN 12/01/18 [History] Melatonin [Melatin] 6 mg PO HS 12/01/18 [History] Polyethylene Glycol 3350 [MiraLAX] 17 gm PO 0900,1700 12/01/18 [History] Insulin LISPRO [HumaLOG] 0 units SQ HS vial 12/05/18 [Rx] Insulin LISPRO [HumaLOG] 0 units SQ TIDAC vial 12/05/18 [Rx] cephALEXin [Keflex] 500 mg PO BID #4 capsule 12/05/18 [Rx] Allergies/Adverse Reactions: Allergy/AdvReac Type Severity Reaction Status Date / Time No Known Allergies Allergy Verified 07/17/16 14:49 - Respiratory Orders Smoking Cessation: Smoking cessation has been advised. For more information, call the [place] Tobacco Quit Line at 6-714-RHIB-NOW. - Diet Orders House Supplement per Dietary: diabetic diet CERTIFICATION: I certify that the transfer of the above named patient to an Extended Care Facility is necessary for the continuing treatment of the diagnosis listed. The above information is true and accurate reflection of patient's current condition. Confidential - Redisclosure prohibited without a patient's written consent.
[2018-12-05] MEDS ORDERED: cephALEXin 500 MG CAPSULE PO SCH (21:00)
== END 2018-12-05 17:59 | DRG 699 ==
LOC: EMEROOARM 11:40 → 2ANU 17:14 → SUATTDRO 17:14 → 2ANU 17:44
PROVIDERS: ADMIT Internal Medicine; ATTEND Student in an Organized Health Care Education/Training Program

== ENCOUNTER 2018-12-21 06:46 | Inpatient (IN) ==
[2018-12-21] MEDS ORDERED: levoFLOXacin 750 MG/150 ML 750 MG/150 ML BAG IVPB ONE (06:47)
[2018-12-21 07:15] LABS: Basophils % 0.5 %; Eosinophils # 0.1 K/mcL (0.0-0.6); Hematocrit 36.6 % (35.3-44.9); Hemoglobin 11.7 g/dL (11.5-15.4); Immature Granulocytes % 1.4 % (0-4); Lymphocytes # 1.9 K/mcL (0.6-4.6); Lymphocytes % 23.8 %; Mean Corpuscular Hemoglobin 25.5 pg (28.0-33.3); Mean Corpuscular Volume 79.9 fL (83.0-100.0); Mean Platelet Volume 10.1 fL (9.4-12.4); Monocytes # 0.5 K/mcL (0.0-1.3); Monocytes % 5.6 %; Neutrophils # 5.5 K/mcL (1.6-8.9); Platelet Count 398 K/mcL (140-400); Red Blood Count 4.58 M/mcL (3.82-4.97); Red Cell Distribution Width 16.4 % (11.5-14.5); Segmented Neutrophils % 67.7 %; White Blood Count 8.1 K/mcL (4.3-11.1)
[2018-12-21 07:55] LABS: Alanine Aminotransferase 143 Units/L (7-52); Albumin 2.7 g/dL (3.5-5.7); Albumin/Globulin Ratio 0.8 (1.1-2.2); Alkaline Phosphatase 635 Units/L (34-104); BUN/Creatinine Ratio 28 (6-26); Bilirubin,Total 1.8 mg/dL (0.3-1.0); Blood Urea Nitrogen 30 mg/dL (8-23); Calcium 8.3 mg/dL (8.6-10.3); Carbon Dioxide 31 mEq/L (23-29); Chloride 77 mEq/L (98-107); Globulin 3.3 g/dL (2.4-3.5); Glucose 120 mg/dL (70-105); Magnesium 1.8 mg/dL (1.6-2.6); Osmolality,Calculated 239 (280-300); Potassium 5.3 mEq/L (3.5-5.1); Sodium 111 mEq/L (136-145); Troponin I 0.05 ng/mL (< 0.04); eGFR For African Americans > 60 (> 60); eGFR For Non-African Americans 51 (> 60)
[2018-12-21] MEDS ORDERED: Isovue-370 500 ML BOTTLE IVP ONE (08:06)
[2018-12-21] MEDS ORDERED: Piperacillin/Tazobactam 3.375 GM in 0.9 % Sodium Chloride Mini Bag 100 ML IVPB ONE (08:09)
--- NOTE | 2018-12-21 08:11 | Emergency Department Note ---
Disposition Clinical Impression: Hyperkalemia, Hyponatremia, Elevated alkaline phosphatase level, Severe sepsis, Elevated troponin, Common bile duct stone Hypotension Qualifiers: Hypotension type: unspecified hypotension type Qualified Code(s): I95.9 - Hypotension, unspecified UTI (urinary tract infection) Qualifiers: Urinary tract infection type: catheter-associated UTI Indwelling urinary catheter type: indwelling urethral catheter Encounter type: initial encounter Qualified Code(s): T83.511A - Infection and inflammatory reaction due to indwelling urethral catheter, initial encounter Disposition: Admitted As Inpatient Condition: Critical Referrals: Delfin Kaminski MD [Primary Care Provider] - Forms: ED Satisfaction Letter Time of Disposition: 10:05 General Adult HPI - General Chief complaint: ED Urogenital-Female Stated complaint: low BP/uti/r/o sepsis Time Seen by Provider: 12/21/18 06:47 Source: EMS Mode of arrival: EMS Limitations: no limitations Nursing Notes Reviewed: Yes Vital Signs Reviewed: Yes - History of Present Illness HPI Narrative: Patient is a 73-year-old female with a past medical history including CHF, COPD, hypertension, 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 Patient has a recent history of fracture of the proximal end of the right tibia secondary to fall this past month. She is nonambulatory. She had a Poe catheter placed because of this. She was recently admitted for acute kidney injury and hyperkalemia. She had an elevated troponin and cardiology recommended medical treatment. She had an echocardiogram that revealed ejection fraction 50%. CT chest was obtained during that hospitalization that showed possible osseous metastatic disease involving the manubrium. Patient was discharged on December 05 to a alf facility on oral antibiotics for another 2 days to finish a total of 7 days of antibiotic course for urinary tract infection. Daughter at bedside is providing history. She states the patient has been doing well. She did not visit the patient yesterday. She received a call today from the custodial stating that she was difficult to arouse. She was having "green sweat." Her urine in the Poe catheter was also noted to be black. Blood pressure was also noted to be low. She was sent here for further management. The patient denies any cough, fevers or chills, chest pain, abdominal pain, nausea or vomiting. The daughter also notes that the patient has a history of her sodium being low. She states at the custodial, that they have been restricting her fluid intake secondary to the hyponatremia. The patient also has a remote history of breast cancer. Pain Scale: 0 - Related Data Home Medications Medication Instructions Recorded Confirmed Furosemide [Lasix] 80 mg PO QAM 07/17/16 12/21/18 Ramipril 10 mg PO BID 07/17/16 12/21/18 Allopurinol [Zyloprim 100 MG] 100 mg PO QAM 09/06/17 12/21/18 Gabapentin [Neurontin] 600 mg PO TID 09/06/17 12/21/18 Cinnamon Bark [Cinnamon] 1,000 mg PO BID 04/09/18 12/21/18 Docusate Sodium [Dok] 200 mg PO BID 04/09/18 12/21/18 Oxycodone HCl/Acetaminophen 1 tab PO Q4H PRN 04/09/18 12/21/18 [Percocet 5-325 mg Tablet] Acetaminophen [Tylenol Arthritis] 1,300 mg PO Q12H PRN 12/01/18 12/21/18 Guaifenesin [Mucinex] 600 mg PO Q12H PRN 12/01/18 12/21/18 Inulin/Chromium Picolinate [Fiber 4 each PO DAILY PRN 12/01/18 12/21/18 Gummies] Ipratropium/Albuterol Neb [Duoneb] 3 ml IH Q4H PRN 12/01/18 12/21/18 Lactulose [Enulose] 10 gm PO DAILY PRN 12/01/18 12/21/18 Melatonin [Melatin] 6 mg PO HS 12/01/18 12/21/18 Polyethylene Glycol 3350 [MiraLAX] 17 gm PO 0900,1700 12/01/18 12/21/18 LORazepam [Ativan] 1 mg PO Q8HR PRN 12/21/18 12/21/18 traZODone [TraZODone] 100 mg PO DAILY 12/21/18 12/21/18 Previous Rx's Medication Instructions Recorded Insulin LISPRO [HumaLOG] 0 units SQ HS vial 12/05/18 Insulin LISPRO [HumaLOG] 0 units SQ TIDAC vial 12/05/18 cephALEXin [Keflex] 500 mg PO BID #4 capsule 12/05/18 Allergies Allergy/AdvReac Type Severity Reaction Status Date / Time No Known Allergies Allergy Verified 12/21/18 07:24 All systems ED: reviewed and negative except as stated. Review of Systems: As Per HPI Constitutional: Reports: weakness. Denies: fever, chills Cardiovascular: Denies: chest pain Respiratory: Denies: cough, dyspnea Gastrointestinal: Denies: abdominal pain, nausea, vomiting, diarrhea Genitourinary: Reports: dysuria, other (black urine) Neurological: Reports: confusion. Denies: headache Past Medical History - Past Medical History Attestation: Yes The following information was validated with the patient. Source: old records reviewed Medical history: Reports: cancer, CHF, COPD, diabetes, hypertension Surgical history: Reports: non-contributory, breast surgery, cholecystectomy, splenectomy Psychiatric history: Reports: anxiety LINE INSTALLER history: Reports: no LINE INSTALLER history - Social History Smoking Status: Former smoker Smokeless Tobacco Status: No Alcohol use: Reports: rarely Drug use: Reports: none Physical Exam - General Limitations: no limitations General appearance: alert - Head Head exam: atraumatic, normocephalic - Eye Eye exam: Present: normal appearance, PERRL, EOMI - ENT ENT exam: mucous membranes moist, other (green saliva or vomitus on the corner of the right mouth) - Neck Neck exam: Present: trachea midline - Chest Chest inspection: Present: normal inspection, symmetric chest wall rise - Respiratory Respiratory exam: Present: other (significantly diminished breath sounds bilaterally) - Cardiovascular Cardiovascular exam: Present: normal rhythm, tachycardia - Abdominal Exam Abdominal exam: Present: soft, other (obese abdomen, soft, nontender, no guarding or rebound. poe catheter present with black urine) - Extremities Exam Extremities exam: Present: normal capillary refill, other (lymphedema present bilateral lower extremities with pitting edema) - Neurological Exam Neurological exam: Present: alert, other (answers yes and no to quesitons, appears sleepy, follows commands) - Psychiatric Psychiatric exam: Present: normal affect, normal mood - Skin Skin exam: Present: warm Course Vital Signs Temperature 99.0 F 12/21/18 07:19 Pulse Rate 91 12/21/18 07:19 Respiratory Rate 24 12/21/18 07:19 Blood Pressure 73/44 12/21/18 07:19 O2 Sat by Pulse Oximetry 96 12/21/18 07:19 Temperature 99.0 F 12/21/18 07:19 Pulse Rate 85 12/21/18 09:42 Respiratory Rate 17 12/21/18 09:18 Blood Pressure 95/68 12/21/18 09:42 O2 Sat by Pulse Oximetry 100 12/21/18 09:42 Oxygen Delivery Oxygen Delivery Nasal Cannula Procedures - Central Line Placement Right IJ Central Line Inserted*: Yes Central Line Insertion: emergent Consent Obtained: verbal consent, written consent Procedural Pause: verify patient name and date of , timeout performed per policy, bl[place] and assess the site, assemble equipment and verify supplies, perform hand hygiene Patient Placed on Monitor/Pulse Ox: Yes During the Procedure: clinician is wearing sterile gloves, cap, mask,& gown during insertion, sterile field and sterile technique are maintained, patient's face is covered with drape or mask and wearing a cap, everyone in room is w earing a mask Central Line Prep: Chlorhexidine scrub Prep the Procedure Site: apply chloraprep to the skin using a back and forth scrubbing motion, drape the patient with a full body drape Local Anesthetic: lidocaine 1% Amount of anesthesia used (mL): 2 Ultrasound Used for Placement: Yes Central Line Lumen Inserted: triple Post Procedure: sutured in place, good blood return, all ports aspirated, flushed, capped, sterile dressing applied, guide wire removed and visualized Post Procedure X-Ray: tip of catheter in good position, no pneumothorax seen Patient Tolerated Procedure: well, no complications Complications: none Name of Clinician Inserting Central Line: Aury Hughes Clinician Assisting/Completing Checklist: Max Fairchild Date: 12/21/18 Time: 07:30 Medical Decision Making - MDM Narrative Medical decision making narrative: Patient was recently admitted for hyperkalemia and urinary tract infection. She had completed a course of antibiotics. She has a indwelling Poe catheter since her right tibia fracture. She is at a alf facility. She was found to have dark urine and green saliva and sweats since this morning. She was difficult to arouse. She was also hypotensive. Upon arrival to the emergency department. EKG showed sinus tachycardia with no ST elevation or depression. Septic workup was obtained. It was difficult to obtain IV access. Discussed CODE STATUS with the daughter and she would like the patient to be full code at this time and is okay with invasive procedures to help stabilize the patient. We placed the patient in Trendelenburg and blood pressures started to improve. A central line was placed in the right IJ vein using ultrasound. Please see procedure note for complete details. Patient tolerated the procedure well. Patient will receive a liter normal saline IV fluid bolus. Patient had initially received Levaquin. We will give the patient Zosyn and vancomycin IV. At this time, lab results were returning. She has significant hyponatremia of 111. Her potassium is 5.3. It has been more elevated in the past. Her BUN and creatinine are otherwise within normal limits. Her alkaline phosphatase and total bilirubin levels are elevated. PTT/INR were added. Patient will obtain CT chest, abdomen and pelvis with IV contrast as well as CT head. Urinalysis is still pending at this time. 08:50 UA positive for UTI. CXR with pulmonary vascular congestion. WIll be cautious with fluid administration. 09:[address] Sweeney, hospitalist. She would like us to call Dr. Cristobal, ICU. 09:[address] Cristobal, ICU physician who will evaluate the patient. At this time, CT abdomen returned showing an 8mm common bile duct obstruction and will need MRCP. Dr. Cristobal will accept the admission. 09:40 ICU physician, Dr. Cristobal evaluated the patient. He states after the second liter of IV fluids if the patient is still in the ER, repeat the sodium level. No further recommendations at this time. - Medical Records Medical records reviewed: Yes I reviewed the patient's medical records. - Lab Data Lab results reviewed: Yes I reviewed the patient's lab results. Result diagrams: 12/21/18 07:08 12/21/18 07:08 Lab Results 12/21/18 12/21/18 12/21/18 Range/Units 07:08 07:08 07:15 WBC 8.1 (4.3-11.1) K/mcL RBC 4.58 (3.82-4.97) M/mcL Hgb 11.7 (11.5-15.4) g/dL Hct 36.6 (35.3-44.9) % MCV 79.9 L (83.0-100.0) fL MCH 25.5 L (28.0-33.3) pg MCHC 32.0 (31.6-35.5) g/dL RDW 16.4 H (11.5-14.5) % Plt Count 398 (140-400) K/mcL MPV 10.1 (9.4-12.4) fL Immature Gran % 1.4 (0-4) % Seg Neutrophils % 67.7 % Lymphocytes % 23.8 % Monocytes % 5.6 % Eosinophils % 1.0 % Basophils % 0.5 % Neutrophils # 5.5 (1.6-8.9) K/mcL Lymphocytes # 1.9 (0.6-4.6) K/mcL Monocytes # 0.5 (0.0-1.3) K/mcL Eosinophils # 0.1 (0.0-0.6) K/mcL Basophils # 0.0 (0.0-0.2) K/mcL PT (9.4-12.1) Seconds INR APTT (26.0-36.0) Seconds Sodium 111 L* (136-145) mEq/L Potassium 5.3 H (3.5-5.1) mEq/L Chloride 77 L (98-107) mEq/L Carbon Dioxide 31 H (23-29) mEq/L BUN 30 H (8-23) mg/dL Creatinine 1.06 (0.60-1.20) mg/dL Est GFR ( Amer) > 60 (> 60) Est GFR (Non-Af Amer) 51 L (> 60) BUN/Creatinine Ratio 28 H (6-26) Glucose 120 H (70-105) mg/dL Calculated Osmolality 239 L (280-300) Lactic Acid 1.5 (0.5-2.2) mmol/L Calcium 8.3 L (8.6-10.3) mg/dL Phosphorus TNP Magnesium 1.8 (1.6-2.6) mg/dL Total Bilirubin 1.8 H (0.3-1.0) mg/dL Direct Bilirubin TNP AST TNP ALT 143 H (7-52) Units/L Alkaline Phosphatase 635 H (34-104) Units/L Troponin I 0.05 H* (< 0.04) ng/mL Serum Total Protein 6.0 L (6.4-8.9) g/dL Albumin 2.7 L (3.5-5.7) g/dL Globulin 3.3 (2.4-3.5) g/dL Albumin/Globulin Ratio 0.8 L (1.1-2.2) Urine Color (Yellow) Urine Clarity (Clear) Urine pH (5.0-8.0) pH Units Ur Specific [place] (1.010-1.025) Urine Protein (Neg-Trace) mg/dL Urine Glucose (UA) (Normal) mg/dL Urine Ketones (Negative) mg/dL Urine Blood (Negative) Urine Nitrite (Negative) Urine Bilirubin (Negative) Urine Urobilinogen (Normal) mg/dL Ur Leukocyte Esterase (Negative) Urine Microscopic RBC (0-3) per hpf Urine Microscopic WBC (0-3) per hpf Ur Squamous Epith Cells (None-Few) per lpf Urine Bacteria (None-Few) per hpf Ur Culture Indicated? (NO) Specimen Rejected 12/21/18 12/21/18 12/21/18 Range/Units 08:00 08:19 08:37 WBC (4.3-11.1) K/mcL RBC (3.82-4.97) M/mcL Hgb (11.5-15.4) g/dL Hct (35.3-44.9) % MCV (83.0-100.0) fL MCH (28.0-33.3) pg MCHC (31.6-35.5) g/dL RDW (11.5-14.5) % Plt Count (140-400) K/mcL MPV (9.4-12.4) fL Immature Gran % (0-4) % Seg Neutrophils % % Lymphocytes % % Monocytes % % Eosinophils % % Basophils % % Neutrophils # (1.6-8.9) K/mcL Lymphocytes # (0.6-4.6) K/mcL Monocytes # (0.0-1.3) K/mcL Eosinophils # (0.0-0.6) K/mcL Basophils # (0.0-0.2) K/mcL PT (9.4-12.1) Seconds INR APTT (26.0-36.0) Seconds Sodium (136-145) mEq/L Potassium (3.5-5.1) mEq/L Chloride (98-107) mEq/L Carbon Dioxide (23-29) mEq/L BUN (8-23) mg/dL Creatinine (0.60-1.20) mg/dL Est GFR ( Amer) (> 60) Est GFR (Non-Af Amer) (> 60) BUN/Creatinine Ratio (6-26) Glucose (70-105) mg/dL Calculated Osmolality (280-300) Lactic Acid (0.5-2.2) mmol/L Calcium (8.6-10.3) mg/dL Phosphorus 3.9 Magnesium (1.6-2.6) mg/dL Total Bilirubin (0.3-1.0) mg/dL Direct Bilirubin 1.3 H AST 299 H ALT (7-52) Units/L Alkaline Phosphatase (34-104) Units/L Troponin I (< 0.04) ng/mL Serum Total Protein (6.4-8.9) g/dL Albumin (3.5-5.7) g/dL Globulin (2.4-3.5) g/dL Albumin/Globulin Ratio (1.1-2.2) Urine Color [place] A (Yellow) Urine Clarity Turbid A (Clear) Urine pH 5.5 (5.0-8.0) pH Units Ur Specific [place] 1.020 (1.010-1.025) Urine Protein Negative (Neg-Trace) mg/dL Urine Glucose (UA) Normal (Normal) mg/dL Urine Ketones Negative (Negative) mg/dL Urine Blood Small H (Negative) Urine Nitrite Negative (Negative) Urine Bilirubin Moderate H (Negative) Urine Urobilinogen 2.0 H (Normal) mg/dL Ur Leukocyte Esterase Large H (Negative) Urine Microscopic RBC 0-3 (0-3) per hpf Urine Microscopic WBC TNTC H (0-3) per hpf Ur Squamous Epith Cells Many H (None-Few) per lpf Urine Bacteria None Seen (None-Few) per hpf Ur Culture Indicated? YES A (NO) Specimen Rejected Clotted 12/21/18 Range/Units 09:25 WBC (4.3-11.1) K/mcL RBC (3.82-4.97) M/mcL Hgb (11.5-15.4) g/dL Hct (35.3-44.9) % MCV (83.0-100.0) fL MCH (28.0-33.3) pg MCHC (31.6-35.5) g/dL RDW (11.5-14.5) % Plt Count (140-400) K/mcL MPV (9.4-12.4) fL Immature Gran % (0-4) % Seg Neutrophils % % Lymphocytes % % Monocytes % % Eosinophils % % Basophils % % Neutrophils # (1.6-8.9) K/mcL Lymphocytes # (0.6-4.6) K/mcL Monocytes # (0.0-1.3) K/mcL Eosinophils # (0.0-0.6) K/mcL Basophils # (0.0-0.2) K/mcL PT 12.7 H (9.4-12.1) Seconds INR 1.1 APTT 24.0 L (26.0-36.0) Seconds Sodium (136-145) mEq/L Potassium (3.5-5.1) mEq/L Chloride (98-107) mEq/L Carbon Dioxide (23-29) mEq/L BUN (8-23) mg/dL Creatinine (0.60-1.20) mg/dL Est GFR ( Amer) (> 60) Est GFR (Non-Af Amer) (> 60) BUN/Creatinine Ratio (6-26) Glucose (70-105) mg/dL Calculated Osmolality (280-300) Lactic Acid (0.5-2.2) mmol/L Calcium (8.6-10.3) mg/dL Phosphorus Magnesium (1.6-2.6) mg/dL Total Bilirubin (0.3-1.0) mg/dL Direct Bilirubin AST ALT (7-52) Units/L Alkaline Phosphatase (34-104) Units/L Troponin I (< 0.04) ng/mL Serum Total Protein (6.4-8.9) g/dL Albumin (3.5-5.7) g/dL Globulin (2.4-3.5) g/dL Albumin/Globulin Ratio (1.1-2.2) Urine Color (Yellow) Urine Clarity (Clear) Urine pH (5.0-8.0) pH Units Ur Specific [place] (1.010-1.025) Urine Protein (Neg-Trace) mg/dL Urine Glucose (UA) (Normal) mg/dL Urine Ketones (Negative) mg/dL Urine Blood (Negative) Urine Nitrite (Negative) Urine Bilirubin (Negative) Urine Urobilinogen (Normal) mg/dL Ur Leukocyte Esterase (Negative) Urine Microscopic RBC (0-3) per hpf Urine Microscopic WBC (0-3) per hpf Ur Squamous Epith Cells (None-Few) per lpf Urine Bacteria (None-Few) per hpf Ur Culture Indicated? (NO) Specimen Rejected - Radiology Data Radiology results reviewed: Yes I reviewed the patient's radiology results. Chest X-Ray 12/21/18 06:49 IMPRESSION: Stable mild cardiomegaly. Mild pulmonary vascular congestion. D/ / Jorge Corley MD / Jorge Corley MD Interpreting Provider: Jorge Corley MD Abdomen/Pelvis CT 12/21/18 08:06 IMPRESSION: 1. Evaluation is limited due to patient body habitus. 2. Large ill-defined area of hypoattenuation involving the left lobe of the liver with focal intrahepatic biliary ductal dilatation. Recommend further evaluation with MRI of the liver with without contrast. 3. The patient is status post cholecystectomy. There is question of an 8 mm stone within the common bile duct at the level of the MP left. Suggest further evaluation with MRCP. 4. There are 2 large ventral abdominal wall hernias containing loops of bowel. No evidence of a bowel obstruction. 5. Moderate stool distending the sigmoid colon and rectum. D/ / Viktor Davis MD / Viktor Davis MD Interpreting Provider: Viktor Davis MD Chest CT 12/21/18 08:06 IMPRESSION: Scattered patchy ground-glass attenuation throughout the mid and upper lungs which may be related to edema or infection. 8.2 x 9.2 cm low-attenuation lesion left hepatic lobe. Findings concerning for metastatic disease. Again noted is deformity of the left shoulder which may be related to advanced osteoarthrosis. 2 cm lytic lesion within the proximal clavicle. D/ / Shayna Walters MD / Shayna Walters MD Interpreting Provider: Shayna Walters MD - EKG Data EKG #1 EKG attestation: Yes I reviewed and interpreted this EKG. EKG results narrative: EKG obtained at 652 shows sinus tachycardia with heart rate 104, GA interval 193, QRS duration 91, QTC 436, no ST elevation or depression, compared to old EKG on 12/03/2018 which shows no new changes. Critical Care Time Critical Care Time: Yes Total Critical Care Time: 60 Attestation: 60 minutes of critical care time managing patient's hypotension altered mental status and hyponatremia Attestation Statement - Attestation Attestation: Patient was seen with resident physician. I reviewed the history, physical, assessment and plan, and agree with the findings. I also personally evaluated this patient and had [id number] time with this patient. Patient is 73-year-old female presents emergency Department with chief complaint of difficulty to arouse and hypotension. She is a DNR CC at the time of arrival. Patient herself provides very little medical history. Her past medical history per the family and per custodial notes include CHF COPD hypertension type 1 diabetes. She recently was diagnosed with hyponatremia and has been fluid restricted recently. She also has an indwelling Poe catheter and it was noted to be very black and dark coming out of it. She recently had an echo with an EF of 50%. A chest CT was obtained during her most recent hospitalization showed possible metastatic disease to the manubrium. Patient also has a recent leg fracture. She is morbidly obese and her body habitus makes both evaluation and caregiving somewhat difficult. She had no IV access. Review of systems difficult to obtain secondary to patient condition. Physical exam vital signs patient's tachycardic and hypotensive and diaphoretic on arrival. ENT shows no signs of traumatic injury. Heart regular rhythm and rate. Lungs were clear but difficult to auscultate. Abdomen is obese and nontender. Extremities she is got significant swelling of the lower extremities bilaterally but again this is difficult to evaluate secondary to patient obesity. Neurologically she follows commands she does answer some questions though she seems to have a difficulty time maintaining consciousness. Skin no obvious rashes. We did not take off the cast fits on her right lower extremity. And psych is really unable to evaluate. ED course. We are unable to obtain traditional IV access. Secondary to this we ended up having to do a central line into the right internal jugular vein. This was accomplished without complications. Please see resident note for more detailed description. Additionally her sodium was significantly low. Other lab tests were done. We did CT scans of the head chest abdomen and pelvis. We re hydrated the patient and her blood pressure did improve. Critical care time for this patient was 60 minutes and that was exclusive of time spent doing the central line. Her hemodynamics improved throughout her stay. We notified the hospitalist service agreed to accept the patient for admission. They requested that we call the drier feeder. We septally called intensive care team came and evaluated the patient bedside. He did accept the patient to the ICU. We did have multiple conversations with the family about her CODE STATUS. Currently she is DNR DNI after speaking with the family. She was improved throughout her stay. I agree with resident physician assessment and plan. ED procedures. I reviewed the patient's EKG as well as the resident physician interpretation and I agree with the findings. Central line was placed into the right internal jugular vein using ultrasound guidance. I was present for the critical portions of the procedure. There were no immediate complications. I also reviewed the resident procedure note and agree with it.
[2018-12-21] MEDS: 0.9 % Sodium Chloride 1,000 ML IVC SCH ×3 (08:24→09:44)
[2018-12-21 08:30] LABS: Bilirubin,Urine Moderate (Negative); Blood,Urine Small (Negative); Clarity,Urine Turbid (Clear); Color,Urine Orange (Yellow); Glucose,Urine (UA) Normal (Normal); Ketones,Urine Negative (Negative); Leukocyte Esterase,Urine Large (Negative); Nitrite,Urine Negative (Negative); PH,Urine 5.5 pH Units (5.0-8.0); Protein,Urine Negative (Neg-Trace)
[2018-12-21 08:31] LABS: Bacteria,Urine None Seen per hpf (None-Few); RBC,Urine 0-3 per hpf (0-3); Squamous Epithelial Cell,Urine Many per lpf (None-Few); WBC,Urine TNTC per hpf (0-3)
[2018-12-21 08:50] LABS: Bilirubin,Direct 1.3 mg/dL (0.0-0.2); Phosphorous 3.9 mg/dL (2.7-4.5)
[2018-12-21] MEDS ORDERED: 0.9 % Sodium Chloride 1,000 ML IVC ONE ×2 (09:06→10:11)
[2018-12-21 09:52] LABS: INR 1.1; Prothrombin Time 12.7 Seconds (9.4-12.1)
--- NOTE | 2018-12-21 09:54 | Pulmonology History & Physical ---
<Denisha Beaver R - Last Filed: 12/21/18 14:16> Date of Encounter: 12/21/18 Time of Encounter: 09:54 Assessment and Plan (1) Hyponatremia Current visit: Yes Status: Acute Na 111 on presentation Possibly hypovolemic hyponatremia Urine studies ordered and pending Previous admission with PIERRE and hyperkalemia showed hyponatremia of 128 which corrected to 135 over 4 day hospital course Pt given 2L NS in ED Repeat sodium 118 Now receiving 0.45NS at 75mls/hour Nephro consulted - appreciate recommendations Q2H Na checks over the next 24 hours (2) Sepsis Current visit: No Status: Suspected Pt severely volume depleted and hypotensive Has been fluid responsive Initial WBC and lactic wnl VSS CXR shows possible PNA vs chf exacerbation Urine shows sings of infection Continue vanc/zosyn for possible sepsis/septic shock Qualifiers: Sepsis type: sepsis due to unspecified organism Qualified Code(s): A41.9 - Sepsis, unspecified organism (3) Hypotension Current visit: Yes Status: Acute Possible hypovolemic vs septic vs cardiogenic shock Continue fluid resuscitation Continue abx Start vasopressors for sustained MAP below 65 Qualifiers: Hypotension type: unspecified hypotension type Qualified Code(s): I95.9 - Hypotension, unspecified (4) Cellulitis Current visit: Yes Status: Suspected Area of skin breakdown surrounding her groin Possibly secondary to urine/fecal chemical cano Wound care consulted Continue vanc/zosyn for possible sepsis Nystatin powder Qualifiers: Site of cellulitis: trunk Site of cellulitis of trunk: groin Qualified Code(s): L03.314 - Cellulitis of groin (5) UTI (urinary tract infection) Current visit: Yes Status: Suspected Urinalysis suggestive of infection Last admission was treated for possible UTI UCx from previous admission without bacterial growth Given vanc and zosyn for sepsis in ED Awaiting urine culture from this admission Qualifiers: Urinary tract infection type: catheter-associated UTI Indwelling urinary catheter type: indwelling urethral catheter Encounter type: initial encounter Qualified Code(s): T83.511A - Infection and inflammatory reaction due to indwelling urethral catheter, initial encounter; N39.0 - Urinary tract infection, site not specified (6) Congestive heart failure Current visit: No Status: Chronic Echo from 12/03 shows EF of 55% with diastolic dysfunction CXR shows edema vs infection Currently with good urine output Looks clinically volume depleted Continue careful fluid administration for dehydration and hyponatremia Continue to monitor cardiac status Qualifiers: Heart failure type: diastolic Heart failure chronicity: chronic Qualified Code(s): I50.32 - Chronic diastolic (congestive) heart failure (7) COPD (chronic obstructive pulmonary disease) Current visit: No Status: Chronic Not currently in exacerbation Continue home Duo-nebs prn Qualifiers: COPD type: unspecified COPD Qualified Code(s): J44.9 - Chronic obstructive pulmonary disease, unspecified (8) Diabetes mellitus Current visit: Yes Status: Acute Diabetic diet Accu-Chek TID with low dose SSI Qualifiers: Diabetes mellitus type: type 2 Diabetes mellitus penitentiary insulin use: with termite inspector use Diabetes mellitus complication status: with other specified complication Qualified Code(s): E11.69 - Type 2 diabetes mellitus with other specified complication; Z79.4 - halfway (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 of insulin (9) Common bile duct stone Current visit: Yes Status: Acute Questionable 8mm stone on CT recommends MRCP for further evaluation s/p cholecystectomy No abdominal pain Elevated liver enzymes continue to monitor LFTs (10) Hyperkalemia Current visit: Yes Status: Resolved Initial K 5.3 Resolved with fluid bolus to 4.2 Continue to monitor (11) DVT prophylaxis Current visit: Yes Status: Acute SQ Heparin History of Present Illness HPI: Ms. Smith is a 73 year old female with PMHx of CHF, COPD, DM, HTN and breast cancer presents to the emergency department today from a alf after it was reported that she was difficult to arouse and had low blood pressure. Patient is currently in the alf after a fall causing her to fracture her right tibia earlier this month. Initially there was concern for septic shock as the patient was severely altered and hypotensive with blood pressures in the 80/50s. She was recently admitted earlier this month and found to have a urinary tract infection along with acute kidney injury with hyperkalemia. Basic labs and urinalysis were obtained and a central line was placed in the right IJ. Urine shows signs of infection and the patient also has severe hyponatremia. She was hyponatremic on previous admission with a low of 128 which corrected over 4 days and was wnl on 12/05. On admission her sodium was 111. Pt was given vanc and zosyn for coverage for sepsis and 2L of normal saline due to her hypotension and severe volume depletion. Pt has evidence of skin breakdown in her groin which could be secondary to urine or diarrhea as the patient does take lactulose at home. Pt did have a slightly elevated troponin which was lower than on previous admission and which cardiology stated to manage medically. CT scanning of head head did not reveal any acute abnormalities but CT chest, abdomen and pelvis demonstrated possible edema/infection of her lungs, an 8.2x9.2 cm lesion in her liver concerning for possible metastasis, a 2 cm cystic lesion in her clavicle, questionable 8mm stone in CBD post cholecystectomy, and 2 large ventral hernias with loops of bowel but no evidence of herniation. Her liver enzymes are elevated and she has no history on record of liver disease. 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 Pt does wake up when her name is said and can follow simple commands but does not willingly speak to answer questions at this time. The patient's family states she was DNR-CC but they have elected to make her DNR/DNI-CCA at this time for treatment of her hyponatremia. Past Med Surg Social Fam HX - Past Medical History Source: obtained from family Medical history: cancer, CHF, COPD, diabetes, hypertension Additional medical history: lymphedema. Psychiatric history: anxiety - Past Surgical History Surgical History: non-contributory, breast surgery, cholecystectomy, splenectomy Additional surgical history: Mastectomy with lymph node removal, partial pancreas removal, right shoulder reverse replacement - Social History Smoking Status: Former smoker Smokeless Tobacco Status: No Alcohol use: rarely Drug use: none - Family History Father Family Member Ethnicity: Living Status: Hx Family Cardiac Disorders: No Hx Family Respiratory Disorders: No Hx Family Cancer: Yes Hx Family GI Disorders: No Hx Family Endocrine Disorder: Yes (diabetic) Hx Family Neuromuscular Disorders: No Hx Family Neurologic Disorders: No Hx Family HEENT Disorders: No Hx Family Autoimmune Disorders: No Mother Family Member Ethnicity: Living Status: Hx Family Cardiac Disorders: Yes (CHF) Hx Family Respiratory Disorders: Yes (COPD) Medications and Allergies Furosemide [Lasix] 80 mg PO QAM 07/17/16 [History] Allopurinol [Zyloprim 100 MG] 100 mg PO QAM 09/06/17 [History] Gabapentin [Neurontin] 600 mg PO TID 09/06/17 [History] Cinnamon Bark [Cinnamon] 1,000 mg PO BID 04/09/18 [History] Docusate Sodium [Dok] 200 mg PO BID 04/09/18 [History] Oxycodone HCl/Acetaminophen [Percocet 5-325 mg Tablet] 1 tab PO Q8H PRN 04/09/18 [History] Acetaminophen [Tylenol Arthritis] 1,300 mg PO Q12H PRN 12/01/18 [History] Guaifenesin [Mucinex] 600 mg PO Q12H PRN 12/01/18 [History] Inulin/Chromium Picolinate [Fiber Gummies] 4 tab PO DAILY PRN 12/01/18 [History] Ipratropium/Albuterol Neb [Duoneb] 3 ml IH Q4H PRN 12/01/18 [History] Lactulose [Enulose] 10 gm PO DAILY PRN 12/01/18 [History] Melatonin [Melatin] 6 mg PO HS 12/01/18 [History] Polyethylene Glycol 3350 [MiraLAX] 17 gm PO 0900 12/01/18 [History] Insulin LISPRO [HumaLOG] 4 - 16 units SQ 1100,2100 12/21/18 [History] Insulin Lispro Protamin/Lispro [Humalog Mix 75-25 Kwikpen] 28 - 33 unit SQ 1700 12/21/18 [History] Insulin Lispro Protamin/Lispro [Humalog Mix 75-25 Kwikpen] 33 - 37 unit SQ 0800 12/21/18 [History] LORazepam [Ativan] 1 mg PO Q8HR PRN 12/21/18 [History] Ramipril [Altace] 10 mg PO BID 12/21/18 [History] Trazodone HCl 100 mg PO 2100 12/21/18 [History] Triamcinolone Acetonide 1 appl TP DAILY 12/21/18 [History] Allergy/AdvReac Type Severity Reaction Status Date / Time No Known Allergies Allergy Verified 12/21/18 15:07 ROS unobtainable: due to mental status All Systems: The remainder of the systems were reviewed and are negative Physical Examination Vital Signs: Vital Signs, Last 4 Hours Temp Pulse Resp BP Pulse Ox 12/21/18 09:42 85 95/68 100 12/21/18 09:27 99 12/21/18 09:18 84 17 91/55 100 12/21/18 08:14 86 17 102/59 100 12/21/18 07:46 89 24 84/53 99 12/21/18 07:19 99.0 F 91 24 73/44 96 General appearance: no acute distress, other (somnolent) Eyes: nonicteric Effort: normal Auscultation: bilateral: diminished breath sounds Cardiovascular: regular rate and rhythm Gastrointestinal: soft, non-tender, other (distended with scar tissue noted on RUQ after pancreas removal) Integumentary: other (skin breakdown in groin) Extremities: edema pupils equal and round, other (somnolent but able to follow commands) Results - Laboratory Findings CBC and BMP: 12/21/18 07:08 12/21/18 12:23 Abnormal lab findings: Abnormal lab results MCV 79.9 fL (83.0-100.0) L 12/21/18 07:08 MCH 25.5 pg (28.0-33.3) L 12/21/18 07:08 RDW 16.4 % (11.5-14.5) H 12/21/18 07:08 Sodium 111 mEq/L (136-145) L* 12/21/18 07:08 Potassium 5.3 mEq/L (3.5-5.1) H 12/21/18 07:08 Chloride 77 mEq/L (98-107) L 12/21/18 07:08 Carbon Dioxide 31 mEq/L (23-29) H 12/21/18 07:08 BUN 30 mg/dL (8-23) H 12/21/18 07:08 Est GFR (Non-Af Amer) 51 (> 60) L 12/21/18 07:08 BUN/Creatinine Ratio 28 (6-26) H 12/21/18 07:08 Glucose 120 mg/dL (70-105) H 12/21/18 07:08 Calculated Osmolality 239 (280-300) L 12/21/18 07:08 Calcium 8.3 mg/dL (8.6-10.3) L 12/21/18 07:08 Total Bilirubin 1.8 mg/dL (0.3-1.0) H 12/21/18 07:08 Direct Bilirubin 1.3 mg/dL (0.0-0.2) H 12/21/18 08:19 AST 299 Units/L (13-39) H 12/21/18 08:19 ALT 143 Units/L (7-52) H 12/21/18 07:08 Alkaline Phosphatase 635 Units/L (34-104) H 12/21/18 07:08 Troponin I 0.05 ng/mL (< 0.04) H* 12/21/18 07:08 Serum Total Protein 6.0 g/dL (6.4-8.9) L 12/21/18 07:08 Albumin 2.7 g/dL (3.5-5.7) L 12/21/18 07:08 Albumin/Globulin Ratio 0.8 (1.1-2.2) L 12/21/18 07:08 Urine Color [place] (Yellow) A 12/21/18 08:00 Urine Clarity Turbid (Clear) A 12/21/18 08:00 Urine Blood Small (Negative) H 12/21/18 08:00 Urine Bilirubin Moderate (Negative) H 12/21/18 08:00 Urine Urobilinogen 2.0 mg/dL (Normal) H 12/21/18 08:00 Ur Leukocyte Esterase Large (Negative) H 12/21/18 08:00 Urine Microscopic WBC TNTC per hpf (0-3) H 12/21/18 08:00 Ur Squamous Epith Cells Many per lpf (None-Few) H 12/21/18 08:00 Ur Culture Indicated? YES (NO) A 12/21/18 08:00 <Tatum Trejo M - Last Filed: 12/21/18 17:35> Date of Encounter: 12/21/18 History of Present Illness HPI: Ms. Smith is a 73 year old female All Systems: The remainder of the systems were reviewed and are negative Physical Examination Vital Signs: Vital Signs, Last 4 Hours Temp Pulse Resp BP Pulse Ox 12/21/18 09:42 85 95/68 100 12/21/18 09:27 99 12/21/18 09:18 84 17 91/55 100 12/21/18 08:14 86 17 102/59 100 12/21/18 07:46 89 24 84/53 99 12/21/18 07:19 99.0 F 91 24 73/44 96 Results - Laboratory Findings CBC and BMP: 12/21/18 07:08 12/21/18 14:15 PT/INR, D-dimer PT 12.7 Seconds (9.4-12.1) H 12/21/18 09:25 Abnormal lab findings: Abnormal lab results MCV 79.9 fL (83.0-100.0) L 12/21/18 07:08 MCH 25.5 pg (28.0-33.3) L 12/21/18 07:08 RDW 16.4 % (11.5-14.5) H 12/21/18 07:08 PT 12.7 Seconds (9.4-12.1) H 12/21/18 09:25 APTT 24.0 Seconds (26.0-36.0) L 12/21/18 09:25 Sodium 111 mEq/L (136-145) L* 12/21/18 07:08 Potassium 5.3 mEq/L (3.5-5.1) H 12/21/18 07:08 Chloride 77 mEq/L (98-107) L 12/21/18 07:08 Carbon Dioxide 31 mEq/L (23-29) H 12/21/18 07:08 BUN 30 mg/dL (8-23) H 12/21/18 07:08 Est GFR (Non-Af Amer) 51 (> 60) L 12/21/18 07:08 BUN/Creatinine Ratio 28 (6-26) H 12/21/18 07:08 Glucose 120 mg/dL (70-105) H 12/21/18 07:08 Calculated Osmolality 239 (280-300) L 12/21/18 07:08 Calcium 8.3 mg/dL (8.6-10.3) L 12/21/18 07:08 Total Bilirubin 1.8 mg/dL (0.3-1.0) H 12/21/18 07:08 Direct Bilirubin 1.3 mg/dL (0.0-0.2) H 12/21/18 08:19 AST 299 Units/L (13-39) H 12/21/18 08:19 ALT 143 Units/L (7-52) H 12/21/18 07:08 Alkaline Phosphatase 635 Units/L (34-104) H 12/21/18 07:08 Troponin I 0.05 ng/mL (< 0.04) H* 12/21/18 07:08 Serum Total Protein 6.0 g/dL (6.4-8.9) L 12/21/18 07:08 Albumin 2.7 g/dL (3.5-5.7) L 12/21/18 07:08 Albumin/Globulin Ratio 0.8 (1.1-2.2) L 12/21/18 07:08 Urine Color [place] (Yellow) A 12/21/18 08:00 Urine Clarity Turbid (Clear) A 12/21/18 08:00 Urine Blood Small (Negative) H 12/21/18 08:00 Urine Bilirubin Moderate (Negative) H 12/21/18 08:00 Urine Urobilinogen 2.0 mg/dL (Normal) H 12/21/18 08:00 Ur Leukocyte Esterase Large (Negative) H 12/21/18 08:00 Urine Microscopic WBC TNTC per hpf (0-3) H 12/21/18 08:00 Ur Squamous Epith Cells Many per lpf (None-Few) H 12/21/18 08:00 Ur Culture Indicated? YES (NO) A 12/21/18 08:00 - Attending Attestation I examined this patient and my medical decision-making was reviewed with the Resident Physician. I agree with the documented findings, disposition and treatment plan as described except to the extent set forth below. Patient seen and examined. I was called by the ER physician to admit tis patient for hyponatremia and sepsis. Patient was seen and examined in the ER Labs, radiology, chart personally reviewed. Agree with resident's history and physical, assessment, plan with following comments: EMERGENCY DISPATCHER: Patient follows commands, however she is lethargic and I suspect with her hyponatremia and sepsis is making patient lethargic. Pulmonary: Acceptable oxygenation and ventilation, however with her morbid obesity, I suspect obesity hypoventilation syndrome and she may need NIV, especially with patient's code status is DNR/DNI. Hopefully she will start to wake up more and she will get better. Cardiovascular: Relatively stable at this time and she is clearly have evidence of volume depletion that will need volume expansion. GI: Nutrition per dietary and GI prophylaxis per routine. NPO until patient is more awake because of risk of aspiration. Heme: DVT prophylaxis per routine ID: Continue antibiotics and plan to de-escalation. I suspect sepsis and she will receive fluid, however need to be careful with rapid correction with sodium. She will covered with broad spectrum antibiotics. Renal; urine out put and renal function reviewed. Patient with hypovolemic hypo- osmolar hyponatremia and she has evidence of volume contraction. She will need to be admit to ICU for frequent sodium check and avoid rapid correction in next 24 hours because of risk of CPM. Endorcine: blood glucose is monitored Lines: all lines checked and no evidence of infections Skin: skin care to prevent pressure ulcers per nursing routine care. I suspect patient could have cellulitis and need skin care. Dispo: ICU Code: DNR/DNI Prognosis. Overall poor. Discussed with family at the bedside and she has had multiple hospitalization and I'm hoping she will recover and return to the rehab I spent 35 min of Critical Care time with this patient. It involved decision making of high complexity to assess, manipulate, and support vital organ system failure and/or to prevent further life threatening deterioration of the patient's condition. The time involved in the performance of separately reportable procedures was not counted toward critical care time.
[2018-12-21] MEDS ORDERED: Naloxone 0.4 MG/ML INJ IVP PRN (11:49)
[2018-12-21] MEDS ORDERED: Acetaminophen 325 MG TABLET PO PRN (12:17)
[2018-12-21] MEDS ORDERED: Lactulose Oral Soln 20 GM/30 ML UDC PO PRN (12:17)
[2018-12-21] MEDS ORDERED: Ipratropium/Albuterol Neb 3 ML IH PRN (12:17)
[2018-12-21] MEDS ORDERED: *HR* LORazepam 1 MG TABLET PO PRN (12:17)
[2018-12-21] MEDS ORDERED: D5% in Water 1,000 ML IVC PRN (12:31)
[2018-12-21] MEDS ORDERED: *HR* Dextrose 50 % in Water (Syg) 50 ML SYRINGE IVP PRN (12:31)
[2018-12-21] MEDS ORDERED: Dextrose Gel 15 GM/37.5 ML TUBE PO PRN ×2 (12:31)
[2018-12-21 13:00] LABS: BUN/Creatinine Ratio 33 (6-26); Blood Urea Nitrogen 28 mg/dL (8-23); Calcium 7.8 mg/dL (8.6-10.3); Carbon Dioxide 29 mEq/L (23-29); Chloride 81 mEq/L (98-107); Glucose 130 mg/dL (70-105); Osmolality,Calculated 253 (280-300); Potassium 4.2 mEq/L (3.5-5.1); Sodium 118 mEq/L (136-145); eGFR For African Americans > 60 (> 60); eGFR For Non-African Americans > 60 (> 60)
[2018-12-21] MEDS ORDERED: 0.9 % Sodium Chloride 1,000 ML IVC SCH (13:00)
[2018-12-21] MEDS ORDERED: Calcium Gluconate 1gm/50mL 1 GM/50 ML BAG IVPB PRN (13:02)
[2018-12-21] MEDS ORDERED: Potassium Phosphate 44 MEQ in 0.9 % Sodium Chloride 250 ML IVPB PRN (13:02)
[2018-12-21] MEDS: Calcium Gluconate 1gm/50mL 1 GM/50 ML BAG IVPB SCH ×2 (14:11→14:40)
[2018-12-21 14:40] LABS: Thyroid Stimulating Hormone 0.735 mcIU/mL (0.340-5.600)
[2018-12-21] MEDS: Insulin LISPRO 300 UNITS/3 ML VIAL SQ SCH (17:52)
[2018-12-21] MEDS: Gabapentin 300 MG CAPSULE PO SCH ×2 (17:53→19:53)
[2018-12-21] MEDS: *HR* Heparin 5,000 UNIT/ML VIAL SQ SCH (18:22)
[2018-12-21] MEDS: Melatonin 3 MG TABLET PO SCH (19:53)
[2018-12-21] MEDS: Piperacillin/Tazobactam 3.375 GM in 0.9 % Sodium Chloride Mini Bag 100 ML IVPB SCH ×2 (19:53→23:14)
[2018-12-21] MEDS: Nystatin POWDER 30 GM BOTTLE TP SCH (19:54)
[2018-12-21 20:19] LABS: Sodium, Urine 16.4 mEq/L
[2018-12-21] MEDS ORDERED: *HR* OxyCODONE/APAP 5/325 TABLET PO ONE (22:10)
[2018-12-22] MEDS ORDERED: 0.9 % Sodium Chloride 1,000 ML IVC SCH (01:00)
[2018-12-22] MEDS ORDERED: 0.9 % Sodium Chloride 1,000 ML ONE (01:09)
[2018-12-22 01:40] LABS: Acinetobacter baumannii by PCR Not Detected (Not Detect); Candida albicans by PCR Not Detected (Not Detect); Candida glabrata by PCR Not Detected (Not Detect); Candida krusei by PCR Not Detected (Not Detect); Candida parapsilosis by PCR Not Detected (Not Detect); Candida tropicalis by PCR Not Detected (Not Detect); Enterobacter cloacae Cmplx PCR Not Detected (Not Detect); Enterobacteriaceae by PCR Not Detected (Not Detect); Enterococcus by PCR Not Detected (Not Detect); Escherichia coli by PCR Not Detected (Not Detect); Klebsiella oxytoca by PCR Not Detected (Not Detect); Klebsiella pneumoniae by PCR Not Detected (Not Detect); Proteus by PCR Not Detected (Not Detect); Pseudomonas aeruginosa by PCR Not Detected (Not Detect); Serratia marcescens by PCR Not Detected (Not Detect); Staphylococcus aureus by PCR Not Detected (Not Detect); Staphylococcus by PCR DETECTED (Not Detect); Streptococcus agalactiae(B)PCR Not Detected (Not Detect); Streptococcus by PCR Not Detected (Not Detect); Streptococcus pneumoniae PCR Not Detected (Not Detect); Streptococcus pyogenes (A) PCR Not Detected (Not Detect); blaKPC Carbapenem-Resist Gene Not Detected (Not Detect); mecA Methicillin-Resist Gene DETECTED (Not Detect); vanA/B Vancomycin-Resist Genes Not Detected (Not Detect)
[2018-12-22] MEDS ORDERED: Norepinephrine 4 MG in D5% in Water 250 ML IVC SCH (02:30)
[2018-12-22] MEDS: 0.9 % Sodium Chloride 1,000 ML IVC SCH ×4 (03:26→21:21)
[2018-12-22 03:31] LABS: Hematocrit 32.3 % (35.3-44.9); Hemoglobin 10.2 g/dL (11.5-15.4); Immature Granulocytes % 1.5 % (0-4); Lymphocytes % 23.1 %; Mean Corpuscular HGB Conc 31.6 g/dL (31.6-35.5); Mean Corpuscular Volume 82.2 fL (83.0-100.0); Mean Platelet Volume 8.4 fL (9.4-12.4); Platelet Count 296 K/mcL (140-400); Red Blood Count 3.93 M/mcL (3.82-4.97); Red Cell Distribution Width 17.2 % (11.5-14.5); Segmented Neutrophils % 63.1 %; White Blood Count 11.3 K/mcL (4.3-11.1)
[2018-12-22 03:32] LABS: Basophils # 0.1 K/mcL (0.0-0.2); Basophils % 0.7 %; Eosinophils # 0.7 K/mcL (0.0-0.6); Eosinophils % 5.9 %; Lymphocytes # 2.6 K/mcL (0.6-4.6); Monocytes # 0.6 K/mcL (0.0-1.3); Monocytes % 5.7 %; Neutrophils # 7.1 K/mcL (1.6-8.9)
[2018-12-22 03:59] LABS: BUN/Creatinine Ratio 37 (6-26); Blood Urea Nitrogen 30 mg/dL (8-23); Carbon Dioxide 28 mEq/L (23-29); Chloride 82 mEq/L (98-107); Glucose 117 mg/dL (70-105); Magnesium 1.9 mg/dL (1.6-2.6); Osmolality,Calculated 251 (280-300); Phosphorous 3.8 mg/dL (2.7-4.5); Sodium 117 mEq/L (136-145); eGFR For African Americans > 60 (> 60); eGFR For Non-African Americans > 60 (> 60)
[2018-12-22 04:13] LABS: VBG Ionized Calcium 1.07 mmol/L (1.15-1.35)
[2018-12-22] MEDS: *HR* Heparin 5,000 UNIT/ML VIAL SQ SCH ×2 (05:00→16:28)
[2018-12-22 06:42] LABS: Albumin 2.3 g/dL (3.5-5.7); Albumin/Globulin Ratio 0.8 (1.1-2.2); Bilirubin,Direct 0.4 mg/dL (0.0-0.2); Bilirubin,Indirect 0.4 mg/dL (0.0-1.2); Bilirubin,Total 0.8 mg/dL (0.3-1.0); Globulin 2.8 g/dL (2.4-3.5); Total Protein 5.1 g/dL (6.4-8.9)
[2018-12-22] MEDS: Insulin LISPRO 300 UNITS/3 ML VIAL SQ SCH ×3 (07:51→16:29)
[2018-12-22] MEDS: Gabapentin 300 MG CAPSULE PO SCH ×3 (08:02→21:09)
[2018-12-22] MEDS: Piperacillin/Tazobactam 3.375 GM in 0.9 % Sodium Chloride Mini Bag 100 ML IVPB SCH ×2 (08:03→16:28)
[2018-12-22] MEDS: Nystatin POWDER 30 GM BOTTLE TP SCH ×2 (08:04→21:12)
[2018-12-22] MEDS ORDERED: traZODone 50 MG TABLET PO SCH ×2 (09:00→21:00)
[2018-12-22] MEDS ORDERED: Furosemide 40 MG TABLET PO SCH (09:00)
[2018-12-22] MEDS ORDERED: Lisinopril 20 MG TABLET PO SCH (09:00)
--- NOTE | 2018-12-22 11:19 | Pulmonology Progress Note ---
<Andrea,Sendy - Last Filed: 12/22/18 11:16> Date of Encounter: 12/22/18 Objective PUL Vital signs: Last Vital Signs Temp 97.6 F 12/22/18 08:00 Pulse 74 12/22/18 11:00 Resp 12 12/22/18 11:00 BP 95/57 12/22/18 11:00 Pulse Ox 98 12/22/18 11:00 Results - Laboratory Findings CBC and BMP: 12/22/18 03:25 12/22/18 09:31 PT/INR, D-dimer PT 12.7 Seconds (9.4-12.1) H 12/21/18 09:25 Abnormal lab findings: Abnormal lab results WBC 11.3 K/mcL (4.3-11.1) H 12/22/18 03:25 Hgb 10.2 g/dL (11.5-15.4) L D 12/22/18 03:25 Hct 32.3 % (35.3-44.9) L 12/22/18 03:25 MCV 82.2 fL (83.0-100.0) L 12/22/18 03:25 MCH 26.0 pg (28.0-33.3) L 12/22/18 03:25 RDW 17.2 % (11.5-14.5) H 12/22/18 03:25 MPV 8.4 fL (9.4-12.4) L 12/22/18 03:25 Eosinophils # 0.7 K/mcL (0.0-0.6) H 12/22/18 03:25 PT 12.7 Seconds (9.4-12.1) H 12/21/18 09:25 APTT 24.0 Seconds (26.0-36.0) L 12/21/18 09:25 Sodium 118 mEq/L (136-145) L* 12/22/18 09:31 Potassium 5.3 mEq/L (3.5-5.1) H 12/21/18 07:08 Chloride 82 mEq/L (98-107) L 12/22/18 03:25 Carbon Dioxide 31 mEq/L (23-29) H 12/21/18 07:08 BUN 30 mg/dL (8-23) H 12/22/18 03:25 Est GFR (Non-Af Amer) 51 (> 60) L 12/21/18 07:08 BUN/Creatinine Ratio 37 (6-26) H 12/22/18 03:25 Glucose 117 mg/dL (70-105) H 12/22/18 03:25 POC Glucose 143 mg/dL (70-99) H 12/21/18 20:11 Calculated Osmolality 251 (280-300) L 12/22/18 03:25 Calcium 8.0 mg/dL (8.6-10.3) L 12/22/18 03:25 Venous Ioniz Calcium 1.07 mmol/L (1.15-1.35) L 12/22/18 03:33 Total Bilirubin 1.8 mg/dL (0.3-1.0) H 12/21/18 07:08 Direct Bilirubin 0.4 mg/dL (0.0-0.2) H 12/22/18 05:15 AST 110 Units/L (13-39) H 12/22/18 05:15 ALT 86 Units/L (7-52) H 12/22/18 05:15 Alkaline Phosphatase 412 Units/L (34-104) H 12/22/18 05:15 Troponin I 0.05 ng/mL (< 0.04) H* 12/21/18 07:08 Serum Total Protein 5.1 g/dL (6.4-8.9) L 12/22/18 05:15 Albumin 2.3 g/dL (3.5-5.7) L 12/22/18 05:15 Albumin/Globulin Ratio 0.8 (1.1-2.2) L 12/22/18 05:15 Procalcitonin 0.43 ng/mL (0.00-0.15) H 12/21/18 16:23 Urine Color [place] (Yellow) A 12/21/18 08:00 Urine Clarity Turbid (Clear) A 12/21/18 08:00 Urine Blood Small (Negative) H 12/21/18 08:00 Urine Bilirubin Moderate (Negative) H 12/21/18 08:00 Urine Urobilinogen 2.0 mg/dL (Normal) H 12/21/18 08:00 Ur Leukocyte Esterase Large (Negative) H 12/21/18 08:00 Urine Microscopic WBC TNTC per hpf (0-3) H 12/21/18 08:00 Ur Squamous Epith Cells Many per lpf (None-Few) H 12/21/18 08:00 Ur Culture Indicated? YES (NO) A 12/21/18 08:00 Staphylococcus sp PCR DETECTED (Not Detect) A 12/21/18 07:05 mecA-Methicil Res Gene DETECTED (Not Detect) A 12/21/18 07:05 - Microbiology Findings Microbiology Findings: Microbiology, Last 48 Hours 12/21/18 08:00 Urine Culture - Preliminary Urine,Clean Catch Gram Negative Jared 12/21/18 07:05 Blood Culture - Preliminary Peripheral Venipuncture Gram Positive Cocci 12/21/18 07:08 Blood Culture - Preliminary Peripheral Venipuncture Culture is incubating and being continuously monitored for growth. Final report to follow. - Clinical Findings Intake & Output: Intake & Output 12/21/18 12/22/18 12/22/18 23:59 07:59 15:59 Intake Total 150 / 2850 2237 / 2837 600 / 2837 Output Total 500 / 1550 50 / 550 500 / 550 Balance -350 / 1300 2187 / 2287 100 / 2287 Weight 160 kg Consult Discharge Plan - Plan Referrals: Delfin Kaminski MD [Primary Care Provider] - <Duarte Waite - Last Filed: 12/22/18 12:49> Date of Encounter: 12/22/18 Objective PUL Vital signs: Last Vital Signs Temp 97.7 F 12/22/18 11:58 Pulse 74 12/22/18 11:00 Resp 12 12/22/18 11:00 BP 95/57 12/22/18 11:00 Pulse Ox 98 12/22/18 11:00 Results - Laboratory Findings CBC and BMP: 12/22/18 03:25 12/22/18 09:31 PT/INR, D-dimer PT 12.7 Seconds (9.4-12.1) H 12/21/18 09:25 Abnormal lab findings: Abnormal lab results WBC 11.3 K/mcL (4.3-11.1) H 12/22/18 03:25 Hgb 10.2 g/dL (11.5-15.4) L D 12/22/18 03:25 Hct 32.3 % (35.3-44.9) L 12/22/18 03:25 MCV 82.2 fL (83.0-100.0) L 12/22/18 03:25 MCH 26.0 pg (28.0-33.3) L 12/22/18 03:25 RDW 17.2 % (11.5-14.5) H 12/22/18 03:25 MPV 8.4 fL (9.4-12.4) L 12/22/18 03:25 Eosinophils # 0.7 K/mcL (0.0-0.6) H 12/22/18 03:25 PT 12.7 Seconds (9.4-12.1) H 12/21/18 09:25 APTT 24.0 Seconds (26.0-36.0) L 12/21/18 09:25 Sodium 118 mEq/L (136-145) L* 12/22/18 09:31 Potassium 5.3 mEq/L (3.5-5.1) H 12/21/18 07:08 Chloride 82 mEq/L (98-107) L 12/22/18 03:25 Carbon Dioxide 31 mEq/L (23-29) H 12/21/18 07:08 BUN 30 mg/dL (8-23) H 12/22/18 03:25 Est GFR (Non-Af Amer) 51 (> 60) L 12/21/18 07:08 BUN/Creatinine Ratio 37 (6-26) H 12/22/18 03:25 Glucose 117 mg/dL (70-105) H 12/22/18 03:25 POC Glucose 143 mg/dL (70-99) H 12/21/18 20:11 Calculated Osmolality 251 (280-300) L 12/22/18 03:25 Calcium 8.0 mg/dL (8.6-10.3) L 12/22/18 03:25 Venous Ioniz Calcium 1.07 mmol/L (1.15-1.35) L 12/22/18 03:33 Total Bilirubin 1.8 mg/dL (0.3-1.0) H 12/21/18 07:08 Direct Bilirubin 0.4 mg/dL (0.0-0.2) H 12/22/18 05:15 AST 110 Units/L (13-39) H 12/22/18 05:15 ALT 86 Units/L (7-52) H 12/22/18 05:15 Alkaline Phosphatase 412 Units/L (34-104) H 12/22/18 05:15 Troponin I 0.05 ng/mL (< 0.04) H* 12/21/18 07:08 Serum Total Protein 5.1 g/dL (6.4-8.9) L 12/22/18 05:15 Albumin 2.3 g/dL (3.5-5.7) L 12/22/18 05:15 Albumin/Globulin Ratio 0.8 (1.1-2.2) L 12/22/18 05:15 Procalcitonin 0.43 ng/mL (0.00-0.15) H 12/21/18 16:23 Urine Color [place] (Yellow) A 12/21/18 08:00 Urine Clarity Turbid (Clear) A 12/21/18 08:00 Urine Blood Small (Negative) H 12/21/18 08:00 Urine Bilirubin Moderate (Negative) H 12/21/18 08:00 Urine Urobilinogen 2.0 mg/dL (Normal) H 12/21/18 08:00 Ur Leukocyte Esterase Large (Negative) H 12/21/18 08:00 Urine Microscopic WBC TNTC per hpf (0-3) H 12/21/18 08:00 Ur Squamous Epith Cells Many per lpf (None-Few) H 12/21/18 08:00 Ur Culture Indicated? YES (NO) A 12/21/18 08:00 Staphylococcus sp PCR DETECTED (Not Detect) A 12/21/18 07:05 mecA-Methicil Res Gene DETECTED (Not Detect) A 12/21/18 07:05 - Microbiology Findings Microbiology Findings: Microbiology, Last 48 Hours 12/21/18 08:00 Urine Culture - Preliminary Urine,Clean Catch Gram Negative Jared 12/21/18 07:05 Blood Culture - Preliminary Peripheral Venipuncture Gram Positive Cocci 12/21/18 07:08 Blood Culture - Preliminary Peripheral Venipuncture Culture is incubating and being continuously monitored for growth. Final report to follow. - Clinical Findings Intake & Output: Intake & Output 12/21/18 12/22/18 12/22/18 23:59 07:59 15:59 Intake Total 150 / 2850 2237 / 2837 600 / 2837 Output Total 500 / 1550 50 / 2200 2150 / 2200 Balance -350 / 1300 2187 / 637 -1550 / 637 Weight 160 kg - Attending Attestation I examined this patient and my medical decision-making was reviewed with the Resident Physician. I agree with the documented findings, disposition and treatment plan as described except to the extent set forth below. We independently had [id number] contact with the patient I spent 34min of Critical Care time with this patient. It involved decision making of high complexity to assess, manipulate, and support vital organ system failure and/or to prevent further life threatening deterioration of the patient's condition. The time involved in the performance of separately reportable procedures was not counted toward critical care time. Patient seen and examined at bedside Labs, radiology, chart personally reviewed. Management was reviewed during multidisciplinary critical care rounds. 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 ID: Possible UTI versus hepatobiliary infection on broad-spectrum antibiotics with planned to de-escalate Heme/Onc: DVT prophylaxis given Endo: Glucose Monitored TSH and cortisol are within normal limits Integ/MSK: Skin Care per routine ICU Nursing Protocol to prevent ulcers. Lines: All lines examined without evidence of infection : Dispo: ICU for critical illness CODE: Full
--- NOTE | 2018-12-22 12:51 | Pulmonology Consult Note ---
Date of Encounter: 12/22/18 Time of Encounter: 14:31 Assessment and Plan (1) Hyponatremia Current Visit: Yes Status: Acute Ms. Smith presented to the ED with confusion and sodium level of 111 At her most recent admission she hyponatremia 128 At presentation appeared to be hyponatremia Urine sodium 16 and urine osmolality is slightly elevated at 307, appears to be mixed picture Received 2 L of normal saline the ED, corrected to 118 She is awake and alert and oriented to self only -Currently normal saline being managed to keep sodium level within 120 -Nephrology consulted appreciate any recommendations -Sodium check every 2 hours until 120 then every 4 hours (2) Sepsis Current Visit: No Status: Suspected At presentation was hypotensive and appeared to be volume depleted Likely secondary to cellulitis versus UTI versus pneumonia After repletion with normal saline blood pressure is stabilized Initial WBC and lactic acid within normal limits WBC of 11.3 this morning chest x-ray possible for pneumonia versus CHF exacerbation Blood serology shows Staphylococcus species but not staph aureus with mecA gene, likely contaminant We will continue vancomycin and Zosyn, day 2 Qualifiers: Sepsis type: sepsis due to unspecified organism Qualified Code(s): A41.9 - Sepsis, unspecified organism (3) Elevated LFTs Current Visit: Yes Status: Acute Presented to the ED with elevated LFTs AST 299, ALT 143, alkaline phosphatase 635 LFTs this morning shows AST 110, ALT 8 6, alkaline phosphatase 412 CT of the abdomen and pelvis shows lesions within the liver Additionally CT shows 8mm suspected stone in common bile duct Communicated with GI and spoke with Mr. Alberts who recommended MRCP -MRCP pending -Nothing by mouth after midnight for possible ERCP -Repeat LFTs in the morning (4) Common bile duct stone Current Visit: Yes Status: Acute History of cholecystectomy CT of the abdomen and pelvis on 12/21/18 shows 8 mm suspected stone in common bile duct -MRCP pending -Continue to monitor LFTs -Gastroenterology consultation (5) Cellulitis Current Visit: Yes Status: Suspected Has area of skin breakdown in the groin Additionally has skin breakdown posterior right thigh under the splint Wound Care consulted Continue vancomycin and Zosyn MRSA nasal swab pending Orthopedic surgery consulted as the patient's family is concerned about skin breakdown under the splint. Family demanding orthopedic surgery consult for splint replacement. Spoke with Dr. Delcid who stated he will speak with Dr. Ni who placed the splint. 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: with termite exterminator helper use Diabetes mellitus complication status: with other specified complication Qualified Code(s): E11.69 - Type 2 diabetes mellitus with other specified complication; Z79.4 - terminal manager (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 of insulin (7) UTI (urinary tract infection) Current Visit: Yes Status: Suspected Urinalysis showed large leukocyte esterase, many white blood cell count and orange coloration Was recently treated 2 weeks ago for a UTI Urinalysis showing gram-negative rods -Continue Zosyn day 2 -Continue to monitor urine culture Qualifiers: Urinary tract infection type: catheter-associated UTI Indwelling urinary catheter type: indwelling urethral catheter Encounter type: initial encounter Qualified Code(s): T83.511A - Infection and inflammatory reaction due to indwel ling urethral catheter, initial encounter; N39.0 - Urinary tract infection, site not specified (8) COPD (chronic obstructive pulmonary disease) Current Visit: No Status: Chronic Not in acute exacerbation Oxygen saturation 96% on 2 L No cough or sputum production at this time Continue home DuoNeb Qualifiers: COPD type: unspecified COPD Qualified Code(s): J44.9 - Chronic obstructive pulmonary disease, unspecified (9) Congestive heart failure Current Visit: No Status: Chronic Echo on 12/03/18 shows EF of 55% with diastolic dysfunction, moderate dilated left atrium We will continue to monitor volume status Does not appear to be hypervolemic at this time Continuing normal saline with frequent sodium checks due to hyponatremia Qualifiers: Heart failure type: diastolic Heart failure chronicity: chronic Qualified Code(s): I50.32 - Chronic diastolic (congestive) heart failure (10) DVT prophylaxis Current Visit: Yes Status: Acute Subcutaneous heparin History of Present Illness Consult date: 12/22/18 History of present illness: Ms. Smith is a [age] female with past medical history of CHF, COPD, diabetes, hypertension and breast cancer who was presented to the ED from nursing facility due to altered mental status and low blood pressure. At presentation to the ED her blood pressure was 80 over 50s. She is currently at the nursing facility due to recent fracture of her right tibia. She was recently treated for UTI with ceftriaxone and outpatient cephalexin. Due to concern for septic shock she had a central line placed. In the ED her sodium was noted to be 111 and received 2 L of normal saline due to coverage for sepsis. At presentation the ICU was noted to have skin breakdown in her groin. She had a CT of the head which showed no acute abnormalities. CT of the chest shows upper abdomen with 8.29.2 cm lesion in left hepatic lobe as well as 2 cm cystic lesion her clavicle and the 8 mm stone in common bile duct postcholecystectomy. Her sodium has returned up to 119 and currently 116. Her AST at presentation was 299 her ALT was 143 and alkaline phosphatase was 6:30 5 repeat AST today is 110, ALT is 86 and alkaline phosphatase is 412. Her urine shows large amount of leukocyte esterase as well as many white blood cell count and some bacteria. She is awake alert and oriented to person but not place or time. Family reports that she was having frequent diarrhea at outside facility and suspect has skin breakdown in her groin and at the site of her splint due to the diarrhea. Past Med Surg Social Fam HX - Past Medical History Medical history: cancer, CHF, COPD, diabetes, hypertension Additional medical history: lymphedema. Psychiatric history: anxiety - Past Surgical History Surgical History: non-contributory, breast surgery, cholecystectomy, splenectomy Additional surgical history: Mastectomy with lymph node removal, partial pancreas removal, right shoulder reverse replacement - Social History Smoking Status: Former smoker Smokeless Tobacco Status: No Alcohol use: rarely Drug use: none - Family History Father Family Member Ethnicity: Living Status: Hx Family Cardiac Disorders: No Hx Family Respiratory Disorders: No Hx Family Cancer: Yes Hx Family GI Disorders: No Hx Family Endocrine Disorder: Yes (diabetic) Hx Family Neuromuscular Disorders: No Hx Family Neurologic Disorders: No Hx Family HEENT Disorders: No Hx Family Autoimmune Disorders: No Mother Family Member Ethnicity: Living Status: Hx Family Cardiac Disorders: Yes (CHF) Hx Family Respiratory Disorders: Yes (COPD) Medications and Allergies Furosemide [Lasix] 80 mg PO QAM 07/17/16 [History] Allopurinol [Zyloprim 100 MG] 100 mg PO QAM 09/06/17 [History] Gabapentin [Neurontin] 600 mg PO TID 09/06/17 [History] Cinnamon Bark [Cinnamon] 1,000 mg PO BID 04/09/18 [History] Docusate Sodium [Dok] 200 mg PO BID 04/09/18 [History] Oxycodone HCl/Acetaminophen [Percocet 5-325 mg Tablet] 1 tab PO Q8H PRN 04/09/18 [History] Acetaminophen [Tylenol Arthritis] 1,300 mg PO Q12H PRN 12/01/18 [History] Guaifenesin [Mucinex] 600 mg PO Q12H PRN 12/01/18 [History] Inulin/Chromium Picolinate [Fiber Gummies] 4 tab PO DAILY PRN 12/01/18 [History] Ipratropium/Albuterol Neb [Duoneb] 3 ml IH Q4H PRN 12/01/18 [History] Lactulose [Enulose] 10 gm PO DAILY PRN 12/01/18 [History] Melatonin [Melatin] 6 mg PO HS 12/01/18 [History] Polyethylene Glycol 3350 [MiraLAX] 17 gm PO 0900 12/01/18 [History] Insulin LISPRO [HumaLOG] 4 - 16 units SQ 1100,2100 12/21/18 [History] Insulin Lispro Protamin/Lispro [Humalog Mix 75-25 Kwikpen] 28 - 33 unit SQ 1700 12/21/18 [History] Insulin Lispro Protamin/Lispro [Humalog Mix 75-25 Kwikpen] 33 - 37 unit SQ 0800 12/21/18 [History] LORazepam [Ativan] 1 mg PO Q8HR PRN 12/21/18 [History] Ramipril [Altace] 10 mg PO BID 12/21/18 [History] Trazodone HCl 100 mg PO HS 12/21/18 [History] Triamcinolone Acetonide 1 appl TP DAILY 12/21/18 [History] Allergy/AdvReac Type Severity Reaction Status Date / Time No Known Allergies Allergy Verified 12/21/18 15:07 All Systems: The remainder of the systems were reviewed and are negative - Constitutional Constitutional: weakness, no chills, no fever(s) - Cardiovascular Cardiovascular: no chest pain, no dyspnea, no palpitations - Respiratory Respiratory: no cough, no wheezing, no chest congestion - Gastrointestinal Gastrointestinal: diarrhea, no abdominal pain, no nausea - Musculoskeletal Musculoskeletal: arthralgias, no weakness, no neck pain - Integumentary Integumentary: erythema (Of right posterior leg and groin), other (Screening breakdown of right posterior leg) - Neurological Neurological: confusion, no focal weakness, no numbness, no paresthesias - Hematologic/Lymphatic Hematologic/Lymphatic: no easy bleeding, no easy bruising Physical Examination Vital Signs: Vital Signs, Last 4 Hours Temp Pulse Resp BP Pulse Ox 12/22/18 11:58 97.7 F 12/22/18 11:00 74 12 95/57 98 12/22/18 10:00 87 12 148/77 97 12/22/18 09:00 100 12 107/91 93 General appearance: no acute distress, alert, other (Oriented to person but not place or time) ENT: oropharynx moist Auscultation: bilateral: diminished breath sounds (lower lungs) Cardiovascular: regular rate and rhythm Gastrointestinal: soft, non-tender, other Integumentary: normal Extremities: no cyanosis, edema (Trace pitting edema bilateral lower extremity), other (Skin breakdown and groin area as well as right posterior leg) Musculoskeletal: other (Splint placed on right leg) pupils equal and round, other (Oriented only to self not oriented to place and time, no facial droop) mood appropriate, other (Flat affect) Results - Laboratory Findings CBC and BMP: 12/22/18 03:25 12/22/18 14:35 PT/INR, D-dimer PT 12.7 Seconds (9.4-12.1) H 12/21/18 09:25 Abnormal lab findings: Abnormal lab results WBC 11.3 K/mcL (4.3-11.1) H 12/22/18 03:25 Hgb 10.2 g/dL (11.5-15.4) L D 12/22/18 03:25 Hct 32.3 % (35.3-44.9) L 12/22/18 03:25 MCV 82.2 fL (83.0-100.0) L 12/22/18 03:25 MCH 26.0 pg (28.0-33.3) L 12/22/18 03:25 RDW 17.2 % (11.5-14.5) H 12/22/18 03:25 MPV 8.4 fL (9.4-12.4) L 12/22/18 03:25 Eosinophils # 0.7 K/mcL (0.0-0.6) H 12/22/18 03:25 PT 12.7 Seconds (9.4-12.1) H 12/21/18 09:25 APTT 24.0 Seconds (26.0-36.0) L 12/21/18 09:25 Sodium 115 mEq/L (136-145) L* 12/22/18 12:06 Potassium 5.3 mEq/L (3.5-5.1) H 12/21/18 07:08 Chloride 82 mEq/L (98-107) L 12/22/18 03:25 Carbon Dioxide 31 mEq/L (23-29) H 12/21/18 07:08 BUN 30 mg/dL (8-23) H 12/22/18 03:25 Est GFR (Non-Af Amer) 51 (> 60) L 12/21/18 07:08 BUN/Creatinine Ratio 37 (6-26) H 12/22/18 03:25 Glucose 117 mg/dL (70-105) H 12/22/18 03:25 POC Glucose 143 mg/dL (70-99) H 12/21/18 20:11 Calculated Osmolality 251 (280-300) L 12/22/18 03:25 Calcium 8.0 mg/dL (8.6-10.3) L 12/22/18 03:25 Venous Ioniz Calcium 1.07 mmol/L (1.15-1.35) L 12/22/18 03:33 Total Bilirubin 1.8 mg/dL (0.3-1.0) H 12/21/18 07:08 Direct Bilirubin 0.4 mg/dL (0.0-0.2) H 12/22/18 05:15 AST 110 Units/L (13-39) H 12/22/18 05:15 ALT 86 Units/L (7-52) H 12/22/18 05:15 Alkaline Phosphatase 412 Units/L (34-104) H 12/22/18 05:15 Troponin I 0.05 ng/mL (< 0.04) H* 12/21/18 07:08 Serum Total Protein 5.1 g/dL (6.4-8.9) L 12/22/18 05:15 Albumin 2.3 g/dL (3.5-5.7) L 12/22/18 05:15 Albumin/Globulin Ratio 0.8 (1.1-2.2) L 12/22/18 05:15 Procalcitonin 0.43 ng/mL (0.00-0.15) H 12/21/18 16:23 Urine Color [place] (Yellow) A 12/21/18 08:00 Urine Clarity Turbid (Clear) A 12/21/18 08:00 Urine Blood Small (Negative) H 12/21/18 08:00 Urine Bilirubin Moderate (Negative) H 12/21/18 08:00 Urine Urobilinogen 2.0 mg/dL (Normal) H 12/21/18 08:00 Ur Leukocyte Esterase Large (Negative) H 12/21/18 08:00 Urine Microscopic WBC TNTC per hpf (0-3) H 12/21/18 08:00 Ur Squamous Epith Cells Many per lpf (None-Few) H 12/21/18 08:00 Ur Culture Indicated? YES (NO) A 12/21/18 08:00 Staphylococcus sp PCR DETECTED (Not Detect) A 12/21/18 07:05 mecA-Methicil Res Gene DETECTED (Not Detect) A 12/21/18 07:05 - Microbiology Findings Microbiology Findings: Microbiology, Last 48 Hours 12/21/18 08:00 Urine Culture - Preliminary Urine,Clean Catch Gram Negative Jared 12/21/18 07:05 Blood Culture - Preliminary Peripheral Venipuncture Gram Positive Cocci 12/21/18 07:08 Blood Culture - Preliminary Peripheral Venipuncture Culture is incubating and being continuously monitored for growth. Final report to follow. - Clinical Findings Intake & Output: Intake & Output 12/21/18 12/22/18 12/22/18 23:59 07:59 15:59 Intake Total 150 / 2850 2237 / 2837 600 / 2837 Output Total 500 / 1550 50 / 2200 2150 / 2200 Balance -350 / 1300 2187 / 637 -1550 / 637 Weight 160 kg Consult Discharge Plan - Plan Referrals: Delfin Kaminski MD [Primary Care Provider] -
--- NOTE | 2018-12-22 16:17 | Electrocardiograph Report ---
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
--- NOTE | 2018-12-22 16:40 | Palliative - Consult Note ---
Date of Encounter: 12/23/18 Time of Encounter: 10:55 - Assessment and Plan (1) Generalized pain Current Visit: Yes Status: Acute Assessment and plan: D/W Dr. Mendez - ICU resident - family states patient has arthritic pain that will need assessed and treated. REcommend low dose Tramadol every 6-8 hours PRN and monitor. (2) Common bile duct stone Current Visit: Yes Status: Acute Assessment and plan: Awaiting GI consult (3) Sepsis Current Visit: Yes Status: Acute Assessment and plan: Awaiting final culture results. Qualifiers: Sepsis type: sepsis due to unspecified organism Qualified Code(s): A41.9 - Sepsis, unspecified organism (4) Goals of care, counseling/discussion Current Visit: Yes Status: Acute Assessment and plan: Met with patient - 2 daughters, Carlos and Shawna as well as son at bedside. Introduced myself and discussed palliative role, and initiated goals of care discussion. I was cut off by daughter Carlos stating, "I want to know why everyone thought mom was a DNRCC when she was not". I discussed that it was documented when she arrived, but that discussion changing to DNR/DNI was also documented. She stated, "Mom was never a DNRCC and never has been. This hospital wants to make everyone a DNRCC and not treat them. You all made my Dad a DNR when he was full code.". She pulled up a picture on her phone of a DNR state form. I told her that I did not recognize the physician who completed that form, and she stated, "It doesn't matter - you work for [employer] so you are as responsible as well". I did review the state form sent from [facility], and it was completed as a DNR-Arrest. I apologized for any confusion or miscommunication that may have occurred. Did clarify with patient that she did not want intubated, which she does not. So code status stands as DNR/DNI. Patient does not have adv directives in place, and children state that katiana Gonzalez usually is their "go to " person. Katiana Gonzalez expresssed concerns over her comfort level and treatment of arthritic pain, which I discussed with resident, Dr. Mendez. She was also i nsistent that orthopedics be consulted to check/adjust splint and re-wrap right leg. D/W Dr. Waite as well. Palliative care will follow clinical course at a distance. (5) Acute kidney injury Current Visit: No Status: Acute Assessment and plan: Nephrology following Palliative-CN HPI - Data of Consult Consult date: 12/22/18 Requesting Physician: Tatum Trejo MD Primary Care Provider: Delfin Kaminski MD - Consult Narrative History of present illness: Ms. Smith is a 73 year old female who resides at [facility] who was sent to ER with hypotension and altered mental status. She had a fall earlier this month resulting in right fibula fracture and is followed by [facility]. Upon evaluation, she was found to have hyponatremia with sodium of 111, and possible sepsis. CT imaging was abnormal, demonstrating pulmonary edema/infection in lungs, and lesion in liver concerning for metastatic disease, 2cm lesion in clavicle, and questionable CBD stone s/p cholecysectomy, and 2 large ventral hernias with loops of bowel but no incarceration. She was admitted and has been treated for sepsis and hyponatremia. At least one blood culture and urine culture are positive thus far, awaiting sensitivity. Patient has pertinent medical history of breast cancer treated in 2006 at [facility], CHF, COPD, DM, HTN. She has 3 daughters and 1 son. No advanced directives in place. Daughters Carlos, Flory, and son at bedside. Patient is alert and oriented to name and place, however, making inappropriate statements at times, and cannot provide some answers. Family states she is more alert than yesterday but still confused. Appears in no distress, and denies pain or discomfort. Nephrology following as well as GI consult pending for ? CBD stone. CC: Tatum Trejo MD - Time Spent with Patient Time: Total time spent is greater than 50% in coordination of care (as documented) at patient's floor/unit and/or counseling patient: Past Med Surg Social Fam HX - Past Medical History Medical history: cancer, CHF, COPD, diabetes, hypertension Additional medical history: lymphedema. Psychiatric history: anxiety - Past Surgical History Surgical History: non-contributory, breast surgery, cholecystectomy, splenectomy Additional surgical history: Mastectomy with lymph node removal, partial pancreas removal, right shoulder reverse replacement - Social History Smoking Status: Former smoker Smokeless Tobacco Status: No Alcohol use: rarely Drug use: none - Family History Father Family Member Ethnicity: Living Status: Hx Family Cardiac Disorders: No Hx Family Respiratory Disorders: No Hx Family Cancer: Yes Hx Family GI Disorders: No Hx Family Endocrine Disorder: Yes (diabetic) Hx Family Neuromuscular Disorders: No Hx Family Neurologic Disorders: No Hx Family HEENT Disorders: No Hx Family Autoimmune Disorders: No Mother Family Member Ethnicity: Living Status: Hx Family Cardiac Disorders: Yes (CHF) Hx Family Respiratory Disorders: Yes (COPD) Medications and Allergies Furosemide [Lasix] 80 mg PO QAM 07/17/16 [History] Allopurinol [Zyloprim 100 MG] 100 mg PO QAM 09/06/17 [History] Gabapentin [Neurontin] 600 mg PO TID 09/06/17 [History] Cinnamon Bark [Cinnamon] 1,000 mg PO BID 04/09/18 [History] Docusate Sodium [Dok] 200 mg PO BID 04/09/18 [History] Oxycodone HCl/Acetaminophen [Percocet 5-325 mg Tablet] 1 tab PO Q8H PRN 04/09/18 [History] Acetaminophen [Tylenol Arthritis] 1,300 mg PO Q12H PRN 12/01/18 [History] Guaifenesin [Mucinex] 600 mg PO Q12H PRN 12/01/18 [History] Inulin/Chromium Picolinate [Fiber Gummies] 4 tab PO DAILY PRN 12/01/18 [History] Ipratropium/Albuterol Neb [Duoneb] 3 ml IH Q4H PRN 12/01/18 [History] Lactulose [Enulose] 10 gm PO DAILY PRN 12/01/18 [History] Melatonin [Melatin] 6 mg PO HS 12/01/18 [History] Polyethylene Glycol 3350 [MiraLAX] 17 gm PO 0900 12/01/18 [History] Insulin LISPRO [HumaLOG] 4 - 16 units SQ 1100,2100 12/21/18 [History] Insulin Lispro Protamin/Lispro [Humalog Mix 75-25 Kwikpen] 28 - 33 unit SQ 1700 12/21/18 [History] Insulin Lispro Protamin/Lispro [Humalog Mix 75-25 Kwikpen] 33 - 37 unit SQ 0800 12/21/18 [History] LORazepam [Ativan] 1 mg PO Q8HR PRN 12/21/18 [History] Ramipril [Altace] 10 mg PO BID 12/21/18 [History] Trazodone HCl 100 mg PO HS 12/21/18 [History] Triamcinolone Acetonide 1 appl TP DAILY 12/21/18 [History] Allergy/AdvReac Type Severity Reaction Status Date / Time No Known Allergies Allergy Verified 12/21/18 15:07 ROS unobtainable: due to mental status Palliative Care-Exam - Constitutional Vitals: Temp Pulse Resp BP Pulse Ox 97.6 F 81 15 124/68 96 12/22/18 15:10 12/22/18 16:00 12/22/18 16:00 12/22/18 16:00 12/22/18 16:00 General appearance: Present: morbidly obese, no acute distress - Head Head Exam: Present: normal inspection, normocephalic - Eye Eye exam: Present: normal appearance, PERRL - Respiratory Respiratory exam: Present: decreased breath sounds, CTAB - Cardiovascular Cardiovascular exam: Present: +S1, +S2 - GI/Abdominal Exam GI/Abdominal exam: Present: normal bowel sounds, soft - Extremities Exam Additional comments: Splint and wendi to RLE - Neurological Exam Neurological exam: Present: alert Additional comments: Oriented to name and place only. Inappropriate statements at times. Follows simple commands - Skin Skin exam: Present: dry, pallor, warm Internal Medicine - CN: Reslt - Labs CBC & Chem 7: 12/23/18 04:22 12/23/18 08:45 Labs: Short CBC 12/22/18 Range/Units 03:25 WBC 11.3 H (4.3-11.1) K/mcL Hgb 10.2 L D (11.5-15.4) g/dL Hct 32.3 L (35.3-44.9) % Plt Count 296 (140-400) K/mcL Neutrophils # 7.1 (1.6-8.9) K/mcL BMP 12/21/18 12/21/18 12/21/18 18:20 20:02 22:00 Sodium 119 L* 118 L* 119 L* Potassium Chloride Carbon Dioxide BUN Creatinine Glucose Calcium 12/22/18 12/22/18 12/22/18 00:15 02:00 03:25 Sodium 117 L* 117 L* 117 L* Potassium 4.0 Chloride 82 L Carbon Dioxide 28 BUN 30 H Creatinine 0.82 Glucose 117 H Calcium 8.0 L 12/22/18 12/22/18 12/22/18 05:15 08:25 09:31 Sodium 111 L* 119 L* 118 L* Potassium Chloride Carbon Dioxide BUN Creatinine Glucose Calcium 12/22/18 12/22/18 12:06 14:35 Sodium 115 L* 116 L* Potassium Chloride Carbon Dioxide BUN Creatinine Glucose Calcium Liver Function 12/22/18 Range/Units 05:15 Total Bilirubin 0.8 (0.3-1.0) mg/dL Direct Bilirubin 0.4 H (0.0-0.2) mg/dL AST 110 H (13-39) Units/L ALT 86 H (7-52) Units/L Alkaline Phosphatase 412 H (34-104) Units/L Albumin 2.3 L (3.5-5.7) g/dL - ABG Interpretation ABG results: PT/INR, D-dimer PT 12.7 Seconds (9.4-12.1) H 12/21/18 09:25 Consult Discharge Plan - Plan Referrals: Delfin Kaminski MD [Primary Care Provider] - Palliative Quality Palliative Quality: Screen for Code Status: Yes, Screen for Goals of Care: Yes, Screen for Pain: Yes, If Pain Regimen Started, Initiate Bowel Regimen: NA, Screen for Nausea/Vomitting: Yes Code Status: 12/21/18 11:49 Resuscitation Status: Active [RES] Routine Comment: Resuscitation Status: [id number]
[2018-12-22] MEDS ORDERED: traMADol 50 MG TABLET PO PRN (16:52)
--- NOTE | 2018-12-22 17:40 | Nephrology Consult Note ---
Date of Encounter: 12/21/18 Time of Encounter: 12:00 Assessment and Plan (1) Hyponatremia Status: Acute Likely hypovolemic hyponatremia very responsive to NS rising 7 points already Agree with IVF: 1/2NS Agree with serial sodium checks Hypertonic saline not indicated at this point Urine osm, urine sodium, TSH, cortisol levels (2) UTI (urinary tract infection) Status: Suspected Per primary team Qualifiers: Urinary tract infection type: catheter-associated UTI Indwelling urinary catheter type: indwelling urethral catheter Encounter type: initial encounter Qualified Code(s): T83.511A - Infection and inflammatory reaction due to indwelling urethral catheter, initial encounter; N39.0 - Urinary tract infection, site not specified (3) Common bile duct stone Status: Acute GI consulted (4) Sepsis Status: Acute Abx per primary team Qualifiers: Sepsis type: sepsis due to unspecified organism Qualified Code(s): A41.9 - Sepsis, unspecified organism; R65.20 - Severe sepsis without septic shock History of Present Illness - Reason for Consult Consult date: 12/21/18 Requesting physician: Denisha Beaver - History of Present Illness 73 year old female with PMHx of CHF, COPD, DM, HTN and breast cancer presents to the ED from ECFwith altered mental status and hypotension in the 80s sytolic. Pt was also noted with sodium of 111 receiving 2liter NS bolus with repeat sodium of 118. Pt seen and examined in the ED very lethargic and unable to give any history. Most of the history obtained from records. Pt noted on diuretics in ECF. Past Med Surg Social Fam HX - Past Medical History Medical history: cancer, CHF, COPD, diabetes, hypertension Additional medical history: lymphedema. Psychiatric history: anxiety - Past Surgical History Surgical History: non-contributory, breast surgery, cholecystectomy, splenectomy Additional surgical history: Mastectomy with lymph node removal, partial pancreas removal, right shoulder reverse replacement - Social History Smoking Status: Former smoker Smokeless Tobacco Status: No Alcohol use: rarely Drug use: none - Family History Father Family Member Ethnicity: Living Status: Hx Family Cardiac Disorders: No Hx Family Respiratory Disorders: No Hx Family Cancer: Yes Hx Family GI Disorders: No Hx Family Endocrine Disorder: Yes (diabetic) Hx Family Neuromuscular Disorders: No Hx Family Neurologic Disorders: No Hx Family HEENT Disorders: No Hx Family Autoimmune Disorders: No Mother Family Member Ethnicity: Living Status: Hx Family Cardiac Disorders: Yes (CHF) Hx Family Respiratory Disorders: Yes (COPD) Medications and Allergies Allopurinol [Zyloprim 100 MG] 100 mg PO QAM 09/06/17 [History] Gabapentin [Neurontin] 600 mg PO TID 09/06/17 [History] Cinnamon Bark [Cinnamon] 1,000 mg PO BID 04/09/18 [History] Docusate Sodium [Dok] 200 mg PO BID 04/09/18 [History] Oxycodone HCl/Acetaminophen [Percocet 5-325 mg Tablet] 1 tab PO Q8H PRN 04/09/18 [History] Acetaminophen [Tylenol Arthritis] 1,300 mg PO Q12H PRN 12/01/18 [History] Guaifenesin [Mucinex] 600 mg PO Q12H PRN 12/01/18 [History] Inulin/Chromium Picolinate [Fiber Gummies] 4 tab PO DAILY PRN 12/01/18 [History] Ipratropium/Albuterol Neb [Duoneb] 3 ml IH Q4H PRN 12/01/18 [History] Lactulose [Enulose] 10 gm PO DAILY PRN 12/01/18 [History] Melatonin [Melatin] 6 mg PO HS 12/01/18 [History] Polyethylene Glycol 3350 [MiraLAX] 17 gm PO 0900 12/01/18 [History] Insulin LISPRO [HumaLOG] 4 - 16 units SQ 1100,2100 12/21/18 [History] Insulin Lispro Protamin/Lispro [Humalog Mix 75-25 Kwikpen] 28 - 33 unit SQ 1700 12/21/18 [History] Insulin Lispro Protamin/Lispro [Humalog Mix 75-25 Kwikpen] 33 - 37 unit SQ 0800 12/21/18 [History] LORazepam [Ativan] 1 mg PO Q8HR PRN 12/21/18 [History] Ramipril [Altace] 10 mg PO BID 12/21/18 [History] Trazodone HCl 100 mg PO HS 12/21/18 [History] Triamcinolone Acetonide 1 appl TP DAILY 12/21/18 [History] Amoxicillin/Clavulanate [Augmentin] 875 mg PO BIDWM 7 Days #14 tablet 12/25/18 [Rx] Furosemide [Lasix] 20 mg PO Q48H 30 Days #30 tablet 12/25/18 [Rx] Miconazole 2% cream [Lacey Antifungal] 1 appl TP BID 14 Days #1 tube 12/25/18 [Rx] levoFLOXacin [Levaquin] 750 mg PO DAILY 7 Days #7 tablet 12/25/18 [Rx] Allergy/AdvReac Type Severity Reaction Status Date / Time No Known Allergies Allergy Verified 12/21/18 15:07 Review of Systems ROS unobtainable: due to mental status Exam - Vital Signs Vital signs: Initial Vital Signs Temp Pulse Resp BP Pulse Ox 99.0 F 91 24 73/44 96 12/21/18 07:19 12/21/18 07:19 12/21/18 07:19 12/21/18 07:19 12/21/18 07:19 Vital Signs - Last 8 Hours Temp Pulse Resp BP Pulse Ox 12/22/18 16:00 81 15 124/68 96 12/22/18 15:10 97.6 F 12/22/18 15:00 85 15 115/69 98 12/22/18 14:00 73 12 104/61 98 12/22/18 13:00 83 18 115/75 98 12/22/18 12:00 80 18 125/70 97 12/22/18 11:58 97.7 F 12/22/18 11:00 74 12 95/57 98 12/22/18 10:00 87 12 148/77 97 Intake and Output 12/22/18 12/22/18 12/22/18 07:59 15:59 23:59 Intake Total 2237 / 2937 700 / 2937 Output Total 50 / 4000 3950 / 4000 Balance 2187 / -1063 -3250 / -1063 Intake: IV Fluids 2237 / 2937 700 / 2937 0.45% Sodium Chloride 1,000 ML 1750 / 1750 @ 500 mls/hr IVC .Q2H YO Rx#: [id number] 0.9 % Sodium Chloride 1,000 ML 200 / 800 600 / 800 @ 75 mls/hr IVC .[id number] YO Rx #:[id number] Levophed 4 MG In Dextrose 5% 33 / 33 250 ML @ 8 MCG/MIN 30.48 mls/hr IVC CONT YO Rx#:[id number] Calcium Gluconate 1gm/50mL 1 gm 50 / 50 In 50 ml @ 50 mls/hr IVPB Q6HR PRN Rx#:[id number] Magnesium Sulfate 2 GM In 0.9 % 104 / 104 Sodium Chloride 100 ML @ 52 mls/hr IVPB Q6H PRN Rx#: [id number] Zosyn 3.375 GM In 0.9 % Sodium 100 / 200 100 / 200 Chloride (Mini-Bag +) 100 ML @ 25 mls/hr IVPB Q8HR YO Rx#: [id number] Output: Catheter 50 / 4000 3950 / 4000 Other: Meal Breakfast Percent of Meal Consumed 80% Weight 160 kg Blood Glucose* 158 Patient Weight 12/22/18 23:59 Weight 160 kg - General Appearance General appearance: well-developed, well-nourished, fatigue EENT: ATNC, mucous membranes dry Neck: no JVD, supple Additional Comments: good areation ant bilat Cardiology: edema (LE bilat), normal S1, normal S2 Gastrointestinal: no tenderness, no guarding Integumentary: warm and dry Neurologic: confused, disoriented Musculoskeletal: no deformities Additional Comments: mostly nonresponsive Results - Lab Results 12/25/18 07:38 12/25/18 07:38 Consult Discharge Plan - Plan Referrals: Michael Amador MD [Partnered Physician] - 01/01/19 1:10 pm (Please follow up as schedule..) Delfin Kaminski MD [Primary Care Provider] - ([facility]) Fidencio Ferro MD [Partnered Physician] - (Web Request 12/25/2018) Prescriptions: Amoxicillin/Clavulanate [Augmentin] 875 mg PO BIDWM 7 Days #14 tablet Miconazole 2% cream [Lacey Antifungal] 1 appl TP BID 14 Days #1 tube Furosemide [Lasix] 20 mg PO Q48H 30 Days #30 tablet levoFLOXacin [Levaquin] 750 mg PO DAILY 7 Days #7 tablet
[2018-12-22] MEDS: Melatonin 3 MG TABLET PO SCH (21:09)
[2018-12-23] MEDS: Piperacillin/Tazobactam 3.375 GM in 0.9 % Sodium Chloride Mini Bag 100 ML IVPB SCH ×3 (00:33→15:52)
[2018-12-23 04:41] LABS: Basophils # 0.1 K/mcL (0.0-0.2); Eosinophils # 0.5 K/mcL (0.0-0.6); Eosinophils % 6.2 %; Hematocrit 35.3 % (35.3-44.9); Hemoglobin 10.7 g/dL (11.5-15.4); Immature Granulocytes % 1.1 % (0-4); Lymphocytes # 1.6 K/mcL (0.6-4.6); Lymphocytes % 19.9 %; Mean Corpuscular HGB Conc 30.3 g/dL (31.6-35.5); Mean Corpuscular Hemoglobin 25.4 pg (28.0-33.3); Mean Corpuscular Volume 83.8 fL (83.0-100.0); Mean Platelet Volume 8.9 fL (9.4-12.4); Monocytes # 0.6 K/mcL (0.0-1.3); Monocytes % 7.7 %; Neutrophils # 5.1 K/mcL (1.6-8.9); Nucleated Red Blood Cells 0.2 /100 WBC (0); Platelet Count 353 K/mcL (140-400); Red Blood Count 4.21 M/mcL (3.82-4.97); Red Cell Distribution Width 17.4 % (11.5-14.5); Segmented Neutrophils % 64.1 %
[2018-12-23 04:55] LABS: Albumin 2.6 g/dL (3.5-5.7); Albumin/Globulin Ratio 0.9 (1.1-2.2); Bilirubin,Direct 0.4 mg/dL (0.0-0.2); Bilirubin,Indirect 0.3 mg/dL (0.0-1.2); Bilirubin,Total 0.7 mg/dL (0.3-1.0); Total Protein 5.6 g/dL (6.4-8.9)
[2018-12-23 04:57] LABS: BUN/Creatinine Ratio 39 (6-26); Blood Urea Nitrogen 22 mg/dL (8-23); Calcium 8.6 mg/dL (8.6-10.3); Carbon Dioxide 33 mEq/L (23-29); Chloride 86 mEq/L (98-107); Glucose 140 mg/dL (70-105); Magnesium 1.9 mg/dL (1.6-2.6); Osmolality,Calculated 268 (280-300); Phosphorous 2.8 mg/dL (2.7-4.5); Potassium 3.8 mEq/L (3.5-5.1); Sodium 126 mEq/L (136-145); eGFR For African Americans > 60 (> 60); eGFR For Non-African Americans > 60 (> 60)
[2018-12-23] MEDS: Potassium Chloride 40 MEQ/200 ML BAG IVPB PRN ×2 (05:22→06:26)
[2018-12-23] MEDS: *HR* Heparin 5,000 UNIT/ML VIAL SQ SCH ×2 (05:24→18:02)
[2018-12-23] MEDS: Insulin LISPRO 300 UNITS/3 ML VIAL SQ SCH ×3 (07:58→18:02)
[2018-12-23] MEDS: Gabapentin 300 MG CAPSULE PO SCH ×2 (08:24→15:52)
[2018-12-23] MEDS: Nystatin POWDER 30 GM BOTTLE TP SCH (08:24)
--- NOTE | 2018-12-23 08:58 | Pulmonology Progress Note ---
<RavindraDuarte W - Last Filed: 12/23/18 10:23> Date of Encounter: 12/23/18 Objective PUL Vital signs: Last Vital Signs Temp 98.4 F 12/23/18 08:23 Pulse 94 12/23/18 08:00 Resp 16 12/23/18 08:00 BP 138/76 12/23/18 08:00 Pulse Ox 95 12/23/18 08:00 Results - Laboratory Findings CBC and BMP: 12/23/18 04:22 12/23/18 08:45 PT/INR, D-dimer PT 12.7 Seconds (9.4-12.1) H 12/21/18 09:25 Abnormal lab findings: Abnormal lab results WBC 11.3 K/mcL (4.3-11.1) H 12/22/18 03:25 Hgb 10.7 g/dL (11.5-15.4) L 12/23/18 04:22 Hct 32.3 % (35.3-44.9) L 12/22/18 03:25 MCV 82.2 fL (83.0-100.0) L 12/22/18 03:25 MCH 25.4 pg (28.0-33.3) L 12/23/18 04:22 MCHC 30.3 g/dL (31.6-35.5) L 12/23/18 04:22 RDW 17.4 % (11.5-14.5) H 12/23/18 04:22 MPV 8.9 fL (9.4-12.4) L 12/23/18 04:22 Eosinophils # 0.7 K/mcL (0.0-0.6) H 12/22/18 03:25 Nucleated RBCs/100 WBC 0.2 /100 WBC (0) H 12/23/18 04:22 PT 12.7 Seconds (9.4-12.1) H 12/21/18 09:25 APTT 24.0 Seconds (26.0-36.0) L 12/21/18 09:25 Sodium 126 mEq/L (136-145) L 12/23/18 04:22 Potassium 5.3 mEq/L (3.5-5.1) H 12/21/18 07:08 Chloride 86 mEq/L (98-107) L 12/23/18 04:22 Carbon Dioxide 33 mEq/L (23-29) H 12/23/18 04:22 BUN 30 mg/dL (8-23) H 12/22/18 03:25 Creatinine 0.57 mg/dL (0.60-1.20) L 12/23/18 04:22 Est GFR (Non-Af Amer) 51 (> 60) L 12/21/18 07:08 BUN/Creatinine Ratio 39 (6-26) H 12/23/18 04:22 Glucose 140 mg/dL (70-105) H 12/23/18 04:22 POC Glucose 171 mg/dL (70-99) H 12/22/18 19:24 Calculated Osmolality 268 (280-300) L 12/23/18 04:22 Calcium 8.0 mg/dL (8.6-10.3) L 12/22/18 03:25 Venous Ioniz Calcium 1.10 mmol/L (1.15-1.35) L 12/23/18 04:35 Total Bilirubin 1.8 mg/dL (0.3-1.0) H 12/21/18 07:08 Direct Bilirubin 0.4 mg/dL (0.0-0.2) H 12/23/18 04:22 AST 48 Units/L (13-39) H 12/23/18 04:22 ALT 65 Units/L (7-52) H 12/23/18 04:22 Alkaline Phosphatase 316 Units/L (34-104) H 12/23/18 04:22 Troponin I 0.05 ng/mL (< 0.04) H* 12/21/18 07:08 Serum Total Protein 5.6 g/dL (6.4-8.9) L 12/23/18 04:22 Albumin 2.6 g/dL (3.5-5.7) L 12/23/18 04:22 Albumin/Globulin Ratio 0.9 (1.1-2.2) L 12/23/18 04:22 Procalcitonin 0.43 ng/mL (0.00-0.15) H 12/21/18 16:23 Urine Color [place] (Yellow) A 12/21/18 08:00 Urine Clarity Turbid (Clear) A 12/21/18 08:00 Urine Blood Small (Negative) H 12/21/18 08:00 Urine Bilirubin Moderate (Negative) H 12/21/18 08:00 Urine Urobilinogen 2.0 mg/dL (Normal) H 12/21/18 08:00 Ur Leukocyte Esterase Large (Negative) H 12/21/18 08:00 Urine Microscopic WBC TNTC per hpf (0-3) H 12/21/18 08:00 Ur Squamous Epith Cells Many per lpf (None-Few) H 12/21/18 08:00 Ur Culture Indicated? YES (NO) A 12/21/18 08:00 Staphylococcus sp PCR DETECTED (Not Detect) A 12/21/18 07:05 mecA-Methicil Res Gene DETECTED (Not Detect) A 12/21/18 07:05 - Microbiology Findings Microbiology Findings: Microbiology, Last 48 Hours 12/21/18 08:00 Urine Culture - Preliminary Urine,Clean Catch Pseudomonas aeruginosa 12/21/18 07:05 Blood Culture - Preliminary Peripheral Venipuncture Gram Positive Cocci 12/21/18 07:08 Blood Culture - Preliminary Peripheral Venipuncture Culture is incubating and being continuously monitored for growth. Final report to follow. - Clinical Findings Intake & Output: Intake & Output 12/22/18 12/23/18 12/23/18 23:59 07:59 15:59 Intake Total 1100 / 4037 350 / 350 Output Total 2325 / 6325 175 / 500 325 / 500 Balance -1225 / -2288 175 / -150 -325 / -150 Weight 116.1 kg Consult Discharge Plan - Plan Referrals: Delfin Kaminski MD [Primary Care Provider] - - Attending Attestation I examined this patient and my medical decision-making was reviewed with the Resident Physician. I agree with the documented findings, disposition and treatment plan as described except to the extent set forth below. We independently had [id number] contact with the patient Patient seen and examined at bedside Labs, radiology, chart personally reviewed. Management was reviewed during multidisciplinary critical care rounds. [employer]IC: Metabolic Encephalopathy is improving no foca deficits Pulm:Acceptable oxygenation Cards: brief period of hypotension requiring vasopressor overnight now resolved. goal net + fluid status GI: Liver lesion with CMD stone GI consult Nutrition: NPO for now Renal: UOP Monitored, Cont to Trend sCr and monitor Electrolytes. ID: Treating for UTI with plan to deescalate Heme/Onc:?Metastatic Lesion will need oncology f/u Endo: Glucose Monitored Integ/MSK: Skin Care per routine ICU Nursing Protocol to prevent ulcers. Ortho consult for splint/fracture mngt of right leg. Lines: All lines examined without evidence of infection : Dispo: stable for Step down. CODE: Full. <Sendy Mendez - Last Filed: 12/23/18 18:27> Date of Encounter: 12/23/18 Time of Encounter: 08:56 Assessment and Plan (1) Hyponatremia Current Visit: Yes Status: Acute Ms. Smith presented to the ED with confusion and sodium level of 111 This morning sodium level 126 At her most recent admission she sodium was 128 At presentation appeared to be hypovolemia Urine sodium 16 and urine osmolality is slightly elevated at 307, appears to be mixed picture Received 2 L of normal saline the ED, corrected to 118 She is awake and alert and oriented to self only -Currently sodium 126, frequent sodium checks stopped -Nephrology consulted appreciate any recommendations -We will continue 50 mLs/hr normal saline (2) Sepsis Current Visit: No Status: Acute At presentation was hypotensive and appeared to be volume depleted Blood pressure this morning low, requiring levophed Levophed stopped earlier this afternoon Likely secondary to cellulitis versus UTI versus pneumonia Initial WBC and lactic acid within normal limits WBC of 11.3 on 12/22/18 and this morning 8.0 Blood serology shows Staphylococcus species but not staph aureus with mecA gene, likely contaminant Urine culture does show pseudomonas aeruginosa's, pansensitive Chest x-ray on 12/21/18 possible for pneumonia versus CHF exacerbation MRSA nasal swab positive We will continue vancomycin and Zosyn, day 3 500 mL of 5% albumin ordered Qualifiers: Sepsis type: sepsis due to unspecified organism Qualified Code(s): A41.9 - Sepsis, unspecified organism (3) Elevated LFTs Current Visit: Yes Status: Acute Presented to the ED with elevated LFTs At presentation on 12/13/18 AST 299, ALT 143, alkaline phosphatase 635 This morning AST 48, ALT [address] of the abdomen and pelvis shows lesions within the liver Additionally CT shows 8mm suspected stone in common bile duct MR abdomen shows 1 cm stone in common bile duct -GI consulted, recommending no intervention at this time -Repeat LFTs in the morning -Will have a family meeting due to findings of liver lesions (4) Common bile duct stone Current Visit: Yes Status: Acute History of cholecystectomy CT of the abdomen and pelvis on 12/21/18 shows 8 mm suspected stone in common bile duct -MRCP shows 1 cm common bile duct stone -Continue to monitor LFTs -Gastroenterology consulted (5) Cellulitis Current Visit: Yes Status: Suspected Has area of skin breakdown in the groin Additionally has skin breakdown posterior right thigh under the splint Wound Care consulted -Continue vancomycin and Zosyn -Orthopedic surgery consulted on 12/22/18 as the patient's family is concerned about skin breakdown under the splint. Family demanding orthopedic surgery consult for splint replacement. Spoke with Dr. Delcid who stated he will speak with Dr. Ni. -On 12/23/18 spoke with Betzaida Bee NP for orthopedic surgery who will come to evaluate this patient Wound care evaluated the patient this afternoon and made recommendations Continue to treat with antibiotic and wound care Qualifiers: Site of cellulitis: trunk Site of cellulitis of trunk: groin Qualified Code(s): L03.314 - Cellulitis of groin (6) Diabetes mellitus Current Visit: Yes Status: Chronic History of diabetes We will continue sliding scale insulin Continue to monitor [id number] glucose check Qualifiers: Diabetes mellitus type: type 2 Diabetes mellitus skilled nursing insulin use: with skilled nursing use Diabetes mellitus complication status: with other specified complication Qualified Code(s): E11.69 - Type 2 diabetes mellitus with other specified complication; 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.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 (7) UTI (urinary tract infection) Current Visit: Yes Status: Suspected Urinalysis showed large leukocyte esterase, many white blood cell count and orange coloration Was recently treated 2 weeks ago for a UTI Urinalysis showing pseudomonas aeruginosa -Continue Zosyn day 3 Qualifiers: Urinary tract infection type: catheter-associated UTI Indwelling urinary catheter type: indwelling urethral catheter Encounter type: initial encounter Qualified Code(s): T83.511A - Infection and inflammatory reaction due to indwelling urethral catheter, initial encounter; N39.0 - Urinary tract infection, site not specified (8) Hepatic lesion Current Visit: Yes Status: Acute Noted to have hepatic lesion CT of the abdomen shows a 8.29.2 cm low-attenuation left hepatic lobe Additionally has 2 cm lytic lesion in proximal clavicle There is concern for metastatic processes given previous history of breast cancer Family meeting planned today but family not available (9) COPD (chronic obstructive pulmonary disease) Current Visit: No Status: Chronic Not in acute exacerbation Oxygen saturation 96% on 2 L No cough or sputum production at this time Continue home DuoNeb Qualifiers: COPD type: unspecified COPD Qualified Code(s): J44.9 - Chronic obstructive pulmonary disease, unspecified (10) Congestive heart failure Current Visit: No Status: Chronic Echo on 12/03/18 shows EF of 55% with diastolic dysfunction, moderate dilated left atrium We will continue to monitor volume status Does not appear to be hypervolemic at this time Qualifiers: Heart failure type: diastolic Heart failure chronicity: chronic Qualified Code(s): I50.32 - Chronic diastolic (congestive) heart failure (11) DVT prophylaxis Current Visit: Yes Status: Acute Subcutaneous heparin Subjective Interval history: Ms. Smith was seen at bedside this morning. Her vitals were reviewed and overnight and she remained afebrile and normotensive. Blood pressure this morning 138/76. She is awake alert oriented to person and place place. He reports she did not feel wall but not able to explain specifically. Denies any fever, chills, shortness of breath, chest pain or abdominal pain. Objective PUL Vital signs: Last Vital Signs Temp 98.4 F 12/23/18 08:23 Pulse 94 12/23/18 08:00 Resp 16 12/23/18 08:00 BP 138/76 12/23/18 08:00 Pulse Ox 95 12/23/18 08:00 General appearance: no acute distress Eyes: nonicteric ENT: oropharynx dry Auscultation: bilateral: clear Cardiovascular: regular rate and rhythm Gastrointestinal: normoactive bowel sounds, soft, non-tender Integumentary: rash (Left lower leg) Extremities: no cyanosis, edema (Trace pitting edema bilateral lower extremity), other (Right leg in a splint) non-focal exam, pupils equal and round mood appropriate, affect normal Results - Laboratory Findings CBC and BMP: 12/23/18 04:22 12/23/18 08:45 PT/INR, D-dimer PT 12.7 Seconds (9.4-12.1) H 12/21/18 09:25 Abnormal lab findings: Abnormal lab results WBC 11.3 K/mcL (4.3-11.1) H 12/22/18 03:25 Hgb 10.7 g/dL (11.5-15.4) L 12/23/18 04:22 Hct 32.3 % (35.3-44.9) L 12/22/18 03:25 MCV 82.2 fL (83.0-100.0) L 12/22/18 03:25 MCH 25.4 pg (28.0-33.3) L 12/23/18 04:22 MCHC 30.3 g/dL (31.6-35.5) L 12/23/18 04:22 RDW 17.4 % (11.5-14.5) H 12/23/18 04:22 MPV 8.9 fL (9.4-12.4) L 12/23/18 04:22 Eosinophils # 0.7 K/mcL (0.0-0.6) H 12/22/18 03:25 Nucleated RBCs/100 WBC 0.2 /100 WBC (0) H 12/23/18 04:22 PT 12.7 Seconds (9.4-12.1) H 12/21/18 09:25 APTT 24.0 Seconds (26.0-36.0) L 12/21/18 09:25 Sodium 126 mEq/L (136-145) L 12/23/18 04:22 Potassium 5.3 mEq/L (3.5-5.1) H 12/21/18 07:08 Chloride 86 mEq/L (98-107) L 12/23/18 04:22 Carbon Dioxide 33 mEq/L (23-29) H 12/23/18 04:22 BUN 30 mg/dL (8-23) H 12/22/18 03:25 Creatinine 0.57 mg/dL (0.60-1.20) L 12/23/18 04:22 Est GFR (Non-Af Amer) 51 (> 60) L 12/21/18 07:08 BUN/Creatinine Ratio 39 (6-26) H 12/23/18 04:22 Glucose 140 mg/dL (70-105) H 12/23/18 04:22 POC Glucose 171 mg/dL (70-99) H 12/22/18 19:24 Calculated Osmolality 268 (280-300) L 12/23/18 04:22 Calcium 8.0 mg/dL (8.6-10.3) L 12/22/18 03:25 Venous Ioniz Calcium 1.10 mmol/L (1.15-1.35) L 12/23/18 04:35 Total Bilirubin 1.8 mg/dL (0.3-1.0) H 12/21/18 07:08 Direct Bilirubin 0.4 mg/dL (0.0-0.2) H 12/23/18 04:22 AST 48 Units/L (13-39) H 12/23/18 04:22 ALT 65 Units/L (7-52) H 12/23/18 04:22 Alkaline Phosphatase 316 Units/L (34-104) H 12/23/18 04:22 Troponin I 0.05 ng/mL (< 0.04) H* 12/21/18 07:08 Serum Total Protein 5.6 g/dL (6.4-8.9) L 12/23/18 04:22 Albumin 2.6 g/dL (3.5-5.7) L 12/23/18 04:22 Albumin/Globulin Ratio 0.9 (1.1-2.2) L 12/23/18 04:22 Procalcitonin 0.43 ng/mL (0.00-0.15) H 12/21/18 16:23 Urine Color [place] (Yellow) A 12/21/18 08:00 Urine Clarity Turbid (Clear) A 12/21/18 08:00 Urine Blood Small (Negative) H 12/21/18 08:00 Urine Bilirubin Moderate (Negative) H 12/21/18 08:00 Urine Urobilinogen 2.0 mg/dL (Normal) H 12/21/18 08:00 Ur Leukocyte Esterase Large (Negative) H 12/21/18 08:00 Urine Microscopic WBC TNTC per hpf (0-3) H 12/21/18 08:00 Ur Squamous Epith Cells Many per lpf (None-Few) H 12/21/18 08:00 Ur Culture Indicated? YES (NO) A 12/21/18 08:00 Staphylococcus sp PCR DETECTED (Not Detect) A 12/21/18 07:05 mecA-Methicil Res Gene DETECTED (Not Detect) A 12/21/18 07:05 - Microbiology Findings Microbiology Findings: Microbiology, Last 48 Hours 12/21/18 08:00 Urine Culture - Preliminary Urine,Clean Catch Pseudomonas aeruginosa 12/21/18 07:05 Blood Culture - Preliminary Peripheral Venipuncture Gram Positive Cocci 12/21/18 07:08 Blood Culture - Preliminary Peripheral Venipuncture Culture is incubating and being continuously monitored for growth. Final report to follow. - Clinical Findings Intake & Output: Intake & Output 12/22/18 12/23/18 12/23/18 23:59 07:59 15:59 Intake Total 1100 / 4037 350 / 350 Output Total 2325 / 6325 175 / 500 325 / 500 Balance -1225 / -2288 175 / -150 -325 / -150 Weight 116.1 kg
[2018-12-23 09:45] LABS: BUN/Creatinine Ratio 41 (6-26); Blood Urea Nitrogen 20 mg/dL (8-23); Calcium 8.7 mg/dL (8.6-10.3); Carbon Dioxide 31 mEq/L (23-29); Chloride 87 mEq/L (98-107); Glucose 153 mg/dL (70-105); Magnesium 2.4 mg/dL (1.6-2.6); Osmolality,Calculated 268 (280-300); Phosphorous 3.7 mg/dL (2.7-4.5); Sodium 126 mEq/L (136-145); eGFR For African Americans > 60 (> 60); eGFR For Non-African Americans > 60 (> 60)
[2018-12-23 10:07] LABS: Vancomycin,Trough 11 mcg/mL (5-10)
--- NOTE | 2018-12-23 10:53 | Gastroenterology Consult Note ---
Date of Encounter: 12/23/18 Time of Encounter: 10:53 - Assessment and plan (1) Common bile duct stone Current Visit: Yes Status: Acute Assessment and plan: Patient presented with altered mental status and hypotension secondary to sepsis tertiary to cellulitis and UTI Labs incidentally identified elevated liver enzymes and imaging incidentally identified choledocholithiasis Abdominal MRI further demonstrated a 1 cm distal common bile duct calculus, as well as a liver mass 8 x 10 cm hypointense area of the left lobe of the liver identified on abdominal MRI Transaminases have significantly improved since admission, most recently AST 48, ALT 65, alkaline phosphatase 316 She is not currently experiencing any gastrointestinal symptoms such as abdominal pain, nausea, vomiting She is also not experiencing any overt consequences of liver failure such as thrombocytopenia, encephalopathy, hypocoagulable state Elevated liver enzymes likely secondary to choledocholithiasis, differential such as cirrhosis and liver shock are considered less likely I did discuss with her that gastroenterology was consulted to evaluate her chol edocholithiasis I also informed her that a procedure called ERCP is sometimes required to remove these stones She was not especially enthusiastic about this, we decided we would discuss further with Dr. Doan and she will confer with her family In terms of the liver lesion it was not present on her previous imaging one month ago, this is concerning for possible metastases Given the poor clinical condition of the patient currently including sepsis and hyponatremia surgical intervention must be carefully considered Given clinical condition will unlikely proceed with ERCP today or tomorrow, her LFTs are improving Recommend further clinical improvement prior to surgical intervention for choledocholithiasis or liver mass We will continue to follow labs and clinical condition, further recommendations per Dr. Doan (2) Liver mass, left lobe Current Visit: Yes Status: Acute (3) Elevated LFTs Current Visit: Yes Status: Acute - Time Spent With Patient Total time spent is greater than 50% in coordination of care (as documented) at patient's floor/unit and/or counseling patient: GI History of Present Illness - Data of Consult Patient: new to practice Consult date: 12/23/18 Requesting Physician: Tatum Trejo MD - Consult Narrative Reason for consult: choledocholithiasis History of present illness: Ms. Smith is a 73 year old female with a past medical history of CHF, COPD, diabetes, hypertension, breast cancer status post left mastectomy who presented to the emergency department from her assisted for the chief complaint of altered mental status and hypotension. She currently resides in the assisted secondary to a fall and fracture of her right proximal tibia for which she was hospitalized here earlier this month. On admission she was diagnosed with sepsis secondary to cellulitis and UTI, as well as hyponatremia. She was started on broad-spectrum antibiotics and admitted to the ICU, nephrology was consulted. Workup involving labs and imaging demonstrated no acute abnormalities on CT head, possible edema/infection of lungs on CT chest, 8 centimeter by 9 cm lesion in the liver concerning for metastasis on CT abdomen, 1 cm stone in common bile duct on CT abdomen, and 2 large ventral hernias on CT abdomen. Labs were also significant for transaminitis, she does not have a history of liver disease. Gastroenterology was consultation for choledocholithiasis and transaminitis. Surgical history consists of a operation on the tail of her pancreas for unknown pathology, that resulted in incidental removal of spleen and gallbladder. 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 On my evaluation family is not present, however the patient is alert and oriented to person place and time and does appear to have capacity for medical decision-making. I informed her of her CT findings inc luding liver mass and choledocholithiasis of which she was aware. I informed her that an ERCP is a procedure that is sometimes required for this condition. She stated she is not especially interested in having that done but that she was open to further discussion. She denied any previous liver issues, denies any abdominal pain or nausea or vomiting, reports constipation. She denies any current acute complaints and states she feels relatively well. She denies any previous IV drug abuse or excessive alcohol use, denies any tattoos. Past Med Surg Social Fam HX - Past Medical History Medical history: cancer, CHF, COPD, diabetes, hypertension Additional medical history: lymphedema. Psychiatric history: anxiety - Past Surgical History Surgical History: non-contributory, breast surgery, cholecystectomy, splenectomy Additional surgical history: Mastectomy with lymph node removal, partial pancreas removal, right shoulder reverse replacement - Social History Smoking Status: Former smoker Smokeless Tobacco Status: No Alcohol use: rarely Drug use: none - Family History Father Family Member Ethnicity: Living Status: Hx Family Cardiac Disorders: No Hx Family Respiratory Disorders: No Hx Family Cancer: Yes Hx Family GI Disorders: No Hx Family Endocrine Disorder: Yes (diabetic) Hx Family Neuromuscular Disorders: No Hx Family Neurologic Disorders: No Hx Family HEENT Disorders: No Hx Family Autoimmune Disorders: No Mother Family Member Ethnicity: Living Status: Hx Family Cardiac Disorders: Yes (CHF) Hx Family Respiratory Disorders: Yes (COPD) - Constitutional Vitals: Temp Pulse Resp BP Pulse Ox 98.4 F 91 16 138/76 95 12/23/18 08:23 12/23/18 08:00 12/23/18 08:00 12/23/18 08:00 12/23/18 08:00 General appearance: Present: A&O X 3, no acute distress (Flat affect) - Eye Eye exam: Present: EOMI (Left lateral deviation days of left eye at rest however extraocular movements are intact), PERRL, sclera anicteric - GI/Abdominal GI/Abdominal exam: Present: normal bowel sounds, soft. Absent: distended, firm, guarding, hepatomegaly, pulsatile mass, rebound, rigid, tenderness, no peritoneal signs Additional comments: There is a superior midline ventral postsurgical scar present, well-healed. The abdomen is soft and nontender diffusely, no organomegaly palpated, normal bowel sounds present. - Expanded GI/Abdominal Exam GI/Abdominal exam expanded: Absent: ascites - Extremities Exam Extremities exam: Present: radial pulses palpable and symmetrical - Skin Skin exam: Present: dry, warm Additional comments: No jaundice Results - Labs CBC & Chem 7: 12/23/18 04:22 12/23/18 08:45 Labs: Last Result 12/23/18 12/23/18 04:22 08:45 Calcium 8.6 8.7 Entire Visit 12/23/18 12/23/18 04:22 04:22 Hgb 10.7 L Hct 35.3 Total Bilirubin 0.7 AST 48 H ALT 65 H - ABG ABG results: PT/INR, D-dimer PT 12.7 Seconds (9.4-12.1) H 12/21/18 09:25 - Impressions Impressions Abdomen MRI 12/22/18 16:22 IMPRESSION: 1. Choledocholithiasis. There is 1 cm distal common bile duct calculus. 2. Incompletely assessed ill-defined mildly T2 hypointense lesion which is also T1 hypointense but better visualized on T1 measuring about 8 x 10 cm. This may be further evaluated with contrast-enhanced CT or MRI liver mass protocol exam. 3. Redemonstration of large epigastric wide neck hernia. The findings were sent to the Radiology Results [facility] at 10:17 pm on 12/22/2018to be communicated to a licensed caregiver. D/ / Uriah Lord MD / Uriah Lord MD Interpreting Provider: Uriah Lord MD Consult Discharge Plan - Plan Referrals: Delfin Kaminski MD [Primary Care Provider] -
[2018-12-23] MEDS ORDERED: Acetaminophen 325 MG TABLET PO PRN (14:46)
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
[2018-12-23] MEDS ORDERED: Insulin LISPRO 300 UNITS/3 ML VIAL SQ SCH (18:10)
[2018-12-23] MEDS: 0.9 % Sodium Chloride 1,000 ML IVC SCH ×2 (18:12→21:55)
[2018-12-23] MEDS ORDERED: Dextrose Gel 15 GM/37.5 ML TUBE PO PRN ×2 (18:59)
[2018-12-23] MEDS ORDERED: Naloxone 0.4 MG/ML INJ IVP PRN (18:59)
[2018-12-23] MEDS ORDERED: Lactulose Oral Soln 20 GM/30 ML UDC PO PRN (18:59)
[2018-12-23] MEDS ORDERED: traMADol 50 MG TABLET PO PRN (18:59)
[2018-12-23] MEDS ORDERED: D5% in Water 1,000 ML IVC PRN (18:59)
[2018-12-23] MEDS ORDERED: Ipratropium/Albuterol Neb 3 ML IH PRN (18:59)
[2018-12-23] MEDS ORDERED: *HR* Dextrose 50 % in Water (Syg) 50 ML SYRINGE IVP PRN (18:59)
[2018-12-23] MEDS ORDERED: *HR* LORazepam 1 MG TABLET PO PRN (18:59)
[2018-12-23] MEDS: Melatonin 3 MG TABLET PO SCH (21:57)
[2018-12-23] MEDS: traZODone 50 MG TABLET PO SCH (21:57)
--- NOTE | 2018-12-23 23:59 | Nephrology Progress Note ---
Date of Encounter: 12/23/18 Time of Encounter: 12:00 - Assessment and Plan (1) Hyponatremia Current Visit: Yes Status: Acute Sodium continues to improve slowly at 126 Ok to resume NS today, discussed with primary team (2) Common bile duct stone Current Visit: Yes Status: Acute GI consulted (3) Sepsis Current Visit: Yes Status: Acute Abx per primary team Qualifiers: Sepsis type: sepsis due to unspecified organism Qualified Code(s): A41.9 - Sepsis, unspecified organism (4) UTI (urinary tract infection) Current Visit: Yes Status: Suspected Per primary team Qualifiers: Urinary tract infection type: catheter-associated UTI Indwelling urinary catheter type: indwelling urethral catheter Encounter type: initial encounter Qualified Code(s): T83.511A - Infection and inflammatory reaction due to indwelling urethral catheter, initial encounter; N39.0 - Urinary tract infection , site not specified Subjective Interval history: Pt seen and examined much more awake with no new complaints except she wants water while NPO Objective - Vital Signs Vital signs: Vital Signs Temp Pulse Resp BP Pulse Ox 12/23/18 20:14 97.9 F 113 17 130/88 92 12/23/18 18:00 96 16 118/66 98 12/23/18 17:00 97 17 129/67 97 12/23/18 16:38 98.5 F 12/23/18 16:00 97 17 114/56 99 12/23/18 15:00 83 17 88/51 98 12/23/18 14:00 83 17 95/53 98 12/23/18 13:00 84 17 80/47 96 12/23/18 12:00 87 16 109/61 94 12/23/18 11:00 86 16 125/69 96 12/23/18 10:00 82 16 113/51 96 12/23/18 09:00 93 16 110/60 95 12/23/18 08:23 98.4 F 12/23/18 08:00 91 16 138/76 95 12/23/18 07:00 93 14 139/76 95 12/23/18 06:00 93 15 87/49 95 12/23/18 05:00 93 14 117/66 94 12/23/18 04:27 98.2 F 12/23/18 04:22 80 12/23/18 04:00 84 16 102/59 95 12/23/18 03:00 106/58 12/23/18 02:00 94 17 86/53 94 12/23/18 01:00 86 18 85/53 94 12/23/18 00:45 91 96/58 12/23/18 00:30 87 85/50 12/23/18 00:15 90 86/50 12/23/18 00:00 89 17 68/51 93 Intake and Output 12/23/18 12/23/18 12/23/18 07:59 15:59 23:59 Intake Total 350 / 2374 160 / 2374 1864 / 2374 Output Total 175 / 1650 725 / 1650 750 / 1650 Balance 175 / 724 -565 / 724 1114 / 724 Intake: IV Fluids 350 / 2374 160 / 2374 1864 / 2374 0.9 % Sodium Chloride 1,000 ML 1000 / 1000 @ 50 mls/hr IVC .Q20H YO Rx#: [id number] ALBURX 5% 12.5 gm In 250 ml @ 250 / 250 60 mls/hr IVC .Q4H10M YO Rx#: [id number] Levophed 4 MG In Dextrose 5% 50 / 110 60 / 110 250 ML @ 8 MCG/MIN 30.48 mls/hr IVC CONT YO Rx#:[id number] Magnesium Sulfate 2 GM In 0.9 % 104 / 104 Sodium Chloride 100 ML @ 52 mls/hr IVPB Q6H PRN Rx#: [id number] Zosyn 3.375 GM In 0.9 % Sodium 100 / 200 100 / 200 Chloride (Mini-Bag +) 100 ML @ 25 mls/hr IVPB Q8HR YO Rx#: [id number] Potassium Chloride 20 mEq/100 200 / 200 mL 40 meq In 200 ml @ 100 mls/ hr IVPB Q1H PRN Rx#:[id number] Potassium Phosphate 44 MEQ In 0 260 / 260 .9 % Sodium Chloride 250 ML @ 40 mls/hr IVPB Q10H PRN Rx#: [id number] Vancocin 1,500 MG In 0.9 % 250 / 250 Sodium Chloride 250 ML @ 166.67 mls/hr IVPB Q24H YO Rx#: [id number] Output: Catheter 175 / 1650 725 / 1650 750 / 1650 Other: Blood Glucose* 151 176 - General Appearance General appearance: Present: chronically ill (NAD) EENT: Present: ATNC, mucous membranes dry Neck: Present: no JVD, supple Additional Comments: good areation ant bilat Cardiology: Present: edema (LE bilat, RLE with brace), normal S1, normal S2 Gastrointestinal: Present: no tenderness, no guarding, obese Integumentary: Present: warm and dry Neurologic: Present: no focal deficit Musculoskeletal: Present: no deformities Psychiatric: Present: mood/affect appropriate, cooperative - Lab 12/23/18 04:22 12/23/18 08:45 Consult Discharge Plan - Plan Referrals: Delfin Kaminski MD [Primary Care Provider] -
[2018-12-24] MEDS: Piperacillin/Tazobactam 3.375 GM in 0.9 % Sodium Chloride Mini Bag 100 ML IVPB SCH ×3 (00:29→15:01)
[2018-12-24] MEDS: Nystatin POWDER 30 GM BOTTLE TP SCH ×3 (00:32→20:59)
[2018-12-24] MEDS: *HR* Heparin 5,000 UNIT/ML VIAL SQ SCH ×2 (05:22→16:39)
[2018-12-24] MEDS: Gabapentin 300 MG CAPSULE PO SCH ×4 (05:22→20:58)
--- NOTE | 2018-12-24 08:42 | Internal Med Progress Note ---
Hospitalist Progress Note - Encounter Date of Encounter: 12/24/18 Time of Encounter: 09:00 - Subjective Interval History: Transferred out of the ICU overnight - Exam Vitals: Temp Pulse Resp BP Pulse Ox 97.7 F 95 18 136/84 97 12/24/18 07:03 12/24/18 07:03 12/24/18 07:03 12/24/18 07:03 12/24/18 07:03 Exam: General appearance: no acute distress Eyes: nonicteric ENT: oropharynx dry Auscultation: bilateral: clear Cardiovascular: regular rate and rhythm Gastrointestinal: normoactive bowel sounds, soft, non-tender Integumentary: rash (Left lower leg) Extremities: no cyanosis, edema (Trace pitting edema bilateral lower extremity), other (Right leg in a splint) non-focal exam, pupils equal and round mood appropriate, affect normal - Assessment and Plan (1) Septic shock Current Visit: Yes Status: Acute Assessment and Plan: Pt came in with severe sepsis which progressed to septic shock with hypotension requiring levophed secondary to pseudomonas and enterococcus UTI Improving. Continue vanc and zosyn (2) Hyponatremia Current Visit: Yes Status: Acute Assessment and Plan: Came in with confusion and sodium level of 111 on admission. Improving gradually on normal saline Nephrology on board. continue on normal saline at 50cc/hr (3) Elevated LFTs Current Visit: Yes Status: Acute Assessment and Plan: Pt has elevated LFTs with common bile duct stone and hypointense lesion on left lobe of liver GI following. Pt not clinically stable for surgical intervention such as cholecystectomy or liver biopsy at this time (4) Hepatic lesion Current Visit: Yes Status: Acute Assessment and Plan: See plan for transaminitis (5) Morbid obesity with BMI of 70 and over, adult Current Visit: Yes Status: Acute Assessment and Plan: Diet and exercise (6) Congestive heart failure Current Visit: Yes Status: Chronic Assessment and Plan: Stable. No acute decompensation (7) Cellulitis Current Visit: Yes Status: Acute Assessment and Plan: groin cellulitis. Continue antibiotics (8) Insulin dependent diabetes mellitus Current Visit: No Status: Chronic Assessment and Plan: Continue insulin and monitor fingersticks (9) DVT prophylaxis Current Visit: Yes Status: Acute Assessment and Plan: Heparin sc - Time Spent with Patient Total time spent is greater than 50% in coordination of care (as documented) at patient's floor/unit and/or counseling patient: Internal Medicine: Result - Labs CBC & Chem 7: 12/24/18 14:02 12/24/18 14:02 Labs: BMP 12/23/18 08:45 Sodium 126 L Potassium 5.0 D Chloride 87 L Carbon Dioxide 31 H BUN 20 Creatinine 0.49 L Glucose 153 H Calcium 8.7 - ABG Interpretation ABG results: PT/INR, D-dimer PT 12.7 Seconds (9.4-12.1) H 12/21/18 09:25 - Impressions Impressions Tibia/Fibula X-Ray 12/23/18 14:58 IMPRESSION: Stable comminuted fracture proximal tibia D/ / Wicho Birmingham MD / Wicho Birmingham MD Interpreting Provider: Wicho Birmingham MD Consult Discharge Plan - Plan Referrals: Delfin Kaminski MD [Primary Care Provider] - (6) Congestive heart failure Qualifiers: Heart failure type: diastolic Heart failure chronicity: chronic Qualified Code(s): I50.32 - Chronic diastolic (congestive) heart failure (7) Cellulitis Qualifiers: Site of cellulitis: trunk Site of cellulitis of trunk: groin Qualified Code(s): L03.314 - Cellulitis of groin
[2018-12-24] MEDS: Insulin LISPRO 300 UNITS/3 ML VIAL SQ SCH ×3 (08:55→16:39)
--- NOTE | 2018-12-24 09:30 | Gastroenterology Progress Note ---
Date of Encounter: 12/24/18 Time of Encounter: 09:30 - Assessment and plan (1) Common bile duct stone Current Visit: Yes Status: Acute Assessment and plan: Patient presented with altered mental status and hypotension secondary to sepsis tertiary to cellulitis and UTI Labs incidentally identified elevated liver enzymes and imaging incidentally identified choledocholithiasis Abdominal MRI further demonstrated a 1 cm distal common bile duct calculus, as well as a liver mass 8 x 10 cm hypointense area of the left lobe of the liver identified on abdominal MRI Transaminases have significantly improved since admission, most recently AST 48, ALT 65, alkaline phosphatase 316 She is not currently experiencing any gastrointestinal symptoms such as abdominal pain, nausea, vomiting, and is tolerating by mouth intake She is also not experiencing any overt consequences of liver failure such as thrombocytopenia, encephalopathy, hypocoagulable state Elevated liver enzymes likely secondary to choledocholithiasis, differential such as cirrhosis and liver shock are considered less likely I did discuss with her that gastroenterology was consulted to evaluate her choledocholithiasis I also informed her that a procedure called ERCP is sometimes required to remove these stones In terms of the liver lesion it was not present on her previous imaging one month ago, this is concerning for possible metastases Given the poor clinical condition of the patient currently including sepsis and hyponatremia surgical intervention must be carefully considered Recommend further clinical improvement prior to surgical intervention for choled ocholithiasis or liver mass We will continue to follow labs and clinical condition, further recommendations per Dr. Doan (2) Liver mass, left lobe Current Visit: Yes Status: Acute (3) Elevated LFTs Current Visit: Yes Status: Acute - Time Spent With Patient Total time spent is greater than 50% in coordination of care (as documented) at patient's floor/unit and/or counseling patient: - Subjective Interval history: No acute complaints this morning, tolerating by mouth intake well, denies abd ominal pain. I explained to her that her liver function tests are improving and that while she is septic and hyponatremic we are unlikely to proceed with immediate intervention regarding choledocholithiasis and liver mass, and that we will wait for clinical condition to improve before intervening. She stated she understood and agreed with the plan and care. - Constitutional Vitals: Temp Pulse Resp BP Pulse Ox 97.7 F 95 18 136/84 97 12/24/18 07:03 12/24/18 07:03 12/24/18 07:03 12/24/18 07:03 12/24/18 07:03 General appearance: Present: A&O X 3, no acute distress (Flat affect) - Eye Eye exam: Present: EOMI, sclera anicteric Additional comments: Left lateral deviation days of left eye at rest however extraocular movements are intact - Respiratory Respiratory exam: Present: CTAB - Cardiovascular Cardiovascular exam: Present: RRR - GI/Abdominal GI/Abdominal exam: Present: normal bowel sounds, soft. Absent: firm, rigid, tenderness, no peritoneal signs Additional comments: There is a superior midline ventral postsurgical scar present, well-healed. The abdomen is soft and nontender diffusely, no organomegaly palpated, normal bowel sounds present. - Extremities Exam Extremities exam: Present: radial pulses palpable and symmetrical Results - Labs CBC & Chem 7: 12/24/18 14:02 12/24/18 14:02 - ABG ABG results: PT/INR, D-dimer PT 12.7 Seconds (9.4-12.1) H 12/21/18 09:25 - Impressions Impressions Tibia/Fibula X-Ray 12/23/18 14:58 IMPRESSION: Stable comminuted fracture proximal tibia D/ / Wicho Birmingham MD / Wicho Birmingham MD Interpreting Provider: Wicho Birmingham MD Consult Discharge Plan - Plan Referrals: Delfin Kaminski MD [Primary Care Provider] -
[2018-12-24 14:24] LABS: Basophils % 0.7 %; Eosinophils # 0.2 K/mcL (0.0-0.6); Eosinophils % 2.9 %; Hematocrit 32.6 % (35.3-44.9); Hemoglobin 9.9 g/dL (11.5-15.4); Immature Granulocytes % 0.5 % (0-4); Lymphocytes # 2.3 K/mcL (0.6-4.6); Lymphocytes % 37.2 %; Mean Corpuscular HGB Conc 30.4 g/dL (31.6-35.5); Mean Corpuscular Hemoglobin 25.8 pg (28.0-33.3); Mean Corpuscular Volume 84.9 fL (83.0-100.0); Mean Platelet Volume 9.1 fL (9.4-12.4); Monocytes # 0.4 K/mcL (0.0-1.3); Monocytes % 6.5 %; Neutrophils # 3.2 K/mcL (1.6-8.9); Platelet Count 328 K/mcL (140-400); Red Blood Count 3.84 M/mcL (3.82-4.97); Segmented Neutrophils % 52.2 %; White Blood Count 6.1 K/mcL (4.3-11.1)
[2018-12-24 14:35] LABS: Alanine Aminotransferase 36 Units/L (7-52); Albumin 2.8 g/dL (3.5-5.7); Alkaline Phosphatase 251 Units/L (34-104); Aspartate Amino Transferase 24 Units/L (13-39); BUN/Creatinine Ratio 31 (6-26); Bilirubin,Total 0.6 mg/dL (0.3-1.0); Blood Urea Nitrogen 11 mg/dL (8-23); Calcium 8.5 mg/dL (8.6-10.3); Carbon Dioxide 33 mEq/L (23-29); Chloride 92 mEq/L (98-107); Globulin 2.7 g/dL (2.4-3.5); Glucose 191 mg/dL (70-105); Osmolality,Calculated 269 (280-300); Potassium 4.5 mEq/L (3.5-5.1); Sodium 127 mEq/L (136-145); Total Protein 5.5 g/dL (6.4-8.9); eGFR For African Americans > 60 (> 60); eGFR For Non-African Americans > 60 (> 60)
--- NOTE | 2018-12-24 16:54 | Nephrology Progress Note ---
Date of Encounter: 12/24/18 - Assessment and Plan (1) Hyponatremia Current Visit: Yes Status: Acute (2) Common bile duct stone Current Visit: Yes Status: Acute (3) Sepsis Current Visit: Yes Status: Acute Qualifiers: Qualified Code(s): A41.9 - Sepsis, unspecified organism (4) UTI (urinary tract infection) Current Visit: Yes Status: Suspected Qualifiers: Qualified Code(s): T83.511A - Infection and inflammatory reaction due to indwelling urethral catheter, initial encounter; N39.0 - Urinary tract infection, site not specified Subjective Interval history: Pt seen and examined much more awake with no new complaints except she wants water while NPO Objective - Vital Signs Vital signs: Vital Signs Temp Pulse Resp BP Pulse Ox 12/24/18 15:34 97.9 F 99 18 109/74 97 12/24/18 11:00 98.3 F 94 19 118/76 96 12/24/18 07:03 97.7 F 95 18 136/84 97 12/24/18 04:29 97.6 F 87 17 119/76 98 12/24/18 01:12 97.6 F 86 17 112/71 97 12/23/18 20:14 97.9 F 113 17 130/88 92 12/23/18 18:00 96 16 118/66 98 12/23/18 17:00 97 17 129/67 97 Intake and Output 12/24/18 12/24/18 12/24/18 07:59 15:59 23:59 Intake Total 100 / 560 460 / 560 Output Total 500 / 1400 900 / 1400 Balance -400 / -840 -440 / -840 Intake: IV Fluids 100 / 200 100 / 200 Zosyn 3.375 GM In 0.9 % Sodium 100 / 200 100 / 200 Chloride (Mini-Bag +) 100 ML @ 25 mls/hr IVPB Q8HR [facility] Rx#: [id number] Oral 360 / 360 Output: Catheter 500 / 1400 900 / 1400 Other: Meal Lunch Percent of Meal Consumed 55% Weight 200.2 kg Blood Glucose* 143 195 Patient Weight 12/24/18 23:59 Weight 200.2 kg - Lab 12/24/18 14:02 12/24/18 14:02 Most recent lab results 12/24/18 14:02 Calcium 8.5 L Consult Discharge Plan - Plan Referrals: Delfin Kaminski MD [Primary Care Provider] -
--- NOTE | 2018-12-24 17:15 | Orthopedics Progress Note ---
Date of Encounter: 12/24/18 Time of Encounter: 12:30 - Assessment and Plan (1) Tibia fracture Current Visit: Yes Status: Acute Qualifiers: Encounter type: subsequent encounter Tibia location: proximal Fracture type: closed Fracture morphology: unspecified fracture morphology Laterality: right Fracture healing: with routine healing Qualified Code(s): S82.101D - Unspecified fracture of upper end of right tibia, subsequent encounter for closed fracture with routine healing (2) Pressure sore on heel Current Visit: Yes Status: Acute Qualifiers: Pressure injury stage: unspecified pressure injury stage Laterality: right Qualified Code(s): L89.619 - Pressure ulcer of right heel, unspecified stage (3) Sore on leg Current Visit: Yes Status: Acute Subjective Principal diagnosis: right tib fracture Interval history: Patient seen at bedside 2A. No family at bedside. A&Ox person Bulky soft splint intact - appears unchanged from yesterday's application. Sores to right thigh appear mildly improved after cleansings. Barraza boot not noted to be in room. Patient is noted to be on pressure relieving mattress. No calf tenderness, erythema, or warmth. Toe and ankle motion intact with sensation intact to baseline. Labwork, vitals, and medications reviewed. Pain control: Adequate All questions and concerns addressed. Addressed: Patient course and disposition discussed with Dr. Ni As patient is also presenting for other medical issues and is nearly non- ambulatory, again no surgical intervention is recommended at this time. Continue nonweightbearing to the RLE At this point, secondary to skin breakdown and infection concerns it is ill-adv ised to continue to apply posterior splint. As feared at last visit, patient has developed skin breakdown and therefore soft bulky splint is recommended. 12/23: Cast padding applied in cylinder fashion with added bulk to posterior knee and secured with EL bandages. Recommend thigh wound washing with STERILE gauze and water and pat dry again with STERILE gauze twice daily Leave bulky splint in place to RLE. Barraza boots for pressure relief to right heel No knee motion to RLE Would recommend outpatient follow up with orthopedics, however, in the past patient and daughter stated desire to avoid transport from facility and declined to follow up on outpatient basis. As this has been the case, will continue to recommend monitoring of the fracture every 2 weeks with repeat xrays to verify no change in fracture alignment for appx 6 weeks from date of fracture or until radiographic evidence of healing. Splint recommended to be changed every 3 days for hygiene with cast padding carefully applied so as not overlapping sores or compressing leg too tightly with EL wraps applied only for security of bulky splint - NOT for compression. Skin breakdown is still a concern even with this soft bulky splint as applied therefore frequent skin checks at contact points are advised. Patient's body habitus is not amenable to bracing therefore the above soft, bulky splint is recommended. Nonweightbearing with no knee motion to the RLE for 6 - 8 weeks until radiographic evidence of fracture healing. Again, it is recommended patient have orthopedic oversight for evidence of fracture healing with recommendations re: restrictions, however, as previously stated with past evaluation patient and patient's daughter were adamantly stating they do not wish to transport from facility once she returns. At present, while patient is inpatient Ortho will work on splint replacement/adjustment and fracture management. We will be happy to continue to work with patient and her daughter regarding arrangement of outpatient follow up should they so desire. Strongly recommended reevaluation of wound care for patient's thigh ulcerations and right heel eschar. Please reach out with any questions or concerns regarding this patient's orthopedic care. Objective Vital signs: Vital Signs Temp Pulse Resp BP Pulse Ox 12/24/18 15:34 97.9 F 99 18 109/74 97 12/24/18 11:00 98.3 F 94 19 118/76 96 12/24/18 07:03 97.7 F 95 18 136/84 97 12/24/18 04:29 97.6 F 87 17 119/76 98 12/24/18 01:12 97.6 F 86 17 112/71 97 12/23/18 20:14 97.9 F 113 17 130/88 92 12/23/18 18:00 96 16 118/66 98 Intake and Output 12/24/18 12/24/18 12/24/18 07:59 15:59 23:59 Intake Total 100 / 560 460 / 560 Output Total 500 / 1400 900 / 1400 Balance -400 / -840 -440 / -840 Intake: IV Fluids 100 / 200 100 / 200 Zosyn 3.375 GM In 0.9 % Sodium 100 / 200 100 / 200 Chloride (Mini-Bag +) 100 ML @ 25 mls/hr IVPB Q8HR [facility] Rx#: [id number] Oral 360 / 360 Output: Catheter 500 / 1400 900 / 1400 Other: Meal Lunch Percent of Meal Consumed 55% Weight 200.2 kg Blood Glucose* 143 195 Patient Weight 12/24/18 23:59 Weight 200.2 kg - Labs CBC & BMP: 12/24/18 14:02 12/24/18 14:02 Labs: Abnormal lab results WBC 11.3 K/mcL (4.3-11.1) H 12/22/18 03:25 Hgb 9.9 g/dL (11.5-15.4) L 12/24/18 14:02 Hct 32.6 % (35.3-44.9) L 12/24/18 14:02 MCV 82.2 fL (83.0-100.0) L 12/22/18 03:25 MCH 25.8 pg (28.0-33.3) L 12/24/18 14:02 MCHC 30.4 g/dL (31.6-35.5) L 12/24/18 14:02 RDW 18.0 % (11.5-14.5) H 12/24/18 14:02 MPV 9.1 fL (9.4-12.4) L 12/24/18 14:02 Eosinophils # 0.7 K/mcL (0.0-0.6) H 12/22/18 03:25 Nucleated RBCs/100 WBC 0.2 /100 WBC (0) H 12/23/18 04:22 PT 12.7 Seconds (9.4-12.1) H 12/21/18 09:25 APTT 24.0 Seconds (26.0-36.0) L 12/21/18 09:25 Sodium 127 mEq/L (136-145) L 12/24/18 14:02 Potassium 5.3 mEq/L (3.5-5.1) H 12/21/18 07:08 Chloride 92 mEq/L (98-107) L 12/24/18 14:02 Carbon Dioxide 33 mEq/L (23-29) H 12/24/18 14:02 BUN 30 mg/dL (8-23) H 12/22/18 03:25 Creatinine 0.35 mg/dL (0.60-1.20) L 12/24/18 14:02 Est GFR (Non-Af Amer) 51 (> 60) L 12/21/18 07:08 BUN/Creatinine Ratio 31 (6-26) H 12/24/18 14:02 Glucose 191 mg/dL (70-105) H 12/24/18 14:02 POC Glucose 176 mg/dL (70-99) H 12/23/18 20:16 Calculated Osmolality 269 (280-300) L 12/24/18 14:02 Calcium 8.5 mg/dL (8.6-10.3) L 12/24/18 14:02 Venous Ioniz Calcium 1.10 mmol/L (1.15-1.35) L 12/23/18 04:35 Total Bilirubin 1.8 mg/dL (0.3-1.0) H 12/21/18 07:08 Direct Bilirubin 0.4 mg/dL (0.0-0.2) H 12/23/18 04:22 AST 48 Units/L (13-39) H 12/23/18 04:22 ALT 65 Units/L (7-52) H 12/23/18 04:22 Alkaline Phosphatase 251 Units/L (34-104) H 12/24/18 14:02 Troponin I 0.05 ng/mL (< 0.04) H* 12/21/18 07:08 Serum Total Protein 5.5 g/dL (6.4-8.9) L 12/24/18 14:02 Albumin 2.8 g/dL (3.5-5.7) L 12/24/18 14:02 Albumin/Globulin Ratio 1.0 (1.1-2.2) L 12/24/18 14:02 Procalcitonin 0.43 ng/mL (0.00-0.15) H 12/21/18 16:23 Urine Color Hamb[place] (Yellow) A 12/21/18 08:00 Urine Clarity Turbid (Clear) A 12/21/18 08:00 Urine Blood Small (Negative) H 12/21/18 08:00 Urine Bilirubin Moderate (Negative) H 12/21/18 08:00 Urine Urobilinogen 2.0 mg/dL (Normal) H 12/21/18 08:00 Ur Leukocyte Esterase Large (Negative) H 12/21/18 08:00 Urine Microscopic WBC TNTC per hpf (0-3) H 12/21/18 08:00 Ur Squamous Epith Cells Many per lpf (None-Few) H 12/21/18 08:00 Ur Culture Indicated? YES (NO) A 12/21/18 08:00 Nasal Screen MRSA (PCR) DETECTED (Not Detect) A 12/22/18 18:35 Vancomycin Trough 11 mcg/mL (5-10) H 12/23/18 08:45 Staphylococcus sp PCR DETECTED (Not Detect) A 12/21/18 07:05 mecA-Methicil Res Gene DETECTED (Not Detect) A 12/21/18 07:05 Consult Discharge Plan - Plan Referrals: Delfin Kaminski MD [Primary Care Provider] -
[2018-12-24] MEDS: traZODone 50 MG TABLET PO SCH (20:58)
[2018-12-24] MEDS: Melatonin 3 MG TABLET PO SCH (20:58)
[2018-12-24] MEDS: 0.9 % Sodium Chloride 1,000 ML IVC SCH (20:59)
[2018-12-25] MEDS: Piperacillin/Tazobactam 3.375 GM in 0.9 % Sodium Chloride Mini Bag 100 ML IVPB SCH ×2 (00:56→08:22)
[2018-12-25] MEDS: *HR* Heparin 5,000 UNIT/ML VIAL SQ SCH (06:12)
--- NOTE | 2018-12-25 07:30 | Internal Med Progress Note ---
Hospitalist Progress Note - Encounter Date of Encounter: 12/25/18 Time of Encounter: 07:30 - Exam Vitals: Temp Pulse Resp BP Pulse Ox 98.2 F 100 16 106/68 96 12/25/18 06:36 12/25/18 06:36 12/25/18 06:36 12/25/18 06:36 12/25/18 06:36 Exam: General appearance: no acute distress Eyes: nonicteric ENT: oropharynx dry Auscultation: bilateral: clear Cardiovascular: regular rate and rhythm Gastrointestinal: normoactive bowel sounds, soft, non-tender Integumentary: rash (Left lower leg) Extremities: no cyanosis, edema (Trace pitting edema bilateral lower extremity), other (Right leg in a splint) non-focal exam, pupils equal and round mood appropriate, affect normal - Assessment and Plan (1) Septic shock Current Visit: Yes Status: Acute Assessment and Plan: Pt came in with severe sepsis which progressed to septic shock with hypotension requiring levophed secondary to pseudomonas and enterococcus UTI Improving. Continue vanc and zosyn (2) Hyponatremia Current Visit: Yes Status: Acute Assessment and Plan: Came in with confusion and sodium level of 111 on admission. Improving gradually on normal saline Nephrology on board. continue on normal saline at 50cc/hr (3) Elevated LFTs Current Visit: Yes Status: Acute Assessment and Plan: Pt has elevated LFTs with common bile duct stone and hypointense lesion on left lobe of liver GI following. Pt not clinically stable for surgical intervention such as cholecystectomy or liver biopsy at this time (4) Hepatic lesion Current Visit: Yes Status: Acute Assessment and Plan: See plan for transaminitis (5) Morbid obesity with BMI of 70 and over, adult Current Visit: Yes Status: Acute Assessment and Plan: Diet and exercise (6) Congestive heart failure Current Visit: Yes Status: Chronic Assessment and Plan: Stable. No acute decompensation (7) Cellulitis Current Visit: Yes Status: Acute Assessment and Plan: groin cellulitis. Continue antibiotics (8) Insulin dependent diabetes mellitus Current Visit: No Status: Chronic Assessment and Plan: Continue insulin and monitor fingersticks (9) DVT prophylaxis Current Visit: Yes Status: Acute Assessment and Plan: Heparin sc - Time Spent with Patient Total time spent is greater than 50% in coordination of care (as documented) at patient's floor/unit and/or counseling patient: Internal Medicine: Result - Labs CBC & Chem 7: 12/24/18 14:02 12/24/18 14:02 Labs: Short CBC 12/24/18 Range/Units 14:02 WBC 6.1 (4.3-11.1) K/mcL Hgb 9.9 L (11.5-15.4) g/dL Hct 32.6 L (35.3-44.9) % Plt Count 328 (140-400) K/mcL Neutrophils # 3.2 (1.6-8.9) K/mcL BMP 12/24/18 14:02 Sodium 127 L Potassium 4.5 Chloride 92 L Carbon Dioxide 33 H BUN 11 Creatinine 0.35 L Glucose 191 H Calcium 8.5 L Liver Function 12/24/18 Range/Units 14:02 Total Bilirubin 0.6 (0.3-1.0) mg/dL AST 24 (13-39) Units/L ALT 36 (7-52) Units/L Alkaline Phosphatase 251 H (34-104) Units/L Albumin 2.8 L (3.5-5.7) g/dL - ABG Interpretation ABG results: PT/INR, D-dimer PT 12.7 Seconds (9.4-12.1) H 12/21/18 09:25 Consult Discharge Plan - Plan Referrals: Delfin Kaminski MD [Primary Care Provider] - (6) Congestive heart failure Qualifiers: Heart failure type: diastolic Heart failure chronicity: chronic Qualified Code(s): I50.32 - Chronic diastolic (congestive) heart failure (7) Cellulitis Qualifiers: Site of cellulitis: trunk Site of cellulitis of trunk: groin Qualified Code(s): L03.314 - Cellulitis of groin
[2018-12-25 08:03] LABS: Basophils # 0.1 K/mcL (0.0-0.2); Basophils % 0.9 %; Eosinophils # 0.3 K/mcL (0.0-0.6); Eosinophils % 4.4 %; Hematocrit 33.9 % (35.3-44.9); Hemoglobin 10.2 g/dL (11.5-15.4); Immature Granulocytes % 1.3 % (0-4); Lymphocytes # 2.3 K/mcL (0.6-4.6); Mean Corpuscular HGB Conc 30.1 g/dL (31.6-35.5); Mean Corpuscular Hemoglobin 25.5 pg (28.0-33.3); Mean Corpuscular Volume 84.8 fL (83.0-100.0); Mean Platelet Volume 8.9 fL (9.4-12.4); Monocytes # 0.6 K/mcL (0.0-1.3); Monocytes % 8.8 %; Neutrophils # 3.1 K/mcL (1.6-8.9); Platelet Count 329 K/mcL (140-400); Segmented Neutrophils % 48.6 %; White Blood Count 6.4 K/mcL (4.3-11.1)
[2018-12-25] MEDS: Gabapentin 300 MG CAPSULE PO SCH (08:21)
[2018-12-25 08:22] LABS: BUN/Creatinine Ratio 25 (6-26); Blood Urea Nitrogen 9 mg/dL (8-23); Calcium 8.8 mg/dL (8.6-10.3); Carbon Dioxide 33 mEq/L (23-29); Chloride 92 mEq/L (98-107); Glucose 171 mg/dL (70-105); Osmolality,Calculated 273 (280-300); Potassium 4.9 mEq/L (3.5-5.1); Sodium 130 mEq/L (136-145); eGFR For African Americans > 60 (> 60); eGFR For Non-African Americans > 60 (> 60)
[2018-12-25] MEDS: Nystatin POWDER 30 GM BOTTLE TP SCH (08:22)
[2018-12-25] MEDS: Insulin LISPRO 300 UNITS/3 ML VIAL SQ SCH ×2 (08:23→11:37)
--- NOTE | 2018-12-25 09:06 | Gastroenterology Progress Note ---
Date of Encounter: 12/25/18 Time of Encounter: 09:06 - Assessment and plan (1) Common bile duct stone Current Visit: Yes Status: Acute Assessment and plan: Patient presented with altered mental status and hypotension secondary to sepsis tertiary to cellulitis and UTI Labs incidentally identified elevated liver enzymes and imaging incidentally identified choledocholithiasis Abdominal MRI further demonstrated a 1 cm distal common bile duct calculus, as well as a liver mass 8 x 10 cm hypointense area of the left lobe of the liver identified on abdominal MRI Transaminases have significantly improved since admission, most recently AST 48, ALT 65, alkaline phosphatase 316 She is not currently experiencing any gastrointestinal symptoms such as abdominal pain, nausea, vomiting, and is tolerating by mouth intake She is also not experiencing any overt consequences of liver failure such as thrombocytopenia, encephalopathy, hypocoagulable state Elevated liver enzymes likely secondary to choledocholithiasis, differential such as cirrhosis and liver shock are considered less likely I did discuss with her that gastroenterology was consulted to evaluate her choledocholithiasis and liver lesion I also informed her that a procedure called ERCP is sometimes required to remove these stones, and biopsy would be necessary for the liver In terms of the liver lesion it was not present on her previous imaging one month ago, this is concerning for possible metastases Recommend further clinical improvement prior to surgical intervention for choledocholithiasis or liver mass Consider these interventions may not be required to take place inpatient, especially if inhibiting discharge Ok from GI perspective to discharge and follow-up Saturday with Dr. Mistry Further recommendations per Dr. Doan (2) Liver mass, left lobe Current Visit: Yes Status: Acute (3) Elevated LFTs Current Visit: Yes Status: Acute - Time Spent With Patient Total time spent is greater than 50% in coordination of care (as documented) at patient's floor/unit and/or counseling patient: - Subjective Interval history: Patient has no acute complaints this morning, states she wants to go home. I explained to her and her son who is present in the room that GI service was consulted regarding choledocholithiasis and liver lesion. We discussed that her clinical disposition has not been suited to any procedure to intervene on these conditions during this hospital stay. I also discussed that since her primary evaluation her symptoms and labs including liver enzymes have continued to improve. We discussed that at this point intervention on these conditions may not be required to take place during this hospitalization and that it could potentially be pursued outpatient. - Constitutional Vitals: Temp Pulse Resp BP Pulse Ox 98.2 F 100 16 106/68 96 12/25/18 06:36 12/25/18 06:36 12/25/18 06:36 12/25/18 06:36 12/25/18 06:36 General appearance: Present: A&O X 3, no acute distress (Flat affect) - Eye Eye exam: Present: EOMI, PERRL Additional comments: Baseline left lateral gaze deviation in left eye - Respiratory Respiratory exam: Present: CTAB - Cardiovascular Cardiovascular exam: Present: RRR - GI/Abdominal GI/Abdominal exam: Present: normal bowel sounds, soft, no peritoneal signs. Absent: distended, guarding, rebound, rigid, tenderness - Extremities Exam Extremities exam: Present: radial pulses palpable and symmetrical - Skin Skin exam: Present: dry, warm Results - Labs CBC & Chem 7: 12/25/18 07:38 12/25/18 07:38 Labs: Last Result 12/25/18 07:38 Calcium 8.8 Entire Visit 12/25/18 07:38 Hgb 10.2 L Hct 33.9 L - ABG ABG results: PT/INR, D-dimer PT 12.7 Seconds (9.4-12.1) H 12/21/18 09:25 Consult Discharge Plan - Plan Referrals: Delfin Kaminski MD [Primary Care Provider] - Prescriptions: Amoxicillin/Clavulanate [Augmentin] 875 mg PO BIDWM 7 Days #14 tablet Miconazole 2% cream [Lacey Antifungal] 1 appl TP BID 14 Days #1 tube Furosemide [Lasix] 20 mg PO Q48H 30 Days #30 tablet levoFLOXacin [Levaquin] 750 mg PO DAILY 7 Days #7 tablet
[2018-12-25 11:19] VITALS: BP 115/73
[2018-12-25] MEDS: 0.9 % Sodium Chloride 1,000 ML IVC SCH (11:40)
--- NOTE | 2018-12-25 12:53 | Discharge Summary ---
Orders not resulted at time of discharge: Pending orders 12/21/18 07:05 Culture,Blood [BC] Stat 12/23/18 16:22 Culture,Blood [BC] Routine Date of Encounter: 12/25/18 Time of Encounter: 11:00 - Discharge Diagnosis (1) Septic shock Priority: Primary Status: Acute Assessment and Plan: 73 year old female with PMHx of CHF, COPD, DM, HTN and breast cancer presents to the emergency department today from a long-term after it was reported that she was difficult to arouse and had low blood pressure. Patient is currently in the long-term after a fall causing her to fracture her right tibia earlier this month. Initially there was concern for septic shock as the patient was severely altered and hypotensive with blood pressures in the 80/50s. She was recently admitted earlier this month and found to have a urinary tract infection along with acute kidney injury with hyperkalemia. Basic labs and urinalysis were obtained and a central line was placed in the right IJ. Urine shows signs of infection and the patient also has severe hyponatremia. She was hyponatremic on previous admission with a low of 128 which corrected over 4 days and was wnl on 12/05. On admission her sodium was 111. Pt was given vanc and zosyn for coverage for sepsis and 2L of normal saline due to her hypotension and severe volume depletion. She was assessed with severe sepsis which progressed to septic shock with hypotension requiring levophed secondary to pseudomonas and enterococcus UTI. She improved on IV fluids, vanc and zosyn. She was discharged on a course of augmentin and levaquin based on sensitivities She was also severely hyponatremic on arrival due to dehydration. This was gradually corrected with IV fluids. She was also noted to have a tibia fracture and was seen by orthopedic surgery with no acute surgical intervention recommended. She was placed in a protective bulky splint and outpatient follow up was recommended. She has some new lesions on her liver and a 1cm bile duct stone for which GI recommended outpatient follow up. 35 minutes was spent discharging this patient (2) Hyponatremia Priority: Primary Status: Acute (3) Elevated LFTs Priority: Primary Status: Acute (4) Hepatic lesion Priority: Primary Status: Acute (5) Morbid obesity with BMI of 70 and over, adult Priority: Primary Status: Acute (6) Congestive heart failure Priority: Primary Status: Chronic Qualifiers: Heart failure type: diastolic Heart failure chronicity: chronic Qualified Code(s): I50.32 - Chronic diastolic (congestive) heart failure (7) Cellulitis Priority: Primary Status: Acute Qualifiers: Site of cellulitis: trunk Site of cellulitis of trunk: groin Qualified Code(s): L03.314 - Cellulitis of groin (8) Insulin dependent diabetes mellitus Priority: Primary Status: Chronic (9) DVT prophylaxis Priority: Primary Status: Acute Hospital course: Ms. Smith is a 73 year old female - Time Spent with Patient Total time spent providing and/or coordinating discharge services: - Discharge Medications Prescriptions: New Miconazole 2% cream [Lacey Antifungal] 1 appl TP BID 14 Days #1 tube Amoxicillin/Clavulanate [Augmentin] 875 mg PO BIDWM 7 Days #14 tablet levoFLOXacin [Levaquin] 750 mg PO DAILY 7 Days #7 tablet Furosemide [Lasix] 20 mg PO Q48H 30 Days #30 tablet Continued Gabapentin [Neurontin] 600 mg PO TID Allopurinol [Zyloprim 100 MG] 100 mg PO QAM Cinnamon Bark [Cinnamon] 1,000 mg PO BID Docusate Sodium [Dok] 200 mg PO BID Oxycodone HCl/Acetaminophen [Percocet 5-325 mg Tablet] 1 tab PO Q8H PRN PRN Reason: Pain Acetaminophen [Tylenol Arthritis] 1,300 mg PO Q12H PRN PRN Reason: ARTHRITIS PAIN Lactulose [Enulose] 10 gm PO DAILY PRN PRN Reason: Constipation Inulin/Chromium Picolinate [Fiber Gummies] 4 tab PO DAILY PRN PRN Reason: Constipation Guaifenesin [Mucinex] 600 mg PO Q12H PRN PRN Reason: Congestion Polyethylene Glycol 3350 [MiraLAX] 17 gm PO 0900 Melatonin [Melatin] 6 mg PO HS Ipratropium/Albuterol Neb [Duoneb] 3 ml IH Q4H PRN PRN Reason: Shortness Of Breath LORazepam [Ativan] 1 mg PO Q8HR PRN PRN Reason: Anxiety Insulin Lispro Protamin/Lispro [Humalog Mix 75-25 Kwikpen] 33 - 37 unit SQ 0800 Insulin Lispro Protamin/Lispro [Humalog Mix 75-25 Kwikpen] 28 - 33 unit SQ 1700 Ramipril [Altace] 10 mg PO BID Trazodone HCl 100 mg PO HS Insulin LISPRO [HumaLOG] 4 - 16 units SQ 1100,2100 Triamcinolone Acetonide 1 appl TP DAILY Discontinued Furosemide [Lasix] 80 mg PO QAM Home Medications: Allopurinol [Zyloprim 100 MG] 100 mg PO QAM 09/06/17 [History] Gabapentin [Neurontin] 600 mg PO TID 09/06/17 [History] Cinnamon Bark [Cinnamon] 1,000 mg PO BID 04/09/18 [History] Docusate Sodium [Dok] 200 mg PO BID 04/09/18 [History] Oxycodone HCl/Acetaminophen [Percocet 5-325 mg Tablet] 1 tab PO Q8H PRN 04/09/18 [History] Acetaminophen [Tylenol Arthritis] 1,300 mg PO Q12H PRN 12/01/18 [History] Guaifenesin [Mucinex] 600 mg PO Q12H PRN 12/01/18 [History] Inulin/Chromium Picolinate [Fiber Gummies] 4 tab PO DAILY PRN 12/01/18 [History] Ipratropium/Albuterol Neb [Duoneb] 3 ml IH Q4H PRN 12/01/18 [History] Lactulose [Enulose] 10 gm PO DAILY PRN 12/01/18 [History] Melatonin [Melatin] 6 mg PO HS 12/01/18 [History] Polyethylene Glycol 3350 [MiraLAX] 17 gm PO 0900 12/01/18 [History] Insulin LISPRO [HumaLOG] 4 - 16 units SQ 1100,2100 12/21/18 [History] Insulin Lispro Protamin/Lispro [Humalog Mix 75-25 Kwikpen] 28 - 33 unit SQ 1700 12/21/18 [History] Insulin Lispro Protamin/Lispro [Humalog Mix 75-25 Kwikpen] 33 - 37 unit SQ 0800 12/21/18 [History] LORazepam [Ativan] 1 mg PO Q8HR PRN 12/21/18 [History] Ramipril [Altace] 10 mg PO BID 12/21/18 [History] Trazodone HCl 100 mg PO HS 12/21/18 [History] Triamcinolone Acetonide 1 appl TP DAILY 12/21/18 [History] Amoxicillin/Clavulanate [Augmentin] 875 mg PO BIDWM 7 Days #14 tablet 12/25/18 [Rx] Furosemide [Lasix] 20 mg PO Q48H 30 Days #30 tablet 12/25/18 [Rx] Miconazole 2% cream [Lacey Antifungal] 1 appl TP BID 14 Days #1 tube 12/25/18 [Rx] levoFLOXacin [Levaquin] 750 mg PO DAILY 7 Days #7 tablet 12/25/18 [Rx] Allergies/Adverse Reactions: Allergy/AdvReac Type Severity Reaction Status Date / Time No Known Allergies Allergy Verified 12/21/18 15:07 Date of admission: 12/21/18 11:05 Primary care physician: Delfin Kaminski MD Consults: 12/21/18 12:07 Consult to Wound Care [CONS] Routine Reason for Consult: wounds on bilateral legs, pressure ulcers Call Completed: No 12/21/18 12:10 Consult to Palliative Care [CONS] Routine Comment: Consulting Provider: Palliative Care Janiya Reason for Consult: goals of care, code status, possible hospice initiation Call Completed: No 12/21/18 13:59 Consult to Nephrology [CONS] Stat Consulting Provider: Kidney Janiya/RISA/LOPEZ/JENNIFER Reason for Consult: hyponeatremia Call Completed: Yes 12/22/18 16:34 Consult to Orthopedic Surgery [CONS] Routine Consulting Provider: [facility] Reason for Consult: For new splint. Recent splint placement on 12/01/18 for right tib/fib fracture. Splint appears soiled. Call Completed: Yes 12/23/18 08:43 Consult to Gastroenterology [CONS] Routine Consulting Provider: Gastroenterology Janiya Reason for Consult: Stone in biliary stone Call Completed: Yes 12/24/18 09:36 Consult to Carpet Installer Helper [CONS] Routine Reason for SW Consult: rtn charlie 12/24/18 18:45 Consult to Physical Therapy [CONS] Routine Comment: Evaluate, develop and implement POC Reason for Consult: weakness Does patient have active BEDREST order?: No Is patient medically & hemodynamically stable?: Yes Patient assessed for mobility or mobilized this visit?: No 12/24/18 18:46 Consult to Occupational Therapy [CONS] Routine Comment: Evaluate, develop and implement POC Reason for Consult: weakness Does patient have active BEDREST order?: No Is patient medically & hemodynamically stable?: Yes Patient assessed for mobility or mobilized this visit?: No - Constitutional Vitals: Temp Pulse Resp BP Pulse Ox 97.7 F 86 17 115/73 97 12/25/18 11:17 12/25/18 11:17 12/25/18 11:17 12/25/18 11:17 12/25/18 11:17 Exam: General appearance: no acute distress Eyes: nonicteric ENT: oropharynx dry Auscultation: bilateral: clear Cardiovascular: regular rate and rhythm Gastrointestinal: normoactive bowel sounds, soft, non-tender Integumentary: rash (Left lower leg) Extremities: no cyanosis, edema (Trace pitting edema bilateral lower extremity), other (Right leg in a splint) non-focal exam, pupils equal and round mood appropriate, affect normal - Patient Status Disposition: Transfer SNF Condition: Fair - Discharge Instructions Follow Up With: Michael Amador MD [Partnered Physician] - 01/01/19 1:10 pm (Please follow up as schedule..) Delfin Kaminski MD [Primary Care Provider] - ([facility]) Fidencio Ferro MD [Partnered Physician] - (Web Request 12/25/2018)
--- NOTE | 2018-12-25 13:06 | Physician Discharge Referral ---
- Diagnosis (1) Septic shock Priority: Primary Status: Acute (2) Hyponatremia Priority: Primary Status: Acute (3) Elevated LFTs Priority: Primary Status: Acute (4) Hepatic lesion Priority: Primary Status: Acute (5) Morbid obesity with BMI of 70 and over, adult Priority: Primary Status: Acute (6) Congestive heart failure Priority: Primary Status: Chronic (7) Cellulitis Priority: Primary Status: Acute (8) Insulin dependent diabetes mellitus Priority: Primary Status: Chronic (9) DVT prophylaxis Priority: Primary Status: Acute - Transfer Medications Prescriptions: Amoxicillin/Clavulanate [Augmentin] 875 mg PO BIDWM 7 Days #14 tablet Miconazole 2% cream [Lacey Antifungal] 1 appl TP BID 14 Days #1 tube Furosemide [Lasix] 20 mg PO Q48H 30 Days #30 tablet levoFLOXacin [Levaquin] 750 mg PO DAILY 7 Days #7 tablet Home Medications: Allopurinol [Zyloprim 100 MG] 100 mg PO QAM 09/06/17 [History] Gabapentin [Neurontin] 600 mg PO TID 09/06/17 [History] Cinnamon Bark [Cinnamon] 1,000 mg PO BID 04/09/18 [History] Docusate Sodium [Dok] 200 mg PO BID 04/09/18 [History] Oxycodone HCl/Acetaminophen [Percocet 5-325 mg Tablet] 1 tab PO Q8H PRN 04/09/18 [History] Acetaminophen [Tylenol Arthritis] 1,300 mg PO Q12H PRN 12/01/18 [History] Guaifenesin [Mucinex] 600 mg PO Q12H PRN 12/01/18 [History] Inulin/Chromium Picolinate [Fiber Gummies] 4 tab PO DAILY PRN 12/01/18 [History] Ipratropium/Albuterol Neb [Duoneb] 3 ml IH Q4H PRN 12/01/18 [History] Lactulose [Enulose] 10 gm PO DAILY PRN 12/01/18 [History] Melatonin [Melatin] 6 mg PO HS 12/01/18 [History] Polyethylene Glycol 3350 [MiraLAX] 17 gm PO 0900 12/01/18 [History] Insulin LISPRO [HumaLOG] 4 - 16 units SQ 1100,2100 12/21/18 [History] Insulin Lispro Protamin/Lispro [Humalog Mix 75-25 Kwikpen] 28 - 33 unit SQ 1700 12/21/18 [History] Insulin Lispro Protamin/Lispro [Humalog Mix 75-25 Kwikpen] 33 - 37 unit SQ 0800 12/21/18 [History] LORazepam [Ativan] 1 mg PO Q8HR PRN 12/21/18 [History] Ramipril [Altace] 10 mg PO BID 12/21/18 [History] Trazodone HCl 100 mg PO HS 12/21/18 [History] Triamcinolone Acetonide 1 appl TP DAILY 12/21/18 [History] Amoxicillin/Clavulanate [Augmentin] 875 mg PO BIDWM 7 Days #14 tablet 12/25/18 [Rx] Furosemide [Lasix] 20 mg PO Q48H 30 Days #30 tablet 12/25/18 [Rx] Miconazole 2% cream [Lacey Antifungal] 1 appl TP BID 14 Days #1 tube 12/25/18 [Rx] levoFLOXacin [Levaquin] 750 mg PO DAILY 7 Days #7 tablet 12/25/18 [Rx] Allergies/Adverse Reactions: Allergy/AdvReac Type Severity Reaction Status Date / Time No Known Allergies Allergy Verified 12/21/18 15:07 - Respiratory Orders Smoking Cessation: Smoking cessation has been advised. For more information, call the [place] Tobacco Quit Line at 5-882-DYPSNOW. - Mobility Orders Ambulate - Rehabiliation Orders Rehab Orders: Evaluation for Physical Therapy - Treatments Skin tear care topically daily PRN per policy List/Other: Outpatient follow up with Gastroenterology, Orthopedic surgery and Wound care within 1-2 weeks of discharge - Diet Orders Cardiac CERTIFICATION: I certify that the transfer of the above named patient to an Extended Care Facility is necessary for the continuing treatment of the diagnosis listed. The above information is true and accurate reflection of patient's current c ondition. Confidential - Redisclosure prohibited without a patient's written consent.
== END 2018-12-25 15:48 | DRG 698 ==
LOC: EMEROOARM 06:46 → ICNU 11:05 → 2ANU 12-23 20:11
PROVIDERS: ADMIT Internal Medicine Pulmonary Disease; ATTEND Internal Medicine Pulmonary Disease